=== PATIENT | male | born 1955 | race American Indian/Alaskan Native ===

== ENCOUNTER 2018-05-15 23:19 | Inpatient (IN) | payer SELFPAY ==
[2018-05-15] MEDS ORDERED: NACL 0.9% 1000 ML 1,000 ML IV ONE (23:39)
[2018-05-16 00:14] LABS: Mean Corpuscular HGB Conc 29 % (32-34); Mean Corpuscular Volume 108 fl (84-94); Platelet Count 277 K/mm3 (140-440); Red Blood Count 3.75 M/mm3 (3.65-5.03); Red Cell Distribution Width 18.5 % (13.2-15.2)
[2018-05-16 00:15] LABS: Hematocrit 40.4 % (35.5-45.6); Hemoglobin 11.8 gm/dl (11.8-15.2)
--- NOTE | 2018-05-16 00:20 | Emergency Department Report ---
ED General Adult HPI - General Stated complaint: WEAKNESS/YAO Time Seen by Provider: 05/15/18 23:36 - History of Present Illness Initial comments: Patient is a 63-year-old past medical history of diabetes who presents with weakness and high blood sugar. History is limited due to patient's condition EMS rate that his blood sugar was just read as high. Patient just asked to small breathing and only grunting. Patient is satting well. With no suppleme ntal oxygen. - Related Data Home Medications Medication Instructions Recorded Confirmed Last Taken Humalog 6 units SQ AC 03/26/18 03/26/18 Unknown Previous Rx's Medication Instructions Recorded Last Taken Type Detemir (Nf) [Levemir (Nf)] 18 units SUB-Q QHS #1 vial 03/27/18 Unknown Rx Levothyroxine [Synthroid] 75 mcg PO DAILY@0600 #30 tablet 03/27/18 Unknown Rx Allergies Allergy/AdvReac Type Severity Reaction Status Date / Time No Known Allergies Allergy Verified 03/25/18 07:26 ED Review of Systems ROS: Stated complaint: WEAKNESS/YAO Other details as noted in HPI Comment: Unobtainable due to pts medical conditions ED Past Medical Hx - Past Medical History Hx Hypertension: Yes Hx Congestive Heart Failure: No Hx Diabetes: Yes Hx Asthma: No Hx COPD: No - Social History Smoking Status: Current Some Day Smoker - Medications Home Medications: Home Medications Medication Instructions Recorded Confirmed Last Taken Type Humalog 6 units SQ AC 03/26/18 03/26/18 Unknown History Detemir (Nf) [Levemir (Nf)] 18 units SUB-Q QHS #1 vial 03/27/18 Unknown Rx Levothyroxine [Synthroid] 75 mcg PO DAILY@0600 #30 tablet 03/27/18 Unknown Rx ED Physical Exam - General General appearance: alert, in no apparent distress - Head Head exam: Present: atraumatic, normocephalic - Eye Eye exam: Present: normal appearance - ENT ENT exam: Present: mucous membranes moist - Neck Neck exam: Present: normal inspection - Respiratory Respiratory exam: Present: other (Kussmal breathing ). Absent: respiratory distress - Cardiovascular Cardiovascular Exam: Present: regular rate, normal rhythm. Absent: systolic murmur, diastolic murmur, rubs, gallop - GI/Abdominal GI/Abdominal exam: Present: soft, normal bowel sounds - Rectal Rectal exam: Present: deferred - Extremities Exam Extremities exam: Present: normal inspection - Back Exam Back exam: Present: normal inspection - Neurological Exam Neurological exam: Present: alert - Psychiatric Psychiatric exam: Present: other (somnolent ) - Skin Skin exam: Present: dry, intact, normal color, other (cold ). Absent: warm, rash ED Course Vital Signs 05/16/18 05/16/18 05/16/18 00:08 00:47 01:47 Temperature 91.5 F L Pulse Rate 106 H 86 104 H Respiratory 20 20 20 Rate Blood Pressure 110/57 Blood Pressure 104/68 [Left] O2 Sat by Pulse 98 100 100 Oximetry 05/16/18 05/16/18 05/16/18 02:19 02:30 02:45 Temperature Pulse Rate 93 H 104 H 94 H Respiratory 17 17 17 Rate Blood Pressure 120/64 120/64 127/77 Blood Pressure [Left] O2 Sat by Pulse 100 100 100 Oximetry 05/16/18 05/16/18 05/16/18 02:47 03:00 03:16 Temperature 90.1 F L Pulse Rate 95 H 94 H Respiratory 20 14 Rate Blood Pressure 127/77 127/77 Blood Pressure [Left] O2 Sat by Pulse 100 100 Oximetry 05/16/18 05/16/18 05/16/18 03:30 03:45 04:00 Temperature Pulse Rate 105 H 98 H 127 H Respiratory 14 16 13 Rate Blood Pressure 127/77 127/76 127/76 Blood Pressure [Left] O2 Sat by Pulse 100 100 100 Oximetry ED Medical Decision Making - Lab Data Result diagrams: 05/16/18 00:05 05/16/18 01:48 Lab Results 05/15/18 05/16/18 05/16/18 Range/Units Unknown 00:03 00:05 WBC 16.0 H (4.5-11.0) K/mm3 RBC 3.75 (3.65-5.03) M/mm3 Hgb 11.8 (11.8-15.2) gm/dl Hct 40.4 (35.5-45.6) % MCV 108 H (84-94) fl MCH 32 (28-32) pg MCHC 29 L (32-34) % RDW 18.5 H (13.2-15.2) % Plt Count 277 (140-440) K/mm3 Add Manual Diff Complete Total Counted 100 Seg Neutrophils % [employer] Seg Neuts % (Manual) 90.0 H (40.0-70.0) % Band Neutrophils % 4.0 % Lymphocytes % (Manual) 1.0 L (13.4-35.0) % Reactive Lymphs % (Man) 0 % Monocytes % (Manual) 3.0 (0.0-7.3) % Eosinophils % (Manual) 0 (0.0-4.3) % Basophils % (Manual) 0 (0.0-1.8) % Metamyelocytes % 2.0 % Myelocytes % 0 % Promyelocytes % 0 % Blast Cells % 0 % Nucleated RBC % Not Reportable Seg Neutrophils # Man 14.4 H (1.8-7.7) K/mm3 Band Neutrophils # 0.6 K/mm3 Lymphocytes # (Manual) 0.2 L (1.2-5.4) K/mm3 Abs React Lymphs (Man) 0.0 K/mm3 Monocytes # (Manual) 0.5 (0.0-0.8) K/mm3 Eosinophils # (Manual) 0.0 (0.0-0.4) K/mm3 Basophils # (Manual) 0.0 (0.0-0.1) K/mm3 Metamyelocytes # 0.3 K/mm3 Myelocytes # 0.0 K/mm3 Promyelocytes # 0.0 K/mm3 Blast Cells # 0.0 K/mm3 WBC Morphology Not Reportable Hypersegmented Neuts Not Reportable Hyposegmented Neuts Not Reportable Hypogranular Neuts Not Reportable Smudge Cells Not Reportable Toxic Granulation Not Reportable Toxic Vacuolation Not Reportable Dohle Bodies Not Reportable Pelger-Huet Anomaly Not Reportable Karel Rods Not Reportable Platelet Estimate Appears normal Clumped Platelets Not Reportable Plt Clumps, EDTA Not Reportable Large Platelets Not Reportable Giant Platelets Not Reportable Platelet Satelliting Not Reportable Plt Morphology Comment Not Reportable RBC Morphology Not Reportable Dimorphic RBCs Not Reportable Polychromasia Not Reportable Hypochromasia Not Reportable Poikilocytosis 2+ Anisocytosis 2+ Microcytosis Not Reportable Macrocytosis 1+ Spherocytes Not Reportable Pappenheimer Bodies Not Reportable Sickle Cells Not Reportable Target Cells Not Reportable Tear Drop Cells Not Reportable Ovalocytes 1+ Helmet Cells Not Reportable [place] Bodies Not Reportable [place] Rings Not Reportable [place] Cells Not Reportable Bite Cells Not Reportable Crenated Cell Not Reportable Elliptocytes Few Acanthocytes (Spur) 2+ Rouleaux Not Reportable Hemoglobin C Crystals Not Reportable Schistocytes Not Reportable Malaria parasites Not Reportable Gibran Bodies Not Reportable Hem Pathologist Commnt No Sodium (137-145) mmol/L Potassium (3.6-5.0) mmol/L Chloride (98-107) mmol/L Carbon Dioxide (22-30) mmol/L Anion Gap mmol/L BUN (9-20) mg/dL Creatinine (0.8-1.5) mg/dL Estimated GFR ml/min BUN/Creatinine Ratio % Glucose (75-100) mg/dL POC Glucose 409 H (70-105) Lactic Acid (0.7-2.0) mmol/L Calcium (8.4-10.2) mg/dL Phosphorus (2.5-4.5) mg/dL Magnesium (1.7-2.3) mg/dL Total Bilirubin (0.1-1.2) mg/dL AST (5-40) units/L ALT (7-56) units/L Alkaline Phosphatase (35-129) units/L Troponin T (0.00-0.029) ng/mL Total Protein (6.3-8.2) g/dL Albumin (3.9-5) g/dL Albumin/Globulin Ratio % Urine Color Straw (Yellow) Urine Turbidity Clear (Clear) Urine pH 5.0 (5.0-7.0) Ur Specific [place] 1.012 (1.003-1.030) Urine Protein <15 mg/dl (Negative) mg/dL Urine Glucose (UA) >=500 (Negative) mg/dL Urine Ketones 80 (Negative) mg/dL Urine Blood Mod (Negative) Urine Nitrite Neg (Negative) Urine Bilirubin Neg (Negative) Urine Urobilinogen < 2.0 (<2.0) mg/dL Ur Leukocyte Esterase Neg (Negative) Urine WBC (Auto) < 1.0 (0.0-6.0) /HPF Urine RBC (Auto) < 1.0 (0.0-6.0) /HPF U Epithel Cells (Auto) 1.0 (0-13.0) /HPF 05/16/18 05/16/18 05/16/18 Range/Units 00:37 01:48 01:48 WBC (4.5-11.0) K/mm3 RBC (3.65-5.03) M/mm3 Hgb (11.8-15.2) gm/dl Hct (35.5-45.6) % MCV (84-94) fl MCH (28-32) pg MCHC (32-34) % RDW (13.2-15.2) % Plt Count (140-440) K/mm3 Add Manual Diff Total Counted Seg Neutrophils % Seg Neuts % (Manual) (40.0-70.0) % Band Neutrophils % % Lymphocytes % (Manual) (13.4-35.0) % Reactive Lymphs % (Man) % Monocytes % (Manual) (0.0-7.3) % Eosinophils % (Manual) (0.0-4.3) % Basophils % (Manual) (0.0-1.8) % Metamyelocytes % % Myelocytes % % Promyelocytes % % Blast Cells % % Nucleated RBC % Seg Neutrophils # Man (1.8-7.7) K/mm3 Band Neutrophils # K/mm3 Lymphocytes # (Manual) (1.2-5.4) K/mm3 Abs React Lymphs (Man) K/mm3 Monocytes # (Manual) (0.0-0.8) K/mm3 Eosinophils # (Manual) (0.0-0.4) K/mm3 Basophils # (Manual) (0.0-0.1) K/mm3 Metamyelocytes # K/mm3 Myelocytes # K/mm3 Promyelocytes # K/mm3 Blast Cells # K/mm3 WBC Morphology Hypersegmented Neuts Hyposegmented Neuts Hypogranular Neuts Smudge Cells Toxic Granulation Toxic Vacuolation Dohle Bodies Pelger-Huet Anomaly Karel Rods Platelet Estimate Clumped Platelets Plt Clumps, EDTA Large Platelets Giant Platelets Platelet Satelliting Plt Morphology Comment RBC Morphology Dimorphic RBCs Polychromasia Hypochromasia Poikilocytosis Anisocytosis Microcytosis Macrocytosis Spherocytes Pappenheimer Bodies Sickle Cells Target Cells Tear Drop Cells Ovalocytes Helmet Cells Mathew[place] Bodies [place] Rings Rick Cells Bite Cells Crenated Cell Elliptocytes Acanthocytes (Spur) Rouleaux Hemoglobin C Crystals Schistocytes Malaria parasites Gibran Bodies Hem Pathologist Commnt Sodium 134 L (137-145) mmol/L Potassium 5.0 (3.6-5.0) mmol/L Chloride 87.2 L (98-107) mmol/L Carbon Dioxide 3 L* (22-30) mmol/L Anion Gap 49 mmol/L BUN 18 (9-20) mg/dL Creatinine 1.1 (0.8-1.5) mg/dL Estimated GFR > 60 ml/min BUN/Creatinine Ratio 16 % Glucose 678 H* (75-100) mg/dL POC Glucose (70-105) Lactic Acid 6.60 H* (0.7-2.0) mmol/L Calcium 9.1 (8.4-10.2) mg/dL Phosphorus 5.80 H (2.5-4.5) mg/dL Magnesium 2.00 (1.7-2.3) mg/dL Total Bilirubin 0.50 (0.1-1.2) mg/dL AST 169 H (5-40) units/L ALT 46 (7-56) units/L Alkaline Phosphatase 145 H (35-129) units/L Troponin T 0.022 (0.00-0.029) ng/mL Total Protein 6.9 (6.3-8.2) g/dL Albumin 4.6 (3.9-5) g/dL Albumin/Globulin Ratio 2.0 % Urine Color (Yellow) Urine Turbidity (Clear) Urine pH (5.0-7.0) Ur Specific [place] (1.003-1.030) Urine Protein (Negative) mg/dL Urine Glucose (UA) (Negative) mg/dL Urine Ketones (Negative) mg/dL Urine Blood (Negative) Urine Nitrite (Negative) Urine Bilirubin (Negative) Urine Urobilinogen (<2.0) mg/dL Ur Leukocyte Esterase (Negative) Urine WBC (Auto) (0.0-6.0) /HPF Urine RBC (Auto) (0.0-6.0) /HPF U Epithel Cells (Auto) (0-13.0) /HPF 05/16/18 Range/Units 01:48 WBC (4.5-11.0) K/mm3 RBC (3.65-5.03) M/mm3 Hgb (11.8-15.2) gm/dl Hct (35.5-45.6) % MCV (84-94) fl MCH (28-32) pg MCHC (32-34) % RDW (13.2-15.2) % Plt Count (140-440) K/mm3 Add Manual Diff Total Counted Seg Neutrophils % Seg Neuts % (Manual) (40.0-70.0) % Band Neutrophils % % Lymphocytes % (Manual) (13.4-35.0) % Reactive Lymphs % (Man) % Monocytes % (Manual) (0.0-7.3) % Eosinophils % (Manual) (0.0-4.3) % Basophils % (Manual) (0.0-1.8) % Metamyelocytes % % Myelocytes % % Promyelocytes % % Blast Cells % % Nucleated RBC % Seg Neutrophils # Man (1.8-7.7) K/mm3 Band Neutrophils # K/mm3 Lymphocytes # (Manual) (1.2-5.4) K/mm3 Abs React Lymphs (Man) K/mm3 Monocytes # (Manual) (0.0-0.8) K/mm3 Eosinophils # (Manual) (0.0-0.4) K/mm3 Basophils # (Manual) (0.0-0.1) K/mm3 Metamyelocytes # K/mm3 Myelocytes # K/mm3 Promyelocytes # K/mm3 Blast Cells # K/mm3 WBC Morphology Hypersegmented Neuts Hyposegmented Neuts Hypogranular Neuts Smudge Cells Toxic Granulation Toxic Vacuolation Dohle Bodies Pelger-Huet Anomaly Karel Rods Platelet Estimate Clumped Platelets Plt Clumps, EDTA Large Platelets Giant Platelets Platelet Satelliting Plt Morphology Comment RBC Morphology Dimorphic RBCs Polychromasia Hypochromasia Poikilocytosis Anisocytosis Microcytosis Macrocytosis Spherocytes Pappenheimer Bodies Sickle Cells Target Cells Tear Drop Cells Ovalocytes Helmet Cells Mathe[place] Bodies [place] Rings Rick Cells Bite Cells Crenated Cell Elliptocytes Acanthocytes (Spur) Rouleaux Hemoglobin C Crystals Schistocytes Malaria parasites Gibran Bodies Hem Pathologist Commnt Sodium 134 L (137-145) mmol/L Potassium 4.9 (3.6-5.0) mmol/L Chloride 88.8 L (98-107) mmol/L Carbon Dioxide 4 L* (22-30) mmol/L Anion Gap 46 mmol/L BUN 18 (9-20) mg/dL Creatinine 1.1 (0.8-1.5) mg/dL Estimated GFR > 60 ml/min BUN/Creatinine Ratio 16 % Glucose 666 H* (75-100) mg/dL POC Glucose (70-105) Lactic Acid (0.7-2.0) mmol/L Calcium 9.0 (8.4-10.2) mg/dL Phosphorus (2.5-4.5) mg/dL Magnesium (1.7-2.3) mg/dL Total Bilirubin (0.1-1.2) mg/dL AST (5-40) units/L ALT (7-56) units/L Alkaline Phosphatase (35-129) units/L Troponin T (0.00-0.029) ng/mL Total Protein (6.3-8.2) g/dL Albumin (3.9-5) g/dL Albumin/Globulin Ratio % Urine Color (Yellow) Urine Turbidity (Clear) Urine pH (5.0-7.0) Ur Specific [place] (1.003-1.030) Urine Protein (Negative) mg/dL Urine Glucose (UA) (Negative) mg/dL Urine Ketones (Negative) mg/dL Urine Blood (Negative) Urine Nitrite (Negative) Urine Bilirubin (Negative) Urine Urobilinogen (<2.0) mg/dL Ur Leukocyte Esterase (Negative) Urine WBC (Auto) (0.0-6.0) /HPF Urine RBC (Auto) (0.0-6.0) /HPF U Epithel Cells (Auto) (0-13.0) /HPF - EKG Data -: EKG Interpreted by Ca - EKG Data 05/16/18 04:03 EKG shows normal sinus rhythm left anterior fascicular block and low voltage in the precordial leads no axis deviation no ST segment elevation - Radiology Data Radiology results: report reviewed, image reviewed Chest x-ray: Shows no acute cardiopulmonary disease - Medical Decision Making Chief medical diagnosis: Diabetic ketoacidosis Differential medical diagnosis: Hyperosmolar nonketotic state, sepsis, pneumonia, urinary tract infection I will place patient on EFREM hugger, PATIENT 30 mL per kilo bolus, IV antibiotics, insulin drip CBC BMP troponin Helm catheter and I will admit madina ent to the ICU. Discussed with Dr. Ortiz and discussed the patient's daughter and they both agree with plan Critical Care Time: Yes Critical care time in (mins) excluding proc time.: 60 Critical care attestation.: If time is entered above; I have spent that time in minutes in the direct care of this critically ill patient, excluding procedure time. Critical care time spent at the patient's bedside 30 minutes Critical care time spent talking to patient's family 10 minutes Critical care time spent reviewing laboratory tests 20 minutes ED Disposition Clinical Impression: DKA (diabetic ketoacidosis) Qualifiers: Diabetes mellitus type: type 2 Diabetes mellitus complication detail: without coma Qualified Code(s): E11.10 - Type 2 diabetes mellitus with ketoacidosis without coma Hypothermia Qualifiers: Encounter type: initial encounter Qualified Code(s): T68.XXXA - Hypothermia, initial encounter Sepsis Qualifiers: Sepsis type: sepsis due to unspecified organism Qualified Code(s): A41.9 - Sepsis, unspecified organism Disposition: OP ADMIT IP TO THIS HOSP Is pt being admited?: Yes Does the pt Need Aspirin: No Condition: Stable
[2018-05-16] MEDS ORDERED: NACL 0.9% 1000 ML IV ONE (00:23)
[2018-05-16] MEDS ORDERED: ZOSYN/NS 3.375GM/50ML 3.375 GM/50 ML BAG IV ONE (00:25)
[2018-05-16 00:52] LABS: Anisocytosis 2+; Band Neutrophils # (Manual) 0.6 K/mm3; Basophils % (Manual) 0 % (0.0-1.8); Eosinophils % (Manual) 0 % (0.0-4.3); Macrocytosis 1+; Poikilocytosis 2+; Total Cells Counted 100
[2018-05-16 00:53] LABS: Ovalocytes 1+
[2018-05-16 01:08] LABS: Alanine Aminotransferase 46 units/L (7-56); Albumin 4.6 g/dL (3.9-5); BUN/Creatinine Ratio 16; Blood Urea Nitrogen 18 mg/dL (9-20); Calcium 9.1 mg/dL (8.4-10.2); Hemolysis Index 32
[2018-05-16] MEDS ORDERED: D50W (25GM) Syringe IV PRN (01:33)
[2018-05-16 02:11] LABS: Bilirubin,Urine NEG (Negative); Blood,Urine MOD (Negative); Color,Urine Straw (Yellow); Protein,Urine <15 mg/dL mg/dL (Negative); RBC,Urine < 1.0 /HPF (0.0-6.0); Urobilinogen,Urine < 2.0 mg/dL (<2.0)
[2018-05-16 02:13] LABS: WBC,Urine < 1.0 /HPF (0.0-6.0)
--- NOTE | 2018-05-16 02:24 | XRay Report ---
FINAL REPORT PROCEDURE: XR CHEST 1V AP TECHNIQUE: Chest radiograph anteroposterior view. CPT 01263 HISTORY: cough COMPARISON: No prior studies are available for comparison. FINDINGS: Heart: Normal. Mediastinum/Vessels: Normal. Lungs/Pleural space: Normal. Bony thorax: No acute osseous abnormality. Life support devices: None. IMPRESSION: No acute cardiopulmonary abnormality.
[2018-05-16 02:33] LABS: BUN/Creatinine Ratio 16; Blood Urea Nitrogen 18 mg/dL (9-20); Hemolysis Index 16
[2018-05-16] MEDS ORDERED: SODIUM BICARBONATE IV ONE (02:57)
[2018-05-16] MEDS ORDERED: NACL 0.9% 1000 ML 1,000 ML IV SCH (03:00)
--- NOTE | 2018-05-16 03:00 | History and Physical Report ---
History of Present Illness Date of examination: 05/16/18 History of present illness: 63-year-old man with a history of diabetes, hypothyroidism was brought to the emergency room today because he seemed confused. History per daughter at bedside. Review of systems is unobtainable PAST MEDICAL HISTORY: diabetes, hypothyroidism PAST SURGICAL HISTORY: None SOCIAL HISTORY: Denies alcohol, drugs, tobacco FAMILY HISTORY: Hypertension Medications and Allergies Allergies Allergy/AdvReac Type Severity Reaction Status Date / Time No Known Allergies Allergy Verified 03/25/18 07:26 Home Medications Medication Instructions Recorded Confirmed Last Taken Type RX: Levothyroxine [Synthroid] 75 mcg PO DAILY@0600 #30 tablet 03/27/18 05/17/18 Unknown Rx Humalog 6 units SQ AC #1 vial 05/18/18 Unknown Rx RX: Detemir (Nf) [Levemir (Nf)] 18 units SUB-Q QHS #1 vial 05/18/18 Unknown Rx Active Meds: Active Medications Dextrose (D50w (25gm) Syringe) 0 ml IV PRN PRN PRN Reason: Hypoglycemia Enoxaparin Sodium (Lovenox) 30 mg SUB-Q QDAY ISAIAS Insulin Human Regular 100 (units/ Sodium Chloride) 100 mls @ 1 mls/hr IV TITR ISAIAS; Protocol Sodium Chloride (Nacl 0.9% 1000 Ml) 1,000 mls @ 150 mls/hr IV DIRECT ISAIAS Sodium Bicarbonate (Sodium Bicarbonate) 50 meq IV ONCE ONE Stop: 05/16/18 02:58 Exam - Physical Exam Narrative exam: General Apperance: The patient lying in bed, breathing comfortable HEENT: Normocephalic, atraumatic. Pupils equally round and reactive to light, EOMI, no sclericterus or JVD or thyromegaly or nodule. , no carotid bruit, mucous membranes moist, no exudate or erythema Heart: S1-S2, regular is rhythm Lungs: Clear to auscultation bilaterally, breathing comfortable Abdomen: Positive bowel sounds, soft, nontender, nondistended, no organomegaly Extremities: No edema cyanosis clubbing Skin: no rash, nodule, warm and dry Neuro: cranial nerves 2-12 intact, speech is fluent, motor/sensory intact - Constitutional Vitals: Temp Pulse Resp BP Pulse Ox 91.5 F L 106 H 20 110/57 98 05/16/18 00:08 05/16/18 00:08 05/16/18 00:08 05/16/18 00:08 05/16/18 00:08 Results - Labs CBC & Chem 7: 05/18/18 08:04 05/18/18 13:16 Labs: Abnormal lab results 05/16/18 05/16/18 05/16/18 Range/Units 00:03 00:05 00:37 WBC 16.0 H (4.5-11.0) K/mm3 MCV 108 H (84-94) fl MCHC 29 L (32-34) % RDW 18.5 H (13.2-15.2) % Seg Neuts % (Manual) 90.0 H (40.0-70.0) % Lymphocytes % (Manual) 1.0 L (13.4-35.0) % Seg Neutrophils # Man 14.4 H (1.8-7.7) K/mm3 Lymphocytes # (Manual) 0.2 L (1.2-5.4) K/mm3 Sodium 134 L (137-145) mmol/L Chloride 87.2 L (98-107) mmol/L Carbon Dioxide 3 L* (22-30) mmol/L Glucose 678 H* (75-100) mg/dL POC Glucose 409 H (70-105) Lactic Acid (0.7-2.0) mmol/L Phosphorus (2.5-4.5) mg/dL AST 169 H (5-40) units/L Alkaline Phosphatase 145 H (35-129) units/L 05/16/18 05/16/18 05/16/18 Range/Units 01:48 01:48 01:48 WBC (4.5-11.0) K/mm3 MCV (84-94) fl MCHC (32-34) % RDW (13.2-15.2) % Seg Neuts % (Manual) (40.0-70.0) % Lymphocytes % (Manual) (13.4-35.0) % Seg Neutrophils # Man (1.8-7.7) K/mm3 Lymphocytes # (Manual) (1.2-5.4) K/mm3 Sodium 134 L (137-145) mmol/L Chloride 88.8 L (98-107) mmol/L Carbon Dioxide 4 L* (22-30) mmol/L Glucose 666 H* (75-100) mg/dL POC Glucose (70-105) Lactic Acid 6.60 H* (0.7-2.0) mmol/L Phosphorus 5.80 H (2.5-4.5) mg/dL AST (5-40) units/L Alkaline Phosphatase (35-129) units/L - Imaging and Cardiology EKG: image reviewed Chest x-ray: report reviewed Assessment and Plan Assessment DKA SIRS Metabolic acidosis Hypothyroidism Plan Admit to medicine Stat DKA protocol with IV fluids, insulin drip Check serial chemistry, hemoglobin A1c, consult critical care Give 1 amp of bicarbonate, start IV Zosyn, follow cultures DVT prophylaxis
[2018-05-16] MEDS ORDERED: SODIUM BICARBONATE PEDIATRIC ONE (03:02)
[2018-05-16] MEDS: HumuLIN R 100 UNITS in NACL 0.9% 99 ML IV SCH ×2 (03:35→13:05)
[2018-05-16] MEDS ORDERED: SODIUM CHLORIDE FLUSH SYRINGE 10 ML IV PRN (03:59)
[2018-05-16] MEDS ORDERED: ZOFRAN IV PRN (03:59)
[2018-05-16] MEDS ORDERED: TYLENOL PO PRN (03:59)
[2018-05-16] MEDS ORDERED: D5/0.45NS 1,000 ML IV SCH (04:00)
[2018-05-16 05:04] LABS: BUN/Creatinine Ratio 16; Blood Urea Nitrogen 18 mg/dL (9-20); Calcium 8.5 mg/dL (8.4-10.2); Hemolysis Index 20
--- NOTE | 2018-05-16 08:31 | Event Note ---
Date: 05/16/18 Patient with diabetes, presents with DKA. I have seen and examined him. Continue Insulin drip. Add Bicarb drip for CO2 of 4.
[2018-05-16] MEDS: SODIUM BICARBONATE 100 MEQ in STERILE WATER 1,000 ML IV SCH ×2 (09:05→22:26)
[2018-05-16] MEDS: ZOSYN/NS 3.375GM/50ML 3.375 GM/50 ML BAG IV SCH ×2 (09:06→16:05)
[2018-05-16] MEDS: LOVENOX SUB-Q SCH (09:06)
[2018-05-16] MEDS: SODIUM CHLORIDE FLUSH SYRINGE 10 ML IV SCH ×2 (09:07→22:33)
[2018-05-16] MEDS ORDERED: LOVENOX SUB-Q SCH (10:00)
[2018-05-16] MEDS ORDERED: D5W/0.45% NACL/KCL 20 MEQ 20 MEQ/1,000 ML BAG IV SCH (12:00)
--- NOTE | 2018-05-16 12:28 | Consultation ---
History of Present Illness - Reason for Consult Consult date: 05/16/18 DKA Requesting physician: KRISTI GIBBS - History of Present Illness 63 y/o male with known diabetes admitted with DKA secondary to dietary indiscretion. Past History Past Medical History: diabetes, hypothyroidism Past Surgical History: No surgical history Social history: no significant social history Family history: no significant family history Medications and Allergies Allergies Allergy/AdvReac Type Severity Reaction Status Date / Time No Known Allergies Allergy Verified 03/25/18 07:26 Home Medications Medication Instructions Recorded Confirmed Last Taken Type Humalog 6 units SQ AC 03/26/18 03/26/18 Unknown History Detemir (Nf) [Levemir (Nf)] 18 units SUB-Q QHS #1 vial 03/27/18 Unknown Rx Levothyroxine [Synthroid] 75 mcg PO DAILY@0600 #30 tablet 03/27/18 Unknown Rx Active Meds: Active Medications Acetaminophen (Tylenol) 650 mg PO Q4H PRN PRN Reason: Pain MILD(1-3)/Fever >100.5/GARCIA Dextrose (D50w (25gm) Syringe) 0 ml IV PRN PRN PRN Reason: Hypoglycemia Enoxaparin Sodium (Lovenox) 40 mg SUB-Q QDAY@1000 ISAIAS Last Admin: 05/16/18 09:06 Dose: 40 mg Documented by: Insulin Human Regular 100 (units/ Sodium Chloride) 100 mls @ 1 mls/hr IV TITR [facility]; Protocol Last Titration: 05/16/18 12:07 Dose: Infused Documented by: Sodium Chloride (Nacl 0.9% 1000 Ml) 1,000 mls @ 150 mls/hr IV DIRECT ISAIAS Dextrose/Sodium Chloride (D5/0.45ns) 1,000 mls @ 150 mls/hr IV DIRECT ISAIAS Piperacillin Sod/Tazobactam Sod (Zosyn/Ns 3.375gm/50ml) 3.375 gm in 50 mls @ 100 mls/hr IV Q8H ISAIAS; Protocol Last Admin: 05/16/18 09:06 Dose: 100 mls/hr Documented by: Sodium Bicarbonate 100 meq/ (Sterile Water) 1,100 mls @ 100 mls/hr IV DIRECT ISAIAS Last Admin: 05/16/18 09:05 Dose: 100 mls/hr Documented by: Potassium Chloride/Dextrose/Sod Cl (D5w/0.45% Nacl/Kcl 20 Meq) 20 meq in 1,000 mls @ 125 mls/hr IV DIRECT ISAIAS Ondansetron HCl (Zofran) 4 mg IV Q8H PRN PRN Reason: Nausea And Vomiting Sodium Chloride (Sodium Chloride Flush Syringe 10 Ml) 10 ml IV BID [facility] Last Admin: 05/16/18 09:07 Dose: 10 ml Documented by: Sodium Chloride (Sodium Chloride Flush Syringe 10 Ml) 10 ml IV PRN PRN PRN Reason: LINE FLUSH Review of Systems All systems: negative Exam - Constitutional Vitals: Temp Pulse Resp BP Pulse Ox 98.2 F 92 H 20 105/63 98 05/16/18 12:00 05/16/18 12:00 05/16/18 12:00 05/16/18 12:00 05/16/18 12:00 General appearance: Present: no acute distress, well-nourished - EENT Eyes: Present: PERRL, EOM intact ENT: hearing intact, clear oral mucosa - Neck Neck: Present: supple, normal ROM - Respiratory Respiratory effort: normal Respiratory: bilateral: CTA - Cardiovascular Rhythm: regular - Extremities Extremities: no ischemia Results - Labs CBC & Chem 7: 05/16/18 00:05 05/16/18 04:27 Labs: Abnormal lab results 05/16/18 05/16/18 05/16/18 Range/Units 00:03 00:05 00:37 WBC 16.0 H (4.5-11.0) K/mm3 MCV 108 H (84-94) fl MCHC 29 L (32-34) % RDW 18.5 H (13.2-15.2) % Seg Neuts % (Manual) 90.0 H (40.0-70.0) % Lymphocytes % (Manual) 1.0 L (13.4-35.0) % Seg Neutrophils # Man 14.4 H (1.8-7.7) K/mm3 Lymphocytes # (Manual) 0.2 L (1.2-5.4) K/mm3 Sodium 134 L (137-145) mmol/L Chloride 87.2 L (98-107) mmol/L Carbon Dioxide 3 L* (22-30) mmol/L Glucose 678 H* (75-100) mg/dL POC Glucose 409 H (70-105) Hemoglobin A1c (4-6) % Lactic Acid (0.7-2.0) mmol/L Phosphorus (2.5-4.5) mg/dL AST 169 H (5-40) units/L Alkaline Phosphatase 145 H (35-129) units/L 05/16/18 05/16/18 05/16/18 Range/Units 01:48 01:48 01:48 WBC (4.5-11.0) K/mm3 MCV (84-94) fl MCHC (32-34) % RDW (13.2-15.2) % Seg Neuts % (Manual) (40.0-70.0) % Lymphocytes % (Manual) (13.4-35.0) % Seg Neutrophils # Man (1.8-7.7) K/mm3 Lymphocytes # (Manual) (1.2-5.4) K/mm3 Sodium 134 L (137-145) mmol/L Chloride 88.8 L (98-107) mmol/L Carbon Dioxide 4 L* (22-30) mmol/L Glucose 666 H* (75-100) mg/dL POC Glucose (70-105) Hemoglobin A1c (4-6) % Lactic Acid 6.60 H* (0.7-2.0) mmol/L Phosphorus 5.80 H (2.5-4.5) mg/dL AST (5-40) units/L Alkaline Phosphatase (35-129) units/L 05/16/18 05/16/18 05/16/18 Range/Units 03:22 04:27 04:27 WBC (4.5-11.0) K/mm3 MCV (84-94) fl MCHC (32-34) % RDW (13.2-15.2) % Seg Neuts % (Manual) (40.0-70.0) % Lymphocytes % (Manual) (13.4-35.0) % Seg Neutrophils # Man (1.8-7.7) K/mm3 Lymphocytes # (Manual) (1.2-5.4) K/mm3 Sodium 136 L (137-145) mmol/L Chloride 91.7 L (98-107) mmol/L Carbon Dioxide 4 L* (22-30) mmol/L Glucose 636 H* (75-100) mg/dL POC Glucose > 500 H (70-105) Hemoglobin A1c (4-6) % Lactic Acid 5.80 H* (0.7-2.0) mmol/L Phosphorus (2.5-4.5) mg/dL AST (5-40) units/L Alkaline Phosphatase (35-129) units/L 05/16/18 05/16/18 05/16/18 Range/Units 04:27 05:04 06:12 WBC (4.5-11.0) K/mm3 MCV (84-94) fl MCHC (32-34) % RDW (13.2-15.2) % Seg Neuts % (Manual) (40.0-70.0) % Lymphocytes % (Manual) (13.4-35.0) % Seg Neutrophils # Man (1.8-7.7) K/mm3 Lymphocytes # (Manual) (1.2-5.4) K/mm3 Sodium (137-145) mmol/L Chloride (98-107) mmol/L Carbon Dioxide (22-30) mmol/L Glucose (75-100) mg/dL POC Glucose > 500 H 428 H (70-105) Hemoglobin A1c 10.8 H (4-6) % Lactic Acid (0.7-2.0) mmol/L Phosphorus (2.5-4.5) mg/dL AST (5-40) units/L Alkaline Phosphatase (35-129) units/L 05/16/18 05/16/18 05/16/18 Range/Units 07:36 08:42 10:10 WBC (4.5-11.0) K/mm3 MCV (84-94) fl MCHC (32-34) % RDW (13.2-15.2) % Seg Neuts % (Manual) (40.0-70.0) % Lymphocytes % (Manual) (13.4-35.0) % Seg Neutrophils # Man (1.8-7.7) K/mm3 Lymphocytes # (Manual) (1.2-5.4) K/mm3 Sodium (137-145) mmol/L Chloride (98-107) mmol/L Carbon Dioxide (22-30) mmol/L Glucose (75-100) mg/dL POC Glucose 414 H 389 H 312 H (70-105) Hemoglobin A1c (4-6) % Lactic Acid (0.7-2.0) mmol/L Phosphorus (2.5-4.5) mg/dL AST (5-40) units/L Alkaline Phosphatase (35-129) units/L 05/16/18 05/16/18 Range/Units 11:03 12:08 WBC (4.5-11.0) K/mm3 MCV (84-94) fl MCHC (32-34) % RDW (13.2-15.2) % Seg Neuts % (Manual) (40.0-70.0) % Lymphocytes % (Manual) (13.4-35.0) % Seg Neutrophils # Man (1.8-7.7) K/mm3 Lymphocytes # (Manual) (1.2-5.4) K/mm3 Sodium (137-145) mmol/L Chloride (98-107) mmol/L Carbon Dioxide (22-30) mmol/L Glucose (75-100) mg/dL POC Glucose 276 H 208 H (70-105) Hemoglobin A1c (4-6) % Lactic Acid (0.7-2.0) mmol/L Phosphorus (2.5-4.5) mg/dL AST (5-40) units/L Alkaline Phosphatase (35-129) units/L - Imaging and Cardiology Chest x-ray: image reviewed (clear) Assessment and Plan 63 y/o male with diabetic ketoacidosis secondary to dietary noncompliance 1. Continue Insulin drip 2. Chemistries every 6 hours until Anion Gap is less than 15 3. NPO 4. Continue ICU monitoring CCT 31 minutes.
[2018-05-16 18:26] LABS: BUN/Creatinine Ratio 13; Blood Urea Nitrogen 13 mg/dL (9-20); Calcium 8.2 mg/dL (8.4-10.2); Hemolysis Index 12
[2018-05-17 00:36] LABS: BUN/Creatinine Ratio 13; Blood Urea Nitrogen 12 mg/dL (9-20); Calcium 8.2 mg/dL (8.4-10.2); Hemolysis Index 12
[2018-05-17] MEDS: ZOSYN/NS 3.375GM/50ML 3.375 GM/50 ML BAG IV SCH ×4 (01:00→23:51)
[2018-05-17 02:17] LABS: BUN/Creatinine Ratio 15; Blood Urea Nitrogen 12 mg/dL (9-20); Calcium 8.2 mg/dL (8.4-10.2); Hemolysis Index 17
[2018-05-17 03:32] LABS: BUN/Creatinine Ratio 13; Blood Urea Nitrogen 12 mg/dL (9-20); Calcium 8.4 mg/dL (8.4-10.2); Hemolysis Index 27
[2018-05-17 08:24] LABS: Hematocrit 28.7 % (35.5-45.6); Hemoglobin 9.8 gm/dl (11.8-15.2); Mean Corpuscular HGB Conc 34 % (32-34); Mean Corpuscular Volume 93 fl (84-94); Platelet Count 186 K/mm3 (140-440); Red Cell Distribution Width 15.6 % (13.2-15.2)
--- NOTE | 2018-05-17 08:43 | Progress Note ---
Assessment and Plan Assessment and plan: Diabetic keto acidosis Anion gap closed Glucose level controlled Discontinue Insulin drip Start Lantus Qhs and Humalog Qac subcut Hypothyroidism Full code status. History Interval history: Feels better No nausea No vomiting Blood glucose controlled Hospitalist Physical - Constitutional Vitals: Temp Pulse Resp BP Pulse Ox 99.7 F H 78 15 109/64 97 05/17/18 03:26 05/17/18 08:00 05/17/18 08:00 05/17/18 08:00 05/17/18 08:23 General appearance: Present: no acute distress, well-nourished - EENT Eyes: Present: PERRL - Neck Neck: Present: supple - Respiratory Respiratory effort: normal Respiratory: bilateral: CTA - Cardiovascular Rhythm: regular Heart Sounds: Present: S1 & S2 - Extremities Extremities: no ischemia - Abdominal General gastrointestinal: soft, non-tender, non-distended, normal bowel sounds - Integumentary Integumentary: Present: clear - Neurologic Neurologic: moves all extremities Results - Labs CBC & Chem 7: 05/18/18 08:04 05/18/18 13:16 Labs: Laboratory Last Values WBC 13.1 K/mm3 (4.5-11.0) H 05/17/18 08:10 RBC 3.10 M/mm3 (3.65-5.03) L 05/17/18 08:10 Hgb 9.8 gm/dl (11.8-15.2) L 05/17/18 08:10 Hct 28.7 % (35.5-45.6) L D 05/17/18 08:10 MCV 93 fl (84-94) 05/17/18 08:10 MCH 32 pg (28-32) 05/17/18 08:10 MCHC 34 % (32-34) 05/17/18 08:10 RDW 15.6 % (13.2-15.2) H 05/17/18 08:10 Plt Count 186 K/mm3 (140-440) 05/17/18 08:10 Add Manual Diff Complete 05/16/18 00:05 Total Counted 100 05/16/18 00:05 Seg Neutrophils % Contracts Paralegal 05/16/18 00:05 Seg Neuts % (Manual) 90.0 % (40.0-70.0) H 05/16/18 00:05 Band Neutrophils % 4.0 % 05/16/18 00:05 Lymphocytes % (Manual) 1.0 % (13.4-35.0) L 05/16/18 00:05 Reactive Lymphs % (Man) 0 % 05/16/18 00:05 Monocytes % (Manual) 3.0 % (0.0-7.3) 05/16/18 00:05 Eosinophils % (Manual) 0 % (0.0-4.3) 05/16/18 00:05 Basophils % (Manual) 0 % (0.0-1.8) 05/16/18 00:05 Metamyelocytes % 2.0 % 05/16/18 00:05 Myelocytes % 0 % 05/16/18 00:05 Promyelocytes % 0 % 05/16/18 00:05 Blast Cells % 0 % 05/16/18 00:05 Nucleated RBC % Not Reportable 05/16/18 00:05 Seg Neutrophils # Man 14.4 K/mm3 (1.8-7.7) H 05/16/18 00:05 Band Neutrophils # 0.6 K/mm3 05/16/18 00:05 Lymphocytes # (Manual) 0.2 K/mm3 (1.2-5.4) L 05/16/18 00:05 Abs React Lymphs (Man) 0.0 K/mm3 05/16/18 00:05 Monocytes # (Manual) 0.5 K/mm3 (0.0-0.8) 05/16/18 00:05 Eosinophils # (Manual) 0.0 K/mm3 (0.0-0.4) 05/16/18 00:05 Basophils # (Manual) 0.0 K/mm3 (0.0-0.1) 05/16/18 00:05 Metamyelocytes # 0.3 K/mm3 05/16/18 00:05 Myelocytes # 0.0 K/mm3 05/16/18 00:05 Promyelocytes # 0.0 K/mm3 05/16/18 00:05 Blast Cells # 0.0 K/mm3 05/16/18 00:05 WBC Morphology Not Reportable 05/16/18 00:05 Hypersegmented Neuts Not Reportable 05/16/18 00:05 Hyposegmented Neuts Not Reportable 05/16/18 00:05 Hypogranular Neuts Not Reportable 05/16/18 00:05 Smudge Cells Not Reportable 05/16/18 00:05 Toxic Granulation Not Reportable 05/16/18 00:05 Toxic Vacuolation Not Reportable 05/16/18 00:05 Dohle Bodies Not Reportable 05/16/18 00:05 Pelger-Huet Anomaly Not Reportable 05/16/18 00:05 Karel Rods Not Reportable 05/16/18 00:05 Platelet Estimate Appears normal 05/16/18 00:05 Clumped Platelets Not Reportable 05/16/18 00:05 Plt Clumps, EDTA Not Reportable 05/16/18 00:05 Large Platelets Not Reportable 05/16/18 00:05 Giant Platelets Not Reportable 05/16/18 00:05 Platelet Satelliting Not Reportable 05/16/18 00:05 Plt Morphology Comment Not Reportable 05/16/18 00:05 RBC Morphology Not Reportable 05/16/18 00:05 Dimorphic RBCs Not Reportable 05/16/18 00:05 Polychromasia Not Reportable 05/16/18 00:05 Hypochromasia Not Reportable 05/16/18 00:05 Poikilocytosis 2+ 05/16/18 00:05 Anisocytosis 2+ 05/16/18 00:05 Microcytosis Not Reportable 05/16/18 00:05 Macrocytosis 1+ 05/16/18 00:05 Spherocytes Not Reportable 05/16/18 00:05 Pappenheimer Bodies Not Reportable 05/16/18 00:05 Sickle Cells Not Reportable 05/16/18 00:05 Target Cells Not Reportable 05/16/18 00:05 Tear Drop Cells Not Reportable 05/16/18 00:05 Ovalocytes 1+ 05/16/18 00:05 Helmet Cells Not Reportable 05/16/18 00:05 Mathew-[place] Bodies Not Reportable 05/16/18 00:05 [place] Rings Not Reportable 05/16/18 00:05 Rick Cells Not Reportable 05/16/18 00:05 Bite Cells Not Reportable 05/16/18 00:05 Crenated Cell Not Reportable 05/16/18 00:05 Elliptocytes Few 05/16/18 00:05 Acanthocytes (Spur) 2+ 05/16/18 00:05 Rouleaux Not Reportable 05/16/18 00:05 Hemoglobin C Crystals Not Reportable 05/16/18 00:05 Schistocytes Not Reportable 05/16/18 00:05 Malaria parasites Not Reportable 05/16/18 00:05 Gibran Bodies Not Reportable 05/16/18 00:05 Hem Pathologist Commnt No 05/16/18 00:05 Sodium 140 mmol/L (137-145) 05/17/18 Unknown Potassium 3.3 mmol/L (3.6-5.0) L 05/17/18 Unknown Chloride 104.0 mmol/L (98-107) 05/17/18 Unknown Carbon Dioxide 20 mmol/L (22-30) L 05/17/18 Unknown Anion Gap 19 mmol/L 05/17/18 Unknown BUN 12 mg/dL (9-20) 05/17/18 Unknown Creatinine 0.8 mg/dL (0.8-1.5) 05/17/18 Unknown Estimated GFR > 60 ml/min 05/17/18 Unknown BUN/Creatinine Ratio 15 % 05/17/18 Unknown Glucose 73 mg/dL (75-100) L 05/17/18 Unknown POC Glucose 93 (70-105) 05/17/18 06:56 Hemoglobin A1c 10.8 % (4-6) H 05/16/18 04:27 Lactic Acid 5.80 mmol/L (0.7-2.0) H* 05/16/18 04:27 Calcium 8.2 mg/dL (8.4-10.2) L 05/17/18 Unknown Phosphorus 5.80 mg/dL (2.5-4.5) H 05/16/18 01:48 Magnesium 2.00 mg/dL (1.7-2.3) 05/16/18 01:48 Total Bilirubin 0.50 mg/dL (0.1-1.2) 05/16/18 00:37 AST 169 units/L (5-40) H 05/16/18 00:37 ALT 46 units/L (7-56) 05/16/18 00:37 Alkaline Phosphatase 145 units/L (35-129) H 05/16/18 00:37 Troponin T 0.022 ng/mL (0.00-0.029) 05/16/18 00:37 Total Protein 6.9 g/dL (6.3-8.2) 05/16/18 00:37 Albumin 4.6 g/dL (3.9-5) 05/16/18 00:37 Albumin/Globulin Ratio 2.0 % 05/16/18 00:37 Urine Color Straw (Yellow) 05/15/18 Unknown Urine Turbidity Clear (Clear) 05/15/18 Unknown Urine pH 5.0 (5.0-7.0) 05/15/18 Unknown Ur Specific [place] 1.012 (1.003-1.030) 05/15/18 Unknown Urine Protein <15 mg/dl mg/dL (Negative) 05/15/18 Unknown Urine Glucose (UA) >=500 mg/dL (Negative) 05/15/18 Unknown Urine Ketones 80 mg/dL (Negative) 05/15/18 Unknown Urine Blood Mod (Negative) 05/15/18 Unknown Urine Nitrite Neg (Negative) 05/15/18 Unknown Urine Bilirubin Neg (Negative) 05/15/18 Unknown Urine Urobilinogen < 2.0 mg/dL (<2.0) 05/15/18 Unknown Ur Leukocyte Esterase Neg (Negative) 05/15/18 Unknown Urine WBC (Auto) < 1.0 /HPF (0.0-6.0) 05/15/18 Unknown Urine RBC (Auto) < 1.0 /HPF (0.0-6.0) 05/15/18 Unknown U Epithel Cells (Auto) 1.0 /HPF (0-13.0) 05/15/18 Unknown Nutrition/Malnutrition Assess - Dietary Evaluation Nutrition/Malnutrition Findings: Nutrition Notes Start: 05/16/18 15:57 Freq: Status: Active Protocol: Document 05/16/18 15:57 [facility] (Rec: 05/16/18 16:07 [facility] [email or web address]) Nutrition Notes Need for Assessment generated from: MD Order Education Initial or Follow up Assessment Current Diagnosis Diabetes Other Pertinent Diagnosis DKA, (R) foot wound Current Diet NPO Labs/Tests A1c 10.8 Pertinent Medications Insulin gtt Height 6 ft 3 in Weight 77.17 kg [place] Body Weight (lbs) 196.0 BMI 21.2 Weight Status Appropriate Subjective/Other Information RD consulted for diet education and ntr recommendations. Pt diagnosed with DM 10 yrs ago. Says he checks his BS daily and takes insulin as prescribed. He is familiar with food sources of CHO, but admits to excessive CHO intake at times. He is amenable to receiving DM diet materials for review. Burn Absent Trauma Absent #1 Nutrition Diagnosis Altered nutrition-related laboratory values Etiology uncontrolled BS As Evidenced by Signs and Symptoms pt admitted with DKA; A1c 10.8 ; foot wound Is patient on ventilator? No Is Patient Ambulatory and/or Out of Bed No REE-([facility]-confined to bed) 1981.004 Calculation Used for Recommendations [facility] Additional Notes Pro needs 1.2-2g/k-162g/ day Fluid needs 1ml/kcal Nutrition Intervention Change Diet Order: Advance diet to Consistent CHO when medically feasible Goal #1 Improved BS control Goal #2 Adherence to CHO-controlled diet Goal #3 Wound healing Anticipated Discharge Needs: CHO-controlled diet Follow-Up By: 05/17/18 Additional Comments F/U: Diet advancement, diet education materials (Food sources of CHO, Foot care, A1c )
[2018-05-17 08:45] LABS: BUN/Creatinine Ratio 16; Blood Urea Nitrogen 13 mg/dL (9-20); Calcium 8.5 mg/dL (8.4-10.2); Hemolysis Index 74
[2018-05-17] MEDS ORDERED: NS/KCL 20MEQ 20 MEQ/1,000 ML BAG IV SCH (09:00)
--- NOTE | 2018-05-17 10:01 | Progress Note ---
Assessment and Plan 63 y/o male with diabetic ketoacidosis secondary to dietary noncompliance 1. Agree with starting long acting insulin and feeding patient 2. Agree with transfer out of ICU 3. Will sign off once out of unit. Subjective Date of service: 05/17/18 Interval history: No acute events. Anion Gap is closing, down to 16. Objective - Constitutional Vitals: Vital Signs - 12hr 05/16/18 05/16/18 05/16/18 22:00 22:10 22:20 Temperature Pulse Rate 76 80 74 Pulse Rate [ From Monitor] Respiratory 19 Rate Blood Pressure 98/61 98/61 98/61 O2 Sat by Pulse 95 95 95 Oximetry 05/16/18 05/16/18 05/16/18 22:30 22:40 22:50 Temperature Pulse Rate 77 75 81 Pulse Rate [ From Monitor] Respiratory 18 16 18 Rate Blood Pressure 98/61 98/61 98/61 O2 Sat by Pulse 96 95 96 Oximetry 05/16/18 05/16/18 05/16/18 23:00 23:10 23:15 Temperature Pulse Rate 76 79 103 H Pulse Rate [ 78 From Monitor] Respiratory 16 16 18 Rate Blood Pressure 100/59 100/59 O2 Sat by Pulse 97 96 98 Oximetry 05/16/18 05/16/18 05/16/18 23:20 23:28 23:30 Temperature 100.2 F H Pulse Rate 81 78 Pulse Rate [ From Monitor] Respiratory 18 17 Rate Blood Pressure 100/59 100/59 O2 Sat by Pulse 98 97 Oximetry 05/16/18 05/16/18 05/16/18 23:34 23:40 23:50 Temperature Pulse Rate 81 79 82 Pulse Rate [ From Monitor] Respiratory 19 17 18 Rate Blood Pressure 100/59 100/59 100/59 O2 Sat by Pulse 96 96 98 Oximetry 05/17/18 05/17/18 05/17/18 00:00 00:10 00:20 Temperature Pulse Rate 75 76 103 H Pulse Rate [ From Monitor] Respiratory 17 17 16 Rate Blood Pressure 98/59 98/59 98/59 O2 Sat by Pulse 97 97 96 Oximetry 05/17/18 05/17/18 05/17/18 00:30 00:40 00:50 Temperature Pulse Rate 76 77 72 Pulse Rate [ From Monitor] Respiratory 17 18 17 Rate Blood Pressure 98/59 98/59 98/59 O2 Sat by Pulse 96 95 96 Oximetry 05/17/18 05/17/18 05/17/18 01:00 01:10 01:20 Temperature Pulse Rate 77 72 79 Pulse Rate [ From Monitor] Respiratory 18 18 17 Rate Blood Pressure 92/49 92/49 92/49 O2 Sat by Pulse 96 95 97 Oximetry 05/17/18 05/17/18 05/17/18 01:30 01:40 01:50 Temperature Pulse Rate 73 82 70 Pulse Rate [ From Monitor] Respiratory 14 18 15 Rate Blood Pressure 92/49 92/49 92/49 O2 Sat by Pulse 96 98 97 Oximetry 05/17/18 05/17/18 05/17/18 02:00 02:10 02:20 Temperature Pulse Rate 71 72 73 Pulse Rate [ 74 From Monitor] Respiratory 17 17 17 Rate Blood Pressure 92/49 103/60 103/60 O2 Sat by Pulse 97 97 98 Oximetry 05/17/18 05/17/18 05/17/18 02:30 02:40 02:50 Temperature Pulse Rate 71 74 73 Pulse Rate [ From Monitor] Respiratory 14 17 17 Rate Blood Pressure 103/60 103/60 103/60 O2 Sat by Pulse 98 97 96 Oximetry 05/17/18 05/17/18 05/17/18 03:00 03:10 03:20 Temperature Pulse Rate 72 72 73 Pulse Rate [ From Monitor] Respiratory 15 16 13 Rate Blood Pressure 105/63 105/63 105/63 O2 Sat by Pulse 97 97 98 Oximetry 05/17/18 05/17/18 05/17/18 03:26 03:30 03:40 Temperature 99.7 F H Pulse Rate 72 73 Pulse Rate [ From Monitor] Respiratory 14 14 Rate Blood Pressure 105/63 105/63 O2 Sat by Pulse 98 98 Oximetry 05/17/18 05/17/18 05/17/18 03:50 04:00 04:10 Temperature Pulse Rate 74 75 76 Pulse Rate [ From Monitor] Respiratory 15 14 14 Rate Blood Pressure 105/63 80/47 80/47 O2 Sat by Pulse 98 98 99 Oximetry 05/17/18 05/17/18 05/17/18 04:20 04:30 04:40 Temperature Pulse Rate 76 75 74 Pulse Rate [ From Monitor] Respiratory 15 14 11 L Rate Blood Pressure 89/57 89/57 89/57 O2 Sat by Pulse 98 99 98 Oximetry 05/17/18 05/17/18 05/17/18 04:50 05:00 05:10 Temperature Pulse Rate 99 H 80 80 Pulse Rate [ From Monitor] Respiratory 14 19 11 L Rate Blood Pressure 89/57 89/57 130/67 O2 Sat by Pulse 87 98 97 Oximetry 05/17/18 05/17/18 05/17/18 05:20 05:30 05:40 Temperature Pulse Rate 76 73 74 Pulse Rate [ From Monitor] Respiratory 16 17 15 Rate Blood Pressure 130/67 130/67 130/67 O2 Sat by Pulse 97 96 96 Oximetry 05/17/18 05/17/18 05/17/18 05:50 06:00 06:10 Temperature Pulse Rate 74 70 72 Pulse Rate [ From Monitor] Respiratory 14 12 15 Rate Blood Pressure 130/67 98/62 98/62 O2 Sat by Pulse 97 97 96 Oximetry 05/17/18 05/17/18 05/17/18 06:17 06:20 06:30 Temperature Pulse Rate 72 69 Pulse Rate [ 74 From Monitor] Respiratory 18 12 13 Rate Blood Pressure 98/62 98/62 O2 Sat by Pulse 98 96 97 Oximetry 05/17/18 05/17/18 05/17/18 06:40 06:50 07:00 Temperature Pulse Rate 70 71 71 Pulse Rate [ From Monitor] Respiratory 13 13 16 Rate Blood Pressure 98/62 98/62 98/62 O2 Sat by Pulse 97 97 97 Oximetry 05/17/18 05/17/18 05/17/18 07:10 07:20 07:30 Temperature Pulse Rate 77 75 73 Pulse Rate [ From Monitor] Respiratory 18 18 15 Rate Blood Pressure 98/62 98/62 98/62 O2 Sat by Pulse 97 97 97 Oximetry 05/17/18 05/17/18 05/17/18 07:40 07:50 08:00 Temperature 96.7 F L Pulse Rate 75 75 78 Pulse Rate [ 78 From Monitor] Respiratory 14 11 L 18 Rate Blood Pressure 106/64 106/64 109/64 O2 Sat by Pulse 96 97 97 Oximetry 05/17/18 05/17/18 05/17/18 08:10 08:20 08:23 Temperature Pulse Rate 80 79 Pulse Rate [ From Monitor] Respiratory 17 16 Rate Blood Pressure 109/64 109/64 O2 Sat by Pulse 97 97 97 Oximetry 05/17/18 05/17/18 05/17/18 08:30 08:40 08:50 Temperature Pulse Rate 78 77 77 Pulse Rate [ From Monitor] Respiratory 16 15 15 Rate Blood Pressure 109/64 109/64 109/64 O2 Sat by Pulse 98 97 97 Oximetry 05/17/18 05/17/18 05/17/18 09:00 09:10 09:20 Temperature Pulse Rate 93 H 89 86 Pulse Rate [ From Monitor] Respiratory 16 14 19 Rate Blood Pressure 109/64 131/79 131/79 O2 Sat by Pulse 97 99 98 Oximetry - Labs CBC & Chem 7: 05/17/18 08:10 05/17/18 Unknown Labs: Abnormal lab results 05/16/18 05/16/18 05/16/18 Range/Units 00:00 00:37 07:36 WBC (4.5-11.0) K/mm3 RBC (3.65-5.03) M/mm3 Hgb (11.8-15.2) gm/dl Hct (35.5-45.6) % RDW (13.2-15.2) % Sodium 134 L (137-145) mmol/L Potassium 3.3 L (3.6-5.0) mmol/L Chloride 87.2 L (98-107) mmol/L Carbon Dioxide 20 L 3 L* D (22-30) mmol/L Glucose 678 H* (75-100) mg/dL POC Glucose 414 H (70-105) Calcium 8.2 L (8.4-10.2) mg/dL AST 169 H (5-40) units/L Alkaline Phosphatase 145 H (35-129) units/L 05/16/18 05/16/18 05/16/18 Range/Units 08:42 10:10 11:03 WBC (4.5-11.0) K/mm3 RBC (3.65-5.03) M/mm3 Hgb (11.8-15.2) gm/dl Hct (35.5-45.6) % RDW (13.2-15.2) % Sodium (137-145) mmol/L Potassium (3.6-5.0) mmol/L Chloride (98-107) mmol/L Carbon Dioxide (22-30) mmol/L Glucose (75-100) mg/dL POC Glucose 389 H 312 H 276 H (70-105) Calcium (8.4-10.2) mg/dL AST (5-40) units/L Alkaline Phosphatase (35-129) units/L 05/16/18 05/16/18 05/16/18 Range/Units 12:08 13:19 14:08 WBC (4.5-11.0) K/mm3 RBC (3.65-5.03) M/mm3 Hgb (11.8-15.2) gm/dl Hct (35.5-45.6) % RDW (13.2-15.2) % Sodium (137-145) mmol/L Potassium (3.6-5.0) mmol/L Chloride (98-107) mmol/L Carbon Dioxide (22-30) mmol/L Glucose (75-100) mg/dL POC Glucose 208 H 186 H 154 H (70-105) Calcium (8.4-10.2) mg/dL AST (5-40) units/L Alkaline Phosphatase (35-129) units/L 05/16/18 05/16/18 05/16/18 Range/Units 15:37 16:08 17:13 WBC (4.5-11.0) K/mm3 RBC (3.65-5.03) M/mm3 Hgb (11.8-15.2) gm/dl Hct (35.5-45.6) % RDW (13.2-15.2) % Sodium (137-145) mmol/L Potassium (3.6-5.0) mmol/L Chloride (98-107) mmol/L Carbon Dioxide (22-30) mmol/L Glucose (75-100) mg/dL POC Glucose 125 H 130 H 113 H (70-105) Calcium (8.4-10.2) mg/dL AST (5-40) units/L Alkaline Phosphatase (35-129) units/L 05/16/18 05/16/18 05/16/18 Range/Units 17:55 18:15 19:00 WBC (4.5-11.0) K/mm3 RBC (3.65-5.03) M/mm3 Hgb (11.8-15.2) gm/dl Hct (35.5-45.6) % RDW (13.2-15.2) % Sodium (137-145) mmol/L Potassium (3.6-5.0) mmol/L Chloride (98-107) mmol/L Carbon Dioxide 18 L D (22-30) mmol/L Glucose 118 H (75-100) mg/dL POC Glucose 119 H 122 H (70-105) Calcium 8.2 L (8.4-10.2) mg/dL AST (5-40) units/L Alkaline Phosphatase (35-129) units/L 05/16/18 05/16/18 05/17/18 Range/Units 19:57 22:12 01:45 WBC (4.5-11.0) K/mm3 RBC (3.65-5.03) M/mm3 Hgb (11.8-15.2) gm/dl Hct (35.5-45.6) % RDW (13.2-15.2) % Sodium (137-145) mmol/L Potassium 3.4 L (3.6-5.0) mmol/L Chloride (98-107) mmol/L Carbon Dioxide 17 L (22-30) mmol/L Glucose 146 H (75-100) mg/dL POC Glucose 110 H 115 H (70-105) Calcium (8.4-10.2) mg/dL AST (5-40) units/L Alkaline Phosphatase (35-129) units/L 05/17/18 05/17/18 05/17/18 Range/Units 02:01 03:09 04:13 WBC (4.5-11.0) K/mm3 RBC (3.65-5.03) M/mm3 Hgb (11.8-15.2) gm/dl Hct (35.5-45.6) % RDW (13.2-15.2) % Sodium (137-145) mmol/L Potassium (3.6-5.0) mmol/L Chloride (98-107) mmol/L Carbon Dioxide (22-30) mmol/L Glucose (75-100) mg/dL POC Glucose 150 H 172 H 121 H (70-105) Calcium (8.4-10.2) mg/dL AST (5-40) units/L Alkaline Phosphatase (35-129) units/L 05/17/18 05/17/18 05/17/18 Range/Units 05:07 08:10 08:10 WBC 13.1 H (4.5-11.0) K/mm3 RBC 3.10 L (3.65-5.03) M/mm3 Hgb 9.8 L (11.8-15.2) gm/dl Hct 28.7 L D (35.5-45.6) % RDW 15.6 H (13.2-15.2) % Sodium (137-145) mmol/L Potassium (3.6-5.0) mmol/L Chloride (98-107) mmol/L Carbon Dioxide 17 L (22-30) mmol/L Glucose 110 H (75-100) mg/dL POC Glucose 107 H (70-105) Calcium (8.4-10.2) mg/dL AST (5-40) units/L Alkaline Phosphatase (35-129) units/L 05/17/18 Range/Units Unknown WBC (4.5-11.0) K/mm3 RBC (3.65-5.03) M/mm3 Hgb (11.8-15.2) gm/dl Hct (35.5-45.6) % RDW (13.2-15.2) % Sodium (137-145) mmol/L Potassium 3.3 L (3.6-5.0) mmol/L Chloride (98-107) mmol/L Carbon Dioxide 20 L (22-30) mmol/L Glucose 73 L (75-100) mg/dL POC Glucose (70-105) Calcium 8.2 L (8.4-10.2) mg/dL AST (5-40) units/L Alkaline Phosphatase (35-129) units/L Medications & Allergies - Medications Allergies/Adverse Reactions: Allergies No Known Allergies Allergy (Verified 03/25/18 07:26) Home Medications: Home Medications Medication Instructions Recorded Confirmed Last Taken Type Humalog 6 units SQ AC 03/26/18 03/26/18 Unknown History Detemir (Nf) [Levemir (Nf)] 18 units SUB-Q QHS #1 vial 03/27/18 Unknown Rx Levothyroxine [Synthroid] 75 mcg PO DAILY@0600 #30 tablet 03/27/18 Unknown Rx Active Medications: Generic Name Dose Route Start Last Admin Trade Name Freq PRN Reason Stop Dose Admin Acetaminophen 650 mg 05/16/18 03:59 Tylenol PO Q4H PRN Pain MILD(1-3)/Fever >100.5/GARCIA Dextrose 0 ml 05/16/18 01:33 D50w (25gm) Syringe IV PRN PRN Hypoglycemia Enoxaparin Sodium 40 mg 05/16/18 10:00 05/16/18 09:06 Lovenox SUB-Q 40 mg QDAY@1000 [facility] Administration Piperacillin Sod/Tazobactam Sod 3.375 gm in 50 mls @ 100 mls/hr 05/16/18 08:00 05/17/18 08:04 Zosyn/Ns 3.375gm/50ml IV Infused Q8H [facility] Infusion Protocol Potassium Chloride/Sodium Chloride 20 meq in 1,000 mls @ 100 mls/hr 05/17/18 09:00 Ns/Kcl 20meq IV DIRECT [facility] Insulin Glargine 18 units 05/17/18 22:00 Lantus SUB-Q QHS [facility] Insulin Human Lispro 6 unit 05/17/18 11:30 Humalog SUB-Q AC [facility] Levothyroxine Sodium 75 mcg 05/17/18 10:00 Synthroid PO DAILY@0600 [facility] Ondansetron HCl 4 mg 05/16/18 03:59 Zofran IV Q8H PRN Nausea And Vomiting Sodium Chloride 10 ml 05/16/18 10:00 05/16/18 22:33 Sodium Chloride Flush Syringe 10 Ml IV 10 ml BID ISAIAS Administration Sodium Chloride 10 ml 05/16/18 03:59 Sodium Chloride Flush Syringe 10 Ml IV PRN PRN LINE FLUSH
[2018-05-17] MEDS: LOVENOX SUB-Q SCH (10:30)
[2018-05-17] MEDS: SYNTHROID PO SCH (10:30)
[2018-05-17] MEDS: SODIUM CHLORIDE FLUSH SYRINGE 10 ML IV SCH ×2 (10:31→23:51)
[2018-05-17] MEDS: HumaLOG SUB-Q SCH ×2 (13:32→17:23)
[2018-05-17 14:46] LABS: BUN/Creatinine Ratio 14; Blood Urea Nitrogen 13 mg/dL (9-20)
[2018-05-17 15:14] LABS: Calcium 8.7 mg/dL (8.4-10.2); Hemolysis Index 26
[2018-05-17 19:44] LABS: BUN/Creatinine Ratio 13; Blood Urea Nitrogen 12 mg/dL (9-20); Calcium 8.6 mg/dL (8.4-10.2); Hemolysis Index 130
[2018-05-17] MEDS ORDERED: LANTUS SUB-Q SCH (22:00)
[2018-05-18] MEDS: SYNTHROID PO SCH (05:38)
[2018-05-18 06:41] VITALS: BP 109/66
[2018-05-18 07:55] LABS: BUN/Creatinine Ratio 11; Blood Urea Nitrogen 10 mg/dL (9-20); Calcium 8.7 mg/dL (8.4-10.2); Hemolysis Index 2
[2018-05-18] MEDS: HumaLOG SUB-Q SCH ×2 (08:26→14:33)
[2018-05-18 08:46] LABS: Hematocrit 30.3 % (35.5-45.6); Hemoglobin 10.6 gm/dl (11.8-15.2); Mean Corpuscular HGB Conc 35 % (32-34); Mean Corpuscular Volume 92 fl (84-94); Platelet Count 164 K/mm3 (140-440); Red Blood Count 3.28 M/mm3 (3.65-5.03); Red Cell Distribution Width 15.5 % (13.2-15.2)
[2018-05-18] MEDS ORDERED: NACL 0.9% 1000 ML 1,000 ML IV SCH (09:00)
[2018-05-18] MEDS: KCL 10MEQ/100ML 10 MEQ/100 ML BAG IV SCH ×3 (09:41→12:36)
[2018-05-18] MEDS: K-DUR PO SCH ×3 (09:41→16:48)
[2018-05-18] MEDS: LOVENOX SUB-Q SCH (09:42)
[2018-05-18] MEDS: SODIUM CHLORIDE FLUSH SYRINGE 10 ML IV SCH (09:42)
[2018-05-18] MEDS: ZOSYN/NS 3.375GM/50ML 3.375 GM/50 ML BAG IV SCH (10:07)
--- NOTE | 2018-05-18 14:06 | Discharge Summary ---
Providers - Providers Date of Admission: 05/16/18 03:46 Date of discharge: 05/18/18 Attending physician: KRISTI GIBBS 05/16/18 01:34 Consult to Dietitian/Nutrition [CONS] Routine Physician Instructions: Reason For Exam: DKA Reason for Consult: Nutrition Recommendations Reason for Consult: Diet education 05/16/18 19:15 Consult to Wound/ET Nurse [CONS] Stat Reason For Exam: wound eval-POA ball right foot 05/17/18 16:21 Consult to Wound/ET Nurse [CONS] Routine Reason For Exam: wound eval Primary care physician: MONTSERRAT WISE Hospitalization Condition: Fair Hospital course: Patient is 63 yo presented with altered mental status. He was evaluated in ED found to have diabetic ketoacidosis with CO2 of 3, glucose of 678. He was started on Insulin drip, iv fluids. His blood glucose normalized so Insulin drip was discontinued and he was put on subcut Insulin. With normalised blood glucose, mental status went back to baseline and he was subsequently discharged home. Total time spent on discharge, 32 mins Disposition: [id number] TO HOME OR SELFCARE - Discharge Diagnoses (1) Acute metabolic encephalopathy Status: Acute (2) DKA (diabetic ketoacidosis) Status: Acute (3) Hyperkalemia Status: Acute (4) Hyponatremia Status: Acute (5) Hypothyroidism Status: Acute (6) SIRS (systemic inflammatory response syndrome) Status: Acute Core Measure Documentation - Palliative Care Palliative Care/ Comfort Measures: Not Applicable - Core Measures Any of the following diagnoses?: none Exam - Constitutional Vitals: Temp Pulse Resp BP Pulse Ox 98.9 F 69 18 109/66 99 05/18/18 06:05 05/18/18 06:05 05/18/18 06:05 05/18/18 06:05 05/18/18 06:05 Plan Activity: no restrictions Diet: low fat, low cholesterol, low salt, diabetic Additional Instructions: 1.Follow up with PCP in 1 week. Follow up with: MONTSERRAT WISE MD [Primary Care Provider] - 3-5 Days Forms: Accompanied Note Prescriptions: Detemir (Nf) [Levemir (Nf)] 18 units SUB-Q QHS #1 vial Humalog 6 units SQ AC #1 vial
== END 2018-05-18 17:10 | disposition home or self-care (01) | DRG 871 ==
LOC: ED 23:19 → CC1 05-16 03:46 → 3A 05-17 14:32
PROVIDERS: ADMIT Internal Medicine; ATTEND Internal Medicine
DX: A41.9 Sepsis, unspecified organism (principal); E11.10 Type 2 diabetes mellitus with ketoacidosis without coma; E03.9 Hypothyroidism, unspecified; I10 Essential (primary) hypertension; F17.210 Nicotine dependence, cigarettes, uncomplicated; T68.XXXA Hypothermia, initial encounter; Z82.49 Family history of ischemic heart disease and other diseases of the circulatory system
CPT/HCPCS: 36415; 71045; 80048; 80053; 81001; 82140; 82962; 83036; 83735; 84100; 84132; 84484; 85007; 85025; 85027; 87040; 93005; 93010; 96365; 96375; 99406; G0378; J1650; J1815; J2543; J3480; J7030

== ENCOUNTER 2018-07-12 08:38 | Inpatient (IN) | payer SELFPAY ==
[~2018-07-12 08:38] MED LIST: AMIDATE IV ONE; XYLOCAINE CARDIAC IV ONE; ZEMURON IV ONE
[2018-07-12] MEDS ORDERED: NACL 0.9% 1000 ML 1,000 ML ONE ×3 (08:55→09:37)
[2018-07-12] MEDS ORDERED: [UNRECOGNIZED DRUG - OTHER] IV ONE (09:04)
[2018-07-12] MEDS ORDERED: LEVOPHED DRIP IV ONE (09:04)
[2018-07-12 09:14] LABS: Mean Corpuscular HGB Conc 29 % (32-34); Platelet Count 285 K/mm3 (140-440); Red Blood Count 3.07 M/mm3 (3.65-5.03); Red Cell Distribution Width 19.3 % (13.2-15.2)
[2018-07-12 09:22] LABS: Hematocrit 33.9 % (35.5-45.6); Hemoglobin 9.8 gm/dl (11.8-15.2); Mean Corpuscular Volume 111 fl (84-94)
[2018-07-12 09:34] LABS: Alanine Aminotransferase 38 units/L (7-56); Albumin 3.7 g/dL (3.9-5); BUN/Creatinine Ratio 19; Blood Urea Nitrogen 19 mg/dL (9-20); Calcium 8.3 mg/dL (8.4-10.2); Hemolysis Index 63
[2018-07-12 10:23] LABS: INR 1.67 (0.87-1.13); Partial Thromboplastin Time 28.3 Sec. (24.2-36.6)
--- NOTE | 2018-07-12 10:23 | XRay Report ---
PROCEDURE: XR CHEST 1V AP TECHNIQUE: Single view chest HISTORY: s/p intubation COMPARISONS: Chest x-ray May 15, 2018 FINDINGS: Endotracheal tube tip 5.7 cm above the chelo. Heart size normal. No pneumothorax. No sizable effusio n. Patchy right base airspace disease. No acute bony abnormality IMPRESSION: Endotracheal tube placed as above Patchy right basilar airspace disease. This document is electronically signed by Reece Knapp MD., July 12 2018 10:20:48 AM ET
[2018-07-12] MEDS ORDERED: D50W (25GM) Syringe IV PRN (10:57)
[2018-07-12 11:00] LABS: Band Neutrophils # (Manual) 0.1 K/mm3; Basophils % (Manual) 0 % (0.0-1.8); Total Cells Counted 100
[2018-07-12] MEDS ORDERED: NACL 0.9% 1000 ML 3,000 ML IV ONE (11:00)
[2018-07-12] MEDS ORDERED: CALCIUM GLUCONATE 1,000 MG in NACL 0.9% 100 ML IV ONE (11:00)
[2018-07-12 11:01] LABS: Platelet Estimate Consistent w Auto; Schistocytes Rare
[2018-07-12] MEDS: LEVOPHED DRIP 4 MG/NS 250 ML 4 MG/250 ML BAG IV SCH ×4 (11:11→20:30)
[2018-07-12] MEDS ORDERED: HumuLIN R 100 UNITS in NACL 0.9% 99 ML IV SCH (12:00)
[2018-07-12] MEDS ORDERED: NACL 0.9% 1000 ML IV ONE (12:17)
[2018-07-12] MEDS ORDERED: DIPRIVAN 10 MG/ML IV ONE (12:26)
[2018-07-12] MEDS ORDERED: DIPRIVAN 10 MG/ML 1,000 MG/100 ML BOTTLE IV ONE (12:27)
--- NOTE | 2018-07-12 12:29 | Cat Scan Report ---
PROCEDURE: CT HEAD/BRAIN WO CON TECHNIQUE: A noncontrast CT of the head was performed. HISTORY: ams COMPARISON: None FINDINGS: There is moderate cerebral atrophy. There is no acute intracranial hemorrhage. There is no brain edema, mass effect or midline shift. Ventricular size is appropriate for brain volume. There is no abnormal extra-axial fluid collections. There is no skull fracture seen. There is a right maxillary sinus air-fluid level and and partial ethmoid sinus opacification. Patient is intubated. IMPRESSION: There is no acute intracranial abnormality seen. This document is electronically signed by Charmaine Crouch MD., July 12 2018 12:27:30 PM ET
[2018-07-12] MEDS: DIPRIVAN 10 MG/ML 1,000 MG/100 ML BOTTLE IV SCH ×2 (12:49→21:35)
[2018-07-12] MEDS ORDERED: ZITHROMAX 500 MG in NACL 0.9% 250ML 250 ML IV SCH (13:00)
[2018-07-12] MEDS ORDERED: ROCEPHIN/NS 2 GM/100 ML 2 GM/100 ML BAG IV SCH (13:00)
[2018-07-12 13:02] LABS: BUN/Creatinine Ratio 19; Blood Urea Nitrogen 19 mg/dL (9-20); Hemolysis Index 17
--- NOTE | 2018-07-12 13:34 | Emergency Department Report ---
ED General Adult HPI - General Chief complaint: Neuro Symptoms/Deficit Stated complaint: NEURO ISSUES Time Seen by Provider: 07/12/18 08:48 Source: EMS Mode of arrival: Stretcher Limitations: Altered Mental Status - History of Present Illness Initial comments: Patient presents to the ED by EMS for altered mental status. The patient was last seen normal at midnight by a home Health care nurse. Upon arrival by EMS the patient moves both of his legs sporadically but upper extremities are decorticate. -: Sudden Improves with: none Worsens with: none Associated Symptoms: denies other symptoms Treatments Prior to Arrival: none - Related Data Previous Rx's Medication Instructions Recorded Last Taken Type Levothyroxine [Synthroid] 75 mcg PO DAILY@0600 #30 tablet 03/27/18 Unknown Rx Detemir (Nf) [Levemir (Nf)] 18 units SUB-Q QHS #1 vial 05/18/18 Unknown Rx Humalog 6 units SQ AC #1 vial 05/18/18 Unknown Rx Allergies Allergy/AdvReac Type Severity Reaction Status Date / Time No Known Allergies Allergy Verified 03/25/18 07:26 ED Review of Systems ROS: Stated complaint: NEURO ISSUES Other details as noted in HPI Comment: Unobtainable due to pts medical conditions ED Past Medical Hx - Past Medical History Hx Hypertension: Yes Hx Congestive Heart Failure: No Hx Diabetes: Yes Hx Asthma: No Hx COPD: No Additional medical history: hyperthyroidisn - Social History Smoking Status: Never Smoker Substance Use Type: Alcohol, Marijuana - Medications Home Medications: Home Medications Medication Instructions Recorded Confirmed Last Taken Type Levothyroxine [Synthroid] 75 mcg PO DAILY@0600 #30 tablet 03/27/18 05/17/18 Unknown Rx Detemir (Nf) [Levemir (Nf)] 18 units SUB-Q QHS #1 vial 05/18/18 Unknown Rx Humalog 6 units SQ AC #1 vial 05/18/18 Unknown Rx ED Physical Exam - General Limitations: Altered Mental Status General appearance: obtunded, in distress - Head Head exam: Present: atraumatic, normocephalic - Eye Eye exam: Present: other (left gaze) - ENT ENT exam: Present: mucous membranes dry - Respiratory Respiratory exam: Present: normal lung sounds bilaterally, respiratory distress. Absent: wheezes, rales - Cardiovascular Cardiovascular Exam: Present: regular rate, normal rhythm - GI/Abdominal GI/Abdominal exam: Present: soft, normal bowel sounds. Absent: distended, tenderness - Rectal Rectal exam: Present: deferred - exam: Present: normal inspection External exam: Present: normal external exam - Neurological Exam Neurological exam: Present: other (GCS; Eyes: 4 Motor: 3 Verbal: 2 No monserrat reflex) - Psychiatric Psychiatric exam: Present: other (not able to assess due to the patient's condition) - Skin Skin exam: Present: warm, dry, intact, normal color. Absent: rash ED Course Vital Signs 07/12/18 07/12/18 07/12/18 09:23 10:51 11:00 Temperature 99.3 F Pulse Rate 73 72 Respiratory 19 18 Rate Blood Pressure 101/64 91/47 Blood Pressure 90/57 [Left] O2 Sat by Pulse 100 100 Oximetry 07/12/18 07/12/18 07/12/18 11:15 11:30 11:52 Temperature Pulse Rate 82 83 79 Respiratory 19 18 15 Rate Blood Pressure 84/48 84/48 98/62 Blood Pressure [Left] O2 Sat by Pulse 100 100 100 Oximetry 07/12/18 07/12/18 07/12/18 12:00 12:15 12:45 Temperature Pulse Rate 84 80 76 Respiratory 18 18 Rate Blood Pressure 106/59 107/61 115/55 Blood Pressure [Left] O2 Sat by Pulse 100 100 100 Oximetry 07/12/18 07/12/18 07/12/18 13:08 13:10 13:12 Temperature Pulse Rate 86 75 86 Respiratory 16 18 19 Rate Blood Pressure 105/51 105/51 105/51 Blood Pressure [Left] O2 Sat by Pulse 100 100 100 Oximetry 07/12/18 07/12/18 07/12/18 13:14 13:15 13:16 Temperature Pulse Rate 77 87 73 Respiratory 12 12 11 L Rate Blood Pressure 105/51 97/67 97/67 Blood Pressure [Left] O2 Sat by Pulse 98 100 100 Oximetry 07/12/18 07/12/18 07/12/18 13:18 13:20 13:22 Temperature Pulse Rate 82 82 77 Respiratory 16 12 9 L Rate Blood Pressure 97/67 97/67 97/67 Blood Pressure [Left] O2 Sat by Pulse 100 100 100 Oximetry 07/12/18 07/12/18 07/12/18 13:24 13:26 13:28 Temperature Pulse Rate 82 84 92 H Respiratory 14 13 15 Rate Blood Pressure 97/67 97/67 97/67 Blood Pressure [Left] O2 Sat by Pulse 100 100 100 Oximetry 07/12/18 07/12/18 07/12/18 13:30 13:32 13:34 Temperature Pulse Rate 81 81 87 Respiratory 10 L 10 L 11 L Rate Blood Pressure 91/70 91/70 91/70 Blood Pressure [Left] O2 Sat by Pulse 100 100 100 Oximetry 07/12/18 07/12/18 07/12/18 13:36 13:38 13:40 Temperature Pulse Rate 81 94 H 88 Respiratory 12 9 L 10 L Rate Blood Pressure 91/70 91/70 91/70 Blood Pressure [Left] O2 Sat by Pulse 100 100 100 Oximetry 07/12/18 07/12/18 07/12/18 13:42 13:44 13:46 Temperature Pulse Rate 95 H 93 H 83 Respiratory 13 13 14 Rate Blood Pressure 91/70 105/51 101/66 Blood Pressure [Left] O2 Sat by Pulse 100 100 100 Oximetry 07/12/18 07/12/18 07/12/18 13:48 13:50 13:52 Temperature Pulse Rate 86 97 H 88 Respiratory 12 13 16 Rate Blood Pressure 101/66 101/66 101/66 Blood Pressure [Left] O2 Sat by Pulse 100 100 100 Oximetry 07/12/18 07/12/18 07/12/18 13:54 13:56 13:58 Temperature Pulse Rate 83 93 H 90 Respiratory 17 12 18 Rate Blood Pressure 101/66 101/66 101/66 Blood Pressure [Left] O2 Sat by Pulse 100 100 100 Oximetry 07/12/18 07/12/18 07/12/18 14:00 14:01 14:02 Temperature Pulse Rate 81 88 85 Respiratory 17 12 13 Rate Blood Pressure 101/66 88/48 88/48 Blood Pressure [Left] O2 Sat by Pulse 100 100 100 Oximetry 07/12/18 07/12/18 07/12/18 14:04 14:06 14:08 Temperature Pulse Rate 88 89 87 Respiratory 14 10 L 12 Rate Blood Pressure 88/48 88/48 88/48 Blood Pressure [Left] O2 Sat by Pulse 100 100 100 Oximetry 07/12/18 07/12/18 07/12/18 14:10 14:12 14:14 Temperature Pulse Rate 86 92 H 100 H Respiratory 10 L 10 L 10 L Rate Blood Pressure 88/48 88/48 88/48 Blood Pressure [Left] O2 Sat by Pulse 100 100 100 Oximetry 07/12/18 07/12/18 07/12/18 14:15 14:16 14:18 Temperature Pulse Rate 99 H 103 H 116 H Respiratory 10 L 12 11 L Rate Blood Pressure 88/52 88/52 88/52 Blood Pressure [Left] O2 Sat by Pulse 100 100 100 Oximetry 07/12/18 07/12/18 07/12/18 14:20 14:22 14:24 Temperature Pulse Rate 104 H 112 H 100 H Respiratory 11 L 11 L 12 Rate Blood Pressure 88/52 88/52 88/52 Blood Pressure [Left] O2 Sat by Pulse 100 100 100 Oximetry 07/12/18 07/12/18 07/12/18 14:26 14:28 14:30 Temperature Pulse Rate 100 H 116 H 104 H Respiratory 12 11 L 12 Rate Blood Pressure 88/52 88/52 81/53 Blood Pressure [Left] O2 Sat by Pulse 100 100 100 Oximetry 07/12/18 07/12/18 07/12/18 14:32 14:34 14:36 Temperature Pulse Rate 99 H 90 87 Respiratory 9 L 12 12 Rate Blood Pressure 81/53 81/53 81/53 Blood Pressure [Left] O2 Sat by Pulse 100 100 100 Oximetry 07/12/18 07/12/18 07/12/18 14:38 14:40 14:42 Temperature Pulse Rate 116 H 102 H 110 H Respiratory 11 L 11 L 14 Rate Blood Pressure 81/53 81/53 81/53 Blood Pressure [Left] O2 Sat by Pulse 100 100 100 Oximetry 07/12/18 07/12/18 07/12/18 14:44 14:46 14:48 Temperature Pulse Rate 99 H 112 H 109 H Respiratory 10 L 10 L 11 L Rate Blood Pressure 81/53 73/49 73/49 Blood Pressure [Left] O2 Sat by Pulse 100 100 100 Oximetry - Procedure Description Procedures done: Procedure note: Diagnosis preprocedure: B/L Epistaxis. Bilateral Rhino Rocket placement. 1 Rhino Rocket was placed to the right nasal nare. A second Rhino Rocket was placed into the left nasal near. Both inflated to recommend amount. Patient tolerated procedure well and no complications - Central Line Placement Right Femoral Consent Obtained: verbal consent Time Out Performed: Yes Patient Placed on Monitor/Pulse Ox: Yes MD Prep: mask, gown, gloves Central Line Prep: sterile drapes applied Ultrasound Used for Placement: Yes Central Line Lumen Inserted: triple Bloods Obtained for Lab: Yes Central Line Position: good blood return, all ports aspirated, flus, sutured in place with 2-0 Dressing Applied: Tegaderm, sterile gauze/tape Patient Tolerated Procedure: well, no complications Complications: none Additional Comments: Initially a right subclavian central line was attempted to no avail - Intubation Time Out Performed: Yes Sedative: Etomidate Mg Given: 20 Paralytic: Rocuronium Mg Given: 50 Laryngoscope: Kaela Size: 3 ET Tube Size: 7.5 Tube Secured Depth (cm): 24 Tube Secured Location: lips Tube Placement Confirmation: visualized tube passing t, equal breath sounds bilat, no breath sounds over epi, confirmation by capnometr Patient Tolerated Procedure: well Intubation Complications: none ED Medical Decision Making - Lab Data Result diagrams: 07/12/18 09:00 07/12/18 15:02 Lab Results 07/12/18 07/12/18 07/12/18 Range/Units 08:46 09:00 09:00 WBC 4.6 (4.5-11.0) K/mm3 RBC 3.07 L (3.65-5.03) M/mm3 Hgb 9.8 L (11.8-15.2) gm/dl Hct 33.9 L (35.5-45.6) % MCV 111 H (84-94) fl MCH 32 (28-32) pg MCHC 29 L (32-34) % RDW 19.3 H (13.2-15.2) % Plt Count 285 (140-440) K/mm3 Add Manual Diff Complete Total Counted 100 Seg Neuts % (Manual) 87.0 H (40.0-70.0) % Band Neutrophils % 2.0 % Lymphocytes % (Manual) 5.0 L (13.4-35.0) % Reactive Lymphs % (Man) 0 % Monocytes % (Manual) 3.0 (0.0-7.3) % Eosinophils % (Manual) 1.0 (0.0-4.3) % Basophils % (Manual) 0 (0.0-1.8) % Metamyelocytes % 2.0 % Myelocytes % 0 % Promyelocytes % 0 % Blast Cells % 0 % Nucleated RBC % Not Reportable Seg Neutrophils # Man 4.0 (1.8-7.7) K/mm3 Band Neutrophils # 0.1 K/mm3 Lymphocytes # (Manual) 0.2 L (1.2-5.4) K/mm3 Abs React Lymphs (Man) 0.0 K/mm3 Monocytes # (Manual) 0.1 (0.0-0.8) K/mm3 Eosinophils # (Manual) 0.0 (0.0-0.4) K/mm3 Basophils # (Manual) 0.0 (0.0-0.1) K/mm3 Metamyelocytes # 0.1 K/mm3 Myelocytes # 0.0 K/mm3 Promyelocytes # 0.0 K/mm3 Blast Cells # 0.0 K/mm3 WBC Morphology Not Reportable Hypersegmented Neuts Not Reportable Hyposegmented Neuts Not Reportable Hypogranular Neuts Not Reportable Smudge Cells Not Reportable Toxic Granulation Not Reportable Toxic Vacuolation Not Reportable Dohle Bodies Not Reportable Pelger-Huet Anomaly Not Reportable Karel Rods Not Reportable Platelet Estimate Consistent w auto Clumped Platelets Not Reportable Plt Clumps, EDTA Not Reportable Large Platelets Not Reportable Giant Platelets Not Reportable Platelet Satelliting Not Reportable Plt Morphology Comment Not Reportable RBC Morphology Not Reportable Dimorphic RBCs Not Reportable Polychromasia Not Reportable Hypochromasia Not Reportable Poikilocytosis Not Reportable Anisocytosis Not Reportable Microcytosis Not Reportable Macrocytosis Not Reportable Spherocytes Not Reportable Pappenheimer Bodies Not Reportable Sickle Cells Not Reportable Target Cells Not Reportable Tear Drop Cells Not Reportable Ovalocytes Not Reportable Helmet Cells Not Reportable Mathew-Leach Bodies Not Reportable Arthur Rings Not Reportable [place] Cells Not Reportable Bite Cells Not Reportable Crenated Cell Not Reportable Elliptocytes Not Reportable Acanthocytes (Spur) 2+ Rouleaux Not Reportable Hemoglobin C Crystals Not Reportable Schistocytes Rare Malaria parasites Not Reportable Gibran Bodies Not Reportable Hem Pathologist Commnt No PT (12.2-14.9) Sec. INR (0.87-1.13) APTT (24.2-36.6) Sec. POC ABG pH (7.35-7.45) POC ABG pO2 (80-105) POC ABG HCO3 (22-26 mml/L) POC ABG Total CO2 (23-27mmol/L) POC ABG O2 Sat POC ABG Base Excess ((-2) - (+3)mmol/L) FiO2 % Sodium 128 L (137-145) mmol/L Potassium 6.2 H* (3.6-5.0) mmol/L Chloride 94.4 L (98-107) mmol/L Carbon Dioxide 2 L* (22-30) mmol/L Anion Gap 38 mmol/L BUN 19 (9-20) mg/dL Creatinine 1.0 (0.8-1.5) mg/dL Estimated GFR > 60 ml/min BUN/Creatinine Ratio 19 % Glucose 662 H* (75-100) mg/dL POC Glucose > 500 H (70-105) Calcium 8.3 L (8.4-10.2) mg/dL Phosphorus 5.50 H (2.5-4.5) mg/dL Magnesium 2.40 H (1.7-2.3) mg/dL Total Bilirubin 0.30 (0.1-1.2) mg/dL AST 78 H (5-40) units/L ALT 38 (7-56) units/L Alkaline Phosphatase 142 H (35-129) units/L NT-Pro-B Natriuret Pep 269.5 (0-900) pg/mL Total Protein 6.3 (6.3-8.2) g/dL Albumin 3.7 L (3.9-5) g/dL Albumin/Globulin Ratio 1.4 % 07/12/18 07/12/18 07/12/18 Range/Units 09:51 11:06 11:22 WBC (4.5-11.0) K/mm3 RBC (3.65-5.03) M/mm3 Hgb (11.8-15.2) gm/dl Hct (35.5-45.6) % MCV (84-94) fl MCH (28-32) pg MCHC (32-34) % RDW (13.2-15.2) % Plt Count (140-440) K/mm3 Add Manual Diff Total Counted Seg Neuts % (Manual) (40.0-70.0) % Band Neutrophils % % Lymphocytes % (Manual) (13.4-35.0) % Reactive Lymphs % (Man) % Monocytes % (Manual) (0.0-7.3) % Eosinophils % (Manual) (0.0-4.3) % Basophils % (Manual) (0.0-1.8) % Metamyelocytes % % Myelocytes % % Promyelocytes % % Blast Cells % % Nucleated RBC % Seg Neutrophils # Man (1.8-7.7) K/mm3 Band Neutrophils # K/mm3 Lymphocytes # (Manual) (1.2-5.4) K/mm3 Abs React Lymphs (Man) K/mm3 Monocytes # (Manual) (0.0-0.8) K/mm3 Eosinophils # (Manual) (0.0-0.4) K/mm3 Basophils # (Manual) (0.0-0.1) K/mm3 Metamyelocytes # K/mm3 Myelocytes # K/mm3 Promyelocytes # K/mm3 Blast Cells # K/mm3 WBC Morphology Hypersegmented Neuts Hyposegmented Neuts Hypogranular Neuts Smudge Cells Toxic Granulation Toxic Vacuolation Dohle Bodies Pelger-Huet Anomaly Karel Rods Platelet Estimate Clumped Platelets Plt Clumps, EDTA Large Platelets Giant Platelets Platelet Satelliting Plt Morphology Comment RBC Morphology Dimorphic RBCs Polychromasia Hypochromasia Poikilocytosis Anisocytosis Microcytosis Macrocytosis Spherocytes Pappenheimer Bodies Sickle Cells Target Cells Tear Drop Cells Ovalocytes Helmet Cells Mathew-Leach Bodies [place] Rings [place] Cells Bite Cells Crenated Cell Elliptocytes Acanthocytes (Spur) Rouleaux Hemoglobin C Crystals Schistocytes Malaria parasites Gibran Bodies Hem Pathologist Commnt PT 20.8 H (12.2-14.9) Sec. INR 1.67 H (0.87-1.13) APTT 28.3 (24.2-36.6) Sec. POC ABG pH 6.780 L (7.35-7.45) POC ABG pO2 389 H (80-105) POC ABG HCO3 3.4 (22-26 mml/L) POC ABG Total CO2 < 5 (23-27mmol/L) POC ABG O2 Sat 100 POC ABG Base Excess < -30 ((-2) - (+3)mmol/L) FiO2 70 % Sodium (137-145) mmol/L Potassium (3.6-5.0) mmol/L Chloride (98-107) mmol/L Carbon Dioxide (22-30) mmol/L Anion Gap mmol/L BUN (9-20) mg/dL Creatinine (0.8-1.5) mg/dL Estimated GFR ml/min BUN/Creatinine Ratio % Glucose (75-100) mg/dL POC Glucose (70-105) Calcium (8.4-10.2) mg/dL Phosphorus 5.50 H (2.5-4.5) mg/dL Magnesium 2.40 H (1.7-2.3) mg/dL Total Bilirubin (0.1-1.2) mg/dL AST (5-40) units/L ALT (7-56) units/L Alkaline Phosphatase (35-129) units/L NT-Pro-B Natriuret Pep (0-900) pg/mL Total Protein (6.3-8.2) g/dL Albumin (3.9-5) g/dL Albumin/Globulin Ratio % 07/12/18 07/12/18 07/12/18 Range/Units 12:09 12:19 13:18 WBC (4.5-11.0) K/mm3 RBC (3.65-5.03) M/mm3 Hgb (11.8-15.2) gm/dl Hct (35.5-45.6) % MCV (84-94) fl MCH (28-32) pg MCHC (32-34) % RDW (13.2-15.2) % Plt Count (140-440) K/mm3 Add Manual Diff Total Counted Seg Neuts % (Manual) (40.0-70.0) % Band Neutrophils % % Lymphocytes % (Manual) (13.4-35.0) % Reactive Lymphs % (Man) % Monocytes % (Manual) (0.0-7.3) % Eosinophils % (Manual) (0.0-4.3) % Basophils % (Manual) (0.0-1.8) % Metamyelocytes % % Myelocytes % % Promyelocytes % % Blast Cells % % Nucleated RBC % Seg Neutrophils # Man (1.8-7.7) K/mm3 Band Neutrophils # K/mm3 Lymphocytes # (Manual) (1.2-5.4) K/mm3 Abs React Lymphs (Man) K/mm3 Monocytes # (Manual) (0.0-0.8) K/mm3 Eosinophils # (Manual) (0.0-0.4) K/mm3 Basophils # (Manual) (0.0-0.1) K/mm3 Metamyelocytes # K/mm3 Myelocytes # K/mm3 Promyelocytes # K/mm3 Blast Cells # K/mm3 WBC Morphology Hypersegmented Neuts Hyposegmented Neuts Hypogranular Neuts Smudge Cells Toxic Granulation Toxic Vacuolation Dohle Bodies Pelger-Huet Anomaly Karel Rods Platelet Estimate Clumped Platelets Plt Clumps, EDTA Large Platelets Giant Platelets Platelet Satelliting Plt Morphology Comment RBC Morphology Dimorphic RBCs Polychromasia Hypochromasia Poikilocytosis Anisocytosis Microcytosis Macrocytosis Spherocytes Pappenheimer Bodies Sickle Cells Target Cells Tear Drop Cells Ovalocytes Helmet Cells Mathew-Leach Bodies Arthur Rings Rick Cells Bite Cells Crenated Cell Elliptocytes Acanthocytes (Spur) Rouleaux Hemoglobin C Crystals Schistocytes Malaria parasites Gibran Bodies Hem Pathologist Commnt PT (12.2-14.9) Sec. INR (0.87-1.13) APTT (24.2-36.6) Sec. POC ABG pH (7.35-7.45) POC ABG pO2 (80-105) POC ABG HCO3 (22-26 mml/L) POC ABG Total CO2 (23-27mmol/L) POC ABG O2 Sat POC ABG Base Excess ((-2) - (+3)mmol/L) FiO2 % Sodium 136 L D (137-145) mmol/L Potassium 4.3 D (3.6-5.0) mmol/L Chloride 98.8 (98-107) mmol/L Carbon Dioxide 3 L* (22-30) mmol/L Anion Gap 39 mmol/L BUN 19 (9-20) mg/dL Creatinine 1.0 (0.8-1.5) mg/dL Estimated GFR > 60 ml/min BUN/Creatinine Ratio 19 % Glucose 599 H* (75-100) mg/dL POC Glucose > 500 H 440 H (70-105) Calcium 8.0 L (8.4-10.2) mg/dL Phosphorus (2.5-4.5) mg/dL Magnesium (1.7-2.3) mg/dL Total Bilirubin (0.1-1.2) mg/dL AST (5-40) units/L ALT (7-56) units/L Alkaline Phosphatase (35-129) units/L NT-Pro-B Natriuret Pep (0-900) pg/mL Total Protein (6.3-8.2) g/dL Albumin (3.9-5) g/dL Albumin/Globulin Ratio % - EKG Data -: EKG Interpreted by Me Rate: bradycardia - Radiology Data Radiology results: report reviewed - Medical Decision Making The patient was intubated immediately upon arrival After Intubation there was a brief moment of pulselessness ACLS protocol was started Chest compressions and IV epinephrine were given Two rounds of chest compressions were done with return of pulses Cardiac arrest/pulselessness was likely secondary to tachycardia and irritability from the hyperkalemia and acidosis from the DKA Discussed results and plan of care with the family IV insulin drip and IV fluids initiated Abdomen reviewed a chest x-ray was discovered the patient had pneumonia Sepsis protocol was initiated IV antibiotic is given Critical Care Time: Yes Critical care time in (mins) excluding proc time.: 45 Critical care attestation.: If time is entered above; I have spent that time in minutes in the direct care of this critically ill patient, excluding procedure time. ED Disposition Clinical Impression: DKA (diabetic ketoacidoses), Respiratory failure, Hypoxia, Pneumonia, Cardiac arrest Disposition: OP ADMIT IP TO THIS HOSP Is pt being admited?: Yes Does the pt Need Aspirin: No Condition: Stable - Assessment Assessment Interval: Baseline - Level of Consciousness 1a. Level of Consciousness: resp stimuli/obtunded - LOC Questions 1b. LOC Questions: aphasic - LOC Command 1c. LOC Commands: performs no tasks correctly - Best Gaze 2. Best Gaze: partial gaze palsy - Visual 3. Visual: no visual loss - Facial Palsy 4. Facial Palsy: normal symmetrical movement - Motor Arm 5a. Motor Arm Left: drift 5b. Motor Arm Right: drift - Motor Leg 6a. Motor Leg Left: no drift 6b. Motor Leg Right: no drift - Limb Ataxia 7. Limb Ataxia: absent - Sensory 8. Sensory: mild/moderate sensory loss - Best Language 9. Best Language: coma/unresponsive - Dysarthria 10. Dysarthria: normal - Extinction and Inattention 11. Extinction/Inattention: no abnormality - Scoring Total Score: 13 Stroke Severity: Moderate Stroke
[2018-07-12 15:29] LABS: Bacteria,Urine 1+ /HPF (Negative); Bilirubin,Urine NEG (Negative); Blood,Urine MOD (Negative); Color,Urine Yellow (Yellow); Mucus,Urine FEW /HPF; Urobilinogen,Urine < 2.0 mg/dL (<2.0)
[2018-07-12 15:36] LABS: BUN/Creatinine Ratio 21; Blood Urea Nitrogen 17 mg/dL (9-20); Calcium 7.1 mg/dL (8.4-10.2); Hemolysis Index 18
[2018-07-12] MEDS ORDERED: SODIUM CHLORIDE FLUSH SYRINGE 10 ML IV PRN (15:42)
[2018-07-12] MEDS ORDERED: TYLENOL PO PRN (15:42)
[2018-07-12] MEDS ORDERED: ZOFRAN IV PRN (15:42)
[2018-07-12] MEDS ORDERED: KCL 10MEQ/100ML 10 MEQ/100 ML BAG IV PRN ×2 (16:00→18:00)
--- NOTE | 2018-07-12 16:11 | History and Physical Report ---
History of Present Illness Date of examination: 07/12/18 Date of admission: 07/12/18 14:47 Chief complaint: Altered mental status since morning Respiratory distress since morning History of present illness: 63-year-old -[place] male with history of insulin-dependent diabetes and hypothyroidism--- noncompliant presents to the emergency room via EMS for alter ed sensorium. Last well-known time was at 24 hours-midnight last night. Patient went into V. fib at 858 hours and one round of epinephrine was administered. Patient was hypotensive and Levophed drip was initiated. As per daughter patient was found on the floor between the bed and dresser from an apparent fall, scratches noted on the patient's right leg and arm. Also as per daughter patient is noncompliant with medication regimen. No fever or chills. Patient's blood glucose was high in the mid 600s and bicarbonate was about 1. Patient was in severe diabetic ketoacidosis. Similar to last admission 2 months ago. Patient was treated for these in April 2018 and was discharged after DKA was corrected 5 Acute metabolic encephalopathy DKA (diabetic ketoacidosis) Hyperkalemia Hyponatremia Hypothyroidism SIRS (systemic inflammatory response syndrome) Past Medical History Hypertension Diabetes Hypothyroidism Surgical history unavailable Family history unavailable Social History Smoking Status: Never Smoker Substance Use Type: Alcohol, Marijuana Medications Home Medications: Home Medications Medication Instructions Recorded Confirmed Last Taken Type Levothyroxine [Synthroid] 75 mcg PO DAILY@0600 #30 tablet 03/27/18 05/17/18 Unknown Rx Detemir (Nf) [Levemir (Nf)] 18 units SUB-Q QHS #1 vial 05/18/18 Unknown Rx Humalog 6 units SQ AC #1 vial 05/18/18 Unknown Rx Review of Systems ROS: Stated complaint: NEURO ISSUES Other details as noted in HPI Comment: Unobtainable due to pts medical conditions Medications and Allergies Allergies Allergy/AdvReac Type Severity Reaction Status Date / Time No Known Allergies Allergy Verified 03/25/18 07:26 Home Medications Medication Instructions Recorded Confirmed Last Taken Type Levothyroxine [Synthroid] 75 mcg PO DAILY@0600 #30 tablet 03/27/18 05/17/18 Unknown Rx Detemir (Nf) [Levemir (Nf)] 18 units SUB-Q QHS #1 vial 05/18/18 Unknown Rx Humalog 6 units SQ AC #1 vial 05/18/18 Unknown Rx Active Meds: Active Medications Acetaminophen (Tylenol) 650 mg PO Q4H PRN PRN Reason: Pain MILD(1-3)/Fever >100.5/GARCIA Dextrose (D50w (25gm) Syringe) 0 ml IV PRN PRN PRN Reason: Hypoglycemia Dextrose (D50w (25gm) Syringe) 0 ml IV PRN PRN PRN Reason: Hypoglycemia Famotidine (Pepcid) 20 mg IV BID ISAIAS Hydromorphone HCl (Dilaudid) 0.25 mg IV Q3H PRN PRN Reason: Pain, Moderate (4-6) Insulin Human Regular 100 (units/ Sodium Chloride) 100 mls @ 1 mls/hr IV TITR ISAIAS; Protocol Last Titration: 07/12/18 14:16 Dose: 11 units/hr, 11 mls/hr Documented by: Norepinephrine (Levophed Drip 4 Mg/Ns 250 Ml) 4 mg in 250 mls @ 7.5 mls/hr IV TITR ISAIAS; Protocol Last Titration: 07/12/18 14:50 Dose: 30 mcg/min, 112.5 mls/hr Documented by: Azithromycin 500 mg/ Sodium (Chloride) 250 mls @ 250 mls/hr IV Q24HR ISAIAS; Protocol Last Admin: 07/12/18 13:57 Dose: 250 mls/hr Documented by: Ceftriaxone Sodium (Rocephin/Ns 2 Gm/100 Ml) 2 gm in 100 mls @ 200 mls/hr IV Q24HR ISAIAS; Protocol Last Admin: 07/12/18 13:35 Dose: 200 mls/hr Documented by: Propofol (Diprivan 10 Mg/Ml) 1,000 mg in 100 mls @ 2.585 mls/hr IV TITR ISAIAS; Protocol Last Titration: 07/12/18 14:51 Dose: 15 mcg/kg/min, 7.756 mls/hr Documented by: Potassium Chloride (Kcl 10meq/100ml) 10 meq in 100 mls @ 100 mls/hr IV Q1H ISAIAS Stop: 07/12/18 19:59 Potassium Chloride (Kcl 10meq/100ml) 10 meq in 100 mls @ 100 mls/hr IV Q1H ISAIAS Stop: 07/12/18 21:59 Insulin Human Regular 100 (units/ Sodium Chloride) 100 mls @ 1 mls/hr IV TITR ISAIAS; Protocol Vasopressin 20 unit/ Sodium (Chloride) 101 mls @ 9.09 mls/hr IV TITR ISAIAS; Protocol Cefepime HCl (Maxipime/Ns 2 Gm/100 Ml) 2 gm in 100 mls @ 200 mls/hr IV Q8HR ISAIAS; Protocol Ondansetron HCl (Zofran) 4 mg IV Q8H PRN PRN Reason: Nausea And Vomiting Sodium Chloride (Sodium Chloride Flush Syringe 10 Ml) 10 ml IV BID ISAIAS Sodium Chloride (Sodium Chloride Flush Syringe 10 Ml) 10 ml IV PRN PRN PRN Reason: LINE FLUSH Exam - Physical Exam Narrative exam: Patient intubated, NG tube in place with coffee-ground material - Constitutional Vitals: Temp Pulse Resp BP Pulse Ox 99.3 F 103 H 11 L 73/49 100 07/12/18 10:51 07/12/18 15:40 07/12/18 14:48 07/12/18 14:48 07/12/18 15:40 General appearance: Present: severe distress, well-nourished - EENT Eyes: Present: PERRL ENT: hearing intact, clear oral mucosa - Neck Neck: Present: supple, normal ROM - Respiratory Respiratory effort: normal Respiratory: bilateral: CTA, rhonchi - Cardiovascular Heart rate: 110 Rhythm: regular Heart Sounds: Present: S1 & S2. Absent: rub, click - Extremities Extremities: no ischemia, pulses intact, pulses symmetrical, No edema Peripheral Pulses: within normal limits - Abdominal General gastrointestinal: Present: soft, non-tender, non-distended, normal bowel sounds Male genitourinary: Present: normal - Integumentary Integumentary: Present: clear, warm, dry - Musculoskeletal Musculoskeletal: generalized weakness, other (patient intubated) - Psychiatric Psychiatric: other (patient intubated) - Neurologic Neurologic: CNII-XII intact, moves all extremities - Allied Health Allied health notes reviewed: nursing, case management Results - Labs CBC & Chem 7: 07/12/18 09:00 07/12/18 15:02 Labs: Laboratory Last Values WBC 4.6 K/mm3 (4.5-11.0) 07/12/18 09:00 RBC 3.07 M/mm3 (3.65-5.03) L 07/12/18 09:00 Hgb 9.8 gm/dl (11.8-15.2) L 07/12/18 09:00 Hct 33.9 % (35.5-45.6) L 07/12/18 09:00 MCV 111 fl (84-94) H 07/12/18 09:00 MCH 32 pg (28-32) 07/12/18 09:00 MCHC 29 % (32-34) L 07/12/18 09:00 RDW 19.3 % (13.2-15.2) H 07/12/18 09:00 Plt Count 285 K/mm3 (140-440) 07/12/18 09:00 Add Manual Diff Complete 07/12/18 09:00 Total Counted 100 07/12/18 09:00 Seg Neuts % (Manual) 87.0 % (40.0-70.0) H 07/12/18 09:00 Band Neutrophils % 2.0 % 07/12/18 09:00 Lymphocytes % (Manual) 5.0 % (13.4-35.0) L 07/12/18 09:00 Reactive Lymphs % (Man) 0 % 07/12/18 09:00 Monocytes % (Manual) 3.0 % (0.0-7.3) 07/12/18 09:00 Eosinophils % (Manual) 1.0 % (0.0-4.3) 07/12/18 09:00 Basophils % (Manual) 0 % (0.0-1.8) 07/12/18 09:00 Metamyelocytes % 2.0 % 07/12/18 09:00 Myelocytes % 0 % 07/12/18 09:00 Promyelocytes % 0 % 07/12/18 09:00 Blast Cells % 0 % 07/12/18 09:00 Nucleated RBC % Not Reportable 07/12/18 09:00 Seg Neutrophils # Man 4.0 K/mm3 (1.8-7.7) 07/12/18 09:00 Band Neutrophils # 0.1 K/mm3 07/12/18 09:00 Lymphocytes # (Manual) 0.2 K/mm3 (1.2-5.4) L 07/12/18 09:00 Abs React Lymphs (Man) 0.0 K/mm3 07/12/18 09:00 Monocytes # (Manual) 0.1 K/mm3 (0.0-0.8) 07/12/18 09:00 Eosinophils # (Manual) 0.0 K/mm3 (0.0-0.4) 07/12/18 09:00 Basophils # (Manual) 0.0 K/mm3 (0.0-0.1) 07/12/18 09:00 Metamyelocytes # 0.1 K/mm3 07/12/18 09:00 Myelocytes # 0.0 K/mm3 07/12/18 09:00 Promyelocytes # 0.0 K/mm3 07/12/18 09:00 Blast Cells # 0.0 K/mm3 07/12/18 09:00 WBC Morphology Not Reportable 07/12/18 09:00 Hypersegmented Neuts Not Reportable 07/12/18 09:00 Hyposegmented Neuts Not Reportable 07/12/18 09:00 Hypogranular Neuts Not Reportable 07/12/18 09:00 Smudge Cells Not Reportable 07/12/18 09:00 Toxic Granulation Not Reportable 07/12/18 09:00 Toxic Vacuolation Not Reportable 07/12/18 09:00 Dohle Bodies Not Reportable 07/12/18 09:00 Pelger-Huet Anomaly Not Reportable 07/12/18 09:00 Karel Rods Not Reportable 07/12/18 09:00 Platelet Estimate Consistent w auto 07/12/18 09:00 Clumped Platelets Not Reportable 07/12/18 09:00 Plt Clumps, EDTA Not Reportable 07/12/18 09:00 Large Platelets Not Reportable 07/12/18 09:00 Giant Platelets Not Reportable 07/12/18 09:00 Platelet Satelliting Not Reportable 07/12/18 09:00 Plt Morphology Comment Not Reportable 07/12/18 09:00 RBC Morphology Not Reportable 07/12/18 09:00 Dimorphic RBCs Not Reportable 07/12/18 09:00 Polychromasia Not Reportable 07/12/18 09:00 Hypochromasia Not Reportable 07/12/18 09:00 Poikilocytosis Not Reportable 07/12/18 09:00 Anisocytosis Not Reportable 07/12/18 09:00 Microcytosis Not Reportable 07/12/18 09:00 Macrocytosis Not Reportable 07/12/18 09:00 Spherocytes Not Reportable 07/12/18 09:00 Pappenheimer Bodies Not Reportable 07/12/18 09:00 Sickle Cells Not Reportable 07/12/18 09:00 Target Cells Not Reportable 07/12/18 09:00 Tear Drop Cells Not Reportable 07/12/18 09:00 Ovalocytes Not Reportable 07/12/18 09:00 Helmet Cells Not Reportable 07/12/18 09:00 [place] Bodies Not Reportable 07/12/18 09:00 [place] Rings Not Reportable 07/12/18 09:00 Rick Cells Not Reportable 07/12/18 09:00 Bite Cells Not Reportable 07/12/18 09:00 Crenated Cell Not Reportable 07/12/18 09:00 Elliptocytes Not Reportable 07/12/18 09:00 Acanthocytes (Spur) 2+ 07/12/18 09:00 Rouleaux Not Reportable 07/12/18 09:00 Hemoglobin C Crystals Not Reportable 07/12/18 09:00 Schistocytes Rare 07/12/18 09:00 Malaria parasites Not Reportable 07/12/18 09:00 Gibran Bodies Not Reportable 07/12/18 09:00 Hem Pathologist Commnt No 07/12/18 09:00 PT 20.8 Sec. (12.2-14.9) H 07/12/18 09:51 INR 1.67 (0.87-1.13) H 07/12/18 09:51 APTT 32.0 Sec. (24.2-36.6) 07/12/18 12:22 POC ABG pH 6.780 (7.35-7.45) L 07/12/18 11:06 POC ABG pO2 389 (80-105) H 07/12/18 11:06 POC ABG HCO3 3.4 (22-26 mml/L) 07/12/18 11:06 POC ABG Total CO2 < 5 (23-27mmol/L) 07/12/18 11:06 POC ABG O2 Sat 100 07/12/18 11:06 POC ABG Base Excess < -30 ((-2) - (+3)mmol/L) 07/12/18 11:06 FiO2 70 % 07/12/18 11:06 Sodium 138 mmol/L (137-145) 07/12/18 15:02 Potassium 3.9 mmol/L (3.6-5.0) 07/12/18 15:02 Chloride 102.8 mmol/L (98-107) 07/12/18 15:02 Carbon Dioxide 5 mmol/L (22-30) L* 07/12/18 15:02 Anion Gap 34 mmol/L 07/12/18 15:02 BUN 17 mg/dL (9-20) 07/12/18 15:02 Creatinine 0.8 mg/dL (0.8-1.5) 07/12/18 15:02 Estimated GFR > 60 ml/min 07/12/18 15:02 BUN/Creatinine Ratio 21 % 07/12/18 15:02 Glucose 489 mg/dL (75-100) H 07/12/18 15:02 POC Glucose 440 (70-105) H 07/12/18 14:20 Lactic Acid 2.50 mmol/L (0.7-2.0) H* 07/12/18 Unknown Calcium 7.1 mg/dL (8.4-10.2) L 07/12/18 15:02 Phosphorus 5.50 mg/dL (2.5-4.5) H 07/12/18 11:22 Magnesium 2.40 mg/dL (1.7-2.3) H 07/12/18 11:22 Total Bilirubin 0.30 mg/dL (0.1-1.2) 07/12/18 09:00 AST 78 units/L (5-40) H 07/12/18 09:00 ALT 38 units/L (7-56) 07/12/18 09:00 Alkaline Phosphatase 142 units/L (35-129) H 07/12/18 09:00 NT-Pro-B Natriuret Pep 269.5 pg/mL (0-900) 07/12/18 09:00 Total Protein 6.3 g/dL (6.3-8.2) 07/12/18 09:00 Albumin 3.7 g/dL (3.9-5) L 07/12/18 09:00 Albumin/Globulin Ratio 1.4 % 07/12/18 09:00 Urine Color Yellow (Yellow) 07/12/18 13:42 Urine Turbidity Clear (Clear) 07/12/18 13:42 Urine pH 5.0 (5.0-7.0) 07/12/18 13:42 Ur Specific Wilson 1.020 (1.003-1.030) 07/12/18 13:42 Urine Protein 100 mg/dl mg/dL (Negative) 07/12/18 13:42 Urine Glucose (UA) >=500 mg/dL (Negative) 07/12/18 13:42 Urine Ketones 80 mg/dL (Negative) 07/12/18 13:42 Urine Blood Mod (Negative) 07/12/18 13:42 Urine Nitrite Neg (Negative) 07/12/18 13:42 Urine Bilirubin Neg (Negative) 07/12/18 13:42 Urine Urobilinogen < 2.0 mg/dL (<2.0) 07/12/18 13:42 Ur Leukocyte Esterase Neg (Negative) 07/12/18 13:42 Urine WBC (Auto) 1.0 /HPF (0.0-6.0) 07/12/18 13:42 Urine RBC (Auto) 1.0 /HPF (0.0-6.0) 07/12/18 13:42 U Epithel Cells (Auto) 1.0 /HPF (0-13.0) 07/12/18 13:42 Urine Bacteria (Auto) 1+ /HPF (Negative) 07/12/18 13:42 Urine Mucus Few /HPF 07/12/18 13:42 Short CBC 07/12/18 Range/Units 09:00 WBC 4.6 (4.5-11.0) K/mm3 Hgb 9.8 L (11.8-15.2) gm/dl Hct 33.9 L (35.5-45.6) % Plt Count 285 (140-440) K/mm3 BMP 07/12/18 07/12/18 07/12/18 09:00 12:19 15:02 Sodium 128 L 136 L D 138 Potassium 6.2 H* 4.3 D 3.9 Chloride 94.4 L 98.8 102.8 Carbon Dioxide 2 L* 3 L* 5 L* BUN 17 Creatinine 1.0 1.0 0.8 Glucose 662 H* 599 H* 489 H Calcium 8.3 L 8.0 L 7.1 L Liver Function 07/12/18 Range/Units 09:00 Total Bilirubin 0.30 (0.1-1.2) mg/dL AST 78 H (5-40) units/L ALT 38 (7-56) units/L Alkaline Phosphatase 142 H (35-129) units/L Albumin 3.7 L (3.9-5) g/dL Urine 07/12/18 Range/Units 13:42 Urine Color Yellow (Yellow) Urine pH 5.0 (5.0-7.0) Ur Specific Wilson 1.020 (1.003-1.030) Urine Protein 100 mg/dl (Negative) mg/dL Urine Glucose (UA) >=500 (Negative) mg/dL - Imaging and Cardiology EKG: report reviewed (pending) Imaging and Cardiology: Head CT IMPRESSION: There is no acute intracranial abnormality seen. Chest x-ray IMPRESSION: Endotracheal tube placed as above Patchy right basilar airspace disease. Assessment and Plan Assessment and plan: Critical care statement The high probability of a clinically significant sudden or life-threatening deterioration of the pulmonary cardiac and renal systems required my full and direct attention, intervention and personal management. The appropriate critical care time was 40 minutes. This time is in addition to time spent performing reported procedures but includes the following: #1.Data review and interpretation #2 patient assessment and monitoring of vital signs #3 documentation #4 medication orders and management Advance Directives: Yes (full code) VTE prophylaxis?: Chemical Plan of care discussed with patient/family: Yes - Patient Problems (1) DKA (diabetic ketoacidosis) Current Visit: Yes Status: Acute Qualifiers: Diabetes mellitus type: type 2 Plan to address problem: DKA protocol initiated (2) Acute respiratory failure with hypoxia Current Visit: Yes Status: Acute Plan to address problem: Patient intubated Vent management Contract Recruiter consulted--Dr. Murcia (3) Hypotension Current Visit: Yes Status: Acute Qualifiers: Hypotension type: other hypotension type Qualified Code(s): I95.89 - Other hypotension Plan to address problem: Patient initiated on IV Levophed (4) Acute metabolic encephalopathy Current Visit: No Status: Acute Plan to address problem: Secondary to DKA Treat the DKA Patient has to be more compliant (5) Cardiac arrest Current Visit: Yes Status: Acute Plan to address problem: Patient revived within 2 minutes after 1 round of epinephrine. There was return of spontaneous circulation (6) Pneumonia Current Visit: Yes Status: Acute Qualifiers: Pneumonia type: aspiration pneumonia Laterality: right Lung location: lower lobe of lung Plan to address problem: Possible aspiration given the location of the infiltrate IV cefepime and IV vancomycin started IDconsult if necessary We will defer to the primary team Contract Recruiter consult requested (7) Hypoxia Current Visit: Yes Status: Acute Plan to address problem: Intubated Vent management Contract Recruiter consulted (8) Hypothyroidism Current Visit: Yes Status: Chronic Qualifiers: Hypothyroidism type: acquired Qualified Code(s): E03.9 - Hypothyroidism, unspecified Plan to address problem: Continue Synthroid Check TSH (9) Hyperkalemia Current Visit: Yes Status: Acute Plan to address problem: Should correct with IV insulin We will recheck the potassium level in 2-3 hours and subsequently (10) Upper GI bleed Current Visit: Yes Status: Acute Plan to address problem: Patient on IV Protonix drip (11) DVT prophylaxis Current Visit: Yes Status: Acute Plan to address problem: No Lovenox because of GI bleed and patient on IV Protonix-- hence no GI prophylaxis
[2018-07-12] MEDS ORDERED: VANCOMYCIN PHARMACY TO DOSE IV SCH ×2 (17:00)
[2018-07-12] MEDS ORDERED: VANCOMYCIN 1,500 MG in NACL 0.9% 500 ML 500 ML IV ONE (17:30)
[2018-07-12 17:34] LABS: BUN/Creatinine Ratio 18; Blood Urea Nitrogen 16 mg/dL (9-20); Calcium 7.5 mg/dL (8.4-10.2); Hemolysis Index 10
[2018-07-12] MEDS: MAXIPIME/NS 2 GM/100 ML 2 GM/100 ML BAG IV SCH (17:59)
[2018-07-12] MEDS ORDERED: Vasostrict 20 UNIT in NACL 0.9% 100 ML IV SCH (18:00)
[2018-07-12 18:45] LABS: BUN/Creatinine Ratio 18; Blood Urea Nitrogen 16 mg/dL (9-20); Calcium 7.4 mg/dL (8.4-10.2); Hemolysis Index 11
[2018-07-12] MEDS: HumuLIN R 100 UNITS in NACL 0.9% 99 ML IV SCH (19:30)
[2018-07-12 19:56] LABS: BUN/Creatinine Ratio 18; Blood Urea Nitrogen 16 mg/dL (9-20); Calcium 7.3 mg/dL (8.4-10.2); Hemolysis Index 19
[2018-07-12] MEDS ORDERED: PEPCID IV SCH (20:00)
[2018-07-12] MEDS ORDERED: D5W/0.45% NACL/KCL 20 MEQ 20 MEQ/1,000 ML BAG IV SCH (20:00)
[2018-07-12 20:18] LABS: Hematocrit 24.2 % (35.5-45.6); Hemoglobin 7.9 gm/dl (11.8-15.2)
[2018-07-12] MEDS: PROTONIX 80 MG in NACL 0.9% 100 ML IV SCH (20:23)
[2018-07-12] MEDS ORDERED: NACL 0.9% IV SCH (21:00)
[2018-07-12] MEDS ORDERED: SODIUM BICARBONATE IV SCH (21:00)
[2018-07-12 21:55] LABS: BUN/Creatinine Ratio 16; Blood Urea Nitrogen 16 mg/dL (9-20); Calcium 7.3 mg/dL (8.4-10.2); Hemolysis Index 6
[2018-07-12] MEDS ORDERED: LANTUS SUB-Q SCH (22:00)
[2018-07-12] MEDS: SODIUM CHLORIDE FLUSH SYRINGE 10 ML IV SCH (22:46)
[2018-07-12] MEDS: D5 IV SCH (22:54)
[2018-07-12] MEDS: KCL IV SCH (22:54)
[2018-07-12] MEDS: [UNRECOGNIZED DRUG - OTHER] IV SCH (22:54)
[2018-07-12] MEDS: SODIUM BICARBONATE IV SCH (22:54)
[2018-07-12 23:54] LABS: BUN/Creatinine Ratio 15; Blood Urea Nitrogen 16 mg/dL (9-20); Calcium 7.4 mg/dL (8.4-10.2); Hemolysis Index 6
[2018-07-13] MEDS: LEVOPHED DRIP 4 MG/NS 250 ML 4 MG/250 ML BAG IV SCH ×4 (00:12→19:37)
[2018-07-13 01:34] LABS: Hematocrit 21.3 % (35.5-45.6); Hemoglobin 7.1 gm/dl (11.8-15.2)
[2018-07-13 01:40] LABS: BUN/Creatinine Ratio 15; Blood Urea Nitrogen 16 mg/dL (9-20); Calcium 7.4 mg/dL (8.4-10.2); Hemolysis Index 9
[2018-07-13] MEDS: MAXIPIME/NS 2 GM/100 ML 2 GM/100 ML BAG IV SCH ×3 (02:02→18:20)
[2018-07-13 04:24] LABS: BUN/Creatinine Ratio 15; Blood Urea Nitrogen 16 mg/dL (9-20); Calcium 7.8 mg/dL (8.4-10.2); Hemolysis Index 17
[2018-07-13] MEDS: VANCOMYCIN/NS 1 GM/250 ML 1 GM/250 ML BAG IV SCH ×2 (05:57→19:18)
[2018-07-13] MEDS: KCL IV SCH ×2 (06:23→14:33)
[2018-07-13] MEDS: [UNRECOGNIZED DRUG - OTHER] IV SCH ×2 (06:23→14:33)
[2018-07-13] MEDS: SODIUM BICARBONATE IV SCH ×2 (06:23→14:33)
[2018-07-13] MEDS: D5 IV SCH ×2 (06:23→14:33)
[2018-07-13] MEDS: DIPRIVAN 10 MG/ML 1,000 MG/100 ML BOTTLE IV SCH ×2 (06:25→15:49)
[2018-07-13] MEDS: PROTONIX 80 MG in NACL 0.9% 100 ML IV SCH (06:47)
[2018-07-13] MEDS ORDERED: NACL 0.9% 500 ML 500 ML IV ONE (09:11)
[2018-07-13 09:58] LABS: BUN/Creatinine Ratio 13; Blood Urea Nitrogen 15 mg/dL (9-20); Calcium 7.8 mg/dL (8.4-10.2); Hemolysis Index 49
[2018-07-13] MEDS: HumuLIN R 100 UNITS in NACL 0.9% 99 ML IV SCH (10:39)
[2018-07-13] MEDS: SODIUM CHLORIDE FLUSH SYRINGE 10 ML IV SCH ×2 (10:50→21:29)
[2018-07-13] MEDS ORDERED: SYNTHROID PO SCH (11:00)
--- NOTE | 2018-07-13 11:25 | Gastroenterology Consultation ---
<HIPOLITO GUEVARA - Last Filed: 07/13/18 11:52> History of Present Illness - Reason for Consult Consult date: 07/13/18 GI bleed Requesting physician: CIPRIANO ROBLES - History of Present Illness Patient is a 63 y/o male with PMH of insulin-dependent diabetes, thyroid disease, and medical non-compliance who was brought to ED via EMS yesterday for AMS. Upon admission, he was found to be in severe diabetic ketoacidosis and went into cardiac arrest. He is currently in ICU on vent and levophed drip. GI has been consulted for a possible GI bleed. According to chart review, patient had epistaxis yesterday requiring placement of Rhino Rocket in bilateral nares. No active signs of bleeding overnight or this am per nursing. Upon exam, old dried blood was noted around nose and in OG tube. Rectal revealed brown stool with no melena or hematochezia. Prior GI history unknown. Past History Past Medical History: diabetes, other (thyroid disease) Past Surgical History: No surgical history Social history: other (unknown) Family history: hypertension Medications and Allergies Allergies Allergy/AdvReac Type Severity Reaction Status Date / Time No Known Allergies Allergy Verified 03/25/18 07:26 Home Medications Medication Instructions Recorded Confirmed Last Taken Type Detemir (Nf) [Levemir (Nf)] 18 units SUB-Q QHS #1 vial 05/18/18 07/12/18 Unknown Rx Humalog 10 units SQ AC 07/12/18 07/12/18 Unknown History Levothyroxine [Synthroid] 150 mcg PO DAILY@0600 07/12/18 07/12/18 Unknown History Active Meds: Active Medications Acetaminophen (Tylenol) 650 mg PO Q4H PRN PRN Reason: Pain MILD(1-3)/Fever >100.5/GARCIA Dextrose (D50w (25gm) Syringe) 0 ml IV PRN PRN PRN Reason: Hypoglycemia Hydromorphone HCl (Dilaudid) 0.25 mg IV Q3H PRN PRN Reason: Pain, Moderate (4-6) Norepinephrine (Levophed Drip 4 Mg/Ns 250 Ml) 4 mg in 250 mls @ 7.5 mls/hr IV TITR ISAIAS; Protocol Last Admin: 07/13/18 09:58 Dose: 8 mcg/min, 30 mls/hr Documented by: Propofol (Diprivan 10 Mg/Ml) 1,000 mg in 100 mls @ 2.585 mls/hr IV TITR ISAIAS; Protocol Last Admin: 07/13/18 06:25 Dose: 20 mcg/kg/min, 10.342 mls/hr Documented by: Insulin Human Regular 100 (units/ Sodium Chloride) 100 mls @ 1 mls/hr IV TITR ISAIAS; Protocol Last Titration: 07/13/18 09:39 Dose: 0 units/hr, 0 mls/hr Documented by: Vasopressin 20 unit/ Sodium (Chloride) 101 mls @ 9.09 mls/hr IV TITR ISAIAS; Protocol Cefepime HCl (Maxipime/Ns 2 Gm/100 Ml) 2 gm in 100 mls @ 200 mls/hr IV Q8H ISAIAS; Protocol Last Admin: 07/13/18 10:50 Dose: 200 mls/hr Documented by: Pantoprazole Sodium 80 mg/ (Sodium Chloride) 100 mls @ 10 mls/hr IV DIRECT ISAIAS Last Admin: 07/13/18 06:47 Dose: 8 mg/hr, 10 mls/hr Documented by: Vancomycin HCl (Vancomycin/Ns 1 Gm/250 Ml) 1 gm in 250 mls @ 166.667 mls/hr IV Q12H ISAIAS Last Admin: 07/13/18 05:57 Dose: 166.667 mls/hr Documented by: Sodium Bicarbonate 150 meq/ (Sodium Chloride) 1,150 mls @ 150 mls/hr IV DIRECT ISAIAS Last Infusion: 07/12/18 22:54 Dose: 0 mls/hr Documented by: Potassium Chloride 20 meq/Sodium Bicarbonate 150 meq/Dextrose/Sodium Chloride 1,160 mls @ 150 mls/hr IV DIRECT ISAIAS Last Admin: 07/13/18 06:23 Dose: 150 mls/hr Documented by: Levothyroxine Sodium (Synthroid) 150 mcg PO DAILY@0600 ISAIAS Ondansetron HCl (Zofran) 4 mg IV Q8H PRN PRN Reason: Nausea And Vomiting Sodium Chloride (Sodium Chloride Flush Syringe 10 Ml) 10 ml IV BID ISAIAS Last Admin: 07/13/18 10:50 Dose: 10 ml Documented by: Sodium Chloride (Sodium Chloride Flush Syringe 10 Ml) 10 ml IV PRN PRN PRN Reason: LINE FLUSH Last Admin: 07/12/18 19:32 Dose: 10 ml Documented by: medications reviewed/updated as required Review of Systems - Review of Systems ROS unobtainable: due to endotracheal tube, due to mental status Exam - Constitutional Vital Signs: Temp Pulse Resp BP Pulse Ox 99.8 F H 80 18 105/65 100 07/13/18 08:00 07/13/18 11:00 07/13/18 11:00 07/13/18 11:00 07/13/18 11:00 General appearance: other (in ICU on vent and pressor support) - EENT ENT: other (old dried blood around nose +Rhino rocket in bilateral nares) - Respiratory Respiratory: bilateral: diminished - Cardiovascular Rhythm: regular - Gastrointestinal General gastrointestinal: Present: soft, non-distended, normal bowel sounds Rectal Exam: stool brown (testing lead present during exam (rut RN)) - Labs CBC & Chem 7: 07/13/18 11:14 07/13/18 09:28 Lab Results: Laboratory Results - last 24 hr 07/12/18 07/12/18 07/12/18 11:22 12:09 12:19 Hgb Hct APTT POC ABG pH POC ABG pO2 POC ABG HCO3 POC ABG Total CO2 POC ABG O2 Sat POC ABG Base Excess FiO2 Sodium 136 L D Potassium 4.3 D Chloride 98.8 Carbon Dioxide 3 L* Anion Gap 39 BUN 19 Creatinine 1.0 Estimated GFR > 60 BUN/Creatinine Ratio 19 Glucose 599 H* POC Glucose > 500 H Hemoglobin A1c Lactic Acid Calcium 8.0 L Phosphorus 5.50 H Magnesium 2.40 H TSH Free T4 Urine Color Urine Turbidity Urine pH Ur Specific [employer] Urine Protein Urine Glucose (UA) Urine Ketones Urine Blood Urine Nitrite Urine Bilirubin Urine Urobilinogen Ur Leukocyte Esterase Urine WBC (Auto) Urine RBC (Auto) U Epithel Cells (Auto) Urine Bacteria (Auto) Urine Mucus 07/12/18 07/12/18 07/12/18 12:22 13:18 13:42 Hgb Hct APTT 32.0 POC ABG pH POC ABG pO2 POC ABG HCO3 POC ABG Total CO2 POC ABG O2 Sat POC ABG Base Excess FiO2 Sodium Potassium Chloride Carbon Dioxide Anion Gap BUN Creatinine Estimated GFR BUN/Creatinine Ratio Glucose POC Glucose 440 H Hemoglobin A1c Lactic Acid Calcium Phosphorus Magnesium TSH Free T4 Urine Color Yellow Urine Turbidity Clear Urine pH 5.0 Ur Specific [employer] 1.020 Urine Protein 100 mg/dl Urine Glucose (UA) >=500 Urine Ketones 80 Urine Blood Mod Urine Nitrite Neg Urine Bilirubin Neg Urine Urobilinogen < 2.0 Ur Leukocyte Esterase Neg Urine WBC (Auto) 1.0 Urine RBC (Auto) 1.0 U Epithel Cells (Auto) 1.0 Urine Bacteria (Auto) 1+ Urine Mucus Few 07/12/18 07/12/18 07/12/18 13:55 14:20 15:02 Hgb Hct APTT POC ABG pH POC ABG pO2 POC ABG HCO3 POC ABG Total CO2 POC ABG O2 Sat POC ABG Base Excess FiO2 Sodium 138 Potassium 3.9 Chloride 102.8 Carbon Dioxide 5 L* Anion Gap 34 BUN 17 Creatinine 0.8 Estimated GFR > 60 BUN/Creatinine Ratio 21 Glucose 489 H POC Glucose 440 H Hemoglobin A1c Lactic Acid 2.20 H* Calcium 7.1 L Phosphorus Magnesium TSH Free T4 Urine Color Urine Turbidity Urine pH Ur Specific [employer] Urine Protein Urine Glucose (UA) Urine Ketones Urine Blood Urine Nitrite Urine Bilirubin Urine Urobilinogen Ur Leukocyte Esterase Urine WBC (Auto) Urine RBC (Auto) U Epithel Cells (Auto) Urine Bacteria (Auto) Urine Mucus 07/12/18 07/12/18 07/12/18 15:54 16:57 17:05 Hgb Hct APTT POC ABG pH POC ABG pO2 POC ABG HCO3 POC ABG Total CO2 POC ABG O2 Sat POC ABG Base Excess FiO2 Sodium 139 Potassium 3.9 Chloride 104.1 Carbon Dioxide 6 L* Anion Gap 33 BUN 16 Creatinine 0.9 Estimated GFR > 60 BUN/Creatinine Ratio 18 Glucose 387 H POC Glucose 469 H 466 H Hemoglobin A1c Lactic Acid Calcium 7.4 L Phosphorus Magnesium TSH Free T4 Urine Color Urine Turbidity Urine pH Ur Specific [employer] Urine Protein Urine Glucose (UA) Urine Ketones Urine Blood Urine Nitrite Urine Bilirubin Urine Urobilinogen Ur Leukocyte Esterase Urine WBC (Auto) Urine RBC (Auto) U Epithel Cells (Auto) Urine Bacteria (Auto) Urine Mucus 07/12/18 07/12/18 07/12/18 17:05 17:05 17:05 Hgb Hct APTT POC ABG pH POC ABG pO2 POC ABG HCO3 POC ABG Total CO2 POC ABG O2 Sat POC ABG Base Excess FiO2 Sodium Potassium Chloride Carbon Dioxide Anion Gap BUN Creatinine Estimated GFR BUN/Creatinine Ratio Glucose POC Glucose Hemoglobin A1c 9.9 H Lactic Acid 2.50 H* Calcium Phosphorus 3.10 D Magnesium 1.80 TSH Free T4 Urine Color Urine Turbidity Urine pH Ur Specific [employer] Urine Protein Urine Glucose (UA) Urine Ketones Urine Blood Urine Nitrite Urine Bilirubin Urine Urobilinogen Ur Leukocyte Esterase Urine WBC (Auto) Urine RBC (Auto) U Epithel Cells (Auto) Urine Bacteria (Auto) Urine Mucus 07/12/18 07/12/18 07/12/18 17:05 18:13 19:24 Hgb Hct APTT POC ABG pH POC ABG pO2 POC ABG HCO3 POC ABG Total CO2 POC ABG O2 Sat POC ABG Base Excess FiO2 Sodium 135 L 136 L Potassium 3.8 3.6 Chloride 102.8 104.5 Carbon Dioxide 6 L* 6 L* Anion Gap 30 29 BUN 16 16 Creatinine 0.9 0.9 Estimated GFR > 60 > 60 BUN/Creatinine Ratio 18 18 Glucose 429 H 336 H POC Glucose 433 H Hemoglobin A1c Lactic Acid Calcium 7.5 L 7.3 L Phosphorus Magnesium TSH Free T4 Urine Color Urine Turbidity Urine pH Ur Specific [employer] Urine Protein Urine Glucose (UA) Urine Ketones Urine Blood Urine Nitrite Urine Bilirubin Urine Urobilinogen Ur Leukocyte Esterase Urine WBC (Auto) Urine RBC (Auto) U Epithel Cells (Auto) Urine Bacteria (Auto) Urine Mucus 07/12/18 07/12/18 07/12/18 19:24 19:24 19:24 Hgb 7.9 L Hct 24.2 L D APTT POC ABG pH POC ABG pO2 POC ABG HCO3 POC ABG Total CO2 POC ABG O2 Sat POC ABG Base Excess FiO2 Sodium Potassium Chloride Carbon Dioxide Anion Gap BUN Creatinine Estimated GFR BUN/Creatinine Ratio Glucose POC Glucose Hemoglobin A1c Lactic Acid 3.30 H* Calcium Phosphorus Magnesium TSH 19.440 H Free T4 Urine Color Urine Turbidity Urine pH Ur Specific [employer] Urine Protein Urine Glucose (UA) Urine Ketones Urine Blood Urine Nitrite Urine Bilirubin Urine Urobilinogen Ur Leukocyte Esterase Urine WBC (Auto) Urine RBC (Auto) U Epithel Cells (Auto) Urine Bacteria (Auto) Urine Mucus 07/12/18 07/12/18 07/12/18 19:31 19:31 20:03 Hgb Hct APTT POC ABG pH 7.024 L POC ABG pO2 195 H POC ABG HCO3 4.5 POC ABG Total CO2 < 5 POC ABG O2 Sat 99 POC ABG Base Excess -26 FiO2 40 Sodium Potassium Chloride Carbon Dioxide Anion Gap BUN Creatinine Estimated GFR BUN/Creatinine Ratio Glucose POC Glucose 225 H 366 H Hemoglobin A1c Lactic Acid Calcium Phosphorus Magnesium TSH Free T4 Urine Color Urine Turbidity Urine pH Ur Specific [employer] Urine Protein Urine Glucose (UA) Urine Ketones Urine Blood Urine Nitrite Urine Bilirubin Urine Urobilinogen Ur Leukocyte Esterase Urine WBC (Auto) Urine RBC (Auto) U Epithel Cells (Auto) Urine Bacteria (Auto) Urine Mucus 07/12/18 07/12/18 07/12/18 21:08 21:30 21:30 Hgb Hct APTT POC ABG pH POC ABG pO2 POC ABG HCO3 POC ABG Total CO2 POC ABG O2 Sat POC ABG Base Excess FiO2 Sodium 137 Potassium 3.3 L Chloride 106.8 Carbon Dioxide 6 L* Anion Gap 28 BUN 16 Creatinine 1.0 Estimated GFR > 60 BUN/Creatinine Ratio 16 Glucose 232 H POC Glucose 286 H Hemoglobin A1c Lactic Acid 4.90 H* Calcium 7.3 L Phosphorus Magnesium TSH Free T4 Urine Color Urine Turbidity Urine pH Ur Specific [employer] Urine Protein Urine Glucose (UA) Urine Ketones Urine Blood Urine Nitrite Urine Bilirubin Urine Urobilinogen Ur Leukocyte Esterase Urine WBC (Auto) Urine RBC (Auto) U Epithel Cells (Auto) Urine Bacteria (Auto) Urine Mucus 07/12/18 07/12/18 07/12/18 21:57 22:56 23:14 Hgb Hct APTT POC ABG pH POC ABG pO2 POC ABG HCO3 POC ABG Total CO2 POC ABG O2 Sat POC ABG Base Excess FiO2 Sodium 143 Potassium 3.5 L Chloride 109.1 H Carbon Dioxide 7 L* Anion Gap 30 BUN 16 Creatinine 1.1 Estimated GFR > 60 BUN/Creatinine Ratio 15 Glucose 173 H POC Glucose 262 H 248 H Hemoglobin A1c Lactic Acid Calcium 7.4 L Phosphorus Magnesium TSH Free T4 Urine Color Urine Turbidity Urine pH Ur Specific [employer] Urine Protein Urine Glucose (UA) Urine Ketones Urine Blood Urine Nitrite Urine Bilirubin Urine Urobilinogen Ur Leukocyte Esterase Urine WBC (Auto) Urine RBC (Auto) U Epithel Cells (Auto) Urine Bacteria (Auto) Urine Mucus 07/12/18 07/12/18 07/12/18 23:14 Unknown 23:59 Hgb Hct APTT POC ABG pH POC ABG pO2 POC ABG HCO3 POC ABG Total CO2 POC ABG O2 Sat POC ABG Base Excess FiO2 Sodium Potassium Chloride Carbon Dioxide Anion Gap BUN Creatinine Estimated GFR BUN/Creatinine Ratio Glucose POC Glucose 215 H Hemoglobin A1c Lactic Acid 5.40 H* 2.50 H* Calcium Phosphorus Magnesium TSH Free T4 Urine Color Urine Turbidity Urine pH Ur Specific [employer] Urine Protein Urine Glucose (UA) Urine Ketones Urine Blood Urine Nitrite Urine Bilirubin Urine Urobilinogen Ur Leukocyte Esterase Urine WBC (Auto) Urine RBC (Auto) U Epithel Cells (Auto) Urine Bacteria (Auto) Urine Mucus 07/13/18 07/13/18 07/13/18 00:44 00:44 00:44 Hgb 7.1 L Hct 21.3 L APTT POC ABG pH POC ABG pO2 POC ABG HCO3 POC ABG Total CO2 POC ABG O2 Sat POC ABG Base Excess FiO2 Sodium 143 Potassium 3.3 L Chloride 109.6 H Carbon Dioxide 10 L Anion Gap 27 BUN 16 Creatinine 1.1 Estimated GFR > 60 BUN/Creatinine Ratio 15 Glucose 147 H POC Glucose Hemoglobin A1c Lactic Acid 5.40 H* Calcium 7.4 L Phosphorus Magnesium TSH Free T4 Urine Color Urine Turbidity Urine pH Ur Specific [employer] Urine Protein Urine Glucose (UA) Urine Ketones Urine Blood Urine Nitrite Urine Bilirubin Urine Urobilinogen Ur Leukocyte Esterase Urine WBC (Auto) Urine RBC (Auto) U Epithel Cells (Auto) Urine Bacteria (Auto) Urine Mucus 07/13/18 07/13/18 07/13/18 00:58 01:59 02:57 Hgb Hct APTT POC ABG pH POC ABG pO2 POC ABG HCO3 POC ABG Total CO2 POC ABG O2 Sat POC ABG Base Excess FiO2 Sodium Potassium Chloride Carbon Dioxide Anion Gap BUN Creatinine Estimated GFR BUN/Creatinine Ratio Glucose POC Glucose 175 H 144 H 178 H Hemoglobin A1c Lactic Acid Calcium Phosphorus Magnesium TSH Free T4 Urine Color Urine Turbidity Urine pH Ur Specific [employer] Urine Protein Urine Glucose (UA) Urine Ketones Urine Blood Urine Nitrite Urine Bilirubin Urine Urobilinogen Ur Leukocyte Esterase Urine WBC (Auto) Urine RBC (Auto) U Epithel Cells (Auto) Urine Bacteria (Auto) Urine Mucus 07/13/18 07/13/18 07/13/18 03:54 04:00 04:00 Hgb Hct APTT POC ABG pH POC ABG pO2 POC ABG HCO3 POC ABG Total CO2 POC ABG O2 Sat POC ABG Base Excess FiO2 Sodium 144 Potassium 3.4 L Chloride 110.7 H Carbon Dioxide 15 L Anion Gap 22 BUN 16 Creatinine 1.1 Estimated GFR > 60 BUN/Creatinine Ratio 15 Glucose 122 H POC Glucose 128 H Hemoglobin A1c Lactic Acid 4.10 H* Calcium 7.8 L Phosphorus Magnesium TSH Free T4 Urine Color Urine Turbidity Urine pH Ur Specific [employer] Urine Protein Urine Glucose (UA) Urine Ketones Urine Blood Urine Nitrite Urine Bilirubin Urine Urobilinogen Ur Leukocyte Esterase Urine WBC (Auto) Urine RBC (Auto) U Epithel Cells (Auto) Urine Bacteria (Auto) Urine Mucus 07/13/18 07/13/18 07/13/18 04:04 05:03 06:00 Hgb Hct APTT POC ABG pH 7.308 L POC ABG pO2 194 H POC ABG HCO3 13.5 POC ABG Total CO2 14 POC ABG O2 Sat 100 POC ABG Base Excess -13 FiO2 40 Sodium Potassium Chloride Carbon Dioxide Anion Gap BUN Creatinine Estimated GFR BUN/Creatinine Ratio Glucose POC Glucose 127 H 123 H Hemoglobin A1c Lactic Acid Calcium Phosphorus Magnesium TSH Free T4 Urine Color Urine Turbidity Urine pH Ur Specific [employer] Urine Protein Urine Glucose (UA) Urine Ketones Urine Blood Urine Nitrite Urine Bilirubin Urine Urobilinogen Ur Leukocyte Esterase Urine WBC (Auto) Urine RBC (Auto) U Epithel Cells (Auto) Urine Bacteria (Auto) Urine Mucus 07/13/18 07/13/18 07/13/18 06:58 08:40 09:25 Hgb Hct APTT POC ABG pH POC ABG pO2 POC ABG HCO3 POC ABG Total CO2 POC ABG O2 Sat POC ABG Base Excess FiO2 Sodium Potassium Chloride Carbon Dioxide Anion Gap BUN Creatinine Estimated GFR BUN/Creatinine Ratio Glucose POC Glucose 110 H 102 82 Hemoglobin A1c Lactic Acid Calcium Phosphorus Magnesium TSH Free T4 Urine Color Urine Turbidity Urine pH Ur Specific [employer] Urine Protein Urine Glucose (UA) Urine Ketones Urine Blood Urine Nitrite Urine Bilirubin Urine Urobilinogen Ur Leukocyte Esterase Urine WBC (Auto) Urine RBC (Auto) U Epithel Cells (Auto) Urine Bacteria (Auto) Urine Mucus 07/13/18 07/13/18 07/13/18 09:28 09:28 10:33 Hgb Hct APTT POC ABG pH POC ABG pO2 POC ABG HCO3 POC ABG Total CO2 POC ABG O2 Sat POC ABG Base Excess FiO2 Sodium 144 Potassium 3.9 Chloride 112.8 H Carbon Dioxide 15 L Anion Gap 20 BUN 15 Creatinine 1.2 Estimated GFR > 60 BUN/Creatinine Ratio 13 Glucose 92 POC Glucose 116 H Hemoglobin A1c Lactic Acid Calcium 7.8 L Phosphorus Magnesium TSH Free T4 0.53 L Urine Color Urine Turbidity Urine pH Ur Specific [employer] Urine Protein Urine Glucose (UA) Urine Ketones Urine Blood Urine Nitrite Urine Bilirubin Urine Urobilinogen Ur Leukocyte Esterase Urine WBC (Auto) Urine RBC (Auto) U Epithel Cells (Auto) Urine Bacteria (Auto) Urine Mucus Assessment and Plan 1.acute blood loss anemia/GI bleed? -H/H 7.1/21.3 -continue to monitor H/H and transfuse as needed -hold blood thinning medications -patient with epistaxis yesterday requiring Rhino Rocket placement in bilateral nares. Upon exam, old dried blood noted around nose and in OG tube. Rectal exam reviewed brown stool with no evidence of melena or hematochezia. -etiology- likely 2/2 epistaxis vs other -no plan for scope at this time unless overt GI bleeding develops -continue PPI and supportive care -will follow 2.DKA 3.acute respiratory failure 4.hypotension 5.acute metabolic encephalopathy 6.s/p cardiac arrest 7.pneumonia 8.hypothyroidism <MARGIE VITAL R - Last Filed: 07/13/18 14:43> Medications and Allergies Active Meds: Active Medications Acetaminophen (Tylenol) 650 mg PO Q4H PRN PRN Reason: Pain MILD(1-3)/Fever >100.5/GARCIA Lipase/Protease/Amylase (Pancreaze Dr 10,500 Unit) 1 each FEEDTUBE PRN PRN PRN Reason: For Clogged Feeding Tube Dextrose (D50w (25gm) Syringe) 0 ml IV PRN PRN PRN Reason: Hypoglycemia Hydromorphone HCl (Dilaudid) 0.25 mg IV Q3H PRN PRN Reason: Pain, Moderate (4-6) Norepinephrine (Levophed Drip 4 Mg/Ns 250 Ml) 4 mg in 250 mls @ 7.5 mls/hr IV TITR ISAIAS; Protocol Last Admin: 07/13/18 09:58 Dose: 8 mcg/min, 30 mls/hr Documented by: Propofol (Diprivan 10 Mg/Ml) 1,000 mg in 100 mls @ 2.585 mls/hr IV TITR ISAIAS; Protocol Last Admin: 07/13/18 06:25 Dose: 20 mcg/kg/min, 10.342 mls/hr Documented by: Insulin Human Regular 100 (units/ Sodium Chloride) 100 mls @ 1 mls/hr IV TITR ISAIAS; Protocol Last Titration: 07/13/18 14:29 Dose: 2 units/hr, 2 mls/hr Documented by: Vasopressin 20 unit/ Sodium (Chloride) 101 mls @ 9.09 mls/hr IV TITR ISAIAS; Protocol Cefepime HCl (Maxipime/Ns 2 Gm/100 Ml) 2 gm in 100 mls @ 200 mls/hr IV Q8H ISAIAS; Protocol Last Admin: 07/13/18 10:50 Dose: 200 mls/hr Documented by: Vancomycin HCl (Vancomycin/Ns 1 Gm/250 Ml) 1 gm in 250 mls @ 166.667 mls/hr IV Q12H ISAIAS Last Admin: 07/13/18 05:57 Dose: 166.667 mls/hr Documented by: Sodium Bicarbonate 150 meq/ (Sodium Chloride) 1,150 mls @ 150 mls/hr IV DIRECT ISAIAS Last Infusion: 07/12/18 22:54 Dose: 0 mls/hr Documented by: Potassium Chloride 20 meq/Sodium Bicarbonate 150 meq/Dextrose/Sodium Chloride 1,160 mls @ 150 mls/hr IV DIRECT ISAIAS Last Admin: 07/13/18 14:33 Dose: 150 mls/hr Documented by: Levothyroxine Sodium (Synthroid) 150 mcg PO DAILY@0600 ISAIAS Last Admin: 07/13/18 12:48 Dose: 150 mcg Documented by: Ondansetron HCl (Zofran) 4 mg IV Q8H PRN PRN Reason: Nausea And Vomiting Pantoprazole Sodium (Protonix) 40 mg IV BID ISAIAS Simple Syrup (Simple Syrup) 15 ml FEEDTUBE PRN PRN PRN Reason: Hypoglycemia Simple Syrup (Simple Syrup) 30 ml FEEDTUBE PRN PRN PRN Reason: Hypoglycemia Sodium Bicarbonate (Sodium Bicarbonate) 325 mg FEEDTUBE PRN PRN PRN Reason: For Clogged Feeding Tube Sodium Chloride (Sodium Chloride Flush Syringe 10 Ml) 10 ml IV BID ISAIAS Last Admin: 07/13/18 10:50 Dose: 10 ml Documented by: Sodium Chloride (Sodium Chloride Flush Syringe 10 Ml) 10 ml IV PRN PRN PRN Reason: LINE FLUSH Last Admin: 07/12/18 19:32 Dose: 10 ml Documented by: Exam - Constitutional Vital Signs: Temp Pulse Resp BP Pulse Ox 99.0 F 81 18 110/65 99 07/13/18 12:00 07/13/18 12:30 07/13/18 12:30 07/13/18 12:30 07/13/18 12:30 - Labs CBC & Chem 7: 07/13/18 11:14 07/13/18 11:14 Lab Results: Laboratory Results - last 24 hr 07/12/18 07/12/18 07/12/18 13:42 13:55 14:20 Hgb Hct PT INR POC ABG pH POC ABG pO2 POC ABG HCO3 POC ABG Total CO2 POC ABG O2 Sat POC ABG Base Excess FiO2 Sodium Potassium Chloride Carbon Dioxide Anion Gap BUN Creatinine Estimated GFR BUN/Creatinine Ratio Glucose POC Glucose 440 H Hemoglobin A1c Lactic Acid 2.20 H* Calcium Phosphorus Magnesium Total Creatine Kinase CK-MB (CK-2) CK-MB (CK-2) Rel Index Troponin T Triglycerides Cholesterol LDL Cholesterol Direct HDL Cholesterol Cholesterol/HDL Ratio TSH Free T4 Urine Color Yellow Urine Turbidity Clear Urine pH 5.0 Ur Specific [employer] 1.020 Urine Protein 100 mg/dl Urine Glucose (UA) >=500 Urine Ketones 80 Urine Blood Mod Urine Nitrite Neg Urine Bilirubin Neg Urine Urobilinogen < 2.0 Ur Leukocyte Esterase Neg Urine WBC (Auto) 1.0 Urine RBC (Auto) 1.0 U Epithel Cells (Auto) 1.0 Urine Bacteria (Auto) 1+ Urine Mucus Few Blood Type Antibody Screen Crossmatch 07/12/18 07/12/18 07/12/18 15:02 15:54 16:57 Hgb Hct PT INR POC ABG pH POC ABG pO2 POC ABG HCO3 POC ABG Total CO2 POC ABG O2 Sat POC ABG Base Excess FiO2 Sodium 138 Potassium 3.9 Chloride 102.8 Carbon Dioxide 5 L* Anion Gap 34 BUN 17 Creatinine 0.8 Estimated GFR > 60 BUN/Creatinine Ratio 21 Glucose 489 H POC Glucose 469 H 466 H Hemoglobin A1c Lactic Acid Calcium 7.1 L Phosphorus Magnesium Total Creatine Kinase CK-MB (CK-2) CK-MB (CK-2) Rel Index Troponin T Triglycerides Cholesterol LDL Cholesterol Direct HDL Cholesterol Cholesterol/HDL Ratio TSH Free T4 Urine Color Urine Turbidity Urine pH Ur Specific [employer] Urine Protein Urine Glucose (UA) Urine Ketones Urine Blood Urine Nitrite Urine Bilirubin Urine Urobilinogen Ur Leukocyte Esterase Urine WBC (Auto) Urine RBC (Auto) U Epithel Cells (Auto) Urine Bacteria (Auto) Urine Mucus Blood Type Antibody Screen Crossmatch 07/12/18 07/12/18 07/12/18 17:05 17:05 17:05 Hgb Hct PT INR POC ABG pH POC ABG pO2 POC ABG HCO3 POC ABG Total CO2 POC ABG O2 Sat POC ABG Base Excess FiO2 Sodium 139 Potassium 3.9 Chloride 104.1 Carbon Dioxide 6 L* Anion Gap 33 BUN 16 Creatinine 0.9 Estimated GFR > 60 BUN/Creatinine Ratio 18 Glucose 387 H POC Glucose Hemoglobin A1c 9.9 H Lactic Acid 2.50 H* Calcium 7.4 L Phosphorus Magnesium Total Creatine Kinase CK-MB (CK-2) CK-MB (CK-2) Rel Index Troponin T Triglycerides Cholesterol LDL Cholesterol Direct HDL Cholesterol Cholesterol/HDL Ratio TSH Free T4 Urine Color Urine Turbidity Urine pH Ur Specific [employer] Urine Protein Urine Glucose (UA) Urine Ketones Urine Blood Urine Nitrite Urine Bilirubin Urine Urobilinogen Ur Leukocyte Esterase Urine WBC (Auto) Urine RBC (Auto) U Epithel Cells (Auto) Urine Bacteria (Auto) Urine Mucus Blood Type Antibody Screen Crossmatch 07/12/18 07/12/18 07/12/18 17:05 17:05 18:13 Hgb Hct PT INR POC ABG pH POC ABG pO2 POC ABG HCO3 POC ABG Total CO2 POC ABG O2 Sat POC ABG Base Excess FiO2 Sodium 135 L Potassium 3.8 Chloride 102.8 Carbon Dioxide 6 L* Anion Gap 30 BUN 16 Creatinine 0.9 Estimated GFR > 60 BUN/Creatinine Ratio 18 Glucose 429 H POC Glucose 433 H Hemoglobin A1c Lactic Acid Calcium 7.5 L Phosphorus 3.10 D Magnesium 1.80 Total Creatine Kinase CK-MB (CK-2) CK-MB (CK-2) Rel Index Troponin T Triglycerides Cholesterol LDL Cholesterol Direct HDL Cholesterol Cholesterol/HDL Ratio TSH Free T4 Urine Color Urine Turbidity Urine pH Ur Specific [employer] Urine Protein Urine Glucose (UA) Urine Ketones Urine Blood Urine Nitrite Urine Bilirubin Urine Urobilinogen Ur Leukocyte Esterase Urine WBC (Auto) Urine RBC (Auto) U Epithel Cells (Auto) Urine Bacteria (Auto) Urine Mucus Blood Type Antibody Screen Crossmatch 07/12/18 07/12/18 07/12/18 19:24 19:24 19:24 Hgb 7.9 L Hct 24.2 L D PT INR POC ABG pH POC ABG pO2 POC ABG HCO3 POC ABG Total CO2 POC ABG O2 Sat POC ABG Base Excess FiO2 Sodium 136 L Potassium 3.6 Chloride 104.5 Carbon Dioxide 6 L* Anion Gap 29 BUN 16 Creatinine 0.9 Estimated GFR > 60 BUN/Creatinine Ratio 18 Glucose 336 H POC Glucose Hemoglobin A1c Lactic Acid Calcium 7.3 L Phosphorus Magnesium Total Creatine Kinase CK-MB (CK-2) CK-MB (CK-2) Rel Index Troponin T Triglycerides Cholesterol LDL Cholesterol Direct HDL Cholesterol Cholesterol/HDL Ratio TSH 19.440 H Free T4 Urine Color Urine Turbidity Urine pH Ur Specific [place] [employer] Urine Protein Urine Glucose (UA) Urine Ketones Urine Blood Urine Nitrite Urine Bilirubin Urine Urobilinogen Ur Leukocyte Esterase Urine WBC (Auto) Urine RBC (Auto) U Epithel Cells (Auto) Urine Bacteria (Auto) Urine Mucus Blood Type Antibody Screen Crossmatch 07/12/18 07/12/18 07/12/18 19:24 19:31 19:31 Hgb Hct PT INR POC ABG pH 7.024 L POC ABG pO2 195 H POC ABG HCO3 4.5 POC ABG Total CO2 < 5 POC ABG O2 Sat 99 POC ABG Base Excess -26 FiO2 40 Sodium Potassium Chloride Carbon Dioxide Anion Gap BUN Creatinine Estimated GFR BUN/Creatinine Ratio Glucose POC Glucose 225 H Hemoglobin A1c Lactic Acid 3.30 H* Calcium Phosphorus Magnesium Total Creatine Kinase CK-MB (CK-2) CK-MB (CK-2) Rel Index Troponin T Triglycerides Cholesterol LDL Cholesterol Direct HDL Cholesterol Cholesterol/HDL Ratio TSH Free T4 Urine Color Urine Turbidity Urine pH Ur Specific [place] [employer] Urine Protein Urine Glucose (UA) Urine Ketones Urine Blood Urine Nitrite Urine Bilirubin Urine Urobilinogen Ur Leukocyte Esterase Urine WBC (Auto) Urine RBC (Auto) U Epithel Cells (Auto) Urine Bacteria (Auto) Urine Mucus Blood Type Antibody Screen Crossmatch 07/12/18 07/12/18 07/12/18 20:03 21:08 21:30 Hgb Hct PT INR POC ABG pH POC ABG pO2 POC ABG HCO3 POC ABG Total CO2 POC ABG O2 Sat POC ABG Base Excess FiO2 Sodium 137 Potassium 3.3 L Chloride 106.8 Carbon Dioxide 6 L* Anion Gap 28 BUN 16 Creatinine 1.0 Estimated GFR > 60 BUN/Creatinine Ratio 16 Glucose 232 H POC Glucose 366 H 286 H Hemoglobin A1c Lactic Acid Calcium 7.3 L Phosphorus Magnesium Total Creatine Kinase CK-MB (CK-2) CK-MB (CK-2) Rel Index Troponin T Triglycerides Cholesterol LDL Cholesterol Direct HDL Cholesterol Cholesterol/HDL Ratio TSH Free T4 Urine Color Urine Turbidity Urine pH Ur Specific [place] [employer] Urine Protein Urine Glucose (UA) Urine Ketones Urine Blood Urine Nitrite Urine Bilirubin Urine Urobilinogen Ur Leukocyte Esterase Urine WBC (Auto) Urine RBC (Auto) U Epithel Cells (Auto) Urine Bacteria (Auto) Urine Mucus Blood Type Antibody Screen Crossmatch 07/12/18 07/12/18 07/12/18 21:30 21:57 22:56 Hgb Hct PT INR POC ABG pH POC ABG pO2 POC ABG HCO3 POC ABG Total CO2 POC ABG O2 Sat POC ABG Base Excess FiO2 Sodium Potassium Chloride Carbon Dioxide Anion Gap BUN Creatinine Estimated GFR BUN/Creatinine Ratio Glucose POC Glucose 262 H 248 H Hemoglobin A1c Lactic Acid 4.90 H* Calcium Phosphorus Magnesium Total Creatine Kinase CK-MB (CK-2) CK-MB (CK-2) Rel Index Troponin T Triglycerides Cholesterol LDL Cholesterol Direct HDL Cholesterol Cholesterol/HDL Ratio TSH Free T4 Urine Color Urine Turbidity Urine pH Ur Specific [place] [employer] Urine Protein Urine Glucose (UA) Urine Ketones Urine Blood Urine Nitrite Urine Bilirubin Urine Urobilinogen Ur Leukocyte Esterase Urine WBC (Auto) Urine RBC (Auto) U Epithel Cells (Auto) Urine Bacteria (Auto) Urine Mucus Blood Type Antibody Screen Crossmatch 07/12/18 07/12/18 07/12/18 23:14 23:14 23:59 Hgb Hct PT INR POC ABG pH POC ABG pO2 POC ABG HCO3 POC ABG Total CO2 POC ABG O2 Sat POC ABG Base Excess FiO2 Sodium 143 Potassium 3.5 L Chloride 109.1 H Carbon Dioxide 7 L* Anion Gap 30 BUN 16 Creatinine 1.1 Estimated GFR > 60 BUN/Creatinine Ratio 15 Glucose 173 H POC Glucose 215 H Hemoglobin A1c Lactic Acid 5.40 H* Calcium 7.4 L Phosphorus Magnesium Total Creatine Kinase CK-MB (CK-2) CK-MB (CK-2) Rel Index Troponin T Triglycerides Cholesterol LDL Cholesterol Direct HDL Cholesterol Cholesterol/HDL Ratio TSH Free T4 Urine Color Urine Turbidity Urine pH Ur Specific [place] [employer] Urine Protein Urine Glucose (UA) Urine Ketones Urine Blood Urine Nitrite Urine Bilirubin Urine Urobilinogen Ur Leukocyte Esterase Urine WBC (Auto) Urine RBC (Auto) U Epithel Cells (Auto) Urine Bacteria (Auto) Urine Mucus Blood Type Antibody Screen Crossmatch 07/13/18 07/13/18 07/13/18 00:44 00:44 00:44 Hgb 7.1 L Hct 21.3 L PT INR POC ABG pH POC ABG pO2 POC ABG HCO3 POC ABG Total CO2 POC ABG O2 Sat POC ABG Base Excess FiO2 Sodium 143 Potassium 3.3 L Chloride 109.6 H Carbon Dioxide 10 L Anion Gap 27 BUN 16 Creatinine 1.1 Estimated GFR > 60 BUN/Creatinine Ratio 15 Glucose 147 H POC Glucose Hemoglobin A1c Lactic Acid 5.40 H* Calcium 7.4 L Phosphorus Magnesium Total Creatine Kinase CK-MB (CK-2) CK-MB (CK-2) Rel Index Troponin T Triglycerides Cholesterol LDL Cholesterol Direct HDL Cholesterol Cholesterol/HDL Ratio TSH Free T4 Urine Color Urine Turbidity Urine pH Ur Specific [place] [employer] Urine Protein Urine Glucose (UA) Urine Ketones Urine Blood Urine Nitrite Urine Bilirubin Urine Urobilinogen Ur Leukocyte Esterase Urine WBC (Auto) Urine RBC (Auto) U Epithel Cells (Auto) Urine Bacteria (Auto) Urine Mucus Blood Type Antibody Screen Crossmatch 07/13/18 07/13/18 07/13/18 00:58 01:59 02:57 Hgb Hct PT INR POC ABG pH POC ABG pO2 POC ABG HCO3 POC ABG Total CO2 POC ABG O2 Sat POC ABG Base Excess FiO2 Sodium Potassium Chloride Carbon Dioxide Anion Gap BUN Creatinine Estimated GFR BUN/Creatinine Ratio Glucose POC Glucose 175 H 144 H 178 H Hemoglobin A1c Lactic Acid Calcium Phosphorus Magnesium Total Creatine Kinase CK-MB (CK-2) CK-MB (CK-2) Rel Index Troponin T Triglycerides Cholesterol LDL Cholesterol Direct HDL Cholesterol Cholesterol/HDL Ratio TSH Free T4 Urine Color Urine Turbidity Urine pH Ur Specific [place] [employer] Urine Protein Urine Glucose (UA) Urine Ketones Urine Blood Urine Nitrite Urine Bilirubin Urine Urobilinogen Ur Leukocyte Esterase Urine WBC (Auto) Urine RBC (Auto) U Epithel Cells (Auto) Urine Bacteria (Auto) Urine Mucus Blood Type Antibody Screen Crossmatch 07/13/18 07/13/18 07/13/18 03:54 04:00 04:00 Hgb Hct PT INR POC ABG pH POC ABG pO2 POC ABG HCO3 POC ABG Total CO2 POC ABG O2 Sat POC ABG Base Excess FiO2 Sodium 144 Potassium 3.4 L Chloride 110.7 H Carbon Dioxide 15 L Anion Gap 22 BUN 16 Creatinine 1.1 Estimated GFR > 60 BUN/Creatinine Ratio 15 Glucose 122 H POC Glucose 128 H Hemoglobin A1c Lactic Acid 4.10 H* Calcium 7.8 L Phosphorus Magnesium Total Creatine Kinase CK-MB (CK-2) CK-MB (CK-2) Rel Index Troponin T Triglycerides Cholesterol LDL Cholesterol Direct HDL Cholesterol Cholesterol/HDL Ratio TSH Free T4 Urine Color Urine Turbidity Urine pH Ur Specific [place] [employer] Urine Protein Urine Glucose (UA) Urine Ketones Urine Blood Urine Nitrite Urine Bilirubin Urine Urobilinogen Ur Leukocyte Esterase Urine WBC (Auto) Urine RBC (Auto) U Epithel Cells (Auto) Urine Bacteria (Auto) Urine Mucus Blood Type Antibody Screen Crossmatch 07/13/18 07/13/18 07/13/18 04:04 05:03 06:00 Hgb Hct PT INR POC ABG pH 7.308 L POC ABG pO2 194 H POC ABG HCO3 13.5 POC ABG Total CO2 14 POC ABG O2 Sat 100 POC ABG Base Excess -13 FiO2 40 Sodium Potassium Chloride Carbon Dioxide Anion Gap BUN Creatinine Estimated GFR BUN/Creatinine Ratio Glucose POC Glucose 127 H 123 H Hemoglobin A1c Lactic Acid Calcium Phosphorus Magnesium Total Creatine Kinase CK-MB (CK-2) CK-MB (CK-2) Rel Index Troponin T Triglycerides Cholesterol LDL Cholesterol Direct HDL Cholesterol Cholesterol/HDL Ratio TSH Free T4 Urine Color Urine Turbidity Urine pH Ur Specific [place] [employer] Urine Protein Urine Glucose (UA) Urine Ketones Urine Blood Urine Nitrite Urine Bilirubin Urine Urobilinogen Ur Leukocyte Esterase Urine WBC (Auto) Urine RBC (Auto) U Epithel Cells (Auto) Urine Bacteria (Auto) Urine Mucus Blood Type Antibody Screen Crossmatch 07/13/18 07/13/18 07/13/18 06:58 08:40 09:25 Hgb Hct PT INR POC ABG pH POC ABG pO2 POC ABG HCO3 POC ABG Total CO2 POC ABG O2 Sat POC ABG Base Excess FiO2 Sodium Potassium Chloride Carbon Dioxide Anion Gap BUN Creatinine Estimated GFR BUN/Creatinine Ratio Glucose POC Glucose 110 H 102 82 Hemoglobin A1c Lactic Acid Calcium Phosphorus Magnesium Total Creatine Kinase CK-MB (CK-2) CK-MB (CK-2) Rel Index Troponin T Triglycerides Cholesterol LDL Cholesterol Direct HDL Cholesterol Cholesterol/HDL Ratio TSH Free T4 Urine Color Urine Turbidity Urine pH Ur Specific [place] [employer] Urine Protein Urine Glucose (UA) Urine Ketones Urine Blood Urine Nitrite Urine Bilirubin Urine Urobilinogen Ur Leukocyte Esterase Urine WBC (Auto) Urine RBC (Auto) U Epithel Cells (Auto) Urine Bacteria (Auto) Urine Mucus Blood Type Antibody Screen Crossmatch 07/13/18 07/13/18 07/13/18 09:28 09:28 10:33 Hgb Hct PT INR POC ABG pH POC ABG pO2 POC ABG HCO3 POC ABG Total CO2 POC ABG O2 Sat POC ABG Base Excess FiO2 Sodium 144 Potassium 3.9 Chloride 112.8 H Carbon Dioxide 15 L Anion Gap 20 BUN 15 Creatinine 1.2 Estimated GFR > 60 BUN/Creatinine Ratio 13 Glucose 92 POC Glucose 116 H Hemoglobin A1c Lactic Acid Calcium 7.8 L Phosphorus Magnesium Total Creatine Kinase CK-MB (CK-2) CK-MB (CK-2) Rel Index Troponin T Triglycerides Cholesterol LDL Cholesterol Direct HDL Cholesterol Cholesterol/HDL Ratio TSH Free T4 0.53 L Urine Color Urine Turbidity Urine pH Ur Specific [place] [employer] Urine Protein Urine Glucose (UA) Urine Ketones Urine Blood Urine Nitrite Urine Bilirubin Urine Urobilinogen Ur Leukocyte Esterase Urine WBC (Auto) Urine RBC (Auto) U Epithel Cells (Auto) Urine Bacteria (Auto) Urine Mucus Blood Type Antibody Screen Crossmatch 07/13/18 07/13/18 07/13/18 10:56 11:14 11:14 Hgb 7.4 L Hct 21.3 L PT INR POC ABG pH POC ABG pO2 POC ABG HCO3 POC ABG Total CO2 POC ABG O2 Sat POC ABG Base Excess FiO2 Sodium 146 H Potassium 3.0 L D Chloride 111.6 H Carbon Dioxide 19 L Anion Gap 18 BUN 14 Creatinine 1.2 Estimated GFR > 60 BUN/Creatinine Ratio 12 Glucose 100 POC Glucose Hemoglobin A1c Lactic Acid Calcium 7.7 L Phosphorus Magnesium Total Creatine Kinase CK-MB (CK-2) CK-MB (CK-2) Rel Index Troponin T Triglycerides Cholesterol LDL Cholesterol Direct HDL Cholesterol Cholesterol/HDL Ratio TSH Free T4 Urine Color Urine Turbidity Urine pH Ur Specific [place] [employer] Urine Protein Urine Glucose (UA) Urine Ketones Urine Blood Urine Nitrite Urine Bilirubin Urine Urobilinogen Ur Leukocyte Esterase Urine WBC (Auto) Urine RBC (Auto) U Epithel Cells (Auto) Urine Bacteria (Auto) Urine Mucus Blood Type B POSITIVE Antibody Screen Negative Crossmatch See Detail 07/13/18 07/13/18 07/13/18 11:14 11:25 11:25 Hgb Hct PT 15.3 H INR 1.14 H POC ABG pH POC ABG pO2 POC ABG HCO3 POC ABG Total CO2 POC ABG O2 Sat POC ABG Base Excess FiO2 Sodium Potassium Chloride Carbon Dioxide Anion Gap BUN Creatinine Estimated GFR BUN/Creatinine Ratio Glucose POC Glucose Hemoglobin A1c Lactic Acid 3.00 H* Calcium Phosphorus Magnesium Total Creatine Kinase 2806 H CK-MB (CK-2) 16.0 H CK-MB (CK-2) Rel Index 0.5 Troponin T 0.073 H Triglycerides 133 Cholesterol 165 LDL Cholesterol Direct 73 HDL Cholesterol 90 H Cholesterol/HDL Ratio 1.83 TSH Free T4 Urine Color Urine Turbidity Urine pH Ur Specific [place] [employer] Urine Protein Urine Glucose (UA) Urine Ketones Urine Blood Urine Nitrite Urine Bilirubin Urine Urobilinogen Ur Leukocyte Esterase Urine WBC (Auto) Urine RBC (Auto) U Epithel Cells (Auto) Urine Bacteria (Auto) Urine Mucus Blood Type Antibody Screen Crossmatch 07/13/18 07/13/18 07/13/18 11:42 12:49 14:32 Hgb Hct PT INR POC ABG pH POC ABG pO2 POC ABG HCO3 POC ABG Total CO2 POC ABG O2 Sat POC ABG Base Excess FiO2 Sodium Potassium Chloride Carbon Dioxide Anion Gap BUN Creatinine Estimated GFR BUN/Creatinine Ratio Glucose POC Glucose 140 H 206 H 110 H Hemoglobin A1c Lactic Acid Calcium Phosphorus Magnesium Total Creatine Kinase CK-MB (CK-2) CK-MB (CK-2) Rel Index Troponin T Triglycerides Cholesterol LDL Cholesterol Direct HDL Cholesterol Cholesterol/HDL Ratio TSH Free T4 Urine Color Urine Turbidity Urine pH Ur Specific [place] [employer] Urine Protein Urine Glucose (UA) Urine Ketones Urine Blood Urine Nitrite Urine Bilirubin Urine Urobilinogen Ur Leukocyte Esterase Urine WBC (Auto) Urine RBC (Auto) U Epithel Cells (Auto) Urine Bacteria (Auto) Urine Mucus Blood Type Antibody Screen Crossmatch Assessment and Plan As noted. Likely nose bleed. Discussed with Dr. Mathew.
[2018-07-13 11:42] LABS: Hematocrit 21.3 % (35.5-45.6); Hemoglobin 7.4 gm/dl (11.8-15.2)
[2018-07-13 11:52] LABS: INR 1.14 (0.87-1.13)
[2018-07-13 12:01] LABS: BUN/Creatinine Ratio 12; Blood Urea Nitrogen 14 mg/dL (9-20); Calcium 7.7 mg/dL (8.4-10.2); Hemolysis Index 0
[2018-07-13 12:17] LABS: Chol/HDL Ratio 1.83 %
--- NOTE | 2018-07-13 12:47 | Progress Note ---
Assessment and Plan Assessment and plan: .s/p Cardiac arrest , vfib Patient resuscitated after 1 dose Epi in ED, intubated, admitted to ICU Consult cardiology Acute respiratory failure s/p Intubated Pulm consulted To r/o sepsis Blood cultures drawn cefepime, vanco Poss pneumonia right base cefepime, Vanco Sputum culture Diabetic ketoacidosis On Insulin drip Anion gap still elevated. Epistaxis. Details unclear Poss coffeground emesis GI following Monitor H/H Get stool occult blood Hypokalemia Replace iv Hypernatremia Hypothyroidism Will give 100mcg iv which is equivalent to 200mcg po, since TSH is high, FT4 low He was on 150 mcg at home DVT prophylaxis. SCds only because poss GI bleed Full code status History Interval history: Patient with acute resp failure, cardiac arrest, DKA Still intubated Hospitalist Physical - Physical exam Narrative exam: GEN: Not in acute distress, lying in bed, intubated HEENT: Jaundice, atraumatic, Neck: supple, No JVD Heart ;S1 and S2 reg, no murmurs Lungs: Clear to auscultation bilat, no crackles, no wheeze Abd:soft, non tender, non distended, normal bowel sounds Ext: No edema, no clubbing, no cyanosis Neuro: Intubated, sedated on Propofol - Constitutional Vitals: Temp Pulse Resp BP Pulse Ox 99.0 F 81 18 110/65 99 07/13/18 12:00 07/13/18 12:30 07/13/18 12:30 07/13/18 12:30 07/13/18 12:30 Results - Labs CBC & Chem 7: 07/13/18 11:14 07/13/18 20:50 Labs: Laboratory Last Values WBC 4.6 K/mm3 (4.5-11.0) 07/12/18 09:00 RBC 3.07 M/mm3 (3.65-5.03) L 07/12/18 09:00 Hgb 7.4 gm/dl (11.8-15.2) L 07/13/18 11:14 Hct 21.3 % (35.5-45.6) L 07/13/18 11:14 MCV 111 fl (84-94) H 07/12/18 09:00 MCH 32 pg (28-32) 07/12/18 09:00 MCHC 29 % (32-34) L 07/12/18 09:00 RDW 19.3 % (13.2-15.2) H 07/12/18 09:00 Plt Count 285 K/mm3 (140-440) 07/12/18 09:00 Add Manual Diff Complete 07/12/18 09:00 Total Counted 100 07/12/18 09:00 Seg Neuts % (Manual) 87.0 % (40.0-70.0) H 07/12/18 09:00 Band Neutrophils % 2.0 % 07/12/18 09:00 Lymphocytes % (Manual) 5.0 % (13.4-35.0) L 07/12/18 09:00 Reactive Lymphs % (Man) 0 % 07/12/18 09:00 Monocytes % (Manual) 3.0 % (0.0-7.3) 07/12/18 09:00 Eosinophils % (Manual) 1.0 % (0.0-4.3) 07/12/18 09:00 Basophils % (Manual) 0 % (0.0-1.8) 07/12/18 09:00 Metamyelocytes % 2.0 % 07/12/18 09:00 Myelocytes % 0 % 07/12/18 09:00 Promyelocytes % 0 % 07/12/18 09:00 Blast Cells % 0 % 07/12/18 09:00 Nucleated RBC % Not Reportable 07/12/18 09:00 Seg Neutrophils # Man 4.0 K/mm3 (1.8-7.7) 07/12/18 09:00 Band Neutrophils # 0.1 K/mm3 07/12/18 09:00 Lymphocytes # (Manual) 0.2 K/mm3 (1.2-5.4) L 07/12/18 09:00 Abs React Lymphs (Man) 0.0 K/mm3 07/12/18 09:00 Monocytes # (Manual) 0.1 K/mm3 (0.0-0.8) 07/12/18 09:00 Eosinophils # (Manual) 0.0 K/mm3 (0.0-0.4) 07/12/18 09:00 Basophils # (Manual) 0.0 K/mm3 (0.0-0.1) 07/12/18 09:00 Metamyelocytes # 0.1 K/mm3 07/12/18 09:00 Myelocytes # 0.0 K/mm3 07/12/18 09:00 Promyelocytes # 0.0 K/mm3 07/12/18 09:00 Blast Cells # 0.0 K/mm3 07/12/18 09:00 WBC Morphology Not Reportable 07/12/18 09:00 Hypersegmented Neuts Not Reportable 07/12/18 09:00 Hyposegmented Neuts Not Reportable 07/12/18 09:00 Hypogranular Neuts Not Reportable 07/12/18 09:00 Smudge Cells Not Reportable 07/12/18 09:00 Toxic Granulation Not Reportable 07/12/18 09:00 Toxic Vacuolation Not Reportable 07/12/18 09:00 Dohle Bodies Not Reportable 07/12/18 09:00 Pelger-Huet Anomaly Not Reportable 07/12/18 09:00 Karel Rods Not Reportable 07/12/18 09:00 Platelet Estimate Consistent w auto 07/12/18 09:00 Clumped Platelets Not Reportable 07/12/18 09:00 Plt Clumps, EDTA Not Reportable 07/12/18 09:00 Large Platelets Not Reportable 07/12/18 09:00 Giant Platelets Not Reportable 07/12/18 09:00 Platelet Satelliting Not Reportable 07/12/18 09:00 Plt Morphology Comment Not Reportable 07/12/18 09:00 RBC Morphology Not Reportable 07/12/18 09:00 Dimorphic RBCs Not Reportable 07/12/18 09:00 Polychromasia Not Reportable 07/12/18 09:00 Hypochromasia Not Reportable 07/12/18 09:00 Poikilocytosis Not Reportable 07/12/18 09:00 Anisocytosis Not Reportable 07/12/18 09:00 Microcytosis Not Reportable 07/12/18 09:00 Macrocytosis Not Reportable 07/12/18 09:00 Spherocytes Not Reportable 07/12/18 09:00 Pappenheimer Bodies Not Reportable 07/12/18 09:00 Sickle Cells Not Reportable 07/12/18 09:00 Target Cells Not Reportable 07/12/18 09:00 Tear Drop Cells Not Reportable 07/12/18 09:00 Ovalocytes Not Reportable 07/12/18 09:00 Helmet Cells Not Reportable 07/12/18 09:00 [place] Bodies Not Reportable 07/12/18 09:00 [place] Rings Not Reportable 07/12/18 09:00 Rick Cells Not Reportable 07/12/18 09:00 Bite Cells Not Reportable 07/12/18 09:00 Crenated Cell Not Reportable 07/12/18 09:00 Elliptocytes Not Reportable 07/12/18 09:00 Acanthocytes (Spur) 2+ 07/12/18 09:00 Rouleaux Not Reportable 07/12/18 09:00 Hemoglobin C Crystals Not Reportable 07/12/18 09:00 Schistocytes Rare 07/12/18 09:00 Malaria parasites Not Reportable 07/12/18 09:00 Gibran Bodies Not Reportable 07/12/18 09:00 Hem Pathologist Commnt No 07/12/18 09:00 PT 15.3 Sec. (12.2-14.9) H 07/13/18 11:25 INR 1.14 (0.87-1.13) H 07/13/18 11:25 APTT 32.0 Sec. (24.2-36.6) 07/12/18 12:22 POC ABG pH 7.308 (7.35-7.45) L 07/13/18 04:04 POC ABG pO2 194 (80-105) H 07/13/18 04:04 POC ABG HCO3 13.5 (22-26 mml/L) 07/13/18 04:04 POC ABG Total CO2 14 (23-27mmol/L) 07/13/18 04:04 POC ABG O2 Sat 100 07/13/18 04:04 POC ABG Base Excess -13 ((-2) - (+3)mmol/L) 07/13/18 04:04 FiO2 40 % 07/13/18 04:04 Sodium 146 mmol/L (137-145) H 07/13/18 11:14 Potassium 3.0 mmol/L (3.6-5.0) L D 07/13/18 11:14 Chloride 111.6 mmol/L (98-107) H 07/13/18 11:14 Carbon Dioxide 19 mmol/L (22-30) L 07/13/18 11:14 Anion Gap 18 mmol/L 07/13/18 11:14 BUN 14 mg/dL (9-20) 07/13/18 11:14 Creatinine 1.2 mg/dL (0.8-1.5) 07/13/18 11:14 Estimated GFR > 60 ml/min 07/13/18 11:14 BUN/Creatinine Ratio 12 % 07/13/18 11:14 Glucose 100 mg/dL (75-100) 07/13/18 11:14 POC Glucose 140 (70-105) H 07/13/18 11:42 Hemoglobin A1c 9.9 % (4-6) H 07/12/18 17:05 Lactic Acid 3.00 mmol/L (0.7-2.0) H* 07/13/18 11:14 Calcium 7.7 mg/dL (8.4-10.2) L 07/13/18 11:14 Phosphorus 3.10 mg/dL (2.5-4.5) D 07/12/18 17:05 Magnesium 1.80 mg/dL (1.7-2.3) 07/12/18 17:05 Total Bilirubin 0.30 mg/dL (0.1-1.2) 07/12/18 09:00 AST 78 units/L (5-40) H 07/12/18 09:00 ALT 38 units/L (7-56) 07/12/18 09:00 Alkaline Phosphatase 142 units/L (35-129) H 07/12/18 09:00 Total Creatine Kinase 2806 units/L (55-170) H 07/13/18 11:25 CK-MB (CK-2) 16.0 ng/mL (0.0-4.0) H 07/13/18 11:25 CK-MB (CK-2) Rel Index 0.5 (0-4) 07/13/18 11:25 Troponin T 0.073 ng/mL (0.00-0.029) H 07/13/18 11:25 NT-Pro-B Natriuret Pep 269.5 pg/mL (0-900) 07/12/18 09:00 Total Protein 6.3 g/dL (6.3-8.2) 07/12/18 09:00 Albumin 3.7 g/dL (3.9-5) L 07/12/18 09:00 Albumin/Globulin Ratio 1.4 % 07/12/18 09:00 Triglycerides 133 mg/dL (2-149) 07/13/18 11:25 Cholesterol 165 mg/dL (50-199) 07/13/18 11:25 LDL Cholesterol Direct 73 mg/dL (50-130) 07/13/18 11:25 HDL Cholesterol 90 mg/dL (40-59) H 07/13/18 11:25 Cholesterol/HDL Ratio 1.83 % 07/13/18 11:25 TSH 19.440 mlU/mL (0.270-4.200) H 07/12/18 19:24 Free T4 0.53 ng/dL (0.76-1.46) L 07/13/18 09:28 Urine Color Yellow (Yellow) 07/12/18 13:42 Urine Turbidity Clear (Clear) 07/12/18 13:42 Urine pH 5.0 (5.0-7.0) 07/12/18 13:42 Ur Specific [place] 1.020 (1.003-1.030) 07/12/18 13:42 Urine Protein 100 mg/dl mg/dL (Negative) 07/12/18 13:42 Urine Glucose (UA) >=500 mg/dL (Negative) 07/12/18 13:42 Urine Ketones 80 mg/dL (Negative) 07/12/18 13:42 Urine Blood Mod (Negative) 07/12/18 13:42 Urine Nitrite Neg (Negative) 07/12/18 13:42 Urine Bilirubin Neg (Negative) 07/12/18 13:42 Urine Urobilinogen < 2.0 mg/dL (<2.0) 07/12/18 13:42 Ur Leukocyte Esterase Neg (Negative) 07/12/18 13:42 Urine WBC (Auto) 1.0 /HPF (0.0-6.0) 07/12/18 13:42 Urine RBC (Auto) 1.0 /HPF (0.0-6.0) 07/12/18 13:42 U Epithel Cells (Auto) 1.0 /HPF (0-13.0) 07/12/18 13:42 Urine Bacteria (Auto) 1+ /HPF (Negative) 07/12/18 13:42 Urine Mucus Few /HPF 07/12/18 13:42 Blood Type B POSITIVE 07/13/18 10:56 Crossmatch See Detail 07/13/18 10:56 Active Medications - Current Medications Current Medications: Generic Name Dose Route Start Last Admin Trade Name Freq PRN Reason Stop Dose Admin Acetaminophen 650 mg 07/12/18 15:42 Tylenol PO Q4H PRN Pain MILD(1-3)/Fever >100.5/GARCIA Dextrose 0 ml 07/12/18 15:56 D50w (25gm) Syringe IV PRN PRN Hypoglycemia Hydromorphone HCl 0.25 mg 07/12/18 15:42 Dilaudid IV Q3H PRN Pain, Moderate (4-6) Norepinephrine 4 mg in 250 mls @ 7.5 mls/hr 07/12/18 12:00 07/13/18 09:58 Levophed Drip 4 Mg/Ns 250 Ml IV 8 mcg/min TITR ISAIAS 30 mls/hr Administration Protocol 2 MCG/MIN Propofol 1,000 mg in 100 mls @ 2.585 mls/hr 07/12/18 13:00 07/13/18 06:25 Diprivan 10 Mg/Ml IV 20 mcg/kg/min TITR ISAIAS 10.342 mls/hr Administration Protocol 5 MCG/KG/MIN Insulin Human Regular 100 100 mls @ 1 mls/hr 07/12/18 18:00 07/13/18 09:39 units/ Sodium Chloride IV 0 units/hr TITR ISAIAS 0 mls/hr Titration Protocol 1 UNITS/HR Vasopressin 20 unit/ Sodium 101 mls @ 9.09 mls/hr 07/12/18 18:00 Chloride IV TITR ISAIAS Protocol 0.03 UNITS/MIN Cefepime HCl 2 gm in 100 mls @ 200 mls/hr 07/12/18 18:00 07/13/18 10:50 Maxipime/Ns 2 Gm/100 Ml IV 200 mls/hr Q8H ISAIAS Administration Protocol Vancomycin HCl 1 gm in 250 mls @ 166.667 mls/hr 07/13/18 06:45 07/13/18 05:57 Vancomycin/Ns 1 Gm/250 Ml IV 166.667 mls/hr Q12H ISAIAS Administration Sodium Bicarbonate 150 meq/ 1,150 mls @ 150 mls/hr 07/12/18 21:00 07/12/18 22:54 Sodium Chloride IV 0 mls/hr DIRECT ISAIAS Infusion Potassium Chloride 20 meq/ 1,160 mls @ 150 mls/hr 07/12/18 20:45 07/13/18 06:23 Sodium Bicarbonate 150 meq/ IV 150 mls/hr Dextrose/Sodium Chloride DIRECT ISAIAS Administration Levothyroxine Sodium 150 mcg 07/13/18 11:00 Synthroid PO DAILY@0600 ISAIAS Ondansetron HCl 4 mg 07/12/18 15:42 Zofran IV Q8H PRN Nausea And Vomiting Pantoprazole Sodium 40 mg 07/13/18 22:00 Protonix IV BID ISAIAS Sodium Chloride 10 ml 07/12/18 22:00 07/13/18 10:50 Sodium Chloride Flush Syringe 10 Ml IV 10 ml BID ISAIAS Administration Sodium Chloride 10 ml 07/12/18 15:42 07/12/18 19:32 Sodium Chloride Flush Syringe 10 Ml IV 10 ml PRN PRN Administration LINE FLUSH
--- NOTE | 2018-07-13 13:14 | Consultation ---
History of Present Illness Consult date: 07/13/18 Consult reason: other (respiratory failure) History of present illness: The patient's this 63-year-old man with diabetes and hypothyroidism. He was brought to the hospital, after found on the floor unresponsive by his when she got back from work. He is admitted to the CCU, unresponsive on the vent. He has been in a stable sinus rhythm and his hemodynamics have been stable with systolic blood pressures of 115. The family reports that he has no prior cardiac history, and no available prior cardiac workup. Cardiology consultation was requested for assessment of "cardiac arrest". On presentation, he was found with uncontrolled diabetes, blood sugar 600, associated with severe acidosis, carbon dioxide of 6 and elevated lactate. The TSH was elevated at 19, consistent with his history of hypothyroidism. The CPK was elevated at 2800, consistent with acute rhabdomyolysis. Chest x-ray shows a streaky appearing infiltrate localized to the right lower lobe. As noted, he has remained in a stable sinus rhythm, stable blood pressure, EKG shows no acute ST or T-wave abnormalities. There is no evidence of a cardiac tachycardia or bradycardia arrhythmia associated with his period of unresponsiveness. Past History Past Medical History: diabetes, other (thyroid disease) Past Surgical History: No surgical history Social history: other (unknown) Family history: hypertension Medications and Allergies Allergies Allergy/AdvReac Type Severity Reaction Status Date / Time No Known Allergies Allergy Verified 03/25/18 07:26 Home Medications Medication Instructions Recorded Confirmed Last Taken Type Detemir (Nf) [Levemir (Nf)] 18 units SUB-Q QHS #1 vial 05/18/18 07/12/18 Unknown Rx Humalog 10 units SQ AC 07/12/18 07/12/18 Unknown History Levothyroxine [Synthroid] 150 mcg PO DAILY@0600 07/12/18 07/12/18 Unknown History Active Meds: Active Medications Acetaminophen (Tylenol) 650 mg PO Q4H PRN PRN Reason: Pain MILD(1-3)/Fever >100.5/GARCIA Dextrose (D50w (25gm) Syringe) 0 ml IV PRN PRN PRN Reason: Hypoglycemia Hydromorphone HCl (Dilaudid) 0.25 mg IV Q3H PRN PRN Reason: Pain, Moderate (4-6) Norepinephrine (Levophed Drip 4 Mg/Ns 250 Ml) 4 mg in 250 mls @ 7.5 mls/hr IV TITR ISAIAS; Protocol Last Admin: 07/13/18 09:58 Dose: 8 mcg/min, 30 mls/hr Documented by: Propofol (Diprivan 10 Mg/Ml) 1,000 mg in 100 mls @ 2.585 mls/hr IV TITR ISAIAS; Protocol Last Admin: 07/13/18 06:25 Dose: 20 mcg/kg/min, 10.342 mls/hr Documented by: Insulin Human Regular 100 (units/ Sodium Chloride) 100 mls @ 1 mls/hr IV TITR ISAIAS; Protocol Last Titration: 07/13/18 12:46 Dose: 6 units/hr, 6 mls/hr Documented by: Vasopressin 20 unit/ Sodium (Chloride) 101 mls @ 9.09 mls/hr IV TITR ISAIAS; Protocol Cefepime HCl (Maxipime/Ns 2 Gm/100 Ml) 2 gm in 100 mls @ 200 mls/hr IV Q8H ISAIAS; Protocol Last Admin: 07/13/18 10:50 Dose: 200 mls/hr Documented by: Vancomycin HCl (Vancomycin/Ns 1 Gm/250 Ml) 1 gm in 250 mls @ 166.667 mls/hr IV Q12H ISAIAS Last Admin: 07/13/18 05:57 Dose: 166.667 mls/hr Documented by: Sodium Bicarbonate 150 meq/ (Sodium Chloride) 1,150 mls @ 150 mls/hr IV DIRECT ISAIAS Last Infusion: 07/12/18 22:54 Dose: 0 mls/hr Documented by: Potassium Chloride 20 meq/Sodium Bicarbonate 150 meq/Dextrose/Sodium Chloride 1,160 mls @ 150 mls/hr IV DIRECT ISAIAS Last Admin: 07/13/18 06:23 Dose: 150 mls/hr Documented by: Levothyroxine Sodium (Synthroid) 150 mcg PO DAILY@0600 ISAIAS Last Admin: 07/13/18 12:48 Dose: 150 mcg Documented by: Ondansetron HCl (Zofran) 4 mg IV Q8H PRN PRN Reason: Nausea And Vomiting Pantoprazole Sodium (Protonix) 40 mg IV BID ISAIAS Sodium Chloride (Sodium Chloride Flush Syringe 10 Ml) 10 ml IV BID ISAIAS Last Admin: 07/13/18 10:50 Dose: 10 ml Documented by: Sodium Chloride (Sodium Chloride Flush Syringe 10 Ml) 10 ml IV PRN PRN PRN Reason: LINE FLUSH Last Admin: 07/12/18 19:32 Dose: 10 ml Documented by: Review of Systems ROS unobtainable: due to endotracheal tube, due to mental status Physical Examination Vital Signs Pulse BP Pulse Ox 73 101/64 100 07/12/18 09:23 07/12/18 09:23 07/12/18 09:23 General appearance: other (unresponsive, on the vent) HEENT: Positive: Other (pupils fixed) Neck: Positive: neck supple Cardiac: Positive: Reg Rate and Rhythm Lungs: Positive: Decreased Breath Sounds Neuro: Positive: Other (unresponsive, on the vent) Abdomen: Positive: Soft Male genitourinary: Positive: deferred Skin: Positive: Clear Extremities: Absent: edema Results 07/13/18 11:14 07/13/18 11:14 Cardiac Enzymes 07/13/18 Range/Units 11:25 CK-MB (CK-2) 16.0 H (0.0-4.0) ng/mL Coagulation 07/12/18 07/13/18 Range/Units 12:22 11:25 PT 15.3 H (12.2-14.9) Sec. INR 1.14 H (0.87-1.13) APTT 32.0 (24.2-36.6) Sec. Lipids 07/13/18 Range/Units 11:25 Triglycerides 133 (2-149) mg/dL Cholesterol 165 (50-199) mg/dL HDL Cholesterol 90 H (40-59) mg/dL Cholesterol/HDL Ratio 1.83 % CBC 07/12/18 07/13/18 07/13/18 Range/Units 19:24 00:44 11:14 Hgb 7.9 L 7.1 L 7.4 L (11.8-15.2) gm/dl Hct 24.2 L D 21.3 L 21.3 L (35.5-45.6) % Comprehensive Metabolic Panel 07/12/18 07/12/18 07/12/18 Range/Units 12:19 15:02 17:05 Sodium 136 L D 138 139 (137-145) mmol/L Potassium 4.3 D 3.9 3.9 (3.6-5.0) mmol/L Chloride 102.8 104.1 (98-107) mmol/L Carbon Dioxide 3 L* 5 L* 6 L* (22-30) mmol/L BUN 17 16 (9-20) mg/dL Creatinine 0.8 0.9 (0.8-1.5) mg/dL Glucose 599 H* 489 H 387 H (75-100) mg/dL Calcium 7.1 L 7.4 L (8.4-10.2) mg/dL 07/12/18 07/12/18 07/12/18 Range/Units 17:05 19:24 21:30 Sodium 135 L 136 L 137 (137-145) mmol/L Potassium 3.8 3.6 3.3 L (3.6-5.0) mmol/L Chloride 102.8 104.5 106.8 (98-107) mmol/L Carbon Dioxide 6 L* 6 L* 6 L* (22-30) mmol/L BUN 16 16 16 (9-20) mg/dL Creatinine 0.9 0.9 1.0 (0.8-1.5) mg/dL Glucose 429 H 336 H 232 H (75-100) mg/dL Calcium 7.5 L 7.3 L 7.3 L (8.4-10.2) mg/dL 07/12/18 07/13/18 07/13/18 Range/Units 23:14 00:44 04:00 Sodium 143 143 144 (137-145) mmol/L Potassium 3.5 L 3.3 L 3.4 L (3.6-5.0) mmol/L Chloride 109.1 H 109.6 H 110.7 H (98-107) mmol/L Carbon Dioxide 7 L* 10 L 15 L (22-30) mmol/L BUN 16 16 16 (9-20) mg/dL Creatinine 1.1 1.1 1.1 (0.8-1.5) mg/dL Glucose 173 H 147 H 122 H (75-100) mg/dL Calcium 7.4 L 7.4 L 7.8 L (8.4-10.2) mg/dL 07/13/18 07/13/18 Range/Units 09:28 11:14 Sodium 144 146 H (137-145) mmol/L Potassium 3.9 3.0 L D (3.6-5.0) mmol/L Chloride 112.8 H 111.6 H (98-107) mmol/L Carbon Dioxide 15 L 19 L (22-30) mmol/L BUN 15 14 (9-20) mg/dL Creatinine 1.2 1.2 (0.8-1.5) mg/dL Glucose 92 100 (75-100) mg/dL Calcium 7.8 L 7.7 L (8.4-10.2) mg/dL EKG interpretations - Telemetry EKG Rhythm: Sinus Rhythm Assessment and Plan - Patient Problems (1) Respiratory failure Current Visit: Yes Status: Acute Plan to address problem: Patient presented unresponsive with respiratory failure, likely due to uncontrolled diabetes and diabetic ketoacidosis. There has been a stable sinus rhythm unstable hemodynamics, no evidence of a cardiac arrest as primary etiology of his presentation. Additional findings include a likely right lower lobe pneumonia. In addition to the management of the primary pathologies of diabetic ketoacidosis sudden pneumonia, we will obtain an echocardiogram for left ventricular function assessment, otherwise continue supportive care and conservative cardiac approach to management.
[2018-07-13] MEDS ORDERED: NACL 0.9% 500 ML 500 ML ONE (14:14)
[2018-07-13] MEDS ORDERED: SIMPLE SYRUP FEEDTUBE PRN ×2 (14:34)
[2018-07-13] MEDS ORDERED: PANCREAZE DR 10,500 UNIT FEEDTUBE PRN (14:34)
[2018-07-13] MEDS ORDERED: SODIUM BICARBONATE FEEDTUBE PRN (14:34)
[2018-07-13 15:33] LABS: BUN/Creatinine Ratio 12; Blood Urea Nitrogen 14 mg/dL (9-20); Calcium 7.9 mg/dL (8.4-10.2); Hemolysis Index 12
--- NOTE | 2018-07-13 16:54 | Consultation ---
History of Present Illness Consult date: 07/13/18 Requesting physician: KRISTI GIBBS Reason for consult: other (Acute respiratory failure) History of present illness: 63 yo found unresponsive at home. He was brought to ED. He was intubated. He suffered a brief episode of what sounds to be PEA. ROSC was achieved. He is on Levophed. He is arousable and follows commands but cannot provide history. No family present. Active Medications Acetaminophen (Tylenol) 650 mg PO Q4H PRN PRN Reason: Pain MILD(1-3)/Fever >100.5/GARCIA Lipase/Protease/Amylase (Pancreaze Dr 10,500 Unit) 1 each FEEDTUBE PRN PRN PRN Reason: For Clogged Feeding Tube Dextrose (D50w (25gm) Syringe) 0 ml IV PRN PRN PRN Reason: Hypoglycemia Hydromorphone HCl (Dilaudid) 0.25 mg IV Q3H PRN PRN Reason: Pain, Moderate (4-6) Norepinephrine (Levophed Drip 4 Mg/Ns 250 Ml) 4 mg in 250 mls @ 7.5 mls/hr IV TITR ISAIAS; Protocol Last Admin: 07/13/18 09:58 Dose: 8 mcg/min, 30 mls/hr Documented by: Propofol (Diprivan 10 Mg/Ml) 1,000 mg in 100 mls @ 2.585 mls/hr IV TITR ISAIAS; Protocol Last Admin: 07/13/18 15:49 Dose: 20 mcg/kg/min, 10.342 mls/hr Documented by: Insulin Human Regular 100 (units/ Sodium Chloride) 100 mls @ 1 mls/hr IV TITR ISAIAS; Protocol Last Titration: 07/13/18 14:29 Dose: 2 units/hr, 2 mls/hr Documented by: Vasopressin 20 unit/ Sodium (Chloride) 101 mls @ 9.09 mls/hr IV TITR ISAIAS; Protocol Cefepime HCl (Maxipime/Ns 2 Gm/100 Ml) 2 gm in 100 mls @ 200 mls/hr IV Q8H ISAIAS; Protocol Last Admin: 07/13/18 10:50 Dose: 200 mls/hr Documented by: Vancomycin HCl (Vancomycin/Ns 1 Gm/250 Ml) 1 gm in 250 mls @ 166.667 mls/hr IV Q12H ISAIAS Last Admin: 07/13/18 05:57 Dose: 166.667 mls/hr Documented by: Sodium Bicarbonate 150 meq/ (Sodium Chloride) 1,150 mls @ 150 mls/hr IV DIRECT ISAIAS Last Infusion: 07/12/18 22:54 Dose: 0 mls/hr Documented by: Potassium Chloride 20 meq/Sodium Bicarbonate 150 meq/Dextrose/Sodium Chloride 1,160 mls @ 150 mls/hr IV DIRECT ISAIAS Last Admin: 07/13/18 14:33 Dose: 150 mls/hr Documented by: Potassium Chloride (Kcl 10meq/100ml) 10 meq in 100 mls @ 100 mls/hr IV Q1H ISAIAS Stop: 07/13/18 20:59 Levothyroxine Sodium (Synthroid) 150 mcg PO DAILY@0600 [facility] Last Admin: 07/13/18 12:48 Dose: 150 mcg Documented by: Ondansetron HCl (Zofran) 4 mg IV Q8H PRN PRN Reason: Nausea And Vomiting Pantoprazole Sodium (Protonix) 40 mg IV BID ISAIAS Simple Syrup (Simple Syrup) 15 ml FEEDTUBE PRN PRN PRN Reason: Hypoglycemia Simple Syrup (Simple Syrup) 30 ml FEEDTUBE PRN PRN PRN Reason: Hypoglycemia Sodium Bicarbonate (Sodium Bicarbonate) 325 mg FEEDTUBE PRN PRN PRN Reason: For Clogged Feeding Tube Sodium Chloride (Sodium Chloride Flush Syringe 10 Ml) 10 ml IV BID ISAIAS Last Admin: 07/13/18 10:50 Dose: 10 ml Documented by: Sodium Chloride (Sodium Chloride Flush Syringe 10 Ml) 10 ml IV PRN PRN PRN Reason: LINE FLUSH Last Admin: 07/12/18 19:32 Dose: 10 ml Documented by: Past History Past Medical History: diabetes, other (Hypothyroidism) Past Surgical History: No surgical history Social history: other (unobtainable) Family history: hypertension Medications and Allergies Allergies Allergy/AdvReac Type Severity Reaction Status Date / Time No Known Allergies Allergy Verified 03/25/18 07:26 Home Medications Medication Instructions Recorded Confirmed Last Taken Type Detemir (Nf) [Levemir (Nf)] 18 units SUB-Q QHS #1 vial 05/18/18 07/12/18 Unknown Rx Humalog 10 units SQ AC 07/12/18 07/12/18 Unknown History Levothyroxine [Synthroid] 150 mcg PO DAILY@0600 07/12/18 07/12/18 Unknown History Active Meds: Active Medications Acetaminophen (Tylenol) 650 mg PO Q4H PRN PRN Reason: Pain MILD(1-3)/Fever >100.5/GARCIA Lipase/Protease/Amylase (Pancreaze Dr 10,500 Unit) 1 each FEEDTUBE PRN PRN PRN Reason: For Clogged Feeding Tube Dextrose (D50w (25gm) Syringe) 0 ml IV PRN PRN PRN Reason: Hypoglycemia Hydromorphone HCl (Dilaudid) 0.25 mg IV Q3H PRN PRN Reason: Pain, Moderate (4-6) Norepinephrine (Levophed Drip 4 Mg/Ns 250 Ml) 4 mg in 250 mls @ 7.5 mls/hr IV TITR ISAIAS; Protocol Last Admin: 07/13/18 09:58 Dose: 8 mcg/min, 30 mls/hr Documented by: Propofol (Diprivan 10 Mg/Ml) 1,000 mg in 100 mls @ 2.585 mls/hr IV TITR ISAIAS; Protocol Last Admin: 07/13/18 15:49 Dose: 20 mcg/kg/min, 10.342 mls/hr Documented by: Insulin Human Regular 100 (units/ Sodium Chloride) 100 mls @ 1 mls/hr IV TITR ISAIAS; Protocol Last Titration: 07/13/18 14:29 Dose: 2 units/hr, 2 mls/hr Documented by: Vasopressin 20 unit/ Sodium (Chloride) 101 mls @ 9.09 mls/hr IV TITR ISAIAS; Protocol Cefepime HCl (Maxipime/Ns 2 Gm/100 Ml) 2 gm in 100 mls @ 200 mls/hr IV Q8H ISAIAS; Protocol Last Admin: 07/13/18 10:50 Dose: 200 mls/hr Documented by: Vancomycin HCl (Vancomycin/Ns 1 Gm/250 Ml) 1 gm in 250 mls @ 166.667 mls/hr IV Q12H ISAIAS Last Admin: 07/13/18 05:57 Dose: 166.667 mls/hr Documented by: Sodium Bicarbonate 150 meq/ (Sodium Chloride) 1,150 mls @ 150 mls/hr IV DIRECT ISAIAS Last Infusion: 07/12/18 22:54 Dose: 0 mls/hr Documented by: Potassium Chloride 20 meq/Sodium Bicarbonate 150 meq/Dextrose/Sodium Chloride 1,160 mls @ 150 mls/hr IV DIRECT [facility] Last Admin: 07/13/18 14:33 Dose: 150 mls/hr Documented by: Potassium Chloride (Kcl 10meq/100ml) 10 meq in 100 mls @ 100 mls/hr IV Q1H [facility] Stop: 07/13/18 20:59 Levothyroxine Sodium (Synthroid) 150 mcg PO DAILY@0600 [facility] Last Admin: 07/13/18 12:48 Dose: 150 mcg Documented by: Ondansetron HCl (Zofran) 4 mg IV Q8H PRN PRN Reason: Nausea And Vomiting Pantoprazole Sodium (Protonix) 40 mg IV BID [facility] Simple Syrup (Simple Syrup) 15 ml FEEDTUBE PRN PRN PRN Reason: Hypoglycemia Simple Syrup (Simple Syrup) 30 ml FEEDTUBE PRN PRN PRN Reason: Hypoglycemia Sodium Bicarbonate (Sodium Bicarbonate) 325 mg FEEDTUBE PRN PRN PRN Reason: For Clogged Feeding Tube Sodium Chloride (Sodium Chloride Flush Syringe 10 Ml) 10 ml IV BID [facility] Last Admin: 07/13/18 10:50 Dose: 10 ml Documented by: Sodium Chloride (Sodium Chloride Flush Syringe 10 Ml) 10 ml IV PRN PRN PRN Reason: LINE FLUSH Last Admin: 07/12/18 19:32 Dose: 10 ml Documented by: Review of Systems ROS unobtainable: due to endotracheal tube, due to mental status Physical Examination Vital signs: Vital Signs Pulse BP Pulse Ox 73 101/64 100 07/12/18 09:23 07/12/18 09:23 07/12/18 09:23 Vital Signs - 24 hr 07/12/18 07/12/18 07/12/18 17:00 17:10 17:20 Temperature Pulse Rate 134 H 84 85 Pulse Rate [ From Monitor] Respiratory 11 L 12 19 Rate Blood Pressure 92/73 92/73 112/72 O2 Sat by Pulse 100 100 100 Oximetry 07/12/18 07/12/18 07/12/18 17:30 17:40 17:50 Temperature Pulse Rate 87 91 H 88 Pulse Rate [ From Monitor] Respiratory 10 L 13 11 L Rate Blood Pressure 112/72 108/71 101/76 O2 Sat by Pulse 100 97 100 Oximetry 07/12/18 07/12/18 07/12/18 18:00 18:10 18:20 Temperature Pulse Rate 90 89 93 H Pulse Rate [ 90 From Monitor] Respiratory 9 L 11 L 15 Rate Blood Pressure 101/76 105/64 98/63 O2 Sat by Pulse 100 100 100 Oximetry 07/12/18 07/12/18 07/12/18 18:30 18:40 18:50 Temperature Pulse Rate 92 H 115 H 90 Pulse Rate [ From Monitor] Respiratory 9 L 13 12 Rate Blood Pressure 98/63 96/75 86/53 O2 Sat by Pulse 100 100 100 Oximetry 07/12/18 07/12/18 07/12/18 19:00 19:10 19:20 Temperature Pulse Rate 89 91 H 90 Pulse Rate [ From Monitor] Respiratory 14 12 11 L Rate Blood Pressure 86/53 91/60 91/60 O2 Sat by Pulse 100 100 100 Oximetry 07/12/18 07/12/18 07/12/18 19:30 19:40 19:50 Temperature Pulse Rate 92 H 102 H 92 H Pulse Rate [ From Monitor] Respiratory 14 13 10 L Rate Blood Pressure 89/61 96/75 80/47 O2 Sat by Pulse 100 100 100 Oximetry 07/12/18 07/12/18 07/12/18 19:51 20:00 20:10 Temperature 93.4 F L Pulse Rate 102 H 89 Pulse Rate [ 87 From Monitor] Respiratory 12 12 Rate Blood Pressure 80/47 82/52 O2 Sat by Pulse 100 100 Oximetry 07/12/18 07/12/18 07/12/18 20:20 20:30 20:40 Temperature Pulse Rate 92 H 94 H 99 H Pulse Rate [ From Monitor] Respiratory 13 12 12 Rate Blood Pressure 88/56 93/51 93/51 O2 Sat by Pulse 100 100 100 Oximetry 07/12/18 07/12/18 07/12/18 20:50 21:00 21:10 Temperature Pulse Rate 104 H 98 H 98 H Pulse Rate [ From Monitor] Respiratory 27 H 12 12 Rate Blood Pressure 91/63 95/62 95/62 O2 Sat by Pulse 100 100 100 Oximetry 07/12/18 07/12/18 07/12/18 21:15 21:30 21:45 Temperature Pulse Rate 96 H 98 H 105 H Pulse Rate [ From Monitor] Respiratory 11 L 11 L 12 Rate Blood Pressure 95/56 91/62 85/50 O2 Sat by Pulse 100 100 100 Oximetry 07/12/18 07/12/18 07/12/18 22:00 22:15 22:30 Temperature Pulse Rate 77 95 H 93 H Pulse Rate [ From Monitor] Respiratory 12 12 11 L Rate Blood Pressure 90/53 98/61 97/62 O2 Sat by Pulse 100 100 100 Oximetry 07/12/18 07/12/18 07/12/18 22:45 23:00 23:15 Temperature Pulse Rate 92 H 89 86 Pulse Rate [ From Monitor] Respiratory 11 L 12 12 Rate Blood Pressure 99/59 99/60 93/59 O2 Sat by Pulse 100 100 100 Oximetry 07/12/18 07/12/18 07/12/18 23:30 23:45 23:49 Temperature Pulse Rate 87 80 79 Pulse Rate [ From Monitor] Respiratory 13 13 13 Rate Blood Pressure 93/59 96/58 96/58 O2 Sat by Pulse 100 100 100 Oximetry 07/13/18 07/13/18 07/13/18 00:00 00:09 00:15 Temperature Pulse Rate 79 79 79 Pulse Rate [ 80 From Monitor] Respiratory 13 13 13 Rate Blood Pressure 94/59 94/59 92/55 O2 Sat by Pulse 100 100 100 Oximetry 07/13/18 07/13/18 07/13/18 00:18 00:30 00:45 Temperature 99 F Pulse Rate 78 77 82 Pulse Rate [ From Monitor] Respiratory 13 14 16 Rate Blood Pressure 92/55 93/55 77/46 O2 Sat by Pulse 100 100 100 Oximetry 07/13/18 07/13/18 07/13/18 01:00 01:15 01:30 Temperature Pulse Rate 81 81 79 Pulse Rate [ From Monitor] Respiratory 16 17 16 Rate Blood Pressure 101/58 107/60 106/60 O2 Sat by Pulse 100 100 100 Oximetry 07/13/18 07/13/18 07/13/18 01:45 02:00 02:15 Temperature Pulse Rate 78 84 88 Pulse Rate [ From Monitor] Respiratory 17 16 18 Rate Blood Pressure 116/65 116/65 126/73 O2 Sat by Pulse 100 100 100 Oximetry 07/13/18 07/13/18 07/13/18 02:30 02:46 03:00 Temperature Pulse Rate 93 H 94 H 89 Pulse Rate [ From Monitor] Respiratory 17 16 18 Rate Blood Pressure 135/72 135/72 137/73 O2 Sat by Pulse 100 100 100 Oximetry 03/18/19 03/18/19 03/18/19 03:15 03:30 03:46 Temperature Pulse Rate 89 97 H 97 H Pulse Rate [ From Monitor] Respiratory 13 18 19 Rate Blood Pressure 130/77 130/77 111/65 O2 Sat by Pulse 100 100 100 Oximetry /18/19 03/18/19 03/18/19 03:50 04:00 04:15 Temperature 98.5 F Pulse Rate 92 H 89 90 Pulse Rate [ 90 From Monitor] Respiratory 11 L 17 Rate Blood Pressure 111/65 124/65 121/66 O2 Sat by Pulse 100 100 98 Oximetry /18/19 03/18/19 03/18/19 04:30 04:45 05:00 Temperature Pulse Rate 89 85 85 Pulse Rate [ From Monitor] Respiratory 17 15 18 Rate Blood Pressure 116/65 120/66 105/62 O2 Sat by Pulse 97 96 96 Oximetry 18/19 03/18/19 03/18/19 05:16 05:31 05:45 Temperature Pulse Rate 82 82 81 Pulse Rate [ From Monitor] Respiratory 18 18 19 Rate Blood Pressure 110/65 106/63 O2 Sat by Pulse 97 99 100 Oximetry 18/19 03/18/19 03/18/19 06:00 06:15 06:30 Temperature Pulse Rate 82 80 82 Pulse Rate [ From Monitor] Respiratory 19 16 17 Rate Blood Pressure 116/65 106/60 107/65 O2 Sat by Pulse 100 100 100 Oximetry 18/19 03/18/19 03/18/19 06:45 07:00 07:15 Temperature Pulse Rate 80 80 80 Pulse Rate [ From Monitor] Respiratory 16 18 19 Rate Blood Pressure 109/64 109/64 113/64 O2 Sat by Pulse 100 100 100 Oximetry 18/19 03/18/19 03/18/19 07:30 07:45 08:00 Temperature 99.8 F H Pulse Rate 79 80 77 Pulse Rate [ From Monitor] Respiratory 18 19 18 Rate Blood Pressure 106/63 103/65 100/60 O2 Sat by Pulse 100 100 100 Oximetry /18/19 03/18/19 03/18/19 08:15 08:30 08:45 Temperature Pulse Rate 76 74 90 Pulse Rate [ From Monitor] Respiratory 18 18 18 Rate Blood Pressure 99/57 94/56 102/73 O2 Sat by Pulse 100 100 100 Oximetry 07/13/1818/07/13/18 08:47 09:00 09:15 Temperature Pulse Rate 81 75 79 Pulse Rate [ From Monitor] Respiratory 18 18 Rate Blood Pressure 102/73 105/60 101/62 O2 Sat by Pulse 100 100 100 Oximetry 07/13/1807/13/07/13/18 09:30 09:45 10:00 Temperature Pulse Rate 73 73 73 Pulse Rate [ From Monitor] Respiratory 18 18 18 Rate Blood Pressure 96/57 97/56 95/57 O2 Sat by Pulse 100 100 100 Oximetry 07/13/1807/13/07/13/18 10:15 10:30 10:45 Temperature Pulse Rate 77 77 78 Pulse Rate [ From Monitor] Respiratory 17 18 18 Rate Blood Pressure 101/61 106/61 114/61 O2 Sat by Pulse 100 100 100 Oximetry 07/13/1807/13/07/13/18 11:00 11:15 11:30 Temperature Pulse Rate 80 85 84 Pulse Rate [ From Monitor] Respiratory 18 17 19 Rate Blood Pressure 105/65 115/55 111/64 O2 Sat by Pulse 100 100 100 Oximetry 07/13/1807/13/07/13/18 11:45 11:49 12:00 Temperature 99.0 F Pulse Rate 84 83 87 Pulse Rate [ From Monitor] Respiratory 18 15 Rate Blood Pressure 112/63 112/63 113/69 O2 Sat by Pulse 100 100 99 Oximetry 07/13/1807/13/07/13/18 12:15 12:30 12:45 Temperature Pulse Rate 84 81 79 Pulse Rate [ From Monitor] Respiratory 18 18 18 Rate Blood Pressure 108/64 110/65 113/67 O2 Sat by Pulse 99 99 100 Oximetry 07/13/1818/19 07/13/18 13:00 13:15 13:30 Temperature Pulse Rate 79 81 80 Pulse Rate [ From Monitor] Respiratory 18 18 18 Rate Blood Pressure 111/69 101/59 93/54 O2 Sat by Pulse 100 100 100 Oximetry 07/13/18/19 07/13/ 13:45 14:00 14:15 Temperature Pulse Rate 77 77 83 Pulse Rate [ From Monitor] Respiratory 19 15 18 Rate Blood Pressure 84/53 85/52 92/57 O2 Sat by Pulse 100 100 100 Oximetry 07/13/18 07/13/18 07/13/18 14:31 14:45 15:58 Temperature Pulse Rate 84 87 72 Pulse Rate [ From Monitor] Respiratory 18 18 Rate Blood Pressure 103/61 106/63 114/69 O2 Sat by Pulse 100 100 100 Oximetry 07/13/18 16:00 Temperature 99.4 F Pulse Rate Pulse Rate [ From Monitor] Respiratory Rate Blood Pressure O2 Sat by Pulse Oximetry General appearance: alert, other (critically ill on ventilator) Eyes: non-icteric ENT: oropharynx moist Neck: supple Effort: normal Ascultation: Bilateral: other (coarse BS bilaterally) Cardiovascular: regular rate and rhythm (no mrg) Gastrointestinal: normoactive bowel sounds, soft, non-tender, non-distended Integumentary: other (dry skin, no obvious cellulitis) Extremities: no cyanosis, pink and warm, edema (trace bilateral LE edema) unable to assess other (unable to assess) Results - Laboratory Findings CBC and BMP: 07/13/18 11:14 07/13/18 14:59 ABG POC ABG pH 7.308 (7.35-7.45) L 07/13/18 04:04 POC ABG pO2 194 (80-105) H 07/13/18 04:04 POC ABG HCO3 13.5 (22-26 mml/L) 07/13/18 04:04 POC ABG Total CO2 14 (23-27mmol/L) 07/13/18 04:04 POC ABG O2 Sat 100 07/13/18 04:04 PT/INR, D-dimer PT 15.3 Sec. (12.2-14.9) H 07/13/18 11:25 INR 1.14 (0.87-1.13) H 07/13/18 11:25 Abnormal lab findings: Abnormal Labs 07/12/18 07/12/18 07/12/18 08:46 09:00 09:00 RBC 3.07 L Hgb 9.8 L Hct 33.9 L MCV 111 H MCHC 29 L RDW 19.3 H Seg Neuts % (Manual) 87.0 H Lymphocytes % (Manual) 5.0 L Lymphocytes # (Manual) 0.2 L PT INR POC ABG pH POC ABG pO2 Sodium 128 L Potassium 6.2 H* Chloride 94.4 L Carbon Dioxide 2 L* Glucose 662 H* POC Glucose > 500 H Hemoglobin A1c Lactic Acid Calcium 8.3 L Phosphorus 5.50 H Magnesium 2.40 H AST 78 H Alkaline Phosphatase 142 H Total Creatine Kinase CK-MB (CK-2) Troponin T Albumin 3.7 L HDL Cholesterol TSH Free T4 Crossmatch 07/12/18 07/12/18 07/12/18 09:51 11:06 11:22 RBC Hgb Hct MCV MCHC RDW Seg Neuts % (Manual) Lymphocytes % (Manual) Lymphocytes # (Manual) PT 20.8 H INR 1.67 H POC ABG pH 6.780 L POC ABG pO2 389 H Sodium Potassium Chloride Carbon Dioxide Glucose POC Glucose Hemoglobin A1c Lactic Acid Calcium Phosphorus 5.50 H Magnesium 2.40 H AST Alkaline Phosphatase Total Creatine Kinase CK-MB (CK-2) Troponin T Albumin HDL Cholesterol TSH Free T4 Crossmatch 07/12/18 07/12/18 07/12/18 12:09 12:19 13:18 RBC Hgb Hct MCV MCHC RDW Seg Neuts % (Manual) Lymphocytes % (Manual) Lymphocytes # (Manual) PT INR POC ABG pH POC ABG pO2 Sodium 136 L D Potassium Chloride Carbon Dioxide 3 L* Glucose 599 H* POC Glucose > 500 H 440 H Hemoglobin A1c Lactic Acid Calcium 8.0 L Phosphorus Magnesium AST Alkaline Phosphatase Total Creatine Kinase CK-MB (CK-2) Troponin T Albumin HDL Cholesterol TSH Free T4 Crossmatch 07/12/18 07/12/18 07/12/18 13:55 14:20 15:02 RBC Hgb Hct MCV MCHC RDW Seg Neuts % (Manual) Lymphocytes % (Manual) Lymphocytes # (Manual) PT INR POC ABG pH POC ABG pO2 Sodium Potassium Chloride Carbon Dioxide 5 L* Glucose 489 H POC Glucose 440 H Hemoglobin A1c Lactic Acid 2.20 H* Calcium 7.1 L Phosphorus Magnesium AST Alkaline Phosphatase Total Creatine Kinase CK-MB (CK-2) Troponin T Albumin HDL Cholesterol TSH Free T4 Crossmatch 07/12/18 07/12/18 07/12/18 15:54 16:57 17:05 RBC Hgb Hct MCV MCHC RDW Seg Neuts % (Manual) Lymphocytes % (Manual) Lymphocytes # (Manual) PT INR POC ABG pH POC ABG pO2 Sodium Potassium Chloride Carbon Dioxide 6 L* Glucose 387 H POC Glucose 469 H 466 H Hemoglobin A1c Lactic Acid Calcium 7.4 L Phosphorus Magnesium AST Alkaline Phosphatase Total Creatine Kinase CK-MB (CK-2) Troponin T Albumin HDL Cholesterol TSH Free T4 Crossmatch 07/12/18 07/12/18 07/12/18 17:05 17:05 17:05 RBC Hgb Hct MCV MCHC RDW Seg Neuts % (Manual) Lymphocytes % (Manual) Lymphocytes # (Manual) PT INR POC ABG pH POC ABG pO2 Sodium 135 L Potassium Chloride Carbon Dioxide 6 L* Glucose 429 H POC Glucose Hemoglobin A1c 9.9 H Lactic Acid 2.50 H* Calcium 7.5 L Phosphorus Magnesium AST Alkaline Phosphatase Total Creatine Kinase CK-MB (CK-2) Troponin T Albumin HDL Cholesterol TSH Free T4 Crossmatch 07/12/18 07/12/18 07/12/18 18:13 19:24 19:24 RBC Hgb 7.9 L Hct 24.2 L D MCV MCHC RDW Seg Neuts % (Manual) Lymphocytes % (Manual) Lymphocytes # (Manual) PT INR POC ABG pH POC ABG pO2 Sodium 136 L Potassium Chloride Carbon Dioxide 6 L* Glucose 336 H POC Glucose 433 H Hemoglobin A1c Lactic Acid Calcium 7.3 L Phosphorus Magnesium AST Alkaline Phosphatase Total Creatine Kinase CK-MB (CK-2) Troponin T Albumin HDL Cholesterol TSH Free T4 Crossmatch 07/12/18 07/12/18 07/12/18 19:24 19:24 19:31 RBC Hgb Hct MCV MCHC RDW Seg Neuts % (Manual) Lymphocytes % (Manual) Lymphocytes # (Manual) PT INR POC ABG pH 7.024 L POC ABG pO2 195 H Sodium Potassium Chloride Carbon Dioxide Glucose POC Glucose Hemoglobin A1c Lactic Acid 3.30 H* Calcium Phosphorus Magnesium AST Alkaline Phosphatase Total Creatine Kinase CK-MB (CK-2) Troponin T Albumin HDL Cholesterol TSH 19.440 H Free T4 Crossmatch 07/12/18 07/12/18 07/12/18 19:31 20:03 21:08 RBC Hgb Hct MCV MCHC RDW Seg Neuts % (Manual) Lymphocytes % (Manual) Lymphocytes # (Manual) PT INR POC ABG pH POC ABG pO2 Sodium Potassium Chloride Carbon Dioxide Glucose POC Glucose 225 H 366 H 286 H Hemoglobin A1c Lactic Acid Calcium Phosphorus Magnesium AST Alkaline Phosphatase Total Creatine Kinase CK-MB (CK-2) Troponin T Albumin HDL Cholesterol TSH Free T4 Crossmatch 07/12/18 07/12/18 07/12/18 21:30 21:30 21:57 RBC Hgb Hct MCV MCHC RDW Seg Neuts % (Manual) Lymphocytes % (Manual) Lymphocytes # (Manual) PT INR POC ABG pH POC ABG pO2 Sodium Potassium 3.3 L Chloride Carbon Dioxide 6 L* Glucose 232 H POC Glucose 262 H Hemoglobin A1c Lactic Acid 4.90 H* Calcium 7.3 L Phosphorus Magnesium AST Alkaline Phosphatase Total Creatine Kinase CK-MB (CK-2) Troponin T Albumin HDL Cholesterol TSH Free T4 Crossmatch 07/12/18 07/12/18 07/12/18 22:56 23:14 23:14 RBC Hgb Hct MCV MCHC RDW Seg Neuts % (Manual) Lymphocytes % (Manual) Lymphocytes # (Manual) PT INR POC ABG pH POC ABG pO2 Sodium Potassium 3.5 L Chloride 109.1 H Carbon Dioxide 7 L* Glucose 173 H POC Glucose 248 H Hemoglobin A1c Lactic Acid 5.40 H* Calcium 7.4 L Phosphorus Magnesium AST Alkaline Phosphatase Total Creatine Kinase CK-MB (CK-2) Troponin T Albumin HDL Cholesterol TSH Free T4 Crossmatch 07/12/18 07/12/18 07/13/18 Unknown 23:59 00:44 RBC Hgb Hct MCV MCHC RDW Seg Neuts % (Manual) Lymphocytes % (Manual) Lymphocytes # (Manual) PT INR POC ABG pH POC ABG pO2 Sodium Potassium 3.3 L Chloride 109.6 H Carbon Dioxide 10 L Glucose 147 H POC Glucose 215 H Hemoglobin A1c Lactic Acid 2.50 H* Calcium 7.4 L Phosphorus Magnesium AST Alkaline Phosphatase Total Creatine Kinase CK-MB (CK-2) Troponin T Albumin HDL Cholesterol TSH Free T4 Crossmatch 07/13/18 07/13/18 07/13/18 00:44 00:44 00:58 RBC Hgb 7.1 L Hct 21.3 L MCV MCHC RDW Seg Neuts % (Manual) Lymphocytes % (Manual) Lymphocytes # (Manual) PT INR POC ABG pH POC ABG pO2 Sodium Potassium Chloride Carbon Dioxide Glucose POC Glucose 175 H Hemoglobin A1c Lactic Acid 5.40 H* Calcium Phosphorus Magnesium AST Alkaline Phosphatase Total Creatine Kinase CK-MB (CK-2) Troponin T Albumin HDL Cholesterol TSH Free T4 Crossmatch 07/13/18 07/13/18 07/13/18 01:59 02:57 03:54 RBC Hgb Hct MCV MCHC RDW Seg Neuts % (Manual) Lymphocytes % (Manual) Lymphocytes # (Manual) PT INR POC ABG pH POC ABG pO2 Sodium Potassium Chloride Carbon Dioxide Glucose POC Glucose 144 H 178 H 128 H Hemoglobin A1c Lactic Acid Calcium Phosphorus Magnesium AST Alkaline Phosphatase Total Creatine Kinase CK-MB (CK-2) Troponin T Albumin HDL Cholesterol TSH Free T4 Crossmatch 07/13/18 07/13/18 07/13/18 04:00 04:00 04:04 RBC Hgb Hct MCV MCHC RDW Seg Neuts % (Manual) Lymphocytes % (Manual) Lymphocytes # (Manual) PT INR POC ABG pH 7.308 L POC ABG pO2 194 H Sodium Potassium 3.4 L Chloride 110.7 H Carbon Dioxide 15 L Glucose 122 H POC Glucose Hemoglobin A1c Lactic Acid 4.10 H* Calcium 7.8 L Phosphorus Magnesium AST Alkaline Phosphatase Total Creatine Kinase CK-MB (CK-2) Troponin T Albumin HDL Cholesterol TSH Free T4 Crossmatch 07/13/18 07/13/18 07/13/18 05:03 06:00 06:58 RBC Hgb Hct MCV MCHC RDW Seg Neuts % (Manual) Lymphocytes % (Manual) Lymphocytes # (Manual) PT INR POC ABG pH POC ABG pO2 Sodium Potassium Chloride Carbon Dioxide Glucose POC Glucose 127 H 123 H 110 H Hemoglobin A1c Lactic Acid Calcium Phosphorus Magnesium AST Alkaline Phosphatase Total Creatine Kinase CK-MB (CK-2) Troponin T Albumin HDL Cholesterol TSH Free T4 Crossmatch 07/13/18 07/13/18 07/13/18 09:28 09:28 10:33 RBC Hgb Hct MCV MCHC RDW Seg Neuts % (Manual) Lymphocytes % (Manual) Lymphocytes # (Manual) PT INR POC ABG pH POC ABG pO2 Sodium Potassium Chloride 112.8 H Carbon Dioxide 15 L Glucose POC Glucose 116 H Hemoglobin A1c Lactic Acid Calcium 7.8 L Phosphorus Magnesium AST Alkaline Phosphatase Total Creatine Kinase CK-MB (CK-2) Troponin T Albumin HDL Cholesterol TSH Free T4 0.53 L Crossmatch 07/13/18 07/13/18 07/13/18 10:56 11:14 11:14 RBC Hgb 7.4 L Hct 21.3 L MCV MCHC RDW Seg Neuts % (Manual) Lymphocytes % (Manual) Lymphocytes # (Manual) PT INR POC ABG pH POC ABG pO2 Sodium 146 H Potassium 3.0 L D Chloride 111.6 H Carbon Dioxide 19 L Glucose POC Glucose Hemoglobin A1c Lactic Acid Calcium 7.7 L Phosphorus Magnesium AST Alkaline Phosphatase Total Creatine Kinase CK-MB (CK-2) Troponin T Albumin HDL Cholesterol TSH Free T4 Crossmatch See Detail 07/13/18 07/13/18 07/13/18 11:14 11:25 11:25 RBC Hgb Hct MCV MCHC RDW Seg Neuts % (Manual) Lymphocytes % (Manual) Lymphocytes # (Manual) PT 15.3 H INR 1.14 H POC ABG pH POC ABG pO2 Sodium Potassium Chloride Carbon Dioxide Glucose POC Glucose Hemoglobin A1c Lactic Acid 3.00 H* Calcium Phosphorus Magnesium AST Alkaline Phosphatase Total Creatine Kinase 2806 H CK-MB (CK-2) 16.0 H Troponin T 0.073 H Albumin HDL Cholesterol 90 H TSH Free T4 Crossmatch 07/13/18 07/13/18 07/13/18 11:42 12:49 14:32 RBC Hgb Hct MCV MCHC RDW Seg Neuts % (Manual) Lymphocytes % (Manual) Lymphocytes # (Manual) PT INR POC ABG pH POC ABG pO2 Sodium Potassium Chloride Carbon Dioxide Glucose POC Glucose 140 H 206 H 110 H Hemoglobin A1c Lactic Acid Calcium Phosphorus Magnesium AST Alkaline Phosphatase Total Creatine Kinase CK-MB (CK-2) Troponin T Albumin HDL Cholesterol TSH Free T4 Crossmatch 07/13/18 07/13/18 07/13/18 14:59 14:59 15:46 RBC Hgb Hct MCV MCHC RDW Seg Neuts % (Manual) Lymphocytes % (Manual) Lymphocytes # (Manual) PT INR POC ABG pH POC ABG pO2 Sodium 146 H Potassium 2.8 L* Chloride 112.2 H Carbon Dioxide 19 L Glucose 111 H POC Glucose 119 H Hemoglobin A1c Lactic Acid 3.60 H* Calcium 7.9 L Phosphorus Magnesium AST Alkaline Phosphatase Total Creatine Kinase CK-MB (CK-2) Troponin T Albumin HDL Cholesterol TSH Free T4 Crossmatch - Diagnostic Findings Chest x-ray: report reviewed, image reviewed (patchy densities RLL) Assessment and Plan Imp: 1. Pneumonia, ? aspiration 2. Severe sepsis 3. Acute respiratory failure, hypoxia 4. Bacteremia 5. Epistaxis with acute blood loss anemia 6. DKA 7. Lactic acidosis 8. S/p CP arrest Rec: 1. Cont. current ABX; f/u Blood culture ID/sens; will need surveillance cultures 2. Cont. Bicarb drip today; f/u lactic acid 3. Wean Levophed to keep MAP > 65 4. For 1 unit of PRBCs; nares are packed with no further bleeding; SCDs in place 5. F/u GI recs 6. Leave on ventilator today; ABGs improving; wean FiO2; repeat CXR in AM Plan of care reviewed w/ daughters, they understand/agree CCt 31 minutes
[2018-07-13] MEDS: KCL 10MEQ/100ML 10 MEQ/100 ML BAG IV SCH ×4 (18:15→21:28)
[2018-07-13] MEDS: SYNTHROID IV SCH (20:53)
[2018-07-13 21:24] LABS: BUN/Creatinine Ratio 11; Blood Urea Nitrogen 13 mg/dL (9-20); Calcium 7.9 mg/dL (8.4-10.2); Hemolysis Index 4
[2018-07-13 21:25] LABS: Creatine Kinase MB 8.6 ng/mL (0.0-4.0)
[2018-07-13] MEDS ORDERED: PROTONIX IV SCH (22:00)
[2018-07-14] MEDS: SODIUM BICARBONATE IV SCH ×2 (00:32→07:38)
[2018-07-14] MEDS: KCL IV SCH ×2 (00:32→07:38)
[2018-07-14] MEDS: D5 IV SCH ×2 (00:32→07:38)
[2018-07-14] MEDS: [UNRECOGNIZED DRUG - OTHER] IV SCH ×2 (00:32→07:38)
[2018-07-14] MEDS: HumuLIN R SUB-Q SCH ×5 (00:44→23:22)
[2018-07-14] MEDS: MAXIPIME/NS 2 GM/100 ML 2 GM/100 ML BAG IV SCH ×2 (01:49→09:45)
[2018-07-14] MEDS: SYNTHROID IV SCH (05:53)
[2018-07-14 06:27] LABS: Hematocrit 24.7 % (35.5-45.6); Hemoglobin 8.8 gm/dl (11.8-15.2); Mean Corpuscular HGB Conc 36 % (32-34); Mean Corpuscular Volume 89 fl (84-94); Platelet Count 180 K/mm3 (140-440); Red Blood Count 2.76 M/mm3 (3.65-5.03); Red Cell Distribution Width 16.4 % (13.2-15.2)
[2018-07-14 06:49] LABS: BUN/Creatinine Ratio 11; Blood Urea Nitrogen 13 mg/dL (9-20); Calcium 7.7 mg/dL (8.4-10.2); Hemolysis Index 15
[2018-07-14] MEDS: DILAUDID IV PRN ×2 (06:59→18:21)
[2018-07-14] MEDS: VANCOMYCIN/NS 1 GM/250 ML 1 GM/250 ML BAG IV SCH ×2 (07:00→19:00)
[2018-07-14] MEDS: DIPRIVAN 10 MG/ML 1,000 MG/100 ML BOTTLE IV SCH (07:40)
--- NOTE | 2018-07-14 08:29 | XRay Report ---
AP CHEST: HISTORY: Pneumonia, sepsis The endotracheal tube and nasogastric tube appear in adequate position. The are clear. Subtle infiltration in the right lung has resolved since the exam 2 days ago. Normal heart and mediastinal structures. IMPRESSION: Unremarkable AP chest.
[2018-07-14] MEDS: PREVACID SOLUTAB FEEDTUBE SCH ×2 (09:46→22:28)
[2018-07-14] MEDS: SODIUM CHLORIDE FLUSH SYRINGE 10 ML IV SCH ×2 (09:47→22:28)
[2018-07-14] MEDS ORDERED: MAGNESIUM SULFATE 4GM/100ML 4 GM/100 ML BAG IV ONE (10:00)
--- NOTE | 2018-07-14 10:12 | Gastroenterology Progress Note ---
Assessment and Plan 1.acute blood loss anemia/GI bleed? -H/H 8.8-s/p transfusion PRBCs -continue to monitor H/H and transfuse as needed -no active signs of bleeding overnight or this am per nursing -etiology- likely 2/2 epistaxis -no plan for scope at this time unless overt GI bleeding develops -continue PPI and supportive care -no further GI recommendations at this time -will sign off, please call if needed 2.DKA 3.acute respiratory failure 4.hypotension 5.acute metabolic encephalopathy 6.s/p cardiac arrest 7.pneumonia 8.hypothyroidism Subjective Date of service: 07/14/18 Principal diagnosis: GI bleed Interval history: Patient remains in ICU on vent and pressor support. No active signs of bleeding overnight or this am per nursing. Tolerating TFs. Objective - Constitutional Vitals: Temp Pulse Resp BP Pulse Ox 98.2 F 61 19 94/66 100 07/14/18 08:00 07/14/18 09:30 07/14/18 09:30 07/14/18 09:30 07/14/18 09:30 General appearance: other (on vent) - Respiratory Respiratory: bilateral: diminished - Cardiovascular Rhythm: regular - Gastrointestinal General gastrointestinal: Present: soft, non-distended, normal bowel sounds - Labs CBC & Chem 7: 07/14/18 06:15 07/14/18 06:15 Labs: Laboratory Results - last 24 hr 07/13/18 07/13/18 07/13/18 10:33 10:56 11:14 WBC RBC Hgb Hct MCV MCH MCHC RDW Plt Count PT INR POC ABG pH POC ABG pO2 POC ABG HCO3 POC ABG Total CO2 POC ABG O2 Sat POC ABG Base Excess FiO2 Sodium 146 H Potassium 3.0 L D Chloride 111.6 H Carbon Dioxide 19 L Anion Gap 18 BUN 14 Creatinine 1.2 Estimated GFR > 60 BUN/Creatinine Ratio 12 Glucose 100 POC Glucose 116 H Lactic Acid Calcium 7.7 L Phosphorus Magnesium Total Creatine Kinase CK-MB (CK-2) CK-MB (CK-2) Rel Index Troponin T Triglycerides Cholesterol LDL Cholesterol Direct HDL Cholesterol Cholesterol/HDL Ratio Free T4 Blood Type B POSITIVE Antibody Screen Negative Crossmatch See Detail 07/13/18 07/13/18 07/13/18 11:14 11:14 11:25 WBC RBC Hgb 7.4 L Hct 21.3 L MCV MCH MCHC RDW Plt Count PT 15.3 H INR 1.14 H POC ABG pH POC ABG pO2 POC ABG HCO3 POC ABG Total CO2 POC ABG O2 Sat POC ABG Base Excess FiO2 Sodium Potassium Chloride Carbon Dioxide Anion Gap BUN Creatinine Estimated GFR BUN/Creatinine Ratio Glucose POC Glucose Lactic Acid 3.00 H* Calcium Phosphorus Magnesium Total Creatine Kinase CK-MB (CK-2) CK-MB (CK-2) Rel Index Troponin T Triglycerides Cholesterol LDL Cholesterol Direct HDL Cholesterol Cholesterol/HDL Ratio Free T4 Blood Type Antibody Screen Crossmatch 07/13/18 07/13/18 07/13/18 11:25 11:42 12:49 WBC RBC Hgb Hct MCV MCH MCHC RDW Plt Count PT INR POC ABG pH POC ABG pO2 POC ABG HCO3 POC ABG Total CO2 POC ABG O2 Sat POC ABG Base Excess FiO2 Sodium Potassium Chloride Carbon Dioxide Anion Gap BUN Creatinine Estimated GFR BUN/Creatinine Ratio Glucose POC Glucose 140 H 206 H Lactic Acid Calcium Phosphorus Magnesium Total Creatine Kinase 2806 H CK-MB (CK-2) 16.0 H CK-MB (CK-2) Rel Index 0.5 Troponin T 0.073 H Triglycerides 133 Cholesterol 165 LDL Cholesterol Direct 73 HDL Cholesterol 90 H Cholesterol/HDL Ratio 1.83 Free T4 Blood Type Antibody Screen Crossmatch 07/13/18 07/13/18 07/13/18 14:32 14:59 14:59 WBC RBC Hgb Hct MCV MCH MCHC RDW Plt Count PT INR POC ABG pH POC ABG pO2 POC ABG HCO3 POC ABG Total CO2 POC ABG O2 Sat POC ABG Base Excess FiO2 Sodium 146 H Potassium 2.8 L* Chloride 112.2 H Carbon Dioxide 19 L Anion Gap 18 BUN 14 Creatinine 1.2 Estimated GFR > 60 BUN/Creatinine Ratio 12 Glucose 111 H POC Glucose 110 H Lactic Acid 3.60 H* Calcium 7.9 L Phosphorus Magnesium Total Creatine Kinase CK-MB (CK-2) CK-MB (CK-2) Rel Index Troponin T Triglycerides Cholesterol LDL Cholesterol Direct HDL Cholesterol Cholesterol/HDL Ratio Free T4 Blood Type Antibody Screen Crossmatch 07/13/18 07/13/18 07/13/18 15:46 18:01 20:50 WBC RBC Hgb Hct MCV MCH MCHC RDW Plt Count PT INR POC ABG pH POC ABG pO2 POC ABG HCO3 POC ABG Total CO2 POC ABG O2 Sat POC ABG Base Excess FiO2 Sodium Potassium Chloride Carbon Dioxide Anion Gap BUN Creatinine Estimated GFR BUN/Creatinine Ratio Glucose POC Glucose 119 H 88 Lactic Acid Calcium Phosphorus Magnesium Total Creatine Kinase 2398 H CK-MB (CK-2) 8.6 H CK-MB (CK-2) Rel Index 0.3 Troponin T 0.052 H D Triglycerides Cholesterol LDL Cholesterol Direct HDL Cholesterol Cholesterol/HDL Ratio Free T4 Blood Type Antibody Screen Crossmatch 07/13/18 07/13/18 07/13/18 20:50 20:50 20:50 WBC RBC Hgb Hct MCV MCH MCHC RDW Plt Count PT INR POC ABG pH POC ABG pO2 POC ABG HCO3 POC ABG Total CO2 POC ABG O2 Sat POC ABG Base Excess FiO2 Sodium 146 H Potassium 3.2 L Chloride 110.8 H Carbon Dioxide 20 L Anion Gap 18 BUN 13 Creatinine 1.2 Estimated GFR > 60 BUN/Creatinine Ratio 11 Glucose 107 H POC Glucose Lactic Acid 1.60 Calcium 7.9 L Phosphorus Magnesium Total Creatine Kinase CK-MB (CK-2) CK-MB (CK-2) Rel Index Troponin T Triglycerides Cholesterol LDL Cholesterol Direct HDL Cholesterol Cholesterol/HDL Ratio Free T4 0.54 L Blood Type Antibody Screen Crossmatch 07/14/18 07/14/18 07/14/18 00:10 00:35 04:56 WBC RBC Hgb Hct MCV MCH MCHC RDW Plt Count PT INR POC ABG pH 7.475 H POC ABG pO2 67 L POC ABG HCO3 19.0 POC ABG Total CO2 20 POC ABG O2 Sat 95 POC ABG Base Excess -5 FiO2 28 Sodium Potassium Chloride Carbon Dioxide Anion Gap BUN Creatinine Estimated GFR BUN/Creatinine Ratio Glucose POC Glucose 235 H Lactic Acid Calcium Phosphorus Magnesium Total Creatine Kinase 1995 H CK-MB (CK-2) 7.0 H CK-MB (CK-2) Rel Index 0.3 Troponin T 0.049 H Triglycerides Cholesterol LDL Cholesterol Direct HDL Cholesterol Cholesterol/HDL Ratio Free T4 Blood Type Antibody Screen Crossmatch 07/14/18 07/14/18 07/14/18 05:09 06:15 06:15 WBC 9.5 RBC 2.76 L Hgb 8.8 L Hct 24.7 L MCV 89 MCH 32 MCHC 36 H RDW 16.4 H Plt Count 180 PT INR POC ABG pH POC ABG pO2 POC ABG HCO3 POC ABG Total CO2 POC ABG O2 Sat POC ABG Base Excess FiO2 Sodium 143 Potassium 3.2 L Chloride 107.0 Carbon Dioxide 21 L Anion Gap 18 BUN 13 Creatinine 1.2 Estimated GFR > 60 BUN/Creatinine Ratio 11 Glucose 212 H POC Glucose 227 H Lactic Acid Calcium 7.7 L Phosphorus 0.90 L* D Magnesium 1.50 L Total Creatine Kinase CK-MB (CK-2) CK-MB (CK-2) Rel Index Troponin T Triglycerides Cholesterol LDL Cholesterol Direct HDL Cholesterol Cholesterol/HDL Ratio Free T4 Blood Type Antibody Screen Crossmatch
[2018-07-14] MEDS: KPHOS 30 MMOL in NACL 0.9% 500 ML 500 ML IV SCH ×2 (10:51→15:23)
--- NOTE | 2018-07-14 13:53 | Progress Note ---
Assessment and Plan - Patient Problems (1) Respiratory failure Current Visit: Yes Status: Acute Plan to address problem: Patient presented unresponsive with respiratory failure, likely due to uncontrolled diabetes and diabetic ketoacidosis. There has been a stable sinus rhythm, stable hemodynamics, no evidence of a cardiac arrest as primary etiology of his presentation. Additional findings include a likely right lower lobe pneumonia. In addition to the management of the primary pathologies of diabetic ketoacidosis and pneumonia, we will obtain an echocardiogram for left ventricular function assessment, otherwise continue supportive care and conservative cardiac approach to management. Subjective Date of service: 07/14/18 Principal diagnosis: GI bleed Interval history: The patient is unresponsive, on the vent. On telemetry, he is in a stable sinus rhythm, heart rate 62. Blood pressure is 93/65. Objective Vital Signs Temp Pulse Pulse Resp BP Pulse Ox 07/14/18 12:45 69 8 L 105/69 100 07/14/18 12:38 69 100/64 100 07/14/18 12:30 84 11 L 100/64 100 07/14/18 12:15 73 17 100/66 100 07/14/18 12:00 73 14 98/65 100 07/14/18 11:45 73 12 108/66 100 07/14/18 11:30 72 10 L 96/61 100 07/14/18 11:15 74 12 94/60 100 07/14/18 11:00 70 13 98/62 100 07/14/18 10:45 75 11 L 99/73 100 07/14/18 10:30 82 9 L 95/70 100 07/14/18 10:15 63 11 L 99/65 100 07/14/18 10:00 68 17 103/68 100 07/14/18 09:45 62 19 93/66 100 07/14/18 09:30 61 19 94/66 100 07/14/18 09:15 62 17 91/62 100 07/14/18 09:00 63 15 93/65 100 07/14/18 08:45 65 18 92/62 100 07/14/18 08:30 63 18 89/60 100 07/14/18 08:23 63 90/61 100 07/14/18 08:15 64 18 85/53 100 07/14/18 08:00 98.2 F 73 19 86/55 100 07/14/18 07:45 68 18 83/57 100 07/14/18 07:31 71 18 86/56 100 07/14/18 07:15 74 18 93/60 100 07/14/18 07:00 85 18 111/76 100 07/14/18 06:45 89 13 118/76 100 07/14/18 06:30 87 10 L 106/69 96 07/14/18 06:15 91 H 16 107/71 100 07/14/18 06:00 84 18 99/70 100 07/14/18 05:45 71 16 98/66 100 07/14/18 05:30 72 13 107/68 100 07/14/18 05:15 71 18 104/69 100 07/14/18 05:00 72 19 98/68 100 07/14/18 04:55 73 98/70 100 07/14/18 04:45 75 17 98/70 100 07/14/18 04:30 82 18 98/71 100 07/14/18 04:15 90 16 118/80 100 07/14/18 04:00 91 H 72 11 L 118/84 100 07/14/18 03:49 98.7 F 07/14/18 03:45 80 11 L 110/77 100 07/14/18 03:30 87 12 107/75 99 07/14/18 03:15 85 14 107/63 100 07/14/18 03:00 82 12 94/70 100 07/14/18 02:45 92 H 11 L 94/66 100 07/14/18 02:30 81 18 94/66 07/14/18 02:15 93 H 13 112/73 100 07/14/18 02:00 75 18 112/73 100 07/14/18 01:45 79 18 111/80 100 07/14/18 01:30 74 16 100/68 100 07/14/18 01:15 73 19 104/69 100 07/14/18 01:00 76 13 112/72 100 07/14/18 00:45 80 14 114/72 100 07/14/18 00:30 80 17 110/77 100 07/14/18 00:15 85 18 112/73 100 07/14/18 00:00 75 81 15 110/72 100 07/13/18 23:45 77 16 121/72 100 07/13/18 23:30 80 8 L 117/72 100 03/18/19 23:15 82 18 113/79 100 03/18/19 23:11 81 106/76 100 03/18/19 23:04 98.3 F 18/19 23:01 78 18 106/76 100 03/18/19 22:45 81 16 118/72 100 /18/19 22:30 74 11 L 119/76 100 /18/19 22:15 76 17 118/74 100 03/18/19 22:00 75 14 109/72 100 18/19 21:45 74 11 L 114/74 100 /18/19 21:30 74 12 117/77 99 03/18/19 21:15 78 13 126/78 99 /18/19 21:00 75 17 126/71 99 /18/19 20:45 76 18 120/79 99 /18/19 20:30 79 16 132/72 100 /18/19 20:15 76 19 128/76 100 18/19 20:00 79 73 16 130/83 100 /18/19 19:52 99 F 18/19 19:45 76 18 121/77 100 03/18/19 19:30 73 18 114/69 100 03/18/19 19:15 76 12 106/67 100 03/18/19 19:01 80 18 104/65 100 03/18/19 18:45 74 17 112/66 100 03/18/19 18:30 73 18 112/66 100 03/18/19 18:15 73 13 102/62 100 03/18/19 18:00 72 18 104/71 100 03/18/19 17:45 72 18 104/71 100 03/18/19 17:30 71 18 112/70 100 03/18/19 17:15 71 18 114/72 100 03/18/19 17:00 70 18 114/70 100 03/18/19 16:45 73 18 108/75 100 03/18/19 16:30 75 19 104/71 100 03/18/19 16:15 73 18 114/76 100 03/18/19 16:00 99.4 F 71 18 113/68 100 03/18/19 15:58 72 114/69 100 03/18/19 15:45 73 18 114/69 100 03/18/19 15:30 75 17 98/68 100 03/18/19 15:15 80 18 111/71 100 07/13/18 15:00 83 18 110/67 100 07/13/18 14:45 87 18 106/63 100 07/13/18 14:31 84 18 103/61 100 07/13/18 14:15 83 18 92/57 100 07/13/18 14:00 77 15 85/52 100 - Physical Examination General: Other (all responsive, underwent) HEENT: Positive: Other (pupils fixed) Neck: Positive: neck supple Cardiac: Positive: Reg Rate and Rhythm Lungs: Positive: Decreased Breath Sounds Neuro: Positive: Other (unresponsive, on the vent) Abdomen: Positive: Soft Skin: Positive: Clear Extremities: Absent: edema - Labs and Meds Cardiac Enzymes 07/13/18 07/14/18 Range/Units 20:50 00:35 CK-MB (CK-2) 8.6 H 7.0 H (0.0-4.0) ng/mL CBC 07/14/18 Range/Units 06:15 WBC 9.5 (4.5-11.0) K/mm3 RBC 2.76 L (3.65-5.03) M/mm3 Hgb 8.8 L (11.8-15.2) gm/dl Hct 24.7 L (35.5-45.6) % Plt Count 180 (140-440) K/mm3 Comprehensive Metabolic Panel 07/13/18 07/13/18 07/14/18 Range/Units 14:59 20:50 06:15 Sodium 146 H 146 H 143 (137-145) mmol/L Potassium 2.8 L* 3.2 L 3.2 L (3.6-5.0) mmol/L Chloride 112.2 H 110.8 H 107.0 (98-107) mmol/L Carbon Dioxide 19 L 20 L 21 L (22-30) mmol/L BUN 14 13 13 (9-20) mg/dL Creatinine 1.2 1.2 1.2 (0.8-1.5) mg/dL Glucose 111 H 107 H 212 H (75-100) mg/dL Calcium 7.9 L 7.9 L 7.7 L (8.4-10.2) mg/dL - Imaging and Cardiology EKG: report reviewed (pending)
--- NOTE | 2018-07-14 15:04 | Progress Note ---
Assessment and Plan Critical care statement The high probability of a clinically significant sudden or life-threatening deterioration of the pulmonary cardiac and renal systems required my full and direct attention, intervention and personal management. The appropriate critical care time was 40 minutes. This time is in addition to time spent performing reported procedures but includes the following: #1.Data review and interpretation #2 patient assessment and monitoring of vital signs #3 documentation #4 medication orders and management - Patient Problems (1) DKA (diabetic ketoacidosis) Current Visit: Yes Status: Acute Qualifiers: Diabetes mellitus type: type 2 Plan to address problem: DKA resolved (2) Acute respiratory failure with hypoxia Current Visit: Yes Status: Acute Plan to address problem: Patient intubated Vent management Patient Scheduling Coordinator consulted--Dr. Murcia (3) Hypotension Current Visit: Yes Status: Acute Qualifiers: Hypotension type: other hypotension type Qualified Code(s): I95.89 - Other hypotension Plan to address problem: Off Levophed (4) Acute metabolic encephalopathy Current Visit: No Status: Acute Plan to address problem: Intubated and sedated (5) Cardiac arrest Current Visit: Yes Status: Acute Plan to address problem: Patient revived within 2 minutes after 1 round of epinephrine. There was return of spontaneous circulation (6) Pneumonia Current Visit: Yes Status: Acute Qualifiers: Pneumonia type: aspiration pneumonia Laterality: right Lung location: lower lobe of lung Plan to address problem: Possible aspiration given the location of the infiltrate IV cefepime and IV vancomycin (7) Hypoxia Current Visit: Yes Status: Acute Plan to address problem: Intubated Vent management Patient Scheduling Coordinator consulted (8) Hypothyroidism Current Visit: Yes Status: Chronic Qualifiers: Hypothyroidism type: acquired Qualified Code(s): E03.9 - Hypothyroidism, unspecified Plan to address problem: Continue Synthroid (9) Hyperkalemia Current Visit: Yes Status: Acute Plan to address problem: Corrected (10) Upper GI bleed Current Visit: Yes Status: Acute Plan to address problem: Resolved (11) DVT prophylaxis Current Visit: Yes Status: Acute Plan to address problem: No Lovenox because of GI bleed and patient on IV Protonix-- hence no GI prophylaxis Subjective Date of service: 07/14/18 Principal diagnosis: GI bleed Interval history: Same condition Objective - Exam Narrative Exam: Patient intubated, - Constitutional Vitals: Vital Signs - 12hr 0307/14/18 07/14/18 03:15 03:30 03:45 Temperature Pulse Rate 85 87 80 Pulse Rate [ From Monitor] Respiratory 14 12 11 L Rate Blood Pressure 107/63 107/75 110/77 O2 Sat by Pulse 100 99 100 Oximetry 07/14/18 07/14/18 07/14/18 03:49 04:00 04:15 Temperature 98.7 F Pulse Rate 91 H 90 Pulse Rate [ 72 From Monitor] Respiratory 11 L 16 Rate Blood Pressure 118/84 118/80 O2 Sat by Pulse 100 100 Oximetry 07/14/18 07/14/18 07/14/18 04:30 04:45 04:55 Temperature Pulse Rate 82 75 73 Pulse Rate [ From Monitor] Respiratory 18 17 Rate Blood Pressure 98/71 98/70 98/70 O2 Sat by Pulse 100 100 100 Oximetry 07/14/18 07/14/18 07/14/18 05:00 05:15 05:30 Temperature Pulse Rate 72 71 72 Pulse Rate [ From Monitor] Respiratory 19 18 13 Rate Blood Pressure 98/68 104/69 107/68 O2 Sat by Pulse 100 100 100 Oximetry 07/14/18 07/14/18 07/14/18 05:45 06:00 06:15 Temperature Pulse Rate 71 84 91 H Pulse Rate [ From Monitor] Respiratory 16 18 16 Rate Blood Pressure 98/66 99/70 107/71 O2 Sat by Pulse 100 100 100 Oximetry 07/14/18 07/14/18 07/14/18 06:30 06:45 07:00 Temperature Pulse Rate 87 89 85 Pulse Rate [ From Monitor] Respiratory 10 L 13 18 Rate Blood Pressure 106/69 118/76 111/76 O2 Sat by Pulse 96 100 100 Oximetry 07/14/18 07/14/18 07/14/18 07:15 07:31 07:45 Temperature Pulse Rate 74 71 68 Pulse Rate [ From Monitor] Respiratory 18 18 18 Rate Blood Pressure 93/60 86/56 83/57 O2 Sat by Pulse 100 100 100 Oximetry 07/14/18 07/14/18 07/14/18 08:00 08:15 08:23 Temperature 98.2 F Pulse Rate 73 64 63 Pulse Rate [ From Monitor] Respiratory 19 18 Rate Blood Pressure 86/55 85/53 90/61 O2 Sat by Pulse 100 100 100 Oximetry 07/14/18 07/14/18 07/14/18 08:30 08:45 09:00 Temperature Pulse Rate 63 65 63 Pulse Rate [ From Monitor] Respiratory 18 18 15 Rate Blood Pressure 89/60 92/62 93/65 O2 Sat by Pulse 100 100 100 Oximetry 07/14/18 07/14/18 07/14/18 09:15 09:30 09:45 Temperature Pulse Rate 62 61 62 Pulse Rate [ From Monitor] Respiratory 17 19 19 Rate Blood Pressure 91/62 94/66 93/66 O2 Sat by Pulse 100 100 100 Oximetry 07/14/18 07/14/18 07/14/18 10:00 10:15 10:30 Temperature Pulse Rate 68 63 82 Pulse Rate [ From Monitor] Respiratory 17 11 L 9 L Rate Blood Pressure 103/68 99/65 95/70 O2 Sat by Pulse 100 100 100 Oximetry 07/14/18 07/14/18 07/14/18 10:45 11:00 11:15 Temperature Pulse Rate 75 70 74 Pulse Rate [ From Monitor] Respiratory 11 L 13 12 Rate Blood Pressure 99/73 98/62 94/60 O2 Sat by Pulse 100 100 100 Oximetry 07/14/18 07/14/18 07/14/18 11:30 11:45 12:00 Temperature Pulse Rate 72 73 73 Pulse Rate [ From Monitor] Respiratory 10 L 12 14 Rate Blood Pressure 96/61 108/66 98/65 O2 Sat by Pulse 100 100 100 Oximetry 07/14/18 07/14/18 07/14/18 12:15 12:30 12:38 Temperature Pulse Rate 73 84 69 Pulse Rate [ From Monitor] Respiratory 17 11 L Rate Blood Pressure 100/66 100/64 100/64 O2 Sat by Pulse 100 100 100 Oximetry 07/14/18 12:45 Temperature Pulse Rate 69 Pulse Rate [ From Monitor] Respiratory 8 L Rate Blood Pressure 105/69 O2 Sat by Pulse 100 Oximetry General appearance: Present: mild distress, well-nourished - EENT Eyes: PERRL, EOM intact ENT: hearing intact, clear oral mucosa Ears: bilateral: normal - Neck Neck: supple, normal ROM - Respiratory Respiratory effort: normal Respiratory: bilateral: CTA - Breasts Breasts: normal - Cardiovascular Heart rate: 78 Rhythm: regular Heart Sounds: Present: S1 & S2. Absent: gallop, rub Extremities: no ischemia, pulses intact, No edema, normal color, Full ROM - Gastrointestinal General gastrointestinal: Present: soft, non-tender, non-distended, normal bowel sounds - Genitourinary Male genitourinary: normal - Integumentary Integumentary: warm, dry - Neurologic Neurologic: moves all extremities - Psychiatric Psychiatric: other - Labs CBC & Chem 7: 07/15/18 05:00 07/15/18 05:00 Labs: Abnormal lab results 07/13/18 07/13/18 07/13/18 Range/Units 14:59 14:59 15:46 RBC (3.65-5.03) M/mm3 Hgb (11.8-15.2) gm/dl Hct (35.5-45.6) % MCHC (32-34) % RDW (13.2-15.2) % POC ABG pH (7.35-7.45) POC ABG pO2 (80-105) Sodium 146 H (137-145) mmol/L Potassium 2.8 L* (3.6-5.0) mmol/L Chloride 112.2 H (98-107) mmol/L Carbon Dioxide 19 L (22-30) mmol/L Glucose 111 H (75-100) mg/dL POC Glucose 119 H (70-105) Lactic Acid 3.60 H* (0.7-2.0) mmol/L Calcium 7.9 L (8.4-10.2) mg/dL Phosphorus (2.5-4.5) mg/dL Magnesium (1.7-2.3) mg/dL Total Creatine Kinase (55-170) units/L CK-MB (CK-2) (0.0-4.0) ng/mL Troponin T (0.00-0.029) ng/mL Free T4 (0.76-1.46) ng/dL 07/13/18 07/13/18 07/13/18 Range/Units 20:50 20:50 20:50 RBC (3.65-5.03) M/mm3 Hgb (11.8-15.2) gm/dl Hct (35.5-45.6) % MCHC (32-34) % RDW (13.2-15.2) % POC ABG pH (7.35-7.45) POC ABG pO2 (80-105) Sodium 146 H (137-145) mmol/L Potassium 3.2 L (3.6-5.0) mmol/L Chloride 110.8 H (98-107) mmol/L Carbon Dioxide 20 L (22-30) mmol/L Glucose 107 H (75-100) mg/dL POC Glucose (70-105) Lactic Acid (0.7-2.0) mmol/L Calcium 7.9 L (8.4-10.2) mg/dL Phosphorus (2.5-4.5) mg/dL Magnesium (1.7-2.3) mg/dL Total Creatine Kinase 2398 H (55-170) units/L CK-MB (CK-2) 8.6 H (0.0-4.0) ng/mL Troponin T 0.052 H D (0.00-0.029) ng/mL Free T4 0.54 L (0.76-1.46) ng/dL 07/14/18 07/14/18 07/14/18 Range/Units 00:10 00:35 04:56 RBC (3.65-5.03) M/mm3 Hgb (11.8-15.2) gm/dl Hct (35.5-45.6) % MCHC (32-34) % RDW (13.2-15.2) % POC ABG pH 7.475 H (7.35-7.45) POC ABG pO2 67 L (80-105) Sodium (137-145) mmol/L Potassium (3.6-5.0) mmol/L Chloride (98-107) mmol/L Carbon Dioxide (22-30) mmol/L Glucose (75-100) mg/dL POC Glucose 235 H (70-105) Lactic Acid (0.7-2.0) mmol/L Calcium (8.4-10.2) mg/dL Phosphorus (2.5-4.5) mg/dL Magnesium (1.7-2.3) mg/dL Total Creatine Kinase 1995 H (55-170) units/L CK-MB (CK-2) 7.0 H (0.0-4.0) ng/mL Troponin T 0.049 H (0.00-0.029) ng/mL Free T4 (0.76-1.46) ng/dL 07/14/18 07/14/18 07/14/18 Range/Units 05:09 06:15 06:15 RBC 2.76 L (3.65-5.03) M/mm3 Hgb 8.8 L (11.8-15.2) gm/dl Hct 24.7 L (35.5-45.6) % MCHC 36 H (32-34) % RDW 16.4 H (13.2-15.2) % POC ABG pH (7.35-7.45) POC ABG pO2 (80-105) Sodium (137-145) mmol/L Potassium 3.2 L (3.6-5.0) mmol/L Chloride (98-107) mmol/L Carbon Dioxide 21 L (22-30) mmol/L Glucose 212 H (75-100) mg/dL POC Glucose 227 H (70-105) Lactic Acid (0.7-2.0) mmol/L Calcium 7.7 L (8.4-10.2) mg/dL Phosphorus 0.90 L* D (2.5-4.5) mg/dL Magnesium 1.50 L (1.7-2.3) mg/dL Total Creatine Kinase (55-170) units/L CK-MB (CK-2) (0.0-4.0) ng/mL Troponin T (0.00-0.029) ng/mL Free T4 (0.76-1.46) ng/dL 07/14/18 07/14/18 Range/Units 10:42 12:35 RBC (3.65-5.03) M/mm3 Hgb (11.8-15.2) gm/dl Hct (35.5-45.6) % MCHC (32-34) % RDW (13.2-15.2) % POC ABG pH (7.35-7.45) POC ABG pO2 (80-105) Sodium (137-145) mmol/L Potassium (3.6-5.0) mmol/L Chloride (98-107) mmol/L Carbon Dioxide (22-30) mmol/L Glucose (75-100) mg/dL POC Glucose 272 H (70-105) Lactic Acid 4.30 H* (0.7-2.0) mmol/L Calcium (8.4-10.2) mg/dL Phosphorus (2.5-4.5) mg/dL Magnesium (1.7-2.3) mg/dL Total Creatine Kinase (55-170) units/L CK-MB (CK-2) (0.0-4.0) ng/mL Troponin T (0.00-0.029) ng/mL Free T4 (0.76-1.46) ng/dL
--- NOTE | 2018-07-14 15:51 | Consultation ---
History of Present Illness - Reason for Consult Consult date: 07/14/18 Sepsis, ?pneumonia Requesting physician: KRISTI GIBBS - History of Present Illness The patient is a 63-year-old male with diabetes mellitus, hypothyroidism who was brought into the emergency room on 07/12/2018 for altered mental status. Apparently, the patient is noncompliant. He was found to be in severe diabetic ketoacidosis with an arterial pH of 6.7. He apparently also developed a cardiac arrest requiring resuscitation followed by pressors. Infectious diseases was consulted due to concerns for sepsis. Patient has remained afebrile throughout hospitalization. He was initially unresponsive but now beginning to open eyes. Remains intubated on mechanical ventilation, history limited and mainly obtained through chart review. Review of Systems: Not be obtained due to mental status and intubation. Past History Past Medical History: diabetes, other (Hypothyroidism) Past Surgical History: No surgical history Social history: other (unobtainable) Family history: hypertension Medications and Allergies Allergies Allergy/AdvReac Type Severity Reaction Status Date / Time No Known Allergies Allergy Verified 03/25/18 07:26 Home Medications Medication Instructions Recorded Confirmed Last Taken Type Detemir (Nf) [Levemir (Nf)] 18 units SUB-Q QHS #1 vial 05/18/18 07/12/18 Unknown Rx Humalog 10 units SQ AC 07/12/18 07/12/18 Unknown History Levothyroxine [Synthroid] 150 mcg PO DAILY@0600 07/12/18 07/12/18 Unknown History Active Meds: Active Medications Acetaminophen (Tylenol) 650 mg PO Q4H PRN PRN Reason: Pain MILD(1-3)/Fever >100.5/GARCIA Lipase/Protease/Amylase (Pancreaze Dr 10,500 Unit) 1 each FEEDTUBE PRN PRN PRN Reason: For Clogged Feeding Tube Dextrose (D50w (25gm) Syringe) 0 ml IV PRN PRN PRN Reason: Hypoglycemia Hydromorphone HCl (Dilaudid) 0.25 mg IV Q3H PRN PRN Reason: Pain, Moderate (4-6) Last Admin: 07/14/18 06:59 Dose: 0.25 mg Documented by: Norepinephrine (Levophed Drip 4 Mg/Ns 250 Ml) 4 mg in 250 mls @ 7.5 mls/hr IV TITR [facility]; Protocol Last Titration: 07/14/18 03:05 Dose: 0 mcg/min, 0 mls/hr Documented by: Propofol (Diprivan 10 Mg/Ml) 1,000 mg in 100 mls @ 2.585 mls/hr IV TITR [facility]; Protocol Last Titration: 07/14/18 10:58 Dose: 8 mcg/kg/min, 4.137 mls/hr Documented by: Vasopressin 20 unit/ Sodium (Chloride) 101 mls @ 9.09 mls/hr IV TITR [facility]; Protocol Vancomycin HCl (Vancomycin/Ns 1 Gm/250 Ml) 1 gm in 250 mls @ 166.667 mls/hr IV Q12H [facility] Last Admin: 07/14/18 07:00 Dose: 166.667 mls/hr Documented by: Potassium Phosphate 30 mmol/ (Sodium Chloride) 510 mls @ 83 mls/hr IV Q6H [facility] Stop: 07/14/18 21:59 Last Admin: 07/14/18 15:23 Dose: 83 mls/hr Documented by: Insulin Glargine (Lantus) 15 units SUB-Q QHS [facility] Insulin Human Regular (Humulin R) 0 units SUB-Q Q6HR [facility]; Protocol Last Admin: 07/14/18 12:52 Dose: 4 units Documented by: Lansoprazole (Prevacid Solutab) 30 mg FEEDTUBE BID [facility] Last Admin: 07/14/18 09:46 Dose: 30 mg Documented by: Levothyroxine Sodium (Synthroid) 100 mcg IV DAILY@0600 [facility] Last Admin: 07/14/18 05:53 Dose: 100 mcg Documented by: Ondansetron HCl (Zofran) 4 mg IV Q8H PRN PRN Reason: Nausea And Vomiting Simple Syrup (Simple Syrup) 15 ml FEEDTUBE PRN PRN PRN Reason: Hypoglycemia Simple Syrup (Simple Syrup) 30 ml FEEDTUBE PRN PRN PRN Reason: Hypoglycemia Sodium Bicarbonate (Sodium Bicarbonate) 325 mg FEEDTUBE PRN PRN PRN Reason: For Clogged Feeding Tube Sodium Chloride (Sodium Chloride Flush Syringe 10 Ml) 10 ml IV BID [facility] Last Admin: 07/14/18 09:47 Dose: 10 ml Documented by: Sodium Chloride (Sodium Chloride Flush Syringe 10 Ml) 10 ml IV PRN PRN PRN Reason: LINE FLUSH Last Admin: 07/12/18 19:32 Dose: 10 ml Documented by: Physical Examination - Physical Exam Narrative exam: Physical Exam: Constitutional: sedated, intubated Head, Ears, Nose: Normocephalic, atraumatic. External ears, nose normal Eyes: Conjunctivae/corneas clear. No icterus. No ptosis. Neck: Supple, no meningeal signs Oral: intubated Cardiovascular: S1, S2 normal. Respiratory: Good air entry, clear to auscultation bilaterally GI: Soft, non-tender; bowel sounds normal. No peritoneal signs Musculoskeletal: No pedal edema, no cyanosis. Skin: No rash or abscess Hem/Lymphatic: No palpable cervical or supraclavicular nodes. No lymphangitis Psych: no agitation Neurological: sedated, intubated, on vent - Constitutional Vitals: Vital Signs Temp Pulse Resp BP Pulse Ox 97.3 F L 69 8 L 105/69 100 07/14/18 12:00 07/14/18 12:45 07/14/18 12:45 07/14/18 12:45 07/14/18 12:45 Temperature -Last 24 Hours Temperature 97.3 F Temperature 98.2 F Temperature 98.7 F Temperature 98.3 F Temperature 99 F Temperature 99.4 F Results - Labs CBC & Chem 7: 07/14/18 06:15 07/14/18 06:15 Labs: Abnormal lab results 07/13/18 07/13/18 07/13/18 Range/Units 15:46 20:50 20:50 RBC (3.65-5.03) M/mm3 Hgb (11.8-15.2) gm/dl Hct (35.5-45.6) % MCHC (32-34) % RDW (13.2-15.2) % POC ABG pH (7.35-7.45) POC ABG pO2 (80-105) Sodium (137-145) mmol/L Potassium (3.6-5.0) mmol/L Chloride (98-107) mmol/L Carbon Dioxide (22-30) mmol/L Glucose (75-100) mg/dL POC Glucose 119 H (70-105) Lactic Acid (0.7-2.0) mmol/L Calcium (8.4-10.2) mg/dL Phosphorus (2.5-4.5) mg/dL Magnesium (1.7-2.3) mg/dL Total Creatine Kinase 2398 H (55-170) units/L CK-MB (CK-2) 8.6 H (0.0-4.0) ng/mL Troponin T 0.052 H D (0.00-0.029) ng/mL Free T4 0.54 L (0.76-1.46) ng/dL 07/13/18 07/14/18 07/14/18 Range/Units 20:50 00:10 00:35 RBC (3.65-5.03) M/mm3 Hgb (11.8-15.2) gm/dl Hct (35.5-45.6) % MCHC (32-34) % RDW (13.2-15.2) % POC ABG pH (7.35-7.45) POC ABG pO2 (80-105) Sodium 146 H (137-145) mmol/L Potassium 3.2 L (3.6-5.0) mmol/L Chloride 110.8 H (98-107) mmol/L Carbon Dioxide 20 L (22-30) mmol/L Glucose 107 H (75-100) mg/dL POC Glucose 235 H (70-105) Lactic Acid (0.7-2.0) mmol/L Calcium 7.9 L (8.4-10.2) mg/dL Phosphorus (2.5-4.5) mg/dL Magnesium (1.7-2.3) mg/dL Total Creatine Kinase 1995 H (55-170) units/L CK-MB (CK-2) 7.0 H (0.0-4.0) ng/mL Troponin T 0.049 H (0.00-0.029) ng/mL Free T4 (0.76-1.46) ng/dL 07/14/18 07/14/18 07/14/18 Range/Units 04:56 05:09 06:15 RBC 2.76 L (3.65-5.03) M/mm3 Hgb 8.8 L (11.8-15.2) gm/dl Hct 24.7 L (35.5-45.6) % MCHC 36 H (32-34) % RDW 16.4 H (13.2-15.2) % POC ABG pH 7.475 H (7.35-7.45) POC ABG pO2 67 L (80-105) Sodium (137-145) mmol/L Potassium (3.6-5.0) mmol/L Chloride (98-107) mmol/L Carbon Dioxide (22-30) mmol/L Glucose (75-100) mg/dL POC Glucose 227 H (70-105) Lactic Acid (0.7-2.0) mmol/L Calcium (8.4-10.2) mg/dL Phosphorus (2.5-4.5) mg/dL Magnesium (1.7-2.3) mg/dL Total Creatine Kinase (55-170) units/L CK-MB (CK-2) (0.0-4.0) ng/mL Troponin T (0.00-0.029) ng/mL Free T4 (0.76-1.46) ng/dL 07/14/18 07/14/18 07/14/18 Range/Units 06:15 10:42 12:35 RBC (3.65-5.03) M/mm3 Hgb (11.8-15.2) gm/dl Hct (35.5-45.6) % MCHC (32-34) % RDW (13.2-15.2) % POC ABG pH (7.35-7.45) POC ABG pO2 (80-105) Sodium (137-145) mmol/L Potassium 3.2 L (3.6-5.0) mmol/L Chloride (98-107) mmol/L Carbon Dioxide 21 L (22-30) mmol/L Glucose 212 H (75-100) mg/dL POC Glucose 272 H (70-105) Lactic Acid 4.30 H* (0.7-2.0) mmol/L Calcium 7.7 L (8.4-10.2) mg/dL Phosphorus 0.90 L* D (2.5-4.5) mg/dL Magnesium 1.50 L (1.7-2.3) mg/dL Total Creatine Kinase (55-170) units/L CK-MB (CK-2) (0.0-4.0) ng/mL Troponin T (0.00-0.029) ng/mL Free T4 (0.76-1.46) ng/dL - Imaging and Cardiology Chest x-ray: report reviewed, image reviewed (no pneumonia seen) Assessment and Plan Cultures: 07/12/2018 tracheal aspirate: Salivary contamination 07/12/2018 blood culture: 2 out of 2 bottles positive for enterococcus on set 1, set 2 is negative. 07/12/2018 urine culture: No growth A/P: 63-year-old male with diabetes mellitus, hypothyroidism who was brought into the emergency room on 07/12/2018 for altered mental status. Apparently, the patient is noncompliant. He was found to be in severe diabetic ketoacidosis with an arterial pH of 6.7, also with: 1) Enterococcus bacteremia: Etiology is unclear, 1 set is positive. TTE without any significant valvular abnormalities or vegetations. Patient presented with severe DKA. Will evaluate for any intra-abdominal source of infection, with RUQ US and CT abdomen pelvis with IV contrast. 2) Question of pneumonia: No evidence of pneumonia on follow-up chest x-ray. Minimal vent requirements. Pneumonia unlikely. 3) Diabetic ketoacidosis: Patient presented with uncontrolled hyperglycemia and severe acidosis. 4) Acute encephalopathy: metabolic. Recs: Repeat blood cultures ordered Continue IV vancomycin for now pending ID and susceptibility Discontinued cefepime CT abdomen pelvis with IV contrast ordered RUQ US ordered d/w MD M[facility] Hern[facility] C: [phone] O: [phone] F: [phone]
--- NOTE | 2018-07-14 16:35 | Progress Note ---
Assessment and Plan Imp: 1. ? Aspiration pneumonitis 2. Severe sepsis 3. Acute respiratory failure, hypoxia 4. Enterococcal bacteremia 5. Epistaxis with acute blood loss anemia 6. DKA 7. Lactic acidosis 8. S/p CP arrest Rec: 1. ID consulted; on Vanco; further work-up as per ID; consider surveillance cultures 2. D/c Bicarb drip; change to NS 3. Off pressors 4. Monitor H/H; nares are packed with no further bleeding; SCDs in place 5. Leave on ventilator today; daily PSV trials 6. Try to wean off sedation completely 7. Prognosis guarded Plan of care reviewed w/ daughters, they understand/agree CCt 31 minutes Subjective Date of service: 07/14/18 Principal diagnosis: GI bleed Interval history: No events. Awake, alert. On Propofol. Had RR of 6 on PSV this AM so changed back to PRVC. Off Levophed now. No obvious complaints. Active Medications Acetaminophen (Tylenol) 650 mg PO Q4H PRN PRN Reason: Pain MILD(1-3)/Fever >100.5/GARCIA Lipase/Protease/Amylase (Pancreaze Dr 10,500 Unit) 1 each FEEDTUBE PRN PRN PRN Reason: For Clogged Feeding Tube Dextrose (D50w (25gm) Syringe) 0 ml IV PRN PRN PRN Reason: Hypoglycemia Hydromorphone HCl (Dilaudid) 0.25 mg IV Q3H PRN PRN Reason: Pain, Moderate (4-6) Last Admin: 07/14/18 06:59 Dose: 0.25 mg Documented by: Norepinephrine (Levophed Drip 4 Mg/Ns 250 Ml) 4 mg in 250 mls @ 7.5 mls/hr IV TITR ISAIAS; Protocol Last Titration: 07/14/18 03:05 Dose: 0 mcg/min, 0 mls/hr Documented by: Propofol (Diprivan 10 Mg/Ml) 1,000 mg in 100 mls @ 2.585 mls/hr IV TITR ISAIAS; Protocol Last Titration: 07/14/18 10:58 Dose: 8 mcg/kg/min, 4.137 mls/hr Documented by: Vasopressin 20 unit/ Sodium (Chloride) 101 mls @ 9.09 mls/hr IV TITR ISAIAS; Protocol Vancomycin HCl (Vancomycin/Ns 1 Gm/250 Ml) 1 gm in 250 mls @ 166.667 mls/hr IV Q12H [facility] Last Admin: 07/14/18 07:00 Dose: 166.667 mls/hr Documented by: Potassium Phosphate 30 mmol/ (Sodium Chloride) 510 mls @ 83 mls/hr IV Q6H [facility] Stop: 07/14/18 21:59 Last Admin: 07/14/18 15:23 Dose: 83 mls/hr Documented by: Insulin Glargine (Lantus) 15 units SUB-Q QHS [facility] Insulin Human Regular (Humulin R) 0 units SUB-Q Q6HR [facility]; Protocol Last Admin: 07/14/18 12:52 Dose: 4 units Documented by: Lansoprazole (Prevacid Solutab) 30 mg FEEDTUBE BID [facility] Last Admin: 07/14/18 09:46 Dose: 30 mg Documented by: Levothyroxine Sodium (Synthroid) 100 mcg IV DAILY@0600 [facility] Last Admin: 07/14/18 05:53 Dose: 100 mcg Documented by: Ondansetron HCl (Zofran) 4 mg IV Q8H PRN PRN Reason: Nausea And Vomiting Simple Syrup (Simple Syrup) 15 ml FEEDTUBE PRN PRN PRN Reason: Hypoglycemia Simple Syrup (Simple Syrup) 30 ml FEEDTUBE PRN PRN PRN Reason: Hypoglycemia Sodium Bicarbonate (Sodium Bicarbonate) 325 mg FEEDTUBE PRN PRN PRN Reason: For Clogged Feeding Tube Sodium Chloride (Sodium Chloride Flush Syringe 10 Ml) 10 ml IV BID [facility] Last Admin: 07/14/18 09:47 Dose: 10 ml Documented by: Sodium Chloride (Sodium Chloride Flush Syringe 10 Ml) 10 ml IV PRN PRN PRN Reason: LINE FLUSH Last Admin: 07/12/18 19:32 Dose: 10 ml Documented by: Objective Vital Signs - 12hr 07/14/18 07/14/18 07/14/18 04:45 04:55 05:00 Temperature Pulse Rate 75 73 72 Respiratory 17 19 Rate Blood Pressure 98/70 98/70 98/68 O2 Sat by Pulse 100 100 100 Oximetry 07/14/18 07/14/18 07/14/18 05:15 05:30 05:45 Temperature Pulse Rate 71 72 71 Respiratory 18 13 16 Rate Blood Pressure 104/69 107/68 98/66 O2 Sat by Pulse 100 100 100 Oximetry 07/14/18 07/14/18 07/14/18 06:00 06:15 06:30 Temperature Pulse Rate 84 91 H 87 Respiratory 18 16 10 L Rate Blood Pressure 99/70 107/71 106/69 O2 Sat by Pulse 100 100 96 Oximetry 07/14/18 07/14/18 07/14/18 06:45 07:00 07:15 Temperature Pulse Rate 89 85 74 Respiratory 13 18 18 Rate Blood Pressure 118/76 111/76 93/60 O2 Sat by Pulse 100 100 100 Oximetry 07/14/18 07/14/18 07/14/18 07:31 07:45 08:00 Temperature 98.2 F Pulse Rate 71 68 73 Respiratory 18 18 19 Rate Blood Pressure 86/56 83/57 86/55 O2 Sat by Pulse 100 100 100 Oximetry 07/14/18 07/14/18 07/14/18 08:15 08:23 08:30 Temperature Pulse Rate 64 63 63 Respiratory 18 18 Rate Blood Pressure 85/53 90/61 89/60 O2 Sat by Pulse 100 100 100 Oximetry 07/14/18 07/14/18 07/14/18 08:45 09:00 09:15 Temperature Pulse Rate 65 63 62 Respiratory 18 15 17 Rate Blood Pressure 92/62 93/65 91/62 O2 Sat by Pulse 100 100 100 Oximetry 07/14/18 07/14/18 07/14/18 09:30 09:45 10:00 Temperature Pulse Rate 61 62 68 Respiratory 19 19 17 Rate Blood Pressure 94/66 93/66 103/68 O2 Sat by Pulse 100 100 100 Oximetry 07/14/18 07/14/18 07/14/18 10:15 10:30 10:45 Temperature Pulse Rate 63 82 75 Respiratory 11 L 9 L 11 L Rate Blood Pressure 99/65 95/70 99/73 O2 Sat by Pulse 100 100 100 Oximetry 07/14/18 07/14/18 07/14/18 11:00 11:15 11:30 Temperature Pulse Rate 70 74 72 Respiratory 13 12 10 L Rate Blood Pressure 98/62 94/60 96/61 O2 Sat by Pulse 100 100 100 Oximetry 07/14/18 07/14/18 07/14/18 11:45 12:00 12:15 Temperature 97.3 F L Pulse Rate 73 73 73 Respiratory 12 14 17 Rate Blood Pressure 108/66 98/65 100/66 O2 Sat by Pulse 100 100 100 Oximetry 07/14/18 07/14/18 07/14/18 12:30 12:38 12:45 Temperature Pulse Rate 84 69 69 Respiratory 11 L 8 L Rate Blood Pressure 100/64 100/64 105/69 O2 Sat by Pulse 100 100 100 Oximetry Constitutional: alert, other (critically ill on ventilator) Eyes: non-icteric ENT: oropharynx moist Neck: supple Effort: normal Ascultation: Bilateral: other (coarse BS bilaterally) Cardiovascular: regular rate and rhythm (no mrg) Gastrointestinal: normoactive bowel sounds, soft, non-tender, non-distended Integumentary: other (dry skin, no obvious cellulitis) Extremities: no cyanosis, pink and warm, edema (trace bilateral LE edema) Neurologic: unable to assess Psychiatric: other (unable to assess) CBC and BMP: 07/14/18 06:15 07/14/18 06:15 ABG, PT/INR, D-dimer: ABG POC ABG pH 7.475 (7.35-7.45) H 07/14/18 04:56 POC ABG pO2 67 (80-105) L 07/14/18 04:56 POC ABG HCO3 19.0 (22-26 mml/L) 07/14/18 04:56 POC ABG Total CO2 20 (23-27mmol/L) 07/14/18 04:56 POC ABG O2 Sat 95 07/14/18 04:56 PT/INR, D-dimer PT 15.3 Sec. (12.2-14.9) H 07/13/18 11:25 INR 1.14 (0.87-1.13) H 07/13/18 11:25 Abnormal lab findings: Abnormal Labs 07/12/18 07/12/18 07/12/18 08:46 09:00 09:00 RBC 3.07 L Hgb 9.8 L Hct 33.9 L MCV 111 H MCHC 29 L RDW 19.3 H Seg Neuts % (Manual) 87.0 H Lymphocytes % (Manual) 5.0 L Lymphocytes # (Manual) 0.2 L PT INR POC ABG pH POC ABG pO2 Sodium 128 L Potassium 6.2 H* Chloride 94.4 L Carbon Dioxide 2 L* Glucose 662 H* POC Glucose > 500 H Hemoglobin A1c Lactic Acid Calcium 8.3 L Phosphorus 5.50 H Magnesium 2.40 H AST 78 H Alkaline Phosphatase 142 H Total Creatine Kinase CK-MB (CK-2) Troponin T Albumin 3.7 L HDL Cholesterol TSH Free T4 Crossmatch 07/12/18 07/12/18 07/12/18 09:51 11:06 11:22 RBC Hgb Hct MCV MCHC RDW Seg Neuts % (Manual) Lymphocytes % (Manual) Lymphocytes # (Manual) PT 20.8 H INR 1.67 H POC ABG pH 6.780 L POC ABG pO2 389 H Sodium Potassium Chloride Carbon Dioxide Glucose POC Glucose Hemoglobin A1c Lactic Acid Calcium Phosphorus 5.50 H Magnesium 2.40 H AST Alkaline Phosphatase Total Creatine Kinase CK-MB (CK-2) Troponin T Albumin HDL Cholesterol TSH Free T4 Crossmatch 07/12/18 07/12/18 07/12/18 12:09 12:19 13:18 RBC Hgb Hct MCV MCHC RDW Seg Neuts % (Manual) Lymphocytes % (Manual) Lymphocytes # (Manual) PT INR POC ABG pH POC ABG pO2 Sodium 136 L D Potassium Chloride Carbon Dioxide 3 L* Glucose 599 H* POC Glucose > 500 H 440 H Hemoglobin A1c Lactic Acid Calcium 8.0 L Phosphorus Magnesium AST Alkaline Phosphatase Total Creatine Kinase CK-MB (CK-2) Troponin T Albumin HDL Cholesterol TSH Free T4 Crossmatch 07/12/18 07/12/18 07/12/18 13:55 14:20 15:02 RBC Hgb Hct MCV MCHC RDW Seg Neuts % (Manual) Lymphocytes % (Manual) Lymphocytes # (Manual) PT INR POC ABG pH POC ABG pO2 Sodium Potassium Chloride Carbon Dioxide 5 L* Glucose 489 H POC Glucose 440 H Hemoglobin A1c Lactic Acid 2.20 H* Calcium 7.1 L Phosphorus Magnesium AST Alkaline Phosphatase Total Creatine Kinase CK-MB (CK-2) Troponin T Albumin HDL Cholesterol TSH Free T4 Crossmatch 07/12/18 07/12/18 07/12/18 15:54 16:57 17:05 RBC Hgb Hct MCV MCHC RDW Seg Neuts % (Manual) Lymphocytes % (Manual) Lymphocytes # (Manual) PT INR POC ABG pH POC ABG pO2 Sodium Potassium Chloride Carbon Dioxide 6 L* Glucose 387 H POC Glucose 469 H 466 H Hemoglobin A1c Lactic Acid Calcium 7.4 L Phosphorus Magnesium AST Alkaline Phosphatase Total Creatine Kinase CK-MB (CK-2) Troponin T Albumin HDL Cholesterol TSH Free T4 Crossmatch 07/12/18 07/12/18 07/12/18 17:05 17:05 17:05 RBC Hgb Hct MCV MCHC RDW Seg Neuts % (Manual) Lymphocytes % (Manual) Lymphocytes # (Manual) PT INR POC ABG pH POC ABG pO2 Sodium 135 L Potassium Chloride Carbon Dioxide 6 L* Glucose 429 H POC Glucose Hemoglobin A1c 9.9 H Lactic Acid 2.50 H* Calcium 7.5 L Phosphorus Magnesium AST Alkaline Phosphatase Total Creatine Kinase CK-MB (CK-2) Troponin T Albumin HDL Cholesterol TSH Free T4 Crossmatch 07/12/18 07/12/18 07/12/18 18:13 19:24 19:24 RBC Hgb 7.9 L Hct 24.2 L D MCV MCHC RDW Seg Neuts % (Manual) Lymphocytes % (Manual) Lymphocytes # (Manual) PT INR POC ABG pH POC ABG pO2 Sodium 136 L Potassium Chloride Carbon Dioxide 6 L* Glucose 336 H POC Glucose 433 H Hemoglobin A1c Lactic Acid Calcium 7.3 L Phosphorus Magnesium AST Alkaline Phosphatase Total Creatine Kinase CK-MB (CK-2) Troponin T Albumin HDL Cholesterol TSH Free T4 Crossmatch 07/12/18 07/12/18 07/12/18 19:24 19:24 19:31 RBC Hgb Hct MCV MCHC RDW Seg Neuts % (Manual) Lymphocytes % (Manual) Lymphocytes # (Manual) PT INR POC ABG pH 7.024 L POC ABG pO2 195 H Sodium Potassium Chloride Carbon Dioxide Glucose POC Glucose Hemoglobin A1c Lactic Acid 3.30 H* Calcium Phosphorus Magnesium AST Alkaline Phosphatase Total Creatine Kinase CK-MB (CK-2) Troponin T Albumin HDL Cholesterol TSH 19.440 H Free T4 Crossmatch 07/12/18 07/12/18 07/12/18 19:31 20:03 21:08 RBC Hgb Hct MCV MCHC RDW Seg Neuts % (Manual) Lymphocytes % (Manual) Lymphocytes # (Manual) PT INR POC ABG pH POC ABG pO2 Sodium Potassium Chloride Carbon Dioxide Glucose POC Glucose 225 H 366 H 286 H Hemoglobin A1c Lactic Acid Calcium Phosphorus Magnesium AST Alkaline Phosphatase Total Creatine Kinase CK-MB (CK-2) Troponin T Albumin HDL Cholesterol TSH Free T4 Crossmatch 0307/12/18 07/12/18 21:30 21:30 21:57 RBC Hgb Hct MCV MCHC RDW Seg Neuts % (Manual) Lymphocytes % (Manual) Lymphocytes # (Manual) PT INR POC ABG pH POC ABG pO2 Sodium Potassium 3.3 L Chloride Carbon Dioxide 6 L* Glucose 232 H POC Glucose 262 H Hemoglobin A1c Lactic Acid 4.90 H* Calcium 7.3 L Phosphorus Magnesium AST Alkaline Phosphatase Total Creatine Kinase CK-MB (CK-2) Troponin T Albumin HDL Cholesterol TSH Free T4 Crossmatch 07/12/18 07/12/18 07/12/18 22:56 23:14 23:14 RBC Hgb Hct MCV MCHC RDW Seg Neuts % (Manual) Lymphocytes % (Manual) Lymphocytes # (Manual) PT INR POC ABG pH POC ABG pO2 Sodium Potassium 3.5 L Chloride 109.1 H Carbon Dioxide 7 L* Glucose 173 H POC Glucose 248 H Hemoglobin A1c Lactic Acid 5.40 H* Calcium 7.4 L Phosphorus Magnesium AST Alkaline Phosphatase Total Creatine Kinase CK-MB (CK-2) Troponin T Albumin HDL Cholesterol TSH Free T4 Crossmatch 07/12/18 07/12/18 07/13/18 Unknown 23:59 00:44 RBC Hgb Hct MCV MCHC RDW Seg Neuts % (Manual) Lymphocytes % (Manual) Lymphocytes # (Manual) PT INR POC ABG pH POC ABG pO2 Sodium Potassium 3.3 L Chloride 109.6 H Carbon Dioxide 10 L Glucose 147 H POC Glucose 215 H Hemoglobin A1c Lactic Acid 2.50 H* Calcium 7.4 L Phosphorus Magnesium AST Alkaline Phosphatase Total Creatine Kinase CK-MB (CK-2) Troponin T Albumin HDL Cholesterol TSH Free T4 Crossmatch 07/13/18 07/13/18 07/13/18 00:44 00:44 00:58 RBC Hgb 7.1 L Hct 21.3 L MCV MCHC RDW Seg Neuts % (Manual) Lymphocytes % (Manual) Lymphocytes # (Manual) PT INR POC ABG pH POC ABG pO2 Sodium Potassium Chloride Carbon Dioxide Glucose POC Glucose 175 H Hemoglobin A1c Lactic Acid 5.40 H* Calcium Phosphorus Magnesium AST Alkaline Phosphatase Total Creatine Kinase CK-MB (CK-2) Troponin T Albumin HDL Cholesterol TSH Free T4 Crossmatch 07/13/18 07/13/18 07/13/18 01:59 02:57 03:54 RBC Hgb Hct MCV MCHC RDW Seg Neuts % (Manual) Lymphocytes % (Manual) Lymphocytes # (Manual) PT INR POC ABG pH POC ABG pO2 Sodium Potassium Chloride Carbon Dioxide Glucose POC Glucose 144 H 178 H 128 H Hemoglobin A1c Lactic Acid Calcium Phosphorus Magnesium AST Alkaline Phosphatase Total Creatine Kinase CK-MB (CK-2) Troponin T Albumin HDL Cholesterol TSH Free T4 Crossmatch 07/13/18 07/13/18 07/13/18 04:00 04:00 04:04 RBC Hgb Hct MCV MCHC RDW Seg Neuts % (Manual) Lymphocytes % (Manual) Lymphocytes # (Manual) PT INR POC ABG pH 7.308 L POC ABG pO2 194 H Sodium Potassium 3.4 L Chloride 110.7 H Carbon Dioxide 15 L Glucose 122 H POC Glucose Hemoglobin A1c Lactic Acid 4.10 H* Calcium 7.8 L Phosphorus Magnesium AST Alkaline Phosphatase Total Creatine Kinase CK-MB (CK-2) Troponin T Albumin HDL Cholesterol TSH Free T4 Crossmatch 07/13/18 07/13/18 07/13/18 05:03 06:00 06:58 RBC Hgb Hct MCV MCHC RDW Seg Neuts % (Manual) Lymphocytes % (Manual) Lymphocytes # (Manual) PT INR POC ABG pH POC ABG pO2 Sodium Potassium Chloride Carbon Dioxide Glucose POC Glucose 127 H 123 H 110 H Hemoglobin A1c Lactic Acid Calcium Phosphorus Magnesium AST Alkaline Phosphatase Total Creatine Kinase CK-MB (CK-2) Troponin T Albumin HDL Cholesterol TSH Free T4 Crossmatch 07/13/18 07/13/18 07/13/18 09:28 09:28 10:33 RBC Hgb Hct MCV MCHC RDW Seg Neuts % (Manual) Lymphocytes % (Manual) Lymphocytes # (Manual) PT INR POC ABG pH POC ABG pO2 Sodium Potassium Chloride 112.8 H Carbon Dioxide 15 L Glucose POC Glucose 116 H Hemoglobin A1c Lactic Acid Calcium 7.8 L Phosphorus Magnesium AST Alkaline Phosphatase Total Creatine Kinase CK-MB (CK-2) Troponin T Albumin HDL Cholesterol TSH Free T4 0.53 L Crossmatch 07/13/18 07/13/18 07/13/18 10:56 11:14 11:14 RBC Hgb 7.4 L Hct 21.3 L MCV MCHC RDW Seg Neuts % (Manual) Lymphocytes % (Manual) Lymphocytes # (Manual) PT INR POC ABG pH POC ABG pO2 Sodium 146 H Potassium 3.0 L D Chloride 111.6 H Carbon Dioxide 19 L Glucose POC Glucose Hemoglobin A1c Lactic Acid Calcium 7.7 L Phosphorus Magnesium AST Alkaline Phosphatase Total Creatine Kinase CK-MB (CK-2) Troponin T Albumin HDL Cholesterol TSH Free T4 Crossmatch See Detail 07/13/18 07/13/18 07/13/18 11:14 11:25 11:25 RBC Hgb Hct MCV MCHC RDW Seg Neuts % (Manual) Lymphocytes % (Manual) Lymphocytes # (Manual) PT 15.3 H INR 1.14 H POC ABG pH POC ABG pO2 Sodium Potassium Chloride Carbon Dioxide Glucose POC Glucose Hemoglobin A1c Lactic Acid 3.00 H* Calcium Phosphorus Magnesium AST Alkaline Phosphatase Total Creatine Kinase 2806 H CK-MB (CK-2) 16.0 H Troponin T 0.073 H Albumin HDL Cholesterol 90 H TSH Free T4 Crossmatch 07/13/18 07/13/18 07/13/18 11:42 12:49 14:32 RBC Hgb Hct MCV MCHC RDW Seg Neuts % (Manual) Lymphocytes % (Manual) Lymphocytes # (Manual) PT INR POC ABG pH POC ABG pO2 Sodium Potassium Chloride Carbon Dioxide Glucose POC Glucose 140 H 206 H 110 H Hemoglobin A1c Lactic Acid Calcium Phosphorus Magnesium AST Alkaline Phosphatase Total Creatine Kinase CK-MB (CK-2) Troponin T Albumin HDL Cholesterol TSH Free T4 Crossmatch 07/13/18 07/13/18 07/13/18 14:59 14:59 15:46 RBC Hgb Hct MCV MCHC RDW Seg Neuts % (Manual) Lymphocytes % (Manual) Lymphocytes # (Manual) PT INR POC ABG pH POC ABG pO2 Sodium 146 H Potassium 2.8 L* Chloride 112.2 H Carbon Dioxide 19 L Glucose 111 H POC Glucose 119 H Hemoglobin A1c Lactic Acid 3.60 H* Calcium 7.9 L Phosphorus Magnesium AST Alkaline Phosphatase Total Creatine Kinase CK-MB (CK-2) Troponin T Albumin HDL Cholesterol TSH Free T4 Crossmatch 07/13/18 07/13/18 07/13/18 20:50 20:50 20:50 RBC Hgb Hct MCV MCHC RDW Seg Neuts % (Manual) Lymphocytes % (Manual) Lymphocytes # (Manual) PT INR POC ABG pH POC ABG pO2 Sodium 146 H Potassium 3.2 L Chloride 110.8 H Carbon Dioxide 20 L Glucose 107 H POC Glucose Hemoglobin A1c Lactic Acid Calcium 7.9 L Phosphorus Magnesium AST Alkaline Phosphatase Total Creatine Kinase 2398 H CK-MB (CK-2) 8.6 H Troponin T 0.052 H D Albumin HDL Cholesterol TSH Free T4 0.54 L Crossmatch 07/14/18 07/14/18 07/14/18 00:10 00:35 04:56 RBC Hgb Hct MCV MCHC RDW Seg Neuts % (Manual) Lymphocytes % (Manual) Lymphocytes # (Manual) PT INR POC ABG pH 7.475 H POC ABG pO2 67 L Sodium Potassium Chloride Carbon Dioxide Glucose POC Glucose 235 H Hemoglobin A1c Lactic Acid Calcium Phosphorus Magnesium AST Alkaline Phosphatase Total Creatine Kinase 1995 H CK-MB (CK-2) 7.0 H Troponin T 0.049 H Albumin HDL Cholesterol TSH Free T4 Crossmatch 07/14/18 07/14/18 07/14/18 05:09 06:15 06:15 RBC 2.76 L Hgb 8.8 L Hct 24.7 L MCV MCHC 36 H RDW 16.4 H Seg Neuts % (Manual) Lymphocytes % (Manual) Lymphocytes # (Manual) PT INR POC ABG pH POC ABG pO2 Sodium Potassium 3.2 L Chloride Carbon Dioxide 21 L Glucose 212 H POC Glucose 227 H Hemoglobin A1c Lactic Acid Calcium 7.7 L Phosphorus 0.90 L* D Magnesium 1.50 L AST Alkaline Phosphatase Total Creatine Kinase CK-MB (CK-2) Troponin T Albumin HDL Cholesterol TSH Free T4 Crossmatch 07/14/18 07/14/18 10:42 12:35 RBC Hgb Hct MCV MCHC RDW Seg Neuts % (Manual) Lymphocytes % (Manual) Lymphocytes # (Manual) PT INR POC ABG pH POC ABG pO2 Sodium Potassium Chloride Carbon Dioxide Glucose POC Glucose 272 H Hemoglobin A1c Lactic Acid 4.30 H* Calcium Phosphorus Magnesium AST Alkaline Phosphatase Total Creatine Kinase CK-MB (CK-2) Troponin T Albumin HDL Cholesterol TSH Free T4 Crossmatch Chest x-ray: report reviewed, image reviewed (improved RLL densities)
[2018-07-14] MEDS: LANTUS SUB-Q SCH (22:28)
[2018-07-15] MEDS: DILAUDID IV PRN (02:27)
[2018-07-15 05:05] LABS: Basophils # (Auto) 0.1 K/mm3 (0.0-0.1); Basophils % (Auto) 1.3 % (0.0-1.8); Eosinophils % (Auto) 0.1 % (0.0-4.3); Hematocrit 23.8 % (35.5-45.6); Hemoglobin 8.5 gm/dl (11.8-15.2); Lymphocytes # (Auto) 0.9 K/mm3 (1.2-5.4); Lymphocytes % (Auto) 11.6 % (13.4-35.0); Mean Corpuscular HGB Conc 36 % (32-34); Mean Corpuscular Volume 88 fl (84-94); Monocytes # (Auto) 0.3 K/mm3 (0.0-0.8); Monocytes % (Auto) 3.3 % (0.0-7.3); Platelet Count 131 K/mm3 (140-440); Red Cell Distribution Width 16.7 % (13.2-15.2)
[2018-07-15 05:30] LABS: BUN/Creatinine Ratio 13; Blood Urea Nitrogen 13 mg/dL (9-20); Calcium 8.1 mg/dL (8.4-10.2); Hemolysis Index 7
[2018-07-15] MEDS: D50W (25GM) Syringe IV PRN ×3 (05:41→18:20)
[2018-07-15] MEDS: NACL 0.9% 1000 ML 1,000 ML IV SCH ×2 (06:12→18:14)
[2018-07-15] MEDS: VANCOMYCIN/NS 1 GM/250 ML 1 GM/250 ML BAG IV SCH ×2 (06:15→18:12)
[2018-07-15] MEDS: SYNTHROID IV SCH (06:15)
[2018-07-15] MEDS: HumuLIN R SUB-Q SCH ×3 (06:21→18:50)
[2018-07-15] MEDS: PREVACID SOLUTAB FEEDTUBE SCH ×2 (09:29→21:04)
[2018-07-15] MEDS: SODIUM CHLORIDE FLUSH SYRINGE 10 ML IV SCH (10:00)
--- NOTE | 2018-07-15 11:14 | Progress Note ---
Assessment and Plan Cultures: 07/12/2018 tracheal aspirate: Salivary contamination 07/12/2018 blood culture: 2 out of 2 bottles positive for enterococcus on set 1, set 2 is negative. 07/12/2018 urine culture: No growth 07/14/2018 blood culture: in progress A/P: 63-year-old male with diabetes mellitus, hypothyroidism who was brought into the emergency room on 07/12/2018 for altered mental status. Apparently, the patient is noncompliant. He was found to be in severe diabetic ketoacidosis with an arterial pH of 6.7, also with: 1) Enterococcus faecalis bacteremia: Etiology is unclear, 1 set is positive. TTE without any significant valvular abnormalities or vegetations. Patient presented with severe DKA. Will evaluate for any intra-abdominal source of infection, awaiting RUQ US and CT abdomen pelvis with IV contrast. 2) Question of pneumonia: No evidence of pneumonia on follow-up chest x-ray. Minimal vent requirements. Pneumonia unlikely. 3) Diabetic ketoacidosis: Patient presented with uncontrolled hyperglycemia and severe acidosis. Improving 4) Acute encephalopathy: metabolic. Improving. Recs: f/u repeat blood cultures for clearance added IV ampicillin since E.faecalis, continue vancomycin for now Awaiting CT abdomen pelvis with IV contrast Awaiting RUQ US d/w Dr. Priyanka Jackson MD [facility] C: [phone] O: [phone] F: [phone] Subjective Date of service: 07/15/18 Principal diagnosis: GI bleed Interval history: No fever. Remains on the vent. Objective - Exam Narrative Exam: Physical Exam: Constitutional: sedated, intubated Head, Ears, Nose: Normocephalic, atraumatic. External ears, nose normal Eyes: Conjunctivae/corneas clear. No icterus. No ptosis. Neck: Supple, no meningeal signs Oral: intubated Cardiovascular: S1, S2 normal. Respiratory: Good air entry, clear to auscultation bilaterally GI: Soft, non-tender; bowel sounds normal. No peritoneal signs Musculoskeletal: No pedal edema, no cyanosis. Skin: No rash or abscess Hem/Lymphatic: No palpable cervical or supraclavicular nodes. No lymphangitis Psych: no agitation Neurological: sedated, intubated, on vent - Constitutional Vitals: Vital Signs Temp Pulse Resp BP Pulse Ox 97.6 F 71 18 100/72 100 07/15/18 08:00 07/15/18 10:30 07/15/18 10:30 07/15/18 10:30 07/15/18 10:30 Temperature -Last 24 Hours Temperature 97.6 F Temperature 97.1 F Temperature 97.5 F Temperature 98 F Temperature 98.2 F Temperature 97.1 F Temperature 97.3 F - Labs CBC & Chem 7: 07/15/18 05:00 07/15/18 05:00 Labs: Abnormal lab results 07/14/18 07/14/18 07/14/18 Range/Units 10:42 12:35 18:41 RBC (3.65-5.03) M/mm3 Hgb (11.8-15.2) gm/dl Hct (35.5-45.6) % MCHC (32-34) % RDW (13.2-15.2) % Plt Count (140-440) K/mm3 Lymph % (Auto) (13.4-35.0) % Lymph # (1.2-5.4) K/mm3 Seg Neutrophils % (40.0-70.0) % POC ABG pH (7.35-7.45) POC ABG pO2 (80-105) Potassium (3.6-5.0) mmol/L Chloride (98-107) mmol/L Glucose (75-100) mg/dL POC Glucose 272 H 234 H (70-105) Lactic Acid 4.30 H* (0.7-2.0) mmol/L Calcium (8.4-10.2) mg/dL Phosphorus (2.5-4.5) mg/dL Vancomycin Trough (5.0-20.0) ug/mL 07/14/18 07/14/18 07/15/18 Range/Units 22:36 23:10 05:00 RBC 2.70 L (3.65-5.03) M/mm3 Hgb 8.5 L (11.8-15.2) gm/dl Hct 23.8 L (35.5-45.6) % MCHC 36 H (32-34) % RDW 16.7 H (13.2-15.2) % Plt Count 131 L (140-440) K/mm3 Lymph % (Auto) 11.6 L (13.4-35.0) % Lymph # 0.9 L (1.2-5.4) K/mm3 Seg Neutrophils % 83.7 H (40.0-70.0) % POC ABG pH (7.35-7.45) POC ABG pO2 (80-105) Potassium (3.6-5.0) mmol/L Chloride (98-107) mmol/L Glucose (75-100) mg/dL POC Glucose 191 H (70-105) Lactic Acid (0.7-2.0) mmol/L Calcium (8.4-10.2) mg/dL Phosphorus (2.5-4.5) mg/dL Vancomycin Trough 23.4 H (5.0-20.0) ug/mL 07/15/18 07/15/18 07/15/18 Range/Units 05:00 05:39 05:41 RBC (3.65-5.03) M/mm3 Hgb (11.8-15.2) gm/dl Hct (35.5-45.6) % MCHC (32-34) % RDW (13.2-15.2) % Plt Count (140-440) K/mm3 Lymph % (Auto) (13.4-35.0) % Lymph # (1.2-5.4) K/mm3 Seg Neutrophils % (40.0-70.0) % POC ABG pH (7.35-7.45) POC ABG pO2 (80-105) Potassium 3.3 L (3.6-5.0) mmol/L Chloride 109.6 H (98-107) mmol/L Glucose 72 L (75-100) mg/dL POC Glucose 46 L 46 L (70-105) Lactic Acid (0.7-2.0) mmol/L Calcium 8.1 L (8.4-10.2) mg/dL Phosphorus 2.30 L D (2.5-4.5) mg/dL Vancomycin Trough (5.0-20.0) ug/mL 07/15/18 Range/Units 06:06 RBC (3.65-5.03) M/mm3 Hgb (11.8-15.2) gm/dl Hct (35.5-45.6) % MCHC (32-34) % RDW (13.2-15.2) % Plt Count (140-440) K/mm3 Lymph % (Auto) (13.4-35.0) % Lymph # (1.2-5.4) K/mm3 Seg Neutrophils % (40.0-70.0) % POC ABG pH 7.584 H (7.35-7.45) POC ABG pO2 166 H (80-105) Potassium (3.6-5.0) mmol/L Chloride (98-107) mmol/L Glucose (75-100) mg/dL POC Glucose (70-105) Lactic Acid (0.7-2.0) mmol/L Calcium (8.4-10.2) mg/dL Phosphorus (2.5-4.5) mg/dL Vancomycin Trough (5.0-20.0) ug/mL
--- NOTE | 2018-07-15 12:04 | Progress Note ---
Assessment and Plan Respiratory failure remains intubated Diabetes Diabetic ketoacidosis Right lower lobe pneumonia Hypothyroidism Anemia Enterococcus faecalis bacteremia Normal LVEF 50-55% by echocardiogram. Continue supportive care and conservative cardiac approach to management. Subjective Date of service: 07/15/18 Principal diagnosis: GI bleed Interval history: Patient is alert but remains intubated. Sinus rhythm on telemetry. Objective Vital Signs Temp Pulse Pulse Resp BP Pulse Ox 07/15/18 11:39 75 18 117/78 100 07/15/18 10:30 71 18 100/72 100 07/15/18 10:00 73 19 120/80 100 07/15/18 09:30 75 16 116/82 100 07/15/18 09:00 74 12 108/72 100 07/15/18 08:30 76 14 108/72 100 07/15/18 08:00 97.6 F 71 71 18 100/69 100 07/15/18 07:40 65 18 113/73 100 07/15/18 07:30 66 14 113/73 100 07/15/18 07:00 64 10 L 107/71 100 07/15/18 06:30 64 18 99/67 100 07/15/18 06:00 64 14 103/70 100 07/15/18 05:30 66 12 89/64 100 07/15/18 05:00 69 16 103/72 100 07/15/18 04:30 68 11 L 95/66 100 07/15/18 04:00 97.1 F L 64 72 11 L 89/64 100 07/15/18 03:30 67 11 L 100/68 100 07/15/18 03:00 69 12 97/64 100 07/15/18 02:46 68 18 95/58 100 07/15/18 02:30 70 18 86/55 100 07/15/18 02:16 77 18 85/29 100 07/15/18 02:00 85 13 100/68 07/15/18 01:46 81 14 100/68 07/15/18 01:30 71 15 100/68 100 07/15/18 01:15 79 18 100/65 100 07/15/18 01:00 72 17 99/66 100 07/15/18 00:45 72 15 93/61 100 07/15/18 00:30 70 18 97/61 100 07/15/18 00:15 77 19 111/73 100 07/15/18 00:12 77 18 111/69 100 07/15/18 00:00 97.5 F L 81 71 12 120/78 100 07/14/18 23:45 75 10 L 109/74 100 07/14/18 23:30 82 8 L 107/68 100 07/14/18 23:15 79 12 109/71 100 07/14/18 23:00 79 11 L 109/74 100 07/14/18 22:45 78 9 L 102/66 100 07/14/18 22:30 75 9 L 92/66 100 07/14/18 22:15 73 14 100/67 100 07/14/18 22:00 77 7 L 103/68 100 07/14/18 21:45 76 13 100/65 100 07/14/18 21:30 73 17 107/79 100 07/14/18 21:15 91 H 12 122/83 100 07/14/18 21:00 74 8 L 114/71 100 07/14/18 20:45 69 14 111/77 100 07/14/18 20:30 76 14 112/69 100 07/14/18 20:16 68 14 102/70 100 07/14/18 20:00 98 F 68 93 H 14 102/72 100 07/14/18 19:45 70 14 110/76 100 07/14/18 19:30 65 13 101/66 100 07/14/18 19:15 69 14 108/73 100 07/14/18 19:00 65 11 L 102/69 100 07/14/18 18:45 64 11 L 100/68 100 07/14/18 18:30 67 13 101/67 100 07/14/18 18:16 73 17 99/68 100 07/14/18 18:00 76 15 122/66 100 07/14/18 17:45 74 13 119/78 100 07/14/18 17:30 76 13 121/78 100 07/14/18 17:16 76 15 117/78 100 07/14/18 17:00 74 13 115/76 100 07/14/18 16:54 74 109/75 100 07/14/18 16:45 68 11 L 109/75 100 07/14/18 16:30 70 11 L 121/75 100 07/14/18 16:15 72 13 118/77 100 07/14/18 16:00 98.2 F 80 19 109/77 07/14/18 15:45 79 14 102/72 100 07/14/18 15:30 76 15 119/66 07/14/18 15:16 90 21 122/83 100 07/14/18 15:00 70 10 L 108/71 07/14/18 14:45 76 10 L 113/76 07/14/18 14:30 80 14 107/74 07/14/18 14:15 76 8 L 98/65 07/14/18 14:00 97.1 F L 70 12 108/63 07/14/18 13:45 68 12 110/71 07/14/18 13:30 70 10 L 100/71 07/14/18 13:15 76 11 L 108/78 07/14/18 13:00 75 11 L 110/76 07/14/18 12:45 69 8 L 105/69 07/14/18 12:38 69 100/64 07/14/18 12:30 84 11 L 100/64 07/14/18 12:15 73 17 100/66 100 - Physical Examination General: Other (remains intubated) HEENT: Positive: PERRL Cardiac: Positive: Reg Rate and Rhythm Extremities: Absent: edema - Labs and Meds CBC 07/15/18 Range/Units 05:00 WBC 7.9 (4.5-11.0) K/mm3 RBC 2.70 L (3.65-5.03) M/mm3 Hgb 8.5 L (11.8-15.2) gm/dl Hct 23.8 L (35.5-45.6) % Plt Count 131 L (140-440) K/mm3 Lymph # 0.9 L (1.2-5.4) K/mm3 [place] # 0.3 (0.0-0.8) K/mm3 Eos # 0.0 (0.0-0.4) K/mm3 Baso # 0.1 (0.0-0.1) K/mm3 Comprehensive Metabolic Panel 07/15/18 Range/Units 05:00 Sodium 145 (137-145) mmol/L Potassium 3.3 L (3.6-5.0) mmol/L Chloride 109.6 H (98-107) mmol/L Carbon Dioxide 25 (22-30) mmol/L BUN 13 (9-20) mg/dL Creatinine 1.0 (0.8-1.5) mg/dL Glucose 72 L (75-100) mg/dL Calcium 8.1 L (8.4-10.2) mg/dL
[2018-07-15] MEDS: AMPICILLIN/NS 2 GM/100 ML 2 GM/100 ML BAG IV SCH ×2 (12:32→18:12)
--- NOTE | 2018-07-15 12:41 | Progress Note ---
Assessment and Plan Imp: 1. ? Aspiration pneumonitis 2. Severe sepsis 3. Acute respiratory failure, hypoxia 4. Enterococcal bacteremia 5. Epistaxis with acute blood loss anemia 6. DKA 7. Lactic acidosis 8. S/p CP arrest Rec: 1. ID consulted; on Vanco; further work-up as per ID; surveillance cultures 2. D/c Bicarb drip; changed to NS 3. Off pressors 4. Monitor H/H; nares are packed with no further bleeding; SCDs in place 5. Extubate; he meets all criteria 6. D/c Propofol 7. Replete K 8. Prognosis guarded Plan of care reviewed w/ daughters, they understand/agree CCt 31 minutes Subjective Date of service: 07/15/18 Principal diagnosis: GI bleed Interval history: No events. Awake, alert. On Propofol 5mcg and tolerating PSV with RSBI less than 105 and TV up to 2L. Off pressors. No SOB. Active Medications Acetaminophen (Tylenol) 650 mg PO Q4H PRN PRN Reason: Pain MILD(1-3)/Fever >100.5/GARCIA Lipase/Protease/Amylase (Pancreaze Dr 10,500 Unit) 1 each FEEDTUBE PRN PRN PRN Reason: For Clogged Feeding Tube Dextrose (D50w (25gm) Syringe) 0 ml IV PRN PRN PRN Reason: Hypoglycemia Last Admin: 07/15/18 18:20 Dose: 50 ml Documented by: Hydromorphone HCl (Dilaudid) 0.25 mg IV Q3H PRN PRN Reason: Pain, Moderate (4-6) Last Admin: 07/15/18 02:27 Dose: 0.25 mg Documented by: Norepinephrine (Levophed Drip 4 Mg/Ns 250 Ml) 4 mg in 250 mls @ 7.5 mls/hr IV TITR ISAIAS; Protocol Last Titration: 07/14/18 03:05 Dose: 0 mcg/min, 0 mls/hr Documented by: Propofol (Diprivan 10 Mg/Ml) 1,000 mg in 100 mls @ 2.585 mls/hr IV TITR ISAIAS; Protocol Last Titration: 07/15/18 07:00 Dose: Infused Documented by: Vasopressin 20 unit/ Sodium (Chloride) 101 mls @ 9.09 mls/hr IV TITR ISAIAS; Protocol Vancomycin HCl (Vancomycin/Ns 1 Gm/250 Ml) 1 gm in 250 mls @ 166.667 mls/hr IV Q12H [facility] Last Admin: 07/15/18 18:12 Dose: 166.667 mls/hr Documented by: Sodium Chloride (Nacl 0.9% 1000 Ml) 1,000 mls @ 75 mls/hr IV DIRECT [facility] Last Admin: 07/15/18 18:14 Dose: 75 mls/hr Documented by: Ampicillin Sodium (Polycillin/Ns 2 Gm/100 Ml) 2 gm in 100 mls @ 100 mls/hr IV Q6HR [facility] Last Admin: 07/15/18 18:12 Dose: 100 mls/hr Documented by: Insulin Glargine (Lantus) 15 units SUB-Q QHS [facility] Last Admin: 07/14/18 22:28 Dose: 15 units Documented by: Insulin Human Regular (Humulin R) 0 units SUB-Q Q6HR [facility]; Protocol Last Admin: 07/15/18 12:25 Dose: Not Given Documented by: Lansoprazole (Prevacid Solutab) 30 mg FEEDTUBE BID [facility] Last Admin: 07/15/18 09:29 Dose: 30 mg Documented by: Levothyroxine Sodium (Synthroid) 100 mcg IV DAILY@0600 [facility] Last Admin: 07/15/18 06:15 Dose: 100 mcg Documented by: Ondansetron HCl (Zofran) 4 mg IV Q8H PRN PRN Reason: Nausea And Vomiting Simple Syrup (Simple Syrup) 15 ml FEEDTUBE PRN PRN PRN Reason: Hypoglycemia Simple Syrup (Simple Syrup) 30 ml FEEDTUBE PRN PRN PRN Reason: Hypoglycemia Last Admin: 07/15/18 05:44 Dose: 30 ml Documented by: Sodium Bicarbonate (Sodium Bicarbonate) 325 mg FEEDTUBE PRN PRN PRN Reason: For Clogged Feeding Tube Sodium Chloride (Sodium Chloride Flush Syringe 10 Ml) 10 ml IV BID [facility] Last Admin: 07/15/18 10:00 Dose: 10 ml Documented by: Sodium Chloride (Sodium Chloride Flush Syringe 10 Ml) 10 ml IV PRN PRN PRN Reason: LINE FLUSH Last Admin: 07/12/18 19:32 Dose: 10 ml Documented by: Objective Vital Signs - 12hr 07/15/18 07/15/18 07/15/18 00:45 01:00 01:15 Temperature Pulse Rate 72 72 79 Pulse Rate [ From Monitor] Respiratory 15 17 18 Rate Blood Pressure 93/61 99/66 100/65 O2 Sat by Pulse 100 100 100 Oximetry 07/15/18 07/15/18 07/15/18 01:30 01:46 02:00 Temperature Pulse Rate 71 81 85 Pulse Rate [ From Monitor] Respiratory 15 14 13 Rate Blood Pressure 100/68 100/68 100/68 O2 Sat by Pulse 100 Oximetry 07/15/18 07/15/18 07/15/18 02:16 02:30 02:46 Temperature Pulse Rate 77 70 68 Pulse Rate [ From Monitor] Respiratory 18 18 18 Rate Blood Pressure 85/29 86/55 95/58 O2 Sat by Pulse 100 100 100 Oximetry 07/15/18 07/15/18 07/15/18 03:00 03:30 04:00 Temperature 97.1 F L Pulse Rate 69 67 64 Pulse Rate [ 72 From Monitor] Respiratory 12 11 L 11 L Rate Blood Pressure 97/64 100/68 89/64 O2 Sat by Pulse 100 100 100 Oximetry 07/15/18 07/15/18 07/15/18 04:30 05:00 05:30 Temperature Pulse Rate 68 69 66 Pulse Rate [ From Monitor] Respiratory 11 L 16 12 Rate Blood Pressure 95/66 103/72 89/64 O2 Sat by Pulse 100 100 100 Oximetry 07/15/18 07/15/18 07/15/18 06:00 06:30 07:00 Temperature Pulse Rate 64 64 64 Pulse Rate [ From Monitor] Respiratory 14 18 10 L Rate Blood Pressure 103/70 99/67 107/71 O2 Sat by Pulse 100 100 100 Oximetry 07/15/18 07/15/18 07/15/18 07:30 07:40 08:00 Temperature 97.6 F Pulse Rate 66 65 71 Pulse Rate [ 71 From Monitor] Respiratory 14 18 18 Rate Blood Pressure 113/73 113/73 100/69 O2 Sat by Pulse 100 100 100 Oximetry 07/15/18 07/15/18 07/15/18 08:30 09:00 09:30 Temperature Pulse Rate 76 74 75 Pulse Rate [ From Monitor] Respiratory 14 12 16 Rate Blood Pressure 108/72 108/72 116/82 O2 Sat by Pulse 100 100 100 Oximetry 07/15/18 07/15/18 07/15/18 10:00 10:30 11:00 Temperature Pulse Rate 73 71 70 Pulse Rate [ From Monitor] Respiratory 19 18 12 Rate Blood Pressure 120/80 100/72 110/75 O2 Sat by Pulse 100 100 100 Oximetry 07/15/18 07/15/18 07/15/18 11:30 11:39 12:00 Temperature 97.5 F L Pulse Rate 71 75 73 Pulse Rate [ From Monitor] Respiratory 13 18 13 Rate Blood Pressure 117/78 117/78 119/81 O2 Sat by Pulse 100 100 100 Oximetry Constitutional: alert, other (critically ill on ventilator) Eyes: non-icteric ENT: oropharynx moist Neck: supple Effort: normal Ascultation: Bilateral: clear Cardiovascular: regular rate and rhythm (no mrg) Gastrointestinal: normoactive bowel sounds, soft, non-tender, non-distended Integumentary: other (dry skin, no obvious cellulitis) Extremities: no cyanosis, pink and warm, edema (trace bilateral LE edema) Neurologic: normal mental status, non-focal exam, pupils equal and round, CN II- XII normal Psychiatric: mood appropriate, affect normal CBC and BMP: 07/15/18 05:00 07/15/18 05:00 ABG, PT/INR, D-dimer: ABG POC ABG pH 7.584 (7.35-7.45) H 07/15/18 06:06 POC ABG pO2 166 (80-105) H 07/15/18 06:06 POC ABG HCO3 24.6 (22-26 mml/L) 07/15/18 06:06 POC ABG Total CO2 25 (23-27mmol/L) 07/15/18 06:06 POC ABG O2 Sat 100 07/15/18 06:06 PT/INR, D-dimer PT 15.3 Sec. (12.2-14.9) H 07/13/18 11:25 INR 1.14 (0.87-1.13) H 07/13/18 11:25 Abnormal lab findings: Abnormal Labs 07/12/18 07/12/18 07/12/18 08:46 09:00 09:00 RBC 3.07 L Hgb 9.8 L Hct 33.9 L MCV 111 H MCHC 29 L RDW 19.3 H Plt Count Lymph % (Auto) Lymph # Seg Neutrophils % Seg Neuts % (Manual) 87.0 H Lymphocytes % (Manual) 5.0 L Lymphocytes # (Manual) 0.2 L PT INR POC ABG pH POC ABG pO2 Sodium 128 L Potassium 6.2 H* Chloride 94.4 L Carbon Dioxide 2 L* Glucose 662 H* POC Glucose > 500 H Hemoglobin A1c Lactic Acid Calcium 8.3 L Phosphorus 5.50 H Magnesium 2.40 H AST 78 H Alkaline Phosphatase 142 H Total Creatine Kinase CK-MB (CK-2) Troponin T Albumin 3.7 L HDL Cholesterol TSH Free T4 Vancomycin Trough Crossmatch 07/12/18 07/12/18 07/12/18 09:51 11:06 11:22 RBC Hgb Hct MCV MCHC RDW Plt Count Lymph % (Auto) Lymph # Seg Neutrophils % Seg Neuts % (Manual) Lymphocytes % (Manual) Lymphocytes # (Manual) PT 20.8 H INR 1.67 H POC ABG pH 6.780 L POC ABG pO2 389 H Sodium Potassium Chloride Carbon Dioxide Glucose POC Glucose Hemoglobin A1c Lactic Acid Calcium Phosphorus 5.50 H Magnesium 2.40 H AST Alkaline Phosphatase Total Creatine Kinase CK-MB (CK-2) Troponin T Albumin HDL Cholesterol TSH Free T4 Vancomycin Trough Crossmatch 07/12/18 07/12/18 07/12/18 12:09 12:19 13:18 RBC Hgb Hct MCV MCHC RDW Plt Count Lymph % (Auto) Lymph # Seg Neutrophils % Seg Neuts % (Manual) Lymphocytes % (Manual) Lymphocytes # (Manual) PT INR POC ABG pH POC ABG pO2 Sodium 136 L D Potassium Chloride Carbon Dioxide 3 L* Glucose 599 H* POC Glucose > 500 H 440 H Hemoglobin A1c Lactic Acid Calcium 8.0 L Phosphorus Magnesium AST Alkaline Phosphatase Total Creatine Kinase CK-MB (CK-2) Troponin T Albumin HDL Cholesterol TSH Free T4 Vancomycin Trough Crossmatch 07/12/18 07/12/18 07/12/18 13:55 14:20 15:02 RBC Hgb Hct MCV MCHC RDW Plt Count Lymph % (Auto) Lymph # Seg Neutrophils % Seg Neuts % (Manual) Lymphocytes % (Manual) Lymphocytes # (Manual) PT INR POC ABG pH POC ABG pO2 Sodium Potassium Chloride Carbon Dioxide 5 L* Glucose 489 H POC Glucose 440 H Hemoglobin A1c Lactic Acid 2.20 H* Calcium 7.1 L Phosphorus Magnesium AST Alkaline Phosphatase Total Creatine Kinase CK-MB (CK-2) Troponin T Albumin HDL Cholesterol TSH Free T4 Vancomycin Trough Crossmatch 07/12/18 07/12/18 07/12/18 15:54 16:57 17:05 RBC Hgb Hct MCV MCHC RDW Plt Count Lymph % (Auto) Lymph # Seg Neutrophils % Seg Neuts % (Manual) Lymphocytes % (Manual) Lymphocytes # (Manual) PT INR POC ABG pH POC ABG pO2 Sodium Potassium Chloride Carbon Dioxide 6 L* Glucose 387 H POC Glucose 469 H 466 H Hemoglobin A1c Lactic Acid Calcium 7.4 L Phosphorus Magnesium AST Alkaline Phosphatase Total Creatine Kinase CK-MB (CK-2) Troponin T Albumin HDL Cholesterol TSH Free T4 Vancomycin Trough Crossmatch 07/12/18 07/12/18 07/12/18 17:05 17:05 17:05 RBC Hgb Hct MCV MCHC RDW Plt Count Lymph % (Auto) Lymph # Seg Neutrophils % Seg Neuts % (Manual) Lymphocytes % (Manual) Lymphocytes # (Manual) PT INR POC ABG pH POC ABG pO2 Sodium 135 L Potassium Chloride Carbon Dioxide 6 L* Glucose 429 H POC Glucose Hemoglobin A1c 9.9 H Lactic Acid 2.50 H* Calcium 7.5 L Phosphorus Magnesium AST Alkaline Phosphatase Total Creatine Kinase CK-MB (CK-2) Troponin T Albumin HDL Cholesterol TSH Free T4 Vancomycin Trough Crossmatch 07/12/18 07/12/18 07/12/18 18:13 19:24 19:24 RBC Hgb 7.9 L Hct 24.2 L D MCV MCHC RDW Plt Count Lymph % (Auto) Lymph # Seg Neutrophils % Seg Neuts % (Manual) Lymphocytes % (Manual) Lymphocytes # (Manual) PT INR POC ABG pH POC ABG pO2 Sodium 136 L Potassium Chloride Carbon Dioxide 6 L* Glucose 336 H POC Glucose 433 H Hemoglobin A1c Lactic Acid Calcium 7.3 L Phosphorus Magnesium AST Alkaline Phosphatase Total Creatine Kinase CK-MB (CK-2) Troponin T Albumin HDL Cholesterol TSH Free T4 Vancomycin Trough Crossmatch 07/12/18 07/12/18 07/12/18 19:24 19:24 19:31 RBC Hgb Hct MCV MCHC RDW Plt Count Lymph % (Auto) Lymph # Seg Neutrophils % Seg Neuts % (Manual) Lymphocytes % (Manual) Lymphocytes # (Manual) PT INR POC ABG pH 7.024 L POC ABG pO2 195 H Sodium Potassium Chloride Carbon Dioxide Glucose POC Glucose Hemoglobin A1c Lactic Acid 3.30 H* Calcium Phosphorus Magnesium AST Alkaline Phosphatase Total Creatine Kinase CK-MB (CK-2) Troponin T Albumin HDL Cholesterol TSH 19.440 H Free T4 Vancomycin Trough Crossmatch 07/12/18 07/12/18 07/12/18 19:31 20:03 21:08 RBC Hgb Hct MCV MCHC RDW Plt Count Lymph % (Auto) Lymph # Seg Neutrophils % Seg Neuts % (Manual) Lymphocytes % (Manual) Lymphocytes # (Manual) PT INR POC ABG pH POC ABG pO2 Sodium Potassium Chloride Carbon Dioxide Glucose POC Glucose 225 H 366 H 286 H Hemoglobin A1c Lactic Acid Calcium Phosphorus Magnesium AST Alkaline Phosphatase Total Creatine Kinase CK-MB (CK-2) Troponin T Albumin HDL Cholesterol TSH Free T4 Vancomycin Trough Crossmatch 07/12/18 07/12/18 07/12/18 21:30 21:30 21:57 RBC Hgb Hct MCV MCHC RDW Plt Count Lymph % (Auto) Lymph # Seg Neutrophils % Seg Neuts % (Manual) Lymphocytes % (Manual) Lymphocytes # (Manual) PT INR POC ABG pH POC ABG pO2 Sodium Potassium 3.3 L Chloride Carbon Dioxide 6 L* Glucose 232 H POC Glucose 262 H Hemoglobin A1c Lactic Acid 4.90 H* Calcium 7.3 L Phosphorus Magnesium AST Alkaline Phosphatase Total Creatine Kinase CK-MB (CK-2) Troponin T Albumin HDL Cholesterol TSH Free T4 Vancomycin Trough Crossmatch 07/12/18 07/12/18 07/12/18 22:56 23:14 23:14 RBC Hgb Hct MCV MCHC RDW Plt Count Lymph % (Auto) Lymph # Seg Neutrophils % Seg Neuts % (Manual) Lymphocytes % (Manual) Lymphocytes # (Manual) PT INR POC ABG pH POC ABG pO2 Sodium Potassium 3.5 L Chloride 109.1 H Carbon Dioxide 7 L* Glucose 173 H POC Glucose 248 H Hemoglobin A1c Lactic Acid 5.40 H* Calcium 7.4 L Phosphorus Magnesium AST Alkaline Phosphatase Total Creatine Kinase CK-MB (CK-2) Troponin T Albumin HDL Cholesterol TSH Free T4 Vancomycin Trough Crossmatch 07/12/18 07/12/18 07/13/18 Unknown 23:59 00:44 RBC Hgb Hct MCV MCHC RDW Plt Count Lymph % (Auto) Lymph # Seg Neutrophils % Seg Neuts % (Manual) Lymphocytes % (Manual) Lymphocytes # (Manual) PT INR POC ABG pH POC ABG pO2 Sodium Potassium 3.3 L Chloride 109.6 H Carbon Dioxide 10 L Glucose 147 H POC Glucose 215 H Hemoglobin A1c Lactic Acid 2.50 H* Calcium 7.4 L Phosphorus Magnesium AST Alkaline Phosphatase Total Creatine Kinase CK-MB (CK-2) Troponin T Albumin HDL Cholesterol TSH Free T4 Vancomycin Trough Crossmatch 07/13/18 07/13/18 07/13/18 00:44 00:44 00:58 RBC Hgb 7.1 L Hct 21.3 L MCV MCHC RDW Plt Count Lymph % (Auto) Lymph # Seg Neutrophils % Seg Neuts % (Manual) Lymphocytes % (Manual) Lymphocytes # (Manual) PT INR POC ABG pH POC ABG pO2 Sodium Potassium Chloride Carbon Dioxide Glucose POC Glucose 175 H Hemoglobin A1c Lactic Acid 5.40 H* Calcium Phosphorus Magnesium AST Alkaline Phosphatase Total Creatine Kinase CK-MB (CK-2) Troponin T Albumin HDL Cholesterol TSH Free T4 Vancomycin Trough Crossmatch 07/13/18 07/13/18 07/13/18 01:59 02:57 03:54 RBC Hgb Hct MCV MCHC RDW Plt Count Lymph % (Auto) Lymph # Seg Neutrophils % Seg Neuts % (Manual) Lymphocytes % (Manual) Lymphocytes # (Manual) PT INR POC ABG pH POC ABG pO2 Sodium Potassium Chloride Carbon Dioxide Glucose POC Glucose 144 H 178 H 128 H Hemoglobin A1c Lactic Acid Calcium Phosphorus Magnesium AST Alkaline Phosphatase Total Creatine Kinase CK-MB (CK-2) Troponin T Albumin HDL Cholesterol TSH Free T4 Vancomycin Trough Crossmatch 07/13/18 07/13/18 07/13/18 04:00 04:00 04:04 RBC Hgb Hct MCV MCHC RDW Plt Count Lymph % (Auto) Lymph # Seg Neutrophils % Seg Neuts % (Manual) Lymphocytes % (Manual) Lymphocytes # (Manual) PT INR POC ABG pH 7.308 L POC ABG pO2 194 H Sodium Potassium 3.4 L Chloride 110.7 H Carbon Dioxide 15 L Glucose 122 H POC Glucose Hemoglobin A1c Lactic Acid 4.10 H* Calcium 7.8 L Phosphorus Magnesium AST Alkaline Phosphatase Total Creatine Kinase CK-MB (CK-2) Troponin T Albumin HDL Cholesterol TSH Free T4 Vancomycin Trough Crossmatch 07/13/18 07/13/18 07/13/18 05:03 06:00 06:58 RBC Hgb Hct MCV MCHC RDW Plt Count Lymph % (Auto) Lymph # Seg Neutrophils % Seg Neuts % (Manual) Lymphocytes % (Manual) Lymphocytes # (Manual) PT INR POC ABG pH POC ABG pO2 Sodium Potassium Chloride Carbon Dioxide Glucose POC Glucose 127 H 123 H 110 H Hemoglobin A1c Lactic Acid Calcium Phosphorus Magnesium AST Alkaline Phosphatase Total Creatine Kinase CK-MB (CK-2) Troponin T Albumin HDL Cholesterol TSH Free T4 Vancomycin Trough Crossmatch 07/13/18 07/13/18 07/13/18 09:28 09:28 10:33 RBC Hgb Hct MCV MCHC RDW Plt Count Lymph % (Auto) Lymph # Seg Neutrophils % Seg Neuts % (Manual) Lymphocytes % (Manual) Lymphocytes # (Manual) PT INR POC ABG pH POC ABG pO2 Sodium Potassium Chloride 112.8 H Carbon Dioxide 15 L Glucose POC Glucose 116 H Hemoglobin A1c Lactic Acid Calcium 7.8 L Phosphorus Magnesium AST Alkaline Phosphatase Total Creatine Kinase CK-MB (CK-2) Troponin T Albumin HDL Cholesterol TSH Free T4 0.53 L Vancomycin Trough Crossmatch 07/13/18 07/13/18 07/13/18 10:56 11:14 11:14 RBC Hgb 7.4 L Hct 21.3 L MCV MCHC RDW Plt Count Lymph % (Auto) Lymph # Seg Neutrophils % Seg Neuts % (Manual) Lymphocytes % (Manual) Lymphocytes # (Manual) PT INR POC ABG pH POC ABG pO2 Sodium 146 H Potassium 3.0 L D Chloride 111.6 H Carbon Dioxide 19 L Glucose POC Glucose Hemoglobin A1c Lactic Acid Calcium 7.7 L Phosphorus Magnesium AST Alkaline Phosphatase Total Creatine Kinase CK-MB (CK-2) Troponin T Albumin HDL Cholesterol TSH Free T4 Vancomycin Trough Crossmatch See Detail 07/13/18 07/13/18 07/13/18 11:14 11:25 11:25 RBC Hgb Hct MCV MCHC RDW Plt Count Lymph % (Auto) Lymph # Seg Neutrophils % Seg Neuts % (Manual) Lymphocytes % (Manual) Lymphocytes # (Manual) PT 15.3 H INR 1.14 H POC ABG pH POC ABG pO2 Sodium Potassium Chloride Carbon Dioxide Glucose POC Glucose Hemoglobin A1c Lactic Acid 3.00 H* Calcium Phosphorus Magnesium AST Alkaline Phosphatase Total Creatine Kinase 2806 H CK-MB (CK-2) 16.0 H Troponin T 0.073 H Albumin HDL Cholesterol 90 H TSH Free T4 Vancomycin Trough Crossmatch 07/13/18 07/13/18 07/13/18 11:42 12:49 14:32 RBC Hgb Hct MCV MCHC RDW Plt Count Lymph % (Auto) Lymph # Seg Neutrophils % Seg Neuts % (Manual) Lymphocytes % (Manual) Lymphocytes # (Manual) PT INR POC ABG pH POC ABG pO2 Sodium Potassium Chloride Carbon Dioxide Glucose POC Glucose 140 H 206 H 110 H Hemoglobin A1c Lactic Acid Calcium Phosphorus Magnesium AST Alkaline Phosphatase Total Creatine Kinase CK-MB (CK-2) Troponin T Albumin HDL Cholesterol TSH Free T4 Vancomycin Trough Crossmatch 07/13/18 07/13/18 07/13/18 14:59 14:59 15:46 RBC Hgb Hct MCV MCHC RDW Plt Count Lymph % (Auto) Lymph # Seg Neutrophils % Seg Neuts % (Manual) Lymphocytes % (Manual) Lymphocytes # (Manual) PT INR POC ABG pH POC ABG pO2 Sodium 146 H Potassium 2.8 L* Chloride 112.2 H Carbon Dioxide 19 L Glucose 111 H POC Glucose 119 H Hemoglobin A1c Lactic Acid 3.60 H* Calcium 7.9 L Phosphorus Magnesium AST Alkaline Phosphatase Total Creatine Kinase CK-MB (CK-2) Troponin T Albumin HDL Cholesterol TSH Free T4 Vancomycin Trough Crossmatch 07/13/18 07/13/18 07/13/18 20:50 20:50 20:50 RBC Hgb Hct MCV MCHC RDW Plt Count Lymph % (Auto) Lymph # Seg Neutrophils % Seg Neuts % (Manual) Lymphocytes % (Manual) Lymphocytes # (Manual) PT INR POC ABG pH POC ABG pO2 Sodium 146 H Potassium 3.2 L Chloride 110.8 H Carbon Dioxide 20 L Glucose 107 H POC Glucose Hemoglobin A1c Lactic Acid Calcium 7.9 L Phosphorus Magnesium AST Alkaline Phosphatase Total Creatine Kinase 2398 H CK-MB (CK-2) 8.6 H Troponin T 0.052 H D Albumin HDL Cholesterol TSH Free T4 0.54 L Vancomycin Trough Crossmatch 07/14/18 07/14/18 07/14/18 00:10 00:35 04:56 RBC Hgb Hct MCV MCHC RDW Plt Count Lymph % (Auto) Lymph # Seg Neutrophils % Seg Neuts % (Manual) Lymphocytes % (Manual) Lymphocytes # (Manual) PT INR POC ABG pH 7.475 H POC ABG pO2 67 L Sodium Potassium Chloride Carbon Dioxide Glucose POC Glucose 235 H Hemoglobin A1c Lactic Acid Calcium Phosphorus Magnesium AST Alkaline Phosphatase Total Creatine Kinase 1995 H CK-MB (CK-2) 7.0 H Troponin T 0.049 H Albumin HDL Cholesterol TSH Free T4 Vancomycin Trough Crossmatch 07/14/18 07/14/18 07/14/18 05:09 06:15 06:15 RBC 2.76 L Hgb 8.8 L Hct 24.7 L MCV MCHC 36 H RDW 16.4 H Plt Count Lymph % (Auto) Lymph # Seg Neutrophils % Seg Neuts % (Manual) Lymphocytes % (Manual) Lymphocytes # (Manual) PT INR POC ABG pH POC ABG pO2 Sodium Potassium 3.2 L Chloride Carbon Dioxide 21 L Glucose 212 H POC Glucose 227 H Hemoglobin A1c Lactic Acid Calcium 7.7 L Phosphorus 0.90 L* D Magnesium 1.50 L AST Alkaline Phosphatase Total Creatine Kinase CK-MB (CK-2) Troponin T Albumin HDL Cholesterol TSH Free T4 Vancomycin Trough Crossmatch 07/14/18 07/14/18 07/14/18 10:42 12:35 18:41 RBC Hgb Hct MCV MCHC RDW Plt Count Lymph % (Auto) Lymph # Seg Neutrophils % Seg Neuts % (Manual) Lymphocytes % (Manual) Lymphocytes # (Manual) PT INR POC ABG pH POC ABG pO2 Sodium Potassium Chloride Carbon Dioxide Glucose POC Glucose 272 H 234 H Hemoglobin A1c Lactic Acid 4.30 H* Calcium Phosphorus Magnesium AST Alkaline Phosphatase Total Creatine Kinase CK-MB (CK-2) Troponin T Albumin HDL Cholesterol TSH Free T4 Vancomycin Trough Crossmatch 07/14/18 07/14/18 07/15/18 22:36 23:10 05:00 RBC 2.70 L Hgb 8.5 L Hct 23.8 L MCV MCHC 36 H RDW 16.7 H Plt Count 131 L Lymph % (Auto) 11.6 L Lymph # 0.9 L Seg Neutrophils % 83.7 H Seg Neuts % (Manual) Lymphocytes % (Manual) Lymphocytes # (Manual) PT INR POC ABG pH POC ABG pO2 Sodium Potassium Chloride Carbon Dioxide Glucose POC Glucose 191 H Hemoglobin A1c Lactic Acid Calcium Phosphorus Magnesium AST Alkaline Phosphatase Total Creatine Kinase CK-MB (CK-2) Troponin T Albumin HDL Cholesterol TSH Free T4 Vancomycin Trough 23.4 H Crossmatch 07/15/18 07/15/18 07/15/18 05:00 05:39 05:41 RBC Hgb Hct MCV MCHC RDW Plt Count Lymph % (Auto) Lymph # Seg Neutrophils % Seg Neuts % (Manual) Lymphocytes % (Manual) Lymphocytes # (Manual) PT INR POC ABG pH POC ABG pO2 Sodium Potassium 3.3 L Chloride 109.6 H Carbon Dioxide Glucose 72 L POC Glucose 46 L 46 L Hemoglobin A1c Lactic Acid Calcium 8.1 L Phosphorus 2.30 L D Magnesium AST Alkaline Phosphatase Total Creatine Kinase CK-MB (CK-2) Troponin T Albumin HDL Cholesterol TSH Free T4 Vancomycin Trough Crossmatch 07/15/18 07/15/18 07/15/18 06:06 11:53 12:27 RBC Hgb Hct MCV MCHC RDW Plt Count Lymph % (Auto) Lymph # Seg Neutrophils % Seg Neuts % (Manual) Lymphocytes % (Manual) Lymphocytes # (Manual) PT INR POC ABG pH 7.584 H POC ABG pO2 166 H Sodium Potassium Chloride Carbon Dioxide Glucose POC Glucose 43 L 111 H Hemoglobin A1c Lactic Acid Calcium Phosphorus Magnesium AST Alkaline Phosphatase Total Creatine Kinase CK-MB (CK-2) Troponin T Albumin HDL Cholesterol TSH Free T4 Vancomycin Trough Crossmatch Chest x-ray: report reviewed, image reviewed
[2018-07-15] MEDS ORDERED: POTASSIUM CHLORIDE FEEDTUBE ONE (13:00)
--- NOTE | 2018-07-15 14:03 | Cat Scan Report ---
CT ABDOMEN AND PELVIS WITH CONTRAST INDICATION: Enterococcus bacteremia. Evaluate for source. COMPARISON: None similar. FINDINGS: Abdomen and pelvis CT performed following intravenous administration of 100 cc of Omnipaque 300. LUNG BASES: Small bibasilar effusions up to 1.8 cm in AP thickness with mild underlying atelectasis. An esophagogastric tube extends into the proximal stomach. ABDOMEN: Liver, adrenals, nonaneurysmal abdominal aorta, IVC and kidneys within normal limits. No radiopaque gallstones though gallbladder measures up to 10 cm length, axial image 56. Somewhat small, though homogenous spleen. Atrophic pancreas. No ascites or definite size significant adenopathy, though diffuse edema/haziness throughout the mesenteric fat noted. Diffuse subcutaneous edema as well. Nonopacified GI tract radiation limited, though grossly nonobstructive. Normal appendix. PELVIS: A right groin venous line incidentally noted. Rectal stool. Grossly unremarkable urinary bladder and imaged seminal vesicles and prostate. No free fluid or significant adenopathy. Small bilateral fat containing hernias measure up to 1.87 cm diameter. Irregular lucency with some sclerosis noted obliquely through L2 vertebral body, representing indeterminate age fracture with mild superior endplate depression also seen. Multilevel imaged lower thoracic and mid to lower lumbar spine degenerative spurring also seen. Approximately 1.3 cm presumed Schmorl's node anterosuperiorly in L4 vertebral body with adjacent sclerosis also identified. CONCLUSION: Various findings as small bibasilar effusions and atelectasis, somewhat small spleen, atrophic pancreas, diffuse subcutaneous and mesenteric edema, few bony degenerative changes and nonspecific L2 vertebral body appearance though not excluded for an indeterminate age fracture, amongst others, as detailed above. Please correlate. Thank you for the opportunity to participate in this patient's care.
--- NOTE | 2018-07-15 14:49 | Progress Note ---
Assessment and Plan Assessment and plan: Critical care statement The high probability of a clinically significant sudden or life-threatening deterioration of the pulmonary cardiac and renal systems required my full and direct attention, intervention and personal management. The appropriate critical care time was 40 minutes. This time is in addition to time spent performing reported procedures but includes the following: #1.Data review and interpretation #2 patient assessment and monitoring of vital signs #3 documentation #4 medication orders and management - Patient Problems (1) DKA (diabetic ketoacidosis) Current Visit: Yes Status: Acute Qualifiers: Diabetes mellitus type: type 2 Plan to address problem: DKA resolved (2) Acute respiratory failure with hypoxia Current Visit: Yes Status: Acute Plan to address problem: Patient intubated Vent management Assembler Corncob Pipes consulted--Dr. Murcia (3) Hypotension Current Visit: Yes Status: Acute Qualifiers: Hypotension type: other hypotension type Qualified Code(s): I95.89 - Other hypotension Plan to address problem: Off Levophed (4) Acute metabolic encephalopathy Current Visit: No Status: Acute Plan to address problem: Intubated and sedated (5) Cardiac arrest Current Visit: Yes Status: Acute Plan to address problem: Patient revived within 2 minutes after 1 round of epinephrine. There was return of spontaneous circulation (6) Pneumonia Current Visit: Yes Status: Acute Qualifiers: Pneumonia type: aspiration pneumonia Laterality: right Lung location: lower lobe of lung Plan to address problem: Possible aspiration given the location of the infiltrate IV cefepime and IV vancomycin (7) Hypoxia Current Visit: Yes Status: Acute Plan to address problem: Intubated Vent management Assembler Corncob Pipes consulted (8) Hypothyroidism Current Visit: Yes Status: Chronic Qualifiers: Hypothyroidism type: acquired Qualified Code(s): E03.9 - Hypothyroidism, unspecified Plan to address problem: Continue Synthroid (9) Hyperkalemia Current Visit: Yes Status: Acute Plan to address problem: Corrected (10) Upper GI bleed Current Visit: Yes Status: Acute Plan to address problem: Resolved (11) DVT prophylaxis Current Visit: Yes Status: Acute Plan to address problem: No Lovenox because of GI bleed and patient on IV Protonix-- hence no GI prophylaxis History Interval history: Same condition Hospitalist Physical - Physical exam Narrative exam: Patient intubated, - Constitutional Vitals: Temp Pulse Resp BP Pulse Ox 97.5 F L 73 13 119/81 100 07/15/18 12:00 07/15/18 12:00 07/15/18 12:00 07/15/18 12:00 07/15/18 12:00 General appearance: Present: mild distress, well-nourished - EENT ENT: other (intubated) - Respiratory Respiratory effort: normal Respiratory: bilateral: CTA, rhonchi - Cardiovascular Heart rate: 86 Rhythm: regular - Extremities Extremities: no ischemia - Abdominal General gastrointestinal: soft, non-tender, normal bowel sounds - Integumentary Integumentary: Present: clear, warm, dry - Psychiatric Psychiatric: other () - Neurologic Neurologic: other (sedated) - Allied Health Allied health notes reviewed: nursing, case management Results - Labs CBC & Chem 7: 07/15/18 05:00 07/15/18 05:00 Labs: Laboratory Last Values WBC 7.9 K/mm3 (4.5-11.0) 07/15/18 05:00 RBC 2.70 M/mm3 (3.65-5.03) L 07/15/18 05:00 Hgb 8.5 gm/dl (11.8-15.2) L 07/15/18 05:00 Hct 23.8 % (35.5-45.6) L 07/15/18 05:00 MCV 88 fl (84-94) 07/15/18 05:00 MCH 32 pg (28-32) 07/15/18 05:00 MCHC 36 % (32-34) H 07/15/18 05:00 RDW 16.7 % (13.2-15.2) H 07/15/18 05:00 Plt Count 131 K/mm3 (140-440) L 07/15/18 05:00 Lymph % (Auto) 11.6 % (13.4-35.0) L 07/15/18 05:00 [place] % (Auto) 3.3 % (0.0-7.3) 07/15/18 05:00 Eos % (Auto) 0.1 % (0.0-4.3) 07/15/18 05:00 Baso % (Auto) 1.3 % (0.0-1.8) 07/15/18 05:00 Lymph # 0.9 K/mm3 (1.2-5.4) L 07/15/18 05:00 [place] # 0.3 K/mm3 (0.0-0.8) 07/15/18 05:00 Eos # 0.0 K/mm3 (0.0-0.4) 07/15/18 05:00 Baso # 0.1 K/mm3 (0.0-0.1) 07/15/18 05:00 Add Manual Diff Complete 07/12/18 09:00 Total Counted 100 07/12/18 09:00 Seg Neutrophils % 83.7 % (40.0-70.0) H 07/15/18 05:00 Seg Neuts % (Manual) 87.0 % (40.0-70.0) H 07/12/18 09:00 Band Neutrophils % 2.0 % 07/12/18 09:00 Lymphocytes % (Manual) 5.0 % (13.4-35.0) L 07/12/18 09:00 Reactive Lymphs % (Man) 0 % 07/12/18 09:00 Monocytes % (Manual) 3.0 % (0.0-7.3) 07/12/18 09:00 Eosinophils % (Manual) 1.0 % (0.0-4.3) 07/12/18 09:00 Basophils % (Manual) 0 % (0.0-1.8) 07/12/18 09:00 Metamyelocytes % 2.0 % 07/12/18 09:00 Myelocytes % 0 % 07/12/18 09:00 Promyelocytes % 0 % 07/12/18 09:00 Blast Cells % 0 % 07/12/18 09:00 Nucleated RBC % Not Reportable 07/12/18 09:00 Seg Neutrophils # 6.7 K/mm3 (1.8-7.7) 07/15/18 05:00 Seg Neutrophils # Man 4.0 K/mm3 (1.8-7.7) 07/12/18 09:00 Band Neutrophils # 0.1 K/mm3 07/12/18 09:00 Lymphocytes # (Manual) 0.2 K/mm3 (1.2-5.4) L 07/12/18 09:00 Abs React Lymphs (Man) 0.0 K/mm3 07/12/18 09:00 Monocytes # (Manual) 0.1 K/mm3 (0.0-0.8) 07/12/18 09:00 Eosinophils # (Manual) 0.0 K/mm3 (0.0-0.4) 07/12/18 09:00 Basophils # (Manual) 0.0 K/mm3 (0.0-0.1) 07/12/18 09:00 Metamyelocytes # 0.1 K/mm3 07/12/18 09:00 Myelocytes # 0.0 K/mm3 07/12/18 09:00 Promyelocytes # 0.0 K/mm3 07/12/18 09:00 Blast Cells # 0.0 K/mm3 07/12/18 09:00 WBC Morphology Not Reportable 07/12/18 09:00 Hypersegmented Neuts Not Reportable 07/12/18 09:00 Hyposegmented Neuts Not Reportable 07/12/18 09:00 Hypogranular Neuts Not Reportable 07/12/18 09:00 Smudge Cells Not Reportable 07/12/18 09:00 Toxic Granulation Not Reportable 07/12/18 09:00 Toxic Vacuolation Not Reportable 07/12/18 09:00 Dohle Bodies Not Reportable 07/12/18 09:00 Pelger-Huet Anomaly Not Reportable 07/12/18 09:00 Karel Rods Not Reportable 07/12/18 09:00 Platelet Estimate Consistent w auto 07/12/18 09:00 Clumped Platelets Not Reportable 07/12/18 09:00 Plt Clumps, EDTA Not Reportable 07/12/18 09:00 Large Platelets Not Reportable 07/12/18 09:00 Giant Platelets Not Reportable 07/12/18 09:00 Platelet Satelliting Not Reportable 07/12/18 09:00 Plt Morphology Comment Not Reportable 07/12/18 09:00 RBC Morphology Not Reportable 07/12/18 09:00 Dimorphic RBCs Not Reportable 07/12/18 09:00 Polychromasia Not Reportable 07/12/18 09:00 Hypochromasia Not Reportable 07/12/18 09:00 Poikilocytosis Not Reportable 07/12/18 09:00 Anisocytosis Not Reportable 07/12/18 09:00 Microcytosis Not Reportable 07/12/18 09:00 Macrocytosis Not Reportable 07/12/18 09:00 Spherocytes Not Reportable 07/12/18 09:00 Pappenheimer Bodies Not Reportable 07/12/18 09:00 Sickle Cells Not Reportable 07/12/18 09:00 Target Cells Not Reportable 07/12/18 09:00 Tear Drop Cells Not Reportable 07/12/18 09:00 Ovalocytes Not Reportable 07/12/18 09:00 Helmet Cells Not Reportable 07/12/18 09:00 [place] Bodies Not Reportable 07/12/18 09:00 [place] Rings Not Reportable 07/12/18 09:00 Rick Cells Not Reportable 07/12/18 09:00 Bite Cells Not Reportable 07/12/18 09:00 Crenated Cell Not Reportable 07/12/18 09:00 Elliptocytes Not Reportable 07/12/18 09:00 Acanthocytes (Spur) 2+ 07/12/18 09:00 Rouleaux Not Reportable 07/12/18 09:00 Hemoglobin C Crystals Not Reportable 07/12/18 09:00 Schistocytes Rare 07/12/18 09:00 Malaria parasites Not Reportable 07/12/18 09:00 Gibran Bodies Not Reportable 07/12/18 09:00 Hem Pathologist Commnt No 07/12/18 09:00 PT 15.3 Sec. (12.2-14.9) H 07/13/18 11:25 INR 1.14 (0.87-1.13) H 07/13/18 11:25 APTT 32.0 Sec. (24.2-36.6) 07/12/18 12:22 POC ABG pH 7.584 (7.35-7.45) H 07/15/18 06:06 POC ABG pO2 166 (80-105) H 07/15/18 06:06 POC ABG HCO3 24.6 (22-26 mml/L) 07/15/18 06:06 POC ABG Total CO2 25 (23-27mmol/L) 07/15/18 06:06 POC ABG O2 Sat 100 07/15/18 06:06 POC ABG Base Excess 3 ((-2) - (+3)mmol/L) 07/15/18 06:06 FiO2 28 % 07/15/18 06:06 Sodium 145 mmol/L (137-145) 07/15/18 05:00 Potassium 3.3 mmol/L (3.6-5.0) L 07/15/18 05:00 Chloride 109.6 mmol/L (98-107) H 07/15/18 05:00 Carbon Dioxide 25 mmol/L (22-30) 07/15/18 05:00 Anion Gap 14 mmol/L 07/15/18 05:00 BUN 13 mg/dL (9-20) 07/15/18 05:00 Creatinine 1.0 mg/dL (0.8-1.5) 07/15/18 05:00 Estimated GFR > 60 ml/min 07/15/18 05:00 BUN/Creatinine Ratio 13 % 07/15/18 05:00 Glucose 72 mg/dL (75-100) L 07/15/18 05:00 POC Glucose 111 (70-105) H 07/15/18 12:27 Hemoglobin A1c 9.9 % (4-6) H 07/12/18 17:05 Lactic Acid 4.30 mmol/L (0.7-2.0) H* 07/14/18 10:42 Calcium 8.1 mg/dL (8.4-10.2) L 07/15/18 05:00 Phosphorus 2.30 mg/dL (2.5-4.5) L D 07/15/18 05:00 Magnesium 2.00 mg/dL (1.7-2.3) 07/15/18 05:00 Total Bilirubin 0.30 mg/dL (0.1-1.2) 07/12/18 09:00 AST 78 units/L (5-40) H 07/12/18 09:00 ALT 38 units/L (7-56) 07/12/18 09:00 Alkaline Phosphatase 142 units/L (35-129) H 07/12/18 09:00 Total Creatine Kinase 1995 units/L (55-170) H 07/14/18 00:35 CK-MB (CK-2) 7.0 ng/mL (0.0-4.0) H 07/14/18 00:35 CK-MB (CK-2) Rel Index 0.3 (0-4) 07/14/18 00:35 Troponin T 0.049 ng/mL (0.00-0.029) H 07/14/18 00:35 NT-Pro-B Natriuret Pep 269.5 pg/mL (0-900) 07/12/18 09:00 Total Protein 6.3 g/dL (6.3-8.2) 07/12/18 09:00 Albumin 3.7 g/dL (3.9-5) L 07/12/18 09:00 Albumin/Globulin Ratio 1.4 % 07/12/18 09:00 Triglycerides 133 mg/dL (2-149) 07/13/18 11:25 Cholesterol 165 mg/dL (50-199) 07/13/18 11:25 LDL Cholesterol Direct 73 mg/dL (50-130) 07/13/18 11:25 HDL Cholesterol 90 mg/dL (40-59) H 07/13/18 11:25 Cholesterol/HDL Ratio 1.83 % 07/13/18 11:25 TSH 19.440 mlU/mL (0.270-4.200) H 07/12/18 19:24 Free T4 0.54 ng/dL (0.76-1.46) L 07/13/18 20:50 Urine Color Yellow (Yellow) 07/12/18 13:42 Urine Turbidity Clear (Clear) 07/12/18 13:42 Urine pH 5.0 (5.0-7.0) 07/12/18 13:42 Ur Specific [place] 1.020 (1.003-1.030) 07/12/18 13:42 Urine Protein 100 mg/dl mg/dL (Negative) 07/12/18 13:42 Urine Glucose (UA) >=500 mg/dL (Negative) 07/12/18 13:42 Urine Ketones 80 mg/dL (Negative) 07/12/18 13:42 Urine Blood Mod (Negative) 07/12/18 13:42 Urine Nitrite Neg (Negative) 07/12/18 13:42 Urine Bilirubin Neg (Negative) 07/12/18 13:42 Urine Urobilinogen < 2.0 mg/dL (<2.0) 07/12/18 13:42 Ur Leukocyte Esterase Neg (Negative) 07/12/18 13:42 Urine WBC (Auto) 1.0 /HPF (0.0-6.0) 07/12/18 13:42 Urine RBC (Auto) 1.0 /HPF (0.0-6.0) 07/12/18 13:42 U Epithel Cells (Auto) 1.0 /HPF (0-13.0) 07/12/18 13:42 Urine Bacteria (Auto) 1+ /HPF (Negative) 07/12/18 13:42 Urine Mucus Few /HPF 07/12/18 13:42 Vancomycin Trough 23.4 ug/mL (5.0-20.0) H 07/14/18 22:36 Blood Type B POSITIVE 07/13/18 10:56 Antibody Screen Negative 07/13/18 10:56 Crossmatch See Detail 07/13/18 10:56 Active Medications - Current Medications Current Medications: Generic Name Dose Route Start Last Admin Trade Name Freq PRN Reason Stop Dose Admin Acetaminophen 650 mg 07/12/18 15:42 Tylenol PO Q4H PRN Pain MILD(1-3)/Fever >100.5/GARCIA Lipase/Protease/Amylase 1 each 07/13/18 14:[address] 10,500 Unit FEEDTUBE PRN PRN For Clogged Feeding Tube Dextrose 0 ml 07/12/18 15:56 07/15/18 11:51 D50w (25gm) Syringe IV 50 ml PRN PRN Administration Hypoglycemia Hydromorphone HCl 0.25 mg 07/12/18 15:42 07/15/18 02:27 Dilaudid IV 0.25 mg Q3H PRN Administration Pain, Moderate (4-6) Norepinephrine 4 mg in 250 mls @ 7.5 mls/hr 07/12/18 12:00 07/14/18 03:05 Levophed Drip 4 Mg/Ns 250 Ml IV 0 mcg/min TITR ISAIAS 0 mls/hr Titration Protocol 2 MCG/MIN Propofol 1,000 mg in 100 mls @ 2.585 mls/hr 07/12/18 13:00 07/15/18 07:00 Diprivan 10 Mg/Ml IV Infused TITR ISAIAS Titration Protocol 5 MCG/KG/MIN Vasopressin 20 unit/ Sodium 101 mls @ 9.09 mls/hr 07/12/18 18:00 Chloride IV TITR ISAIAS Protocol 0.03 UNITS/MIN Vancomycin HCl 1 gm in 250 mls @ 166.667 mls/hr 07/13/18 06:45 07/15/18 06:15 Vancomycin/Ns 1 Gm/250 Ml IV 166.667 mls/hr Q12H ISAIAS Administration Sodium Chloride 1,000 mls @ 75 mls/hr 07/14/18 17:00 07/15/18 06:12 Nacl 0.9% 1000 Ml IV 75 mls/hr DIRECT ISAIAS Administration Ampicillin Sodium 2 gm in 100 mls @ 100 mls/hr 07/15/18 12:00 07/15/18 12:32 Polycillin/Ns 2 Gm/100 Ml IV 100 mls/hr Q6HR ISAIAS Administration Potassium Chloride 10 meq in 100 mls @ 100 mls/hr 07/15/18 15:00 Kcl 10meq/100ml IV 07/15/18 16:59 Q1H ISAIAS Insulin Glargine 15 units 07/14/18 22:00 07/14/18 22:28 Lantus SUB-Q 15 units QHS ISAIAS Administration Insulin Human Regular 0 units 07/14/18 00:45 07/15/18 12:25 Humulin R SUB-Q Not Given Q6HR [facility] Protocol Lansoprazole 30 mg 07/14/18 10:00 07/15/18 09:29 Prevacid Solutab FEEDTUBE 30 mg BID ISAIAS Administration Levothyroxine Sodium 100 mcg 07/13/18 20:00 07/15/18 06:15 Synthroid IV 100 mcg DAILY@0600 ISAIAS Administration Ondansetron HCl 4 mg 07/12/18 15:42 Zofran IV Q8H PRN Nausea And Vomiting Simple Syrup 15 ml 07/13/18 14:34 Simple Syrup FEEDTUBE PRN PRN Hypoglycemia Simple Syrup 30 ml 07/13/18 14:34 07/15/18 05:44 Simple Syrup FEEDTUBE 30 ml PRN PRN Administration Hypoglycemia Sodium Bicarbonate 325 mg 07/13/18 14:34 Sodium Bicarbonate FEEDTUBE PRN PRN For Clogged Feeding Tube Sodium Chloride 10 ml 07/12/18 22:00 07/15/18 10:00 Sodium Chloride Flush Syringe 10 Ml IV 10 ml BID ISAIAS Administration Sodium Chloride 10 ml 07/12/18 15:42 07/12/18 19:32 Sodium Chloride Flush Syringe 10 Ml IV 10 ml PRN PRN Administration LINE FLUSH Nutrition/Malnutrition Assess - Dietary Evaluation Nutrition/Malnutrition Findings: Nutrition Notes Start: 07/13/18 14:30 Freq: Status: Active Protocol: Document 07/13/18 14:30 OL (Rec: 07/13/18 14:34 OL [id number]) Nutrition Notes Need for Assessment generated from: MD Order Initial or Follow up Assessment Current Diagnosis Diabetes Other Pertinent Diagnosis DKA Current Diet NPO Labs/Tests Na 146 K 3.0 A1c 9.9 Pertinent Medications Reviewed Height 6 ft 4 in Weight 71.6 kg [place] Body Weight (kg) 91.81 BMI 19.2 Subjective/Other Information RD consult for diet education and TF. Education inappropriate at this time as pt. is on vent. Pt. admitted with DKA. Pt. discussed during interdisciplinary rounds. #1 Nutrition Diagnosis Inadequate oral intake Etiology mech vent As Evidenced by Signs and Symptoms pt. unable to meet energy and protein needs; pt. requires enteral nutrition support Is patient on ventilator? Yes Is Patient Ambulatory and/or Out of Bed No REE-([place] Jeor-confined to bed) 1934.280 Calculation Used for Recommendations [facility] Additional Notes protein (1.2-2g/kg): 86-143g fluid: 1mL/kcal or per Nutrition Intervention Change Diet Order: TF Nutrition Support: Glucerna 1.2 at 70mL/hr with 150mL flush q4h or per MD Kcal 2,016 Protein (gm) 101 Fluid (mL) 1,352 Goal #1 TF to meet at least 80% of nutrient needs Goal #2 TF tolerance Anticipated Discharge Needs: Unable to determine at this time Follow-Up By: 07/15/18 Additional Comments f/u: new TF; education needs
[2018-07-15] MEDS: KCL 10MEQ/100ML 10 MEQ/100 ML BAG IV SCH ×2 (15:00→16:00)
--- NOTE | 2018-07-15 17:58 | Ultrasound Report ---
PROCEDURE: US ABDOMEN LIMITED TECHNIQUE: Transverse longitudinal sonograms obtained with escalante scale sonography. HISTORY: Enterococcus bacteremia COMPARISONS: Abdominal pelvic CT July 15, 2018 FINDINGS: Liver demonstrates normal echogenicity and size without focal lesion. Gallbladder demonstrates no cholelithiasis. No sludge. Normal wall thickness. No biliary dilatation. Common bile duct diameter is 0.5 cm. Pancreas not well-seen. Right kidney measures 11.5 x 6.0 x 7.8 cm. Cortex 1.2 cm. No hydronephrosis. Right kidney is echogeni c. Low-volume ascites IMPRESSION: Gallbladder demonstrates no cholelithiasis or sludge No biliary dilatation Pancreas obscured by bowel gas Echogenic right kidney which can be seen in the setting of medical renal disease. No hydronephrosis Low-volume ascites. This document is electronically signed by Reece Knapp MD., July 15 2018 05:56:21 PM ET
[2018-07-15] MEDS: LANTUS SUB-Q SCH (21:06)
[2018-07-16] MEDS: D50W (25GM) Syringe IV PRN (00:48)
[2018-07-16] MEDS: HumuLIN R SUB-Q SCH ×4 (00:52→18:03)
[2018-07-16] MEDS: AMPICILLIN/NS 2 GM/100 ML 2 GM/100 ML BAG IV SCH ×5 (00:54→23:07)
[2018-07-16] MEDS: VANCOMYCIN/NS 1 GM/250 ML 1 GM/250 ML BAG IV SCH ×3 (07:06→18:20)
[2018-07-16] MEDS: SYNTHROID IV SCH (07:06)
[2018-07-16] MEDS: SODIUM CHLORIDE FLUSH SYRINGE 10 ML IV SCH ×3 (10:40→22:57)
[2018-07-16] MEDS: PREVACID SOLUTAB FEEDTUBE SCH (10:40)
--- NOTE | 2018-07-16 11:24 | Progress Note ---
Assessment and Plan Cultures: 07/12/2018 tracheal aspirate: Salivary contamination 07/12/2018 blood culture: 2 out of 2 bottles positive for enterococcus on set 1, set 2 is negative. 07/12/2018 urine culture: No growth 07/14/2018 blood culture: negative thus far A/P: 63-year-old male with diabetes mellitus, hypothyroidism who was brought into the emergency room on 07/12/2018 for altered mental status. Apparently, the patient is noncompliant. He was found to be in severe diabetic ketoacidosis with an arterial pH of 6.7, also with: 1) Enterococcus faecalis bacteremia: Etiology is unclear, 1 set is positive (both bottles) while set 2 is negative. TTE without any significant valvular abnormalities or vegetations. Patient presented with severe DKA. We evaluated for any intra-abdominal source of infection, RUQ US and CT abdomen pelvis with IV contrast without any suggestion of infectious process. UA, urine culture not consistent with UTI. Rarely, enterococcus can be a contaminant v/s GI translocation, but difficult to ascertain that. Will complete additional 7 days of abx from negative blood cultures. 2) Question of pneumonia: No evidence of pneumonia on follow-up chest x-ray. Minimal vent requirements. Pneumonia unlikely. 3) Diabetic ketoacidosis: Patient presented with uncontrolled hyperglycemia and severe acidosis. Improving 4) Acute encephalopathy: metabolic. Improving. Off the vent now. Recs: f/u blood cultures from 07/14/2018 for clearance, if they remain negative, would complete abx on 07/21/2018 continue IV ampicillin for E.faecalis, continue vancomycin for now till susceptibility data is available Suzanne Jackson MD [facility] C: [phone] O: [phone] F: [phone] Subjective Date of service: 07/16/18 Principal diagnosis: GI bleed Interval history: Extubated yesterday. No fever. Feeling good. Denies any abdominal pain. Denies any illness prior to admission. Objective - Exam Narrative Exam: Physical Exam: Constitutional: awake, alert, no distress Head, Ears, Nose: Normocephalic, atraumatic. External ears, nose normal Eyes: Conjunctivae/corneas clear. No icterus. No ptosis. Neck: Supple, no meningeal signs Oral: no thrush, periodontal disease + Cardiovascular: S1, S2 normal. Respiratory: Good air entry, clear to auscultation bilaterally GI: Soft, non-tender; bowel sounds normal. No peritoneal signs Musculoskeletal: No pedal edema, no cyanosis. Skin: No rash or abscess Hem/Lymphatic: No palpable cervical or supraclavicular nodes. No lymphangitis Psych: affect normal, mood ok Neurological: awake, alert, oriented - Constitutional Vitals: Vital Signs Temp Pulse Resp BP Pulse Ox 97.6 F 76 14 111/66 100 07/16/18 07:50 07/16/18 11:01 07/16/18 11:01 07/16/18 11:01 07/16/18 11:01 Temperature -Last 24 Hours Temperature 97.6 F Temperature 97.8 F Temperature 97.5 F Temperature 97.6 F Temperature 97.6 F Temperature 97.6 F Temperature 97.5 F - Labs CBC & Chem 7: 07/15/18 05:00 07/15/18 05:00 Labs: Abnormal lab results 07/15/18 07/15/18 07/15/18 Range/Units 11:53 12:27 18:21 POC Glucose 43 L 111 H < 40 L (70-105) Vancomycin Trough (5.0-20.0) ug/mL 07/15/18 07/15/18 07/16/18 Range/Units 18:24 18:32 00:16 POC Glucose < 40 L 54 L (70-105) Vancomycin Trough 23.9 H (5.0-20.0) ug/mL 07/16/18 07/16/18 Range/Units 00:21 00:43 POC Glucose 54 L 55 L (70-105) Vancomycin Trough (5.0-20.0) ug/mL - Imaging and cardiology CT scan - abdomen: report reviewed, image reviewed (does not reveal any infectious process) US - abdomen: report reviewed, image reviewed (no gall bladder etiology seen)
--- NOTE | 2018-07-16 12:22 | Progress Note ---
Assessment and Plan Imp: 1. ? Aspiration pneumonitis 2. Severe sepsis 3. Acute respiratory failure, hypoxia 4. Enterococcal bacteremia 5. Epistaxis with acute blood loss anemia 6. DKA 7. Lactic acidosis 8. S/p CP arrest Rec: 1. ABX per ID 2. Consider removal of nasal packing 3. SCDs in place 4. PT consult 5. Transfer out of ICU Plan of care reviewed w/ pt., he understands/agrees Subjective Date of service: 07/16/18 Principal diagnosis: GI bleed Interval history: No events. Awake, alert. Extubated. No complaints. Active Medications Acetaminophen (Tylenol) 650 mg PO Q4H PRN PRN Reason: Pain MILD(1-3)/Fever >100.5/GARCIA Lipase/Protease/Amylase (Pancreaze Dr 10,500 Unit) 1 each FEEDTUBE PRN PRN PRN Reason: For Clogged Feeding Tube Dextrose (D50w (25gm) Syringe) 0 ml IV PRN PRN PRN Reason: Hypoglycemia Last Admin: 07/16/18 00:48 Dose: 20 ml Documented by: Hydromorphone HCl (Dilaudid) 0.25 mg IV Q3H PRN PRN Reason: Pain, Moderate (4-6) Last Admin: 07/15/18 02:27 Dose: 0.25 mg Documented by: Norepinephrine (Levophed Drip 4 Mg/Ns 250 Ml) 4 mg in 250 mls @ 7.5 mls/hr IV TITR ISAIAS; Protocol Last Titration: 07/14/18 03:05 Dose: 0 mcg/min, 0 mls/hr Documented by: Propofol (Diprivan 10 Mg/Ml) 1,000 mg in 100 mls @ 2.585 mls/hr IV TITR ISAIAS; Protocol Last Titration: 07/15/18 07:00 Dose: Infused Documented by: Vasopressin 20 unit/ Sodium (Chloride) 101 mls @ 9.09 mls/hr IV TITR ISAIAS; Protocol Vancomycin HCl (Vancomycin/Ns 1 Gm/250 Ml) 1 gm in 250 mls @ 166.667 mls/hr IV Q12H ISAIAS Last Admin: 07/16/18 07:06 Dose: 166.667 mls/hr Documented by: Sodium Chloride (Nacl 0.9% 1000 Ml) 1,000 mls @ 75 mls/hr IV DIRECT ISAIAS Last Admin: 07/15/18 18:14 Dose: 75 mls/hr Documented by: Ampicillin Sodium (Polycillin/Ns 2 Gm/100 Ml) 2 gm in 100 mls @ 100 mls/hr IV Q6HR [facility] Last Admin: 07/16/18 07:00 Dose: 100 mls/hr Documented by: Insulin Glargine (Lantus) 15 units SUB-Q QHS [facility] Last Admin: 07/15/18 21:06 Dose: Not Given Documented by: Insulin Human Regular (Humulin R) 0 units SUB-Q Q6HR [facility]; Protocol Last Admin: 07/16/18 12:16 Dose: 3 units Documented by: Lansoprazole (Prevacid Solutab) 30 mg FEEDTUBE BID [facility] Last Admin: 07/16/18 10:40 Dose: 30 mg Documented by: Levothyroxine Sodium (Synthroid) 100 mcg IV DAILY@0600 [facility] Last Admin: 07/16/18 07:06 Dose: 100 mcg Documented by: Ondansetron HCl (Zofran) 4 mg IV Q8H PRN PRN Reason: Nausea And Vomiting Simple Syrup (Simple Syrup) 15 ml FEEDTUBE PRN PRN PRN Reason: Hypoglycemia Simple Syrup (Simple Syrup) 30 ml FEEDTUBE PRN PRN PRN Reason: Hypoglycemia Last Admin: 07/15/18 05:44 Dose: 30 ml Documented by: Sodium Bicarbonate (Sodium Bicarbonate) 325 mg FEEDTUBE PRN PRN PRN Reason: For Clogged Feeding Tube Sodium Chloride (Sodium Chloride Flush Syringe 10 Ml) 10 ml IV BID [facility] Last Admin: 07/16/18 10:40 Dose: 10 ml Documented by: Sodium Chloride (Sodium Chloride Flush Syringe 10 Ml) 10 ml IV PRN PRN PRN Reason: LINE FLUSH Last Admin: 07/12/18 19:32 Dose: 10 ml Documented by: Objective Vital Signs - 12hr 07/16/18 07/16/18 07/16/18 00:30 01:01 01:30 Temperature Pulse Rate 89 94 H 81 Pulse Rate [ From Monitor] Respiratory 13 12 13 Rate Blood Pressure 125/88 121/82 127/90 O2 Sat by Pulse 100 100 100 Oximetry 07/16/18 07/16/18 07/16/18 02:00 02:30 03:00 Temperature Pulse Rate 79 74 83 Pulse Rate [ From Monitor] Respiratory 13 11 L 11 L Rate Blood Pressure 115/67 119/73 114/80 O2 Sat by Pulse 100 100 100 Oximetry 07/16/18 07/16/18 07/16/18 03:30 03:37 04:00 Temperature 97.8 F Pulse Rate 75 Pulse Rate [ 76 From Monitor] Respiratory 10 L 17 Rate Blood Pressure 98/49 O2 Sat by Pulse 100 100 Oximetry 07/16/18 07/16/18 07/16/18 04:01 04:30 05:01 Temperature Pulse Rate 70 68 72 Pulse Rate [ From Monitor] Respiratory 11 L 9 L 11 L Rate Blood Pressure 84/49 86/52 124/70 O2 Sat by Pulse 100 100 100 Oximetry 07/16/18 07/16/18 07/16/18 05:30 06:00 06:30 Temperature Pulse Rate 71 72 70 Pulse Rate [ From Monitor] Respiratory 13 9 L 11 L Rate Blood Pressure 120/71 112/74 117/71 O2 Sat by Pulse 100 100 100 Oximetry 07/16/18 07/16/18 07/16/18 07:00 07:30 07:50 Temperature 97.6 F Pulse Rate 69 70 Pulse Rate [ From Monitor] Respiratory 11 L 12 Rate Blood Pressure 116/75 118/72 O2 Sat by Pulse 100 100 Oximetry 07/16/18 07/16/18 07/16/18 08:00 08:30 09:00 Temperature Pulse Rate 70 72 77 Pulse Rate [ 76 From Monitor] Respiratory 11 L 10 L 16 Rate Blood Pressure 119/75 117/75 117/75 O2 Sat by Pulse 100 100 100 Oximetry 07/16/18 07/16/18 07/16/18 09:31 10:00 10:01 Temperature Pulse Rate 75 76 81 Pulse Rate [ From Monitor] Respiratory 16 10 L Rate Blood Pressure 108/75 104/83 O2 Sat by Pulse 100 100 Oximetry 07/16/18 07/16/18 10:31 11:01 Temperature Pulse Rate 79 76 Pulse Rate [ From Monitor] Respiratory 13 14 Rate Blood Pressure 104/69 111/66 O2 Sat by Pulse 100 100 Oximetry Constitutional: no acute distress, alert Eyes: non-icteric ENT: oropharynx moist Neck: supple Effort: normal Ascultation: Bilateral: clear Cardiovascular: regular rate and rhythm (no mrg) Gastrointestinal: normoactive bowel sounds, soft, non-tender, non-distended Integumentary: other (dry skin, no obvious cellulitis) Extremities: no cyanosis, pink and warm, edema (trace bilateral LE edema) Neurologic: normal mental status, non-focal exam, pupils equal and round, CN II- XII normal Psychiatric: mood appropriate, affect normal CBC and BMP: 07/15/18 05:00 07/15/18 05:00 ABG, PT/INR, D-dimer: ABG POC ABG pH 7.584 (7.35-7.45) H 07/15/18 06:06 POC ABG pO2 166 (80-105) H 07/15/18 06:06 POC ABG HCO3 24.6 (22-26 mml/L) 07/15/18 06:06 POC ABG Total CO2 25 (23-27mmol/L) 07/15/18 06:06 POC ABG O2 Sat 100 07/15/18 06:06 PT/INR, D-dimer PT 15.3 Sec. (12.2-14.9) H 07/13/18 11:25 INR 1.14 (0.87-1.13) H 07/13/18 11:25 Abnormal lab findings: Abnormal Labs 07/12/18 07/12/18 07/12/18 08:46 09:00 09:00 RBC 3.07 L Hgb 9.8 L Hct 33.9 L MCV 111 H MCHC 29 L RDW 19.3 H Plt Count Lymph % (Auto) Lymph # Seg Neutrophils % Seg Neuts % (Manual) 87.0 H Lymphocytes % (Manual) 5.0 L Lymphocytes # (Manual) 0.2 L PT INR POC ABG pH POC ABG pO2 Sodium 128 L Potassium 6.2 H* Chloride 94.4 L Carbon Dioxide 2 L* Glucose 662 H* POC Glucose > 500 H Hemoglobin A1c Lactic Acid Calcium 8.3 L Phosphorus 5.50 H Magnesium 2.40 H AST 78 H Alkaline Phosphatase 142 H Total Creatine Kinase CK-MB (CK-2) Troponin T Albumin 3.7 L HDL Cholesterol TSH Free T4 Vancomycin Trough Crossmatch 07/12/18 07/12/18 07/12/18 09:51 11:06 11:22 RBC Hgb Hct MCV MCHC RDW Plt Count Lymph % (Auto) Lymph # Seg Neutrophils % Seg Neuts % (Manual) Lymphocytes % (Manual) Lymphocytes # (Manual) PT 20.8 H INR 1.67 H POC ABG pH 6.780 L POC ABG pO2 389 H Sodium Potassium Chloride Carbon Dioxide Glucose POC Glucose Hemoglobin A1c Lactic Acid Calcium Phosphorus 5.50 H Magnesium 2.40 H AST Alkaline Phosphatase Total Creatine Kinase CK-MB (CK-2) Troponin T Albumin HDL Cholesterol TSH Free T4 Vancomycin Trough Crossmatch 07/12/18 07/12/18 07/12/18 12:09 12:19 13:18 RBC Hgb Hct MCV MCHC RDW Plt Count Lymph % (Auto) Lymph # Seg Neutrophils % Seg Neuts % (Manual) Lymphocytes % (Manual) Lymphocytes # (Manual) PT INR POC ABG pH POC ABG pO2 Sodium 136 L D Potassium Chloride Carbon Dioxide 3 L* Glucose 599 H* POC Glucose > 500 H 440 H Hemoglobin A1c Lactic Acid Calcium 8.0 L Phosphorus Magnesium AST Alkaline Phosphatase Total Creatine Kinase CK-MB (CK-2) Troponin T Albumin HDL Cholesterol TSH Free T4 Vancomycin Trough Crossmatch 07/12/18 07/12/18 07/12/18 13:55 14:20 15:02 RBC Hgb Hct MCV MCHC RDW Plt Count Lymph % (Auto) Lymph # Seg Neutrophils % Seg Neuts % (Manual) Lymphocytes % (Manual) Lymphocytes # (Manual) PT INR POC ABG pH POC ABG pO2 Sodium Potassium Chloride Carbon Dioxide 5 L* Glucose 489 H POC Glucose 440 H Hemoglobin A1c Lactic Acid 2.20 H* Calcium 7.1 L Phosphorus Magnesium AST Alkaline Phosphatase Total Creatine Kinase CK-MB (CK-2) Troponin T Albumin HDL Cholesterol TSH Free T4 Vancomycin Trough Crossmatch 07/12/18 07/12/18 07/12/18 15:54 16:57 17:05 RBC Hgb Hct MCV MCHC RDW Plt Count Lymph % (Auto) Lymph # Seg Neutrophils % Seg Neuts % (Manual) Lymphocytes % (Manual) Lymphocytes # (Manual) PT INR POC ABG pH POC ABG pO2 Sodium Potassium Chloride Carbon Dioxide 6 L* Glucose 387 H POC Glucose 469 H 466 H Hemoglobin A1c Lactic Acid Calcium 7.4 L Phosphorus Magnesium AST Alkaline Phosphatase Total Creatine Kinase CK-MB (CK-2) Troponin T Albumin HDL Cholesterol TSH Free T4 Vancomycin Trough Crossmatch 07/12/18 07/12/18 07/12/18 17:05 17:05 17:05 RBC Hgb Hct MCV MCHC RDW Plt Count Lymph % (Auto) Lymph # Seg Neutrophils % Seg Neuts % (Manual) Lymphocytes % (Manual) Lymphocytes # (Manual) PT INR POC ABG pH POC ABG pO2 Sodium 135 L Potassium Chloride Carbon Dioxide 6 L* Glucose 429 H POC Glucose Hemoglobin A1c 9.9 H Lactic Acid 2.50 H* Calcium 7.5 L Phosphorus Magnesium AST Alkaline Phosphatase Total Creatine Kinase CK-MB (CK-2) Troponin T Albumin HDL Cholesterol TSH Free T4 Vancomycin Trough Crossmatch 07/12/18 07/12/18 07/12/18 18:13 19:24 19:24 RBC Hgb 7.9 L Hct 24.2 L D MCV MCHC RDW Plt Count Lymph % (Auto) Lymph # Seg Neutrophils % Seg Neuts % (Manual) Lymphocytes % (Manual) Lymphocytes # (Manual) PT INR POC ABG pH POC ABG pO2 Sodium 136 L Potassium Chloride Carbon Dioxide 6 L* Glucose 336 H POC Glucose 433 H Hemoglobin A1c Lactic Acid Calcium 7.3 L Phosphorus Magnesium AST Alkaline Phosphatase Total Creatine Kinase CK-MB (CK-2) Troponin T Albumin HDL Cholesterol TSH Free T4 Vancomycin Trough Crossmatch 07/12/18 07/12/18 07/12/18 19:24 19:24 19:31 RBC Hgb Hct MCV MCHC RDW Plt Count Lymph % (Auto) Lymph # Seg Neutrophils % Seg Neuts % (Manual) Lymphocytes % (Manual) Lymphocytes # (Manual) PT INR POC ABG pH 7.024 L POC ABG pO2 195 H Sodium Potassium Chloride Carbon Dioxide Glucose POC Glucose Hemoglobin A1c Lactic Acid 3.30 H* Calcium Phosphorus Magnesium AST Alkaline Phosphatase Total Creatine Kinase CK-MB (CK-2) Troponin T Albumin HDL Cholesterol TSH 19.440 H Free T4 Vancomycin Trough Crossmatch 07/12/18 07/12/18 07/12/18 19:31 20:03 21:08 RBC Hgb Hct MCV MCHC RDW Plt Count Lymph % (Auto) Lymph # Seg Neutrophils % Seg Neuts % (Manual) Lymphocytes % (Manual) Lymphocytes # (Manual) PT INR POC ABG pH POC ABG pO2 Sodium Potassium Chloride Carbon Dioxide Glucose POC Glucose 225 H 366 H 286 H Hemoglobin A1c Lactic Acid Calcium Phosphorus Magnesium AST Alkaline Phosphatase Total Creatine Kinase CK-MB (CK-2) Troponin T Albumin HDL Cholesterol TSH Free T4 Vancomycin Trough Crossmatch 07/12/18 07/12/18 07/12/18 21:30 21:30 21:57 RBC Hgb Hct MCV MCHC RDW Plt Count Lymph % (Auto) Lymph # Seg Neutrophils % Seg Neuts % (Manual) Lymphocytes % (Manual) Lymphocytes # (Manual) PT INR POC ABG pH POC ABG pO2 Sodium Potassium 3.3 L Chloride Carbon Dioxide 6 L* Glucose 232 H POC Glucose 262 H Hemoglobin A1c Lactic Acid 4.90 H* Calcium 7.3 L Phosphorus Magnesium AST Alkaline Phosphatase Total Creatine Kinase CK-MB (CK-2) Troponin T Albumin HDL Cholesterol TSH Free T4 Vancomycin Trough Crossmatch 07/12/18 07/12/18 07/12/18 22:56 23:14 23:14 RBC Hgb Hct MCV MCHC RDW Plt Count Lymph % (Auto) Lymph # Seg Neutrophils % Seg Neuts % (Manual) Lymphocytes % (Manual) Lymphocytes # (Manual) PT INR POC ABG pH POC ABG pO2 Sodium Potassium 3.5 L Chloride 109.1 H Carbon Dioxide 7 L* Glucose 173 H POC Glucose 248 H Hemoglobin A1c Lactic Acid 5.40 H* Calcium 7.4 L Phosphorus Magnesium AST Alkaline Phosphatase Total Creatine Kinase CK-MB (CK-2) Troponin T Albumin HDL Cholesterol TSH Free T4 Vancomycin Trough Crossmatch 07/12/18 07/12/18 07/13/18 Unknown 23:59 00:44 RBC Hgb Hct MCV MCHC RDW Plt Count Lymph % (Auto) Lymph # Seg Neutrophils % Seg Neuts % (Manual) Lymphocytes % (Manual) Lymphocytes # (Manual) PT INR POC ABG pH POC ABG pO2 Sodium Potassium 3.3 L Chloride 109.6 H Carbon Dioxide 10 L Glucose 147 H POC Glucose 215 H Hemoglobin A1c Lactic Acid 2.50 H* Calcium 7.4 L Phosphorus Magnesium AST Alkaline Phosphatase Total Creatine Kinase CK-MB (CK-2) Troponin T Albumin HDL Cholesterol TSH Free T4 Vancomycin Trough Crossmatch 07/13/18 07/13/18 07/13/18 00:44 00:44 00:58 RBC Hgb 7.1 L Hct 21.3 L MCV MCHC RDW Plt Count Lymph % (Auto) Lymph # Seg Neutrophils % Seg Neuts % (Manual) Lymphocytes % (Manual) Lymphocytes # (Manual) PT INR POC ABG pH POC ABG pO2 Sodium Potassium Chloride Carbon Dioxide Glucose POC Glucose 175 H Hemoglobin A1c Lactic Acid 5.40 H* Calcium Phosphorus Magnesium AST Alkaline Phosphatase Total Creatine Kinase CK-MB (CK-2) Troponin T Albumin HDL Cholesterol TSH Free T4 Vancomycin Trough Crossmatch 07/13/18 07/13/18 07/13/18 01:59 02:57 03:54 RBC Hgb Hct MCV MCHC RDW Plt Count Lymph % (Auto) Lymph # Seg Neutrophils % Seg Neuts % (Manual) Lymphocytes % (Manual) Lymphocytes # (Manual) PT INR POC ABG pH POC ABG pO2 Sodium Potassium Chloride Carbon Dioxide Glucose POC Glucose 144 H 178 H 128 H Hemoglobin A1c Lactic Acid Calcium Phosphorus Magnesium AST Alkaline Phosphatase Total Creatine Kinase CK-MB (CK-2) Troponin T Albumin HDL Cholesterol TSH Free T4 Vancomycin Trough Crossmatch 07/13/18 07/13/18 07/13/18 04:00 04:00 04:04 RBC Hgb Hct MCV MCHC RDW Plt Count Lymph % (Auto) Lymph # Seg Neutrophils % Seg Neuts % (Manual) Lymphocytes % (Manual) Lymphocytes # (Manual) PT INR POC ABG pH 7.308 L POC ABG pO2 194 H Sodium Potassium 3.4 L Chloride 110.7 H Carbon Dioxide 15 L Glucose 122 H POC Glucose Hemoglobin A1c Lactic Acid 4.10 H* Calcium 7.8 L Phosphorus Magnesium AST Alkaline Phosphatase Total Creatine Kinase CK-MB (CK-2) Troponin T Albumin HDL Cholesterol TSH Free T4 Vancomycin Trough Crossmatch 07/13/18 07/13/18 07/13/18 05:03 06:00 06:58 RBC Hgb Hct MCV MCHC RDW Plt Count Lymph % (Auto) Lymph # Seg Neutrophils % Seg Neuts % (Manual) Lymphocytes % (Manual) Lymphocytes # (Manual) PT INR POC ABG pH POC ABG pO2 Sodium Potassium Chloride Carbon Dioxide Glucose POC Glucose 127 H 123 H 110 H Hemoglobin A1c Lactic Acid Calcium Phosphorus Magnesium AST Alkaline Phosphatase Total Creatine Kinase CK-MB (CK-2) Troponin T Albumin HDL Cholesterol TSH Free T4 Vancomycin Trough Crossmatch 07/13/18 07/13/18 07/13/18 09:28 09:28 10:33 RBC Hgb Hct MCV MCHC RDW Plt Count Lymph % (Auto) Lymph # Seg Neutrophils % Seg Neuts % (Manual) Lymphocytes % (Manual) Lymphocytes # (Manual) PT INR POC ABG pH POC ABG pO2 Sodium Potassium Chloride 112.8 H Carbon Dioxide 15 L Glucose POC Glucose 116 H Hemoglobin A1c Lactic Acid Calcium 7.8 L Phosphorus Magnesium AST Alkaline Phosphatase Total Creatine Kinase CK-MB (CK-2) Troponin T Albumin HDL Cholesterol TSH Free T4 0.53 L Vancomycin Trough Crossmatch 07/13/18 07/13/18 07/13/18 10:56 11:14 11:14 RBC Hgb 7.4 L Hct 21.3 L MCV MCHC RDW Plt Count Lymph % (Auto) Lymph # Seg Neutrophils % Seg Neuts % (Manual) Lymphocytes % (Manual) Lymphocytes # (Manual) PT INR POC ABG pH POC ABG pO2 Sodium 146 H Potassium 3.0 L D Chloride 111.6 H Carbon Dioxide 19 L Glucose POC Glucose Hemoglobin A1c Lactic Acid Calcium 7.7 L Phosphorus Magnesium AST Alkaline Phosphatase Total Creatine Kinase CK-MB (CK-2) Troponin T Albumin HDL Cholesterol TSH Free T4 Vancomycin Trough Crossmatch See Detail 07/13/18 07/13/18 07/13/18 11:14 11:25 11:25 RBC Hgb Hct MCV MCHC RDW Plt Count Lymph % (Auto) Lymph # Seg Neutrophils % Seg Neuts % (Manual) Lymphocytes % (Manual) Lymphocytes # (Manual) PT 15.3 H INR 1.14 H POC ABG pH POC ABG pO2 Sodium Potassium Chloride Carbon Dioxide Glucose POC Glucose Hemoglobin A1c Lactic Acid 3.00 H* Calcium Phosphorus Magnesium AST Alkaline Phosphatase Total Creatine Kinase 2806 H CK-MB (CK-2) 16.0 H Troponin T 0.073 H Albumin HDL Cholesterol 90 H TSH Free T4 Vancomycin Trough Crossmatch 07/13/18 07/13/18 07/13/18 11:42 12:49 14:32 RBC Hgb Hct MCV MCHC RDW Plt Count Lymph % (Auto) Lymph # Seg Neutrophils % Seg Neuts % (Manual) Lymphocytes % (Manual) Lymphocytes # (Manual) PT INR POC ABG pH POC ABG pO2 Sodium Potassium Chloride Carbon Dioxide Glucose POC Glucose 140 H 206 H 110 H Hemoglobin A1c Lactic Acid Calcium Phosphorus Magnesium AST Alkaline Phosphatase Total Creatine Kinase CK-MB (CK-2) Troponin T Albumin HDL Cholesterol TSH Free T4 Vancomycin Trough Crossmatch 07/13/18 07/13/18 07/13/18 14:59 14:59 15:46 RBC Hgb Hct MCV MCHC RDW Plt Count Lymph % (Auto) Lymph # Seg Neutrophils % Seg Neuts % (Manual) Lymphocytes % (Manual) Lymphocytes # (Manual) PT INR POC ABG pH POC ABG pO2 Sodium 146 H Potassium 2.8 L* Chloride 112.2 H Carbon Dioxide 19 L Glucose 111 H POC Glucose 119 H Hemoglobin A1c Lactic Acid 3.60 H* Calcium 7.9 L Phosphorus Magnesium AST Alkaline Phosphatase Total Creatine Kinase CK-MB (CK-2) Troponin T Albumin HDL Cholesterol TSH Free T4 Vancomycin Trough Crossmatch 07/13/18 07/13/18 07/13/18 20:50 20:50 20:50 RBC Hgb Hct MCV MCHC RDW Plt Count Lymph % (Auto) Lymph # Seg Neutrophils % Seg Neuts % (Manual) Lymphocytes % (Manual) Lymphocytes # (Manual) PT INR POC ABG pH POC ABG pO2 Sodium 146 H Potassium 3.2 L Chloride 110.8 H Carbon Dioxide 20 L Glucose 107 H POC Glucose Hemoglobin A1c Lactic Acid Calcium 7.9 L Phosphorus Magnesium AST Alkaline Phosphatase Total Creatine Kinase 2398 H CK-MB (CK-2) 8.6 H Troponin T 0.052 H D Albumin HDL Cholesterol TSH Free T4 0.54 L Vancomycin Trough Crossmatch 07/14/18 07/14/18 07/14/18 00:10 00:35 04:56 RBC Hgb Hct MCV MCHC RDW Plt Count Lymph % (Auto) Lymph # Seg Neutrophils % Seg Neuts % (Manual) Lymphocytes % (Manual) Lymphocytes # (Manual) PT INR POC ABG pH 7.475 H POC ABG pO2 67 L Sodium Potassium Chloride Carbon Dioxide Glucose POC Glucose 235 H Hemoglobin A1c Lactic Acid Calcium Phosphorus Magnesium AST Alkaline Phosphatase Total Creatine Kinase 1995 H CK-MB (CK-2) 7.0 H Troponin T 0.049 H Albumin HDL Cholesterol TSH Free T4 Vancomycin Trough Crossmatch 07/14/18 07/14/18 07/14/18 05:09 06:15 06:15 RBC 2.76 L Hgb 8.8 L Hct 24.7 L MCV MCHC 36 H RDW 16.4 H Plt Count Lymph % (Auto) Lymph # Seg Neutrophils % Seg Neuts % (Manual) Lymphocytes % (Manual) Lymphocytes # (Manual) PT INR POC ABG pH POC ABG pO2 Sodium Potassium 3.2 L Chloride Carbon Dioxide 21 L Glucose 212 H POC Glucose 227 H Hemoglobin A1c Lactic Acid Calcium 7.7 L Phosphorus 0.90 L* D Magnesium 1.50 L AST Alkaline Phosphatase Total Creatine Kinase CK-MB (CK-2) Troponin T Albumin HDL Cholesterol TSH Free T4 Vancomycin Trough Crossmatch 07/14/18 07/14/18 07/14/18 10:42 12:35 18:41 RBC Hgb Hct MCV MCHC RDW Plt Count Lymph % (Auto) Lymph # Seg Neutrophils % Seg Neuts % (Manual) Lymphocytes % (Manual) Lymphocytes # (Manual) PT INR POC ABG pH POC ABG pO2 Sodium Potassium Chloride Carbon Dioxide Glucose POC Glucose 272 H 234 H Hemoglobin A1c Lactic Acid 4.30 H* Calcium Phosphorus Magnesium AST Alkaline Phosphatase Total Creatine Kinase CK-MB (CK-2) Troponin T Albumin HDL Cholesterol TSH Free T4 Vancomycin Trough Crossmatch 07/14/18 07/14/18 07/15/18 22:36 23:10 05:00 RBC 2.70 L Hgb 8.5 L Hct 23.8 L MCV MCHC 36 H RDW 16.7 H Plt Count 131 L Lymph % (Auto) 11.6 L Lymph # 0.9 L Seg Neutrophils % 83.7 H Seg Neuts % (Manual) Lymphocytes % (Manual) Lymphocytes # (Manual) PT INR POC ABG pH POC ABG pO2 Sodium Potassium Chloride Carbon Dioxide Glucose POC Glucose 191 H Hemoglobin A1c Lactic Acid Calcium Phosphorus Magnesium AST Alkaline Phosphatase Total Creatine Kinase CK-MB (CK-2) Troponin T Albumin HDL Cholesterol TSH Free T4 Vancomycin Trough 23.4 H Crossmatch 07/15/18 07/15/18 07/15/18 05:00 05:39 05:41 RBC Hgb Hct MCV MCHC RDW Plt Count Lymph % (Auto) Lymph # Seg Neutrophils % Seg Neuts % (Manual) Lymphocytes % (Manual) Lymphocytes # (Manual) PT INR POC ABG pH POC ABG pO2 Sodium Potassium 3.3 L Chloride 109.6 H Carbon Dioxide Glucose 72 L POC Glucose 46 L 46 L Hemoglobin A1c Lactic Acid Calcium 8.1 L Phosphorus 2.30 L D Magnesium AST Alkaline Phosphatase Total Creatine Kinase CK-MB (CK-2) Troponin T Albumin HDL Cholesterol TSH Free T4 Vancomycin Trough Crossmatch 07/15/18 07/15/18 07/15/18 06:06 11:53 12:27 RBC Hgb Hct MCV MCHC RDW Plt Count Lymph % (Auto) Lymph # Seg Neutrophils % Seg Neuts % (Manual) Lymphocytes % (Manual) Lymphocytes # (Manual) PT INR POC ABG pH 7.584 H POC ABG pO2 166 H Sodium Potassium Chloride Carbon Dioxide Glucose POC Glucose 43 L 111 H Hemoglobin A1c Lactic Acid Calcium Phosphorus Magnesium AST Alkaline Phosphatase Total Creatine Kinase CK-MB (CK-2) Troponin T Albumin HDL Cholesterol TSH Free T4 Vancomycin Trough Crossmatch 07/15/18 07/15/18 07/15/18 18:21 18:24 18:32 RBC Hgb Hct MCV MCHC RDW Plt Count Lymph % (Auto) Lymph # Seg Neutrophils % Seg Neuts % (Manual) Lymphocytes % (Manual) Lymphocytes # (Manual) PT INR POC ABG pH POC ABG pO2 Sodium Potassium Chloride Carbon Dioxide Glucose POC Glucose < 40 L < 40 L Hemoglobin A1c Lactic Acid Calcium Phosphorus Magnesium AST Alkaline Phosphatase Total Creatine Kinase CK-MB (CK-2) Troponin T Albumin HDL Cholesterol TSH Free T4 Vancomycin Trough 23.9 H Crossmatch 07/16/18 07/16/18 07/16/18 00:16 00:21 00:43 RBC Hgb Hct MCV MCHC RDW Plt Count Lymph % (Auto) Lymph # Seg Neutrophils % Seg Neuts % (Manual) Lymphocytes % (Manual) Lymphocytes # (Manual) PT INR POC ABG pH POC ABG pO2 Sodium Potassium Chloride Carbon Dioxide Glucose POC Glucose 54 L 54 L 55 L Hemoglobin A1c Lactic Acid Calcium Phosphorus Magnesium AST Alkaline Phosphatase Total Creatine Kinase CK-MB (CK-2) Troponin T Albumin HDL Cholesterol TSH Free T4 Vancomycin Trough Crossmatch 07/16/18 12:00 RBC Hgb Hct MCV MCHC RDW Plt Count Lymph % (Auto) Lymph # Seg Neutrophils % Seg Neuts % (Manual) Lymphocytes % (Manual) Lymphocytes # (Manual) PT INR POC ABG pH POC ABG pO2 Sodium Potassium Chloride Carbon Dioxide Glucose POC Glucose 235 H Hemoglobin A1c Lactic Acid Calcium Phosphorus Magnesium AST Alkaline Phosphatase Total Creatine Kinase CK-MB (CK-2) Troponin T Albumin HDL Cholesterol TSH Free T4 Vancomycin Trough Crossmatch Chest x-ray: report reviewed, image reviewed
--- NOTE | 2018-07-16 14:09 | Progress Note ---
Assessment and Plan Respiratory failure s/p extubation Diabetes Diabetic ketoacidosis Right lower lobe pneumonia Hypothyroidism Anemia Enterococcus faecalis bacteremia Normal LVEF 50-55% by echocardiogram. Conservative cardiac management. Further cardiac workup with a stress thallium can be done as an outpatient once his issues has resolved. Subjective Date of service: 07/16/18 Principal diagnosis: GI bleed Interval history: Patient was extubated overnight. There are no complaints of chest pain and shortness of breath. Objective Vital Signs Temp Pulse Pulse Resp BP Pulse Ox 07/16/18 12:00 98.4 F 74 76 11 L 117/71 100 07/16/18 11:30 87 12 126/78 100 07/16/18 11:01 76 14 111/66 100 07/16/18 10:31 79 13 104/69 100 07/16/18 10:01 81 10 L 104/83 100 07/16/18 10:00 76 07/16/18 09:31 75 16 108/75 100 07/16/18 09:00 77 16 117/75 100 07/16/18 08:30 72 10 L 117/75 100 07/16/18 08:00 70 77 17 119/75 100 07/16/18 07:50 97.6 F 07/16/18 07:30 70 12 118/72 100 07/16/18 07:00 69 11 L 116/75 100 07/16/18 06:30 70 11 L 117/71 100 07/16/18 06:00 72 9 L 112/74 100 07/16/18 05:30 71 13 120/71 100 07/16/18 05:01 72 11 L 124/70 100 07/16/18 04:30 68 9 L 86/52 100 07/16/18 04:01 70 11 L 84/49 100 07/16/18 04:00 76 17 100 07/16/18 03:37 97.8 F 07/16/18 03:30 75 10 L 98/49 100 07/16/18 03:00 83 11 L 114/80 100 07/16/18 02:30 74 11 L 119/73 100 07/16/18 02:00 79 13 115/67 100 07/16/18 01:30 81 13 127/90 100 07/16/18 01:01 94 H 12 121/82 100 07/16/18 00:30 89 13 125/88 100 07/16/18 00:00 79 76 10 L 112/65 100 07/15/18 23:39 97.5 F L 07/15/18 23:30 89 15 111/66 100 07/15/18 23:11 66 13 111/66 100 07/15/18 23:01 78 12 111/66 100 07/15/18 22:31 83 13 114/72 100 07/15/18 22:00 68 14 105/68 100 07/15/18 21:30 77 9 L 110/74 100 07/15/18 21:00 83 14 118/79 100 07/15/18 20:30 76 12 111/70 100 07/15/18 20:00 97.6 F 73 73 11 L 112/76 100 07/15/18 19:30 73 12 113/71 100 07/15/18 19:01 73 12 103/69 100 07/15/18 18:30 67 13 88/55 100 07/15/18 18:01 66 10 L 84/53 100 07/15/18 17:30 67 11 L 96/61 100 07/15/18 17:08 99 07/15/18 17:00 75 9 L 103/68 98 07/15/18 16:30 74 13 112/74 100 07/15/18 16:00 97.6 F 69 69 9 L 111/69 100 07/15/18 15:30 75 13 106/68 100 07/15/18 15:00 69 12 104/71 100 07/15/18 14:30 72 18 116/78 100 - Physical Examination General: No Apparent Distress HEENT: Positive: PERRL Neck: Positive: trachea midline Cardiac: Positive: Reg Rate and Rhythm Lungs: Positive: Decreased Breath Sounds
--- NOTE | 2018-07-16 14:38 | Progress Note ---
Assessment and Plan Critical care statement The high probability of a clinically significant sudden or life-threatening deterioration of the pulmonary cardiac and renal systems required my full and direct attention, intervention and personal management. The appropriate critical care time was 40 minutes. This time is in addition to time spent performing reported procedures but includes the following: #1.Data review and interpretation #2 patient assessment and monitoring of vital signs #3 documentation #4 medication orders and management - Patient Problems (1) DKA (diabetic ketoacidosis) Current Visit: Yes Status: Acute Qualifiers: Diabetes mellitus type: type 2 Plan to address problem: DKA resolved (2) Acute respiratory failure with hypoxia Current Visit: Yes Status: Acute Plan to address problem: Patient extubated (3) Hypotension Current Visit: Yes Status: Acute Qualifiers: Hypotension type: other hypotension type Qualified Code(s): I95.89 - Other hypotension Plan to address problem: Improved Off Levophed (4) Acute metabolic encephalopathy Current Visit: No Status: Acute Plan to address problem: Improved (5) Cardiac arrest Current Visit: Yes Status: Acute Plan to address problem: Patient revived within 2 minutes after 1 round of epinephrine. There was return of spontaneous circulation (6) Pneumonia Current Visit: Yes Status: Acute Qualifiers: Pneumonia type: aspiration pneumonia Laterality: right Lung location: lower lobe of lung Plan to address problem: Possible aspiration given the location of the infiltrate IV cefepime and IV vancomycin (7) Hypoxia Current Visit: Yes Status: Acute Plan to address problem: Improved (8) Hypothyroidism Current Visit: Yes Status: Chronic Qualifiers: Hypothyroidism type: acquired Qualified Code(s): E03.9 - Hypothyroidism, unspecified Plan to address problem: Continue Synthroid (9) Hyperkalemia Current Visit: Yes Status: Acute Plan to address problem: Corrected (10) Upper GI bleed Current Visit: Yes Status: Acute Plan to address problem: Resolved (11) DVT prophylaxis Current Visit: Yes Status: Acute Plan to address problem: No Lovenox because of GI bleed and patient on IV Protonix-- hence no GI prophylaxis Subjective Date of service: 07/16/18 Principal diagnosis: GI bleed Interval history: Improved More alert and oriented willing to be transferred to [facility] floor Objective - Exam Narrative Exam: Patient intubated, - Constitutional Vitals: Vital Signs - 12hr 07/16/18 07/16/18 07/16/18 03:00 03:30 03:37 Temperature 97.8 F Pulse Rate 83 75 Pulse Rate [ From Monitor] Respiratory 11 L 10 L Rate Blood Pressure 114/80 98/49 O2 Sat by Pulse 100 100 Oximetry 07/16/18 07/16/18 07/16/18 04:00 04:01 04:30 Temperature Pulse Rate 70 68 Pulse Rate [ 76 From Monitor] Respiratory 17 11 L 9 L Rate Blood Pressure 84/49 86/52 O2 Sat by Pulse 100 100 100 Oximetry 07/16/18 07/16/18 07/16/18 05:01 05:30 06:00 Temperature Pulse Rate 72 71 72 Pulse Rate [ From Monitor] Respiratory 11 L 13 9 L Rate Blood Pressure 124/70 120/71 112/74 O2 Sat by Pulse 100 100 100 Oximetry 07/16/18 07/16/18 07/16/18 06:30 07:00 07:30 Temperature Pulse Rate 70 69 70 Pulse Rate [ From Monitor] Respiratory 11 L 11 L 12 Rate Blood Pressure 117/71 116/75 118/72 O2 Sat by Pulse 100 100 100 Oximetry 07/16/18 07/16/18 07/16/18 07:50 08:00 08:30 Temperature 97.6 F Pulse Rate 70 72 Pulse Rate [ 77 From Monitor] Respiratory 17 10 L Rate Blood Pressure 119/75 117/75 O2 Sat by Pulse 100 100 Oximetry 07/16/18 07/16/18 07/16/18 09:00 09:31 10:00 Temperature Pulse Rate 77 75 76 Pulse Rate [ From Monitor] Respiratory 16 16 Rate Blood Pressure 117/75 108/75 O2 Sat by Pulse 100 100 Oximetry 07/16/18 07/16/18 07/16/18 10:01 10:31 11:01 Temperature Pulse Rate 81 79 76 Pulse Rate [ From Monitor] Respiratory 10 L 13 14 Rate Blood Pressure 104/83 104/69 111/66 O2 Sat by Pulse 100 100 100 Oximetry 07/16/18 07/16/18 11:30 12:00 Temperature 98.4 F Pulse Rate 87 74 Pulse Rate [ 76 From Monitor] Respiratory 12 11 L Rate Blood Pressure 126/78 117/71 O2 Sat by Pulse 100 100 Oximetry General appearance: Present: no acute distress, well-nourished - EENT Eyes: PERRL, EOM intact ENT: hearing intact, clear oral mucosa Ears: bilateral: normal - Neck Neck: supple, normal ROM - Respiratory Respiratory effort: normal Respiratory: bilateral: CTA - Breasts Breasts: normal - Cardiovascular Rhythm: regular Heart Sounds: Present: S1 & S2. Absent: gallop, rub Extremities: pulses intact, No edema, normal color, Full ROM - Gastrointestinal General gastrointestinal: Present: soft, non-tender, non-distended, normal bowel sounds - Genitourinary Male genitourinary: normal - Integumentary Integumentary: clear, warm, dry - Musculoskeletal Musculoskeletal: 1, strength equal bilaterally - Neurologic Neurologic: moves all extremities - Psychiatric Psychiatric: memory intact, appropriate mood/affect, intact judgment & insight - Labs CBC & Chem 7: 07/17/18 04:52 07/17/18 04:52 Labs: Abnormal lab results 07/15/18 07/15/18 07/15/18 Range/Units 18:21 18:24 18:32 POC Glucose < 40 L < 40 L (70-105) Vancomycin Trough 23.9 H (5.0-20.0) ug/mL 07/16/18 07/16/18 07/16/18 Range/Units 00:16 00:21 00:43 POC Glucose 54 L 54 L 55 L (70-105) Vancomycin Trough (5.0-20.0) ug/mL 07/16/18 Range/Units 12:00 POC Glucose 235 H (70-105) Vancomycin Trough (5.0-20.0) ug/mL
[2018-07-16] MEDS: NACL 0.9% 1000 ML 1,000 ML IV SCH (15:08)
[2018-07-16] MEDS: LANTUS SUB-Q SCH (22:56)
[2018-07-17] MEDS: HumuLIN R SUB-Q SCH ×4 (00:23→18:25)
[2018-07-17] MEDS: PROTONIX PO SCH ×2 (00:23→09:35)
[2018-07-17 05:20] LABS: Hematocrit 22.3 % (35.5-45.6); Hemoglobin 7.7 gm/dl (11.8-15.2); Mean Corpuscular HGB Conc 35 % (32-34); Mean Corpuscular Volume 90 fl (84-94); Platelet Count 121 K/mm3 (140-440); Red Blood Count 2.48 M/mm3 (3.65-5.03)
[2018-07-17] MEDS: AMPICILLIN/NS 2 GM/100 ML 2 GM/100 ML BAG IV SCH ×3 (05:28→18:27)
[2018-07-17] MEDS: NACL 0.9% 1000 ML 1,000 ML IV SCH ×2 (05:32→09:37)
[2018-07-17 05:39] LABS: BUN/Creatinine Ratio 16; Blood Urea Nitrogen 16 mg/dL (9-20); Calcium 8.2 mg/dL (8.4-10.2); Hemolysis Index 2
[2018-07-17] MEDS: SYNTHROID IV SCH (05:58)
[2018-07-17 08:03] LABS: Band Neutrophils # (Manual) 0.1 K/mm3; Basophils % (Manual) 0 % (0.0-1.8); Eosinophils % (Manual) 0 % (0.0-4.3); Total Cells Counted 100
[2018-07-17 08:04] LABS: Anisocytosis 1+; Ovalocytes Few; Poikilocytosis 1+; Target Cells Few
[2018-07-17 08:07] LABS: Platelet Estimate Cons
--- NOTE | 2018-07-17 08:24 | Progress Note ---
Assessment and Plan Respiratory failure s/p extubation Diabetes Diabetic ketoacidosis Right lower lobe pneumonia Hypothyroidism Anemia Enterococcus faecalis bacteremia Normal LVEF 50-55% by echocardiogram. Conservative cardiac management. Subjective Date of service: 07/17/18 Principal diagnosis: GI bleed Interval history: Patient has no complaints. He denies chest pain and shortness of breath. Stable sinus rhythm on telemetry. Objective Vital Signs Temp Pulse Pulse Resp BP Pulse Ox 07/17/18 05:18 98.2 F 79 16 119/73 99 07/16/18 21:58 98.2 F 69 16 118/72 100 07/16/18 17:03 98.3 F 85 20 107/76 100 07/16/18 12:00 98.4 F 74 76 11 L 117/71 100 07/16/18 11:30 87 12 126/78 100 07/16/18 11:01 76 14 111/66 100 07/16/18 10:31 79 13 104/69 100 07/16/18 10:01 81 10 L 104/83 100 07/16/18 10:00 76 07/16/18 09:31 75 16 108/75 100 07/16/18 09:00 77 16 117/75 100 07/16/18 08:30 72 10 L 117/75 100 - Physical Examination General: No Apparent Distress HEENT: Positive: PERRL Neck: Positive: trachea midline Cardiac: Positive: Reg Rate and Rhythm Lungs: Positive: Decreased Breath Sounds Neuro: Positive: Grossly Intact Extremities: Absent: edema - Labs and Meds CBC 07/17/18 Range/Units 04:52 WBC 3.6 L (4.5-11.0) K/mm3 RBC 2.48 L (3.65-5.03) M/mm3 Hgb 7.7 L (11.8-15.2) gm/dl Hct 22.3 L (35.5-45.6) % Plt Count 121 L (140-440) K/mm3 Comprehensive Metabolic Panel 07/17/18 Range/Units 04:52 Sodium 143 (137-145) mmol/L Potassium 3.7 (3.6-5.0) mmol/L Chloride 107.2 H (98-107) mmol/L Carbon Dioxide 23 (22-30) mmol/L BUN 16 (9-20) mg/dL Creatinine 1.0 (0.8-1.5) mg/dL Glucose 196 H (75-100) mg/dL Calcium 8.2 L (8.4-10.2) mg/dL
[2018-07-17] MEDS: SODIUM CHLORIDE FLUSH SYRINGE 10 ML IV SCH (09:36)
--- NOTE | 2018-07-17 10:38 | Progress Note ---
Assessment and Plan Assessment and Plan Cultures: 07/12/2018 tracheal aspirate: Salivary contamination 07/12/2018 blood culture: 2 out of 2 bottles positive for enterococcus on set 1, set 2 is negative, Watters susceptible 07/12/2018 urine culture: No growth 07/14/2018 blood culture: negative thus far A/P: 63-year-old male with diabetes mellitus, hypothyroidism who was brought into the emergency room on 07/12/2018 for altered mental status. Apparently, the patient is noncompliant. He was found to be in severe diabetic ketoacidosis with an arterial pH of 6.7, also with: 1) Enterococcus faecalis bacteremia: Etiology is unclear, 1 set is positive (both bottles) while set 2 is negative. TTE without any significant valvular abnormalities or vegetations. Patient presented with severe DKA. We evaluated for any intra-abdominal source of infection, RUQ US and CT abdomen pelvis with IV contrast without any suggestion of infectious process. UA, urine culture not consistent with UTI. Rarely, enterococcus can be a contaminant v/s GI translocation, but difficult to ascertain that. Will complete additional 7 days of abx from negative blood cultures. 2) Question of pneumonia: No evidence of pneumonia on follow-up chest x-ray. Minimal vent requirements. Pneumonia unlikely. 3) Diabetic ketoacidosis: Patient presented with uncontrolled hyperglycemia and severe acidosis. Improving 4) Acute encephalopathy: metabolic. Improved. 5) Epistaxis: unknown etiology, s/p fall prior to admission. Old dried blood around nose on admission, +Rhino rocket in bilateral nares. Continue to monitor 6) Pancytopenia Recs: f/u blood cultures from 07/14/2018 for clearance, if they remain negative, would complete abx on 07/21/2018 continue IV ampicillin for E.faecalis total 7 days ending 07/21/[address] Jackson will be constitutional law professor this weekend, , please call for questions. [facility] M: [phone] O:[phone] Subjective Date of service: 07/17/18 Principal diagnosis: GI bleed Interval history: Patient seen and examined. Asleep but easily arousable. Able to follow simple commands, Conversant. No acute distress. Objective - Exam Narrative Exam: Constitutional: Asleep, easily arousable. Conversant. No acute distress Head, Ears, Nose: Normocephalic, atraumatic. External ears, nose normal Eyes: Conjunctivae/corneas clear. No icterus. No ptosis. Neck: Supple, no meningeal signs Oral: no thrush, periodontal disease + Cardiovascular: S1, S2 normal. Respiratory: Good air entry, clear to auscultation bilaterally, + rhino rocket bilateral nares GI: Soft, non-tender; bowel sounds normal. No peritoneal signs Musculoskeletal: No pedal edema, no cyanosis. Skin: No rash or abscess Hem/Lymphatic: No palpable cervical or supraclavicular nodes. No lymphangitis Psych: affect normal, mood ok Neurological: awake, alert, oriented - Constitutional Vitals: Vital Signs Temp Pulse Resp BP Pulse Ox 98.2 F 79 16 119/73 99 07/17/18 05:18 07/17/18 05:18 07/17/18 05:18 07/17/18 05:18 07/17/18 05:18 Temperature -Last 24 Hours Temperature 98.2 F Temperature 98.2 F Temperature 98.3 F Temperature 98.4 F - Labs CBC & Chem 7: 07/17/18 04:52 07/17/18 04:52 Labs: Abnormal lab results 07/16/18 07/16/18 07/16/18 Range/Units 12:00 16:28 22:57 WBC (4.5-11.0) K/mm3 RBC (3.65-5.03) M/mm3 Hgb (11.8-15.2) gm/dl Hct (35.5-45.6) % MCHC (32-34) % RDW (13.2-15.2) % Plt Count (140-440) K/mm3 Seg Neuts % (Manual) (40.0-70.0) % Lymphocytes % (Manual) (13.4-35.0) % Lymphocytes # (Manual) (1.2-5.4) K/mm3 Chloride (98-107) mmol/L Glucose (75-100) mg/dL POC Glucose 235 H 188 H 182 H (70-105) Calcium (8.4-10.2) mg/dL 07/17/18 07/17/18 Range/Units 04:52 04:52 WBC 3.6 L (4.5-11.0) K/mm3 RBC 2.48 L (3.65-5.03) M/mm3 Hgb 7.7 L (11.8-15.2) gm/dl Hct 22.3 L (35.5-45.6) % MCHC 35 H (32-34) % RDW 17.0 H (13.2-15.2) % Plt Count 121 L (140-440) K/mm3 Seg Neuts % (Manual) 86.0 H (40.0-70.0) % Lymphocytes % (Manual) 10.0 L (13.4-35.0) % Lymphocytes # (Manual) 0.4 L (1.2-5.4) K/mm3 Chloride 107.2 H (98-107) mmol/L Glucose 196 H (75-100) mg/dL POC Glucose (70-105) Calcium 8.2 L (8.4-10.2) mg/dL
--- NOTE | 2018-07-17 11:53 | Progress Note ---
Assessment and Plan Imp: 1. ? Aspiration pneumonitis 2. Severe sepsis 3. Acute respiratory failure, hypoxia 4. Enterococcal bacteremia 5. Epistaxis with acute blood loss anemia 6. DKA 7. Lactic acidosis 8. S/p CP arrest 9. Pancytopenia Rec: 1. ABX per ID 2. Consider removal of nasal packing -> will defer to primary team 3. SCDs in place 4. PT consult 5. Monitor CBC 6. Stable pulm-ramires Plan of care reviewed w/ pt., he understands/agrees Subjective Date of service: 07/17/18 Principal diagnosis: GI bleed Interval history: No events. Awake, alert. Extubated. No complaints. No SOB. Active Medications Acetaminophen (Tylenol) 650 mg PO Q4H PRN PRN Reason: Pain MILD(1-3)/Fever >100.5/GARCIA Dextrose (D50w (25gm) Syringe) 0 ml IV PRN PRN PRN Reason: Hypoglycemia Last Admin: 07/16/18 00:48 Dose: 20 ml Documented by: Hydromorphone HCl (Dilaudid) 0.25 mg IV Q3H PRN PRN Reason: Pain, Moderate (4-6) Last Admin: 07/15/18 02:27 Dose: 0.25 mg Documented by: Sodium Chloride (Nacl 0.9% 1000 Ml) 1,000 mls @ 75 mls/hr IV DIRECT [facility] Last Admin: 07/17/18 09:37 Dose: 75 mls/hr Documented by: Ampicillin Sodium (Polycillin/Ns 2 Gm/100 Ml) 2 gm in 100 mls @ 100 mls/hr IV Q6HR [facility] Last Admin: 07/17/18 05:28 Dose: 100 mls/hr Documented by: Insulin Glargine (Lantus) 15 units SUB-Q QHS [facility] Last Admin: 07/16/18 22:56 Dose: 15 units Documented by: Insulin Human Regular (Humulin R) 0 units SUB-Q Q6HR [facility]; Protocol Last Admin: 07/17/18 05:58 Dose: 2 units Documented by: Levothyroxine Sodium (Synthroid) 150 mcg PO DAILY@0600 [facility] Ondansetron HCl (Zofran) 4 mg IV Q8H PRN PRN Reason: Nausea And Vomiting Pantoprazole Sodium (Protonix) 40 mg PO BID ISAIAS Last Admin: 07/17/18 09:35 Dose: 40 mg Documented by: Sodium Chloride (Sodium Chloride Flush Syringe 10 Ml) 10 ml IV BID ISAIAS Last Admin: 07/17/18 09:36 Dose: 10 ml Documented by: Sodium Chloride (Sodium Chloride Flush Syringe 10 Ml) 10 ml IV PRN PRN PRN Reason: LINE FLUSH Last Admin: 07/12/18 19:32 Dose: 10 ml Documented by: Objective Vital Signs - 12hr 07/17/18 07/17/18 05:18 11:38 Temperature 98.2 F 97.7 F Pulse Rate 79 70 Respiratory 16 20 Rate Blood Pressure 119/73 107/67 O2 Sat by Pulse 99 100 Oximetry Constitutional: no acute distress, alert Eyes: non-icteric ENT: oropharynx moist Neck: supple Effort: normal Ascultation: Bilateral: clear Cardiovascular: regular rate and rhythm (no mrg) Gastrointestinal: normoactive bowel sounds, soft, non-tender, non-distended Integumentary: other (dry skin, no obvious cellulitis) Extremities: no cyanosis, pink and warm, edema (trace bilateral LE edema) Neurologic: normal mental status, non-focal exam, pupils equal and round, CN II- XII normal Psychiatric: mood appropriate, affect normal CBC and BMP: 07/17/18 04:52 07/17/18 04:52 ABG, PT/INR, D-dimer: ABG POC ABG pH 7.584 (7.35-7.45) H 07/15/18 06:06 POC ABG pO2 166 (80-105) H 07/15/18 06:06 POC ABG HCO3 24.6 (22-26 mml/L) 07/15/18 06:06 POC ABG Total CO2 25 (23-27mmol/L) 07/15/18 06:06 POC ABG O2 Sat 100 07/15/18 06:06 PT/INR, D-dimer PT 15.3 Sec. (12.2-14.9) H 07/13/18 11:25 INR 1.14 (0.87-1.13) H 07/13/18 11:25 Abnormal lab findings: Abnormal Labs 07/12/18 07/12/18 07/12/18 08:46 09:00 09:00 WBC RBC 3.07 L Hgb 9.8 L Hct 33.9 L MCV 111 H MCHC 29 L RDW 19.3 H Plt Count Lymph % (Auto) Lymph # Seg Neutrophils % Seg Neuts % (Manual) 87.0 H Lymphocytes % (Manual) 5.0 L Lymphocytes # (Manual) 0.2 L PT INR POC ABG pH POC ABG pO2 Sodium 128 L Potassium 6.2 H* Chloride 94.4 L Carbon Dioxide 2 L* Glucose 662 H* POC Glucose > 500 H Hemoglobin A1c Lactic Acid Calcium 8.3 L Phosphorus 5.50 H Magnesium 2.40 H AST 78 H Alkaline Phosphatase 142 H Total Creatine Kinase CK-MB (CK-2) Troponin T Albumin 3.7 L HDL Cholesterol TSH Free T4 Vancomycin Trough Crossmatch 07/12/18 07/12/18 07/12/18 09:51 11:06 11:22 WBC RBC Hgb Hct MCV MCHC RDW Plt Count Lymph % (Auto) Lymph # Seg Neutrophils % Seg Neuts % (Manual) Lymphocytes % (Manual) Lymphocytes # (Manual) PT 20.8 H INR 1.67 H POC ABG pH 6.780 L POC ABG pO2 389 H Sodium Potassium Chloride Carbon Dioxide Glucose POC Glucose Hemoglobin A1c Lactic Acid Calcium Phosphorus 5.50 H Magnesium 2.40 H AST Alkaline Phosphatase Total Creatine Kinase CK-MB (CK-2) Troponin T Albumin HDL Cholesterol TSH Free T4 Vancomycin Trough Crossmatch 07/12/18 07/12/18 07/12/18 12:09 12:19 13:18 WBC RBC Hgb Hct MCV MCHC RDW Plt Count Lymph % (Auto) Lymph # Seg Neutrophils % Seg Neuts % (Manual) Lymphocytes % (Manual) Lymphocytes # (Manual) PT INR POC ABG pH POC ABG pO2 Sodium 136 L D Potassium Chloride Carbon Dioxide 3 L* Glucose 599 H* POC Glucose > 500 H 440 H Hemoglobin A1c Lactic Acid Calcium 8.0 L Phosphorus Magnesium AST Alkaline Phosphatase Total Creatine Kinase CK-MB (CK-2) Troponin T Albumin HDL Cholesterol TSH Free T4 Vancomycin Trough Crossmatch 07/12/18 07/12/18 07/12/18 13:55 14:20 15:02 WBC RBC Hgb Hct MCV MCHC RDW Plt Count Lymph % (Auto) Lymph # Seg Neutrophils % Seg Neuts % (Manual) Lymphocytes % (Manual) Lymphocytes # (Manual) PT INR POC ABG pH POC ABG pO2 Sodium Potassium Chloride Carbon Dioxide 5 L* Glucose 489 H POC Glucose 440 H Hemoglobin A1c Lactic Acid 2.20 H* Calcium 7.1 L Phosphorus Magnesium AST Alkaline Phosphatase Total Creatine Kinase CK-MB (CK-2) Troponin T Albumin HDL Cholesterol TSH Free T4 Vancomycin Trough Crossmatch 07/12/18 07/12/18 07/12/18 15:54 16:57 17:05 WBC RBC Hgb Hct MCV MCHC RDW Plt Count Lymph % (Auto) Lymph # Seg Neutrophils % Seg Neuts % (Manual) Lymphocytes % (Manual) Lymphocytes # (Manual) PT INR POC ABG pH POC ABG pO2 Sodium Potassium Chloride Carbon Dioxide 6 L* Glucose 387 H POC Glucose 469 H 466 H Hemoglobin A1c Lactic Acid Calcium 7.4 L Phosphorus Magnesium AST Alkaline Phosphatase Total Creatine Kinase CK-MB (CK-2) Troponin T Albumin HDL Cholesterol TSH Free T4 Vancomycin Trough Crossmatch 07/12/18 07/12/18 07/12/18 17:05 17:05 17:05 WBC RBC Hgb Hct MCV MCHC RDW Plt Count Lymph % (Auto) Lymph # Seg Neutrophils % Seg Neuts % (Manual) Lymphocytes % (Manual) Lymphocytes # (Manual) PT INR POC ABG pH POC ABG pO2 Sodium 135 L Potassium Chloride Carbon Dioxide 6 L* Glucose 429 H POC Glucose Hemoglobin A1c 9.9 H Lactic Acid 2.50 H* Calcium 7.5 L Phosphorus Magnesium AST Alkaline Phosphatase Total Creatine Kinase CK-MB (CK-2) Troponin T Albumin HDL Cholesterol TSH Free T4 Vancomycin Trough Crossmatch 07/12/18 07/12/18 07/12/18 18:13 19:24 19:24 WBC RBC Hgb 7.9 L Hct 24.2 L D MCV MCHC RDW Plt Count Lymph % (Auto) Lymph # Seg Neutrophils % Seg Neuts % (Manual) Lymphocytes % (Manual) Lymphocytes # (Manual) PT INR POC ABG pH POC ABG pO2 Sodium 136 L Potassium Chloride Carbon Dioxide 6 L* Glucose 336 H POC Glucose 433 H Hemoglobin A1c Lactic Acid Calcium 7.3 L Phosphorus Magnesium AST Alkaline Phosphatase Total Creatine Kinase CK-MB (CK-2) Troponin T Albumin HDL Cholesterol TSH Free T4 Vancomycin Trough Crossmatch 07/12/18 07/12/18 07/12/18 19:24 19:24 19:31 WBC RBC Hgb Hct MCV MCHC RDW Plt Count Lymph % (Auto) Lymph # Seg Neutrophils % Seg Neuts % (Manual) Lymphocytes % (Manual) Lymphocytes # (Manual) PT INR POC ABG pH 7.024 L POC ABG pO2 195 H Sodium Potassium Chloride Carbon Dioxide Glucose POC Glucose Hemoglobin A1c Lactic Acid 3.30 H* Calcium Phosphorus Magnesium AST Alkaline Phosphatase Total Creatine Kinase CK-MB (CK-2) Troponin T Albumin HDL Cholesterol TSH 19.440 H Free T4 Vancomycin Trough Crossmatch 07/12/18 07/12/18 07/12/18 19:31 20:03 21:08 WBC RBC Hgb Hct MCV MCHC RDW Plt Count Lymph % (Auto) Lymph # Seg Neutrophils % Seg Neuts % (Manual) Lymphocytes % (Manual) Lymphocytes # (Manual) PT INR POC ABG pH POC ABG pO2 Sodium Potassium Chloride Carbon Dioxide Glucose POC Glucose 225 H 366 H 286 H Hemoglobin A1c Lactic Acid Calcium Phosphorus Magnesium AST Alkaline Phosphatase Total Creatine Kinase CK-MB (CK-2) Troponin T Albumin HDL Cholesterol TSH Free T4 Vancomycin Trough Crossmatch 07/12/18 07/12/18 07/12/18 21:30 21:30 21:57 WBC RBC Hgb Hct MCV MCHC RDW Plt Count Lymph % (Auto) Lymph # Seg Neutrophils % Seg Neuts % (Manual) Lymphocytes % (Manual) Lymphocytes # (Manual) PT INR POC ABG pH POC ABG pO2 Sodium Potassium 3.3 L Chloride Carbon Dioxide 6 L* Glucose 232 H POC Glucose 262 H Hemoglobin A1c Lactic Acid 4.90 H* Calcium 7.3 L Phosphorus Magnesium AST Alkaline Phosphatase Total Creatine Kinase CK-MB (CK-2) Troponin T Albumin HDL Cholesterol TSH Free T4 Vancomycin Trough Crossmatch 07/12/18 07/12/18 07/12/18 22:56 23:14 23:14 WBC RBC Hgb Hct MCV MCHC RDW Plt Count Lymph % (Auto) Lymph # Seg Neutrophils % Seg Neuts % (Manual) Lymphocytes % (Manual) Lymphocytes # (Manual) PT INR POC ABG pH POC ABG pO2 Sodium Potassium 3.5 L Chloride 109.1 H Carbon Dioxide 7 L* Glucose 173 H POC Glucose 248 H Hemoglobin A1c Lactic Acid 5.40 H* Calcium 7.4 L Phosphorus Magnesium AST Alkaline Phosphatase Total Creatine Kinase CK-MB (CK-2) Troponin T Albumin HDL Cholesterol TSH Free T4 Vancomycin Trough Crossmatch 07/12/18 07/12/18 07/13/18 Unknown 23:59 00:44 WBC RBC Hgb Hct MCV MCHC RDW Plt Count Lymph % (Auto) Lymph # Seg Neutrophils % Seg Neuts % (Manual) Lymphocytes % (Manual) Lymphocytes # (Manual) PT INR POC ABG pH POC ABG pO2 Sodium Potassium 3.3 L Chloride 109.6 H Carbon Dioxide 10 L Glucose 147 H POC Glucose 215 H Hemoglobin A1c Lactic Acid 2.50 H* Calcium 7.4 L Phosphorus Magnesium AST Alkaline Phosphatase Total Creatine Kinase CK-MB (CK-2) Troponin T Albumin HDL Cholesterol TSH Free T4 Vancomycin Trough Crossmatch 07/13/18 07/13/18 07/13/18 00:44 00:44 00:58 WBC RBC Hgb 7.1 L Hct 21.3 L MCV MCHC RDW Plt Count Lymph % (Auto) Lymph # Seg Neutrophils % Seg Neuts % (Manual) Lymphocytes % (Manual) Lymphocytes # (Manual) PT INR POC ABG pH POC ABG pO2 Sodium Potassium Chloride Carbon Dioxide Glucose POC Glucose 175 H Hemoglobin A1c Lactic Acid 5.40 H* Calcium Phosphorus Magnesium AST Alkaline Phosphatase Total Creatine Kinase CK-MB (CK-2) Troponin T Albumin HDL Cholesterol TSH Free T4 Vancomycin Trough Crossmatch 07/13/18 07/13/18 07/13/18 01:59 02:57 03:54 WBC RBC Hgb Hct MCV MCHC RDW Plt Count Lymph % (Auto) Lymph # Seg Neutrophils % Seg Neuts % (Manual) Lymphocytes % (Manual) Lymphocytes # (Manual) PT INR POC ABG pH POC ABG pO2 Sodium Potassium Chloride Carbon Dioxide Glucose POC Glucose 144 H 178 H 128 H Hemoglobin A1c Lactic Acid Calcium Phosphorus Magnesium AST Alkaline Phosphatase Total Creatine Kinase CK-MB (CK-2) Troponin T Albumin HDL Cholesterol TSH Free T4 Vancomycin Trough Crossmatch 07/13/18 07/13/18 07/13/18 04:00 04:00 04:04 WBC RBC Hgb Hct MCV MCHC RDW Plt Count Lymph % (Auto) Lymph # Seg Neutrophils % Seg Neuts % (Manual) Lymphocytes % (Manual) Lymphocytes # (Manual) PT INR POC ABG pH 7.308 L POC ABG pO2 194 H Sodium Potassium 3.4 L Chloride 110.7 H Carbon Dioxide 15 L Glucose 122 H POC Glucose Hemoglobin A1c Lactic Acid 4.10 H* Calcium 7.8 L Phosphorus Magnesium AST Alkaline Phosphatase Total Creatine Kinase CK-MB (CK-2) Troponin T Albumin HDL Cholesterol TSH Free T4 Vancomycin Trough Crossmatch 07/13/18 07/13/18 07/13/18 05:03 06:00 06:58 WBC RBC Hgb Hct MCV MCHC RDW Plt Count Lymph % (Auto) Lymph # Seg Neutrophils % Seg Neuts % (Manual) Lymphocytes % (Manual) Lymphocytes # (Manual) PT INR POC ABG pH POC ABG pO2 Sodium Potassium Chloride Carbon Dioxide Glucose POC Glucose 127 H 123 H 110 H Hemoglobin A1c Lactic Acid Calcium Phosphorus Magnesium AST Alkaline Phosphatase Total Creatine Kinase CK-MB (CK-2) Troponin T Albumin HDL Cholesterol TSH Free T4 Vancomycin Trough Crossmatch 07/13/18 07/13/18 07/13/18 09:28 09:28 10:33 WBC RBC Hgb Hct MCV MCHC RDW Plt Count Lymph % (Auto) Lymph # Seg Neutrophils % Seg Neuts % (Manual) Lymphocytes % (Manual) Lymphocytes # (Manual) PT INR POC ABG pH POC ABG pO2 Sodium Potassium Chloride 112.8 H Carbon Dioxide 15 L Glucose POC Glucose 116 H Hemoglobin A1c Lactic Acid Calcium 7.8 L Phosphorus Magnesium AST Alkaline Phosphatase Total Creatine Kinase CK-MB (CK-2) Troponin T Albumin HDL Cholesterol TSH Free T4 0.53 L Vancomycin Trough Crossmatch 07/13/18 07/13/18 07/13/18 10:56 11:14 11:14 WBC RBC Hgb 7.4 L Hct 21.3 L MCV MCHC RDW Plt Count Lymph % (Auto) Lymph # Seg Neutrophils % Seg Neuts % (Manual) Lymphocytes % (Manual) Lymphocytes # (Manual) PT INR POC ABG pH POC ABG pO2 Sodium 146 H Potassium 3.0 L D Chloride 111.6 H Carbon Dioxide 19 L Glucose POC Glucose Hemoglobin A1c Lactic Acid Calcium 7.7 L Phosphorus Magnesium AST Alkaline Phosphatase Total Creatine Kinase CK-MB (CK-2) Troponin T Albumin HDL Cholesterol TSH Free T4 Vancomycin Trough Crossmatch See Detail 07/13/18 07/13/18 07/13/18 11:14 11:25 11:25 WBC RBC Hgb Hct MCV MCHC RDW Plt Count Lymph % (Auto) Lymph # Seg Neutrophils % Seg Neuts % (Manual) Lymphocytes % (Manual) Lymphocytes # (Manual) PT 15.3 H INR 1.14 H POC ABG pH POC ABG pO2 Sodium Potassium Chloride Carbon Dioxide Glucose POC Glucose Hemoglobin A1c Lactic Acid 3.00 H* Calcium Phosphorus Magnesium AST Alkaline Phosphatase Total Creatine Kinase 2806 H CK-MB (CK-2) 16.0 H Troponin T 0.073 H Albumin HDL Cholesterol 90 H TSH Free T4 Vancomycin Trough Crossmatch 07/13/18 07/13/18 07/13/18 11:42 12:49 14:32 WBC RBC Hgb Hct MCV MCHC RDW Plt Count Lymph % (Auto) Lymph # Seg Neutrophils % Seg Neuts % (Manual) Lymphocytes % (Manual) Lymphocytes # (Manual) PT INR POC ABG pH POC ABG pO2 Sodium Potassium Chloride Carbon Dioxide Glucose POC Glucose 140 H 206 H 110 H Hemoglobin A1c Lactic Acid Calcium Phosphorus Magnesium AST Alkaline Phosphatase Total Creatine Kinase CK-MB (CK-2) Troponin T Albumin HDL Cholesterol TSH Free T4 Vancomycin Trough Crossmatch 07/13/18 07/13/18 07/13/18 14:59 14:59 15:46 WBC RBC Hgb Hct MCV MCHC RDW Plt Count Lymph % (Auto) Lymph # Seg Neutrophils % Seg Neuts % (Manual) Lymphocytes % (Manual) Lymphocytes # (Manual) PT INR POC ABG pH POC ABG pO2 Sodium 146 H Potassium 2.8 L* Chloride 112.2 H Carbon Dioxide 19 L Glucose 111 H POC Glucose 119 H Hemoglobin A1c Lactic Acid 3.60 H* Calcium 7.9 L Phosphorus Magnesium AST Alkaline Phosphatase Total Creatine Kinase CK-MB (CK-2) Troponin T Albumin HDL Cholesterol TSH Free T4 Vancomycin Trough Crossmatch 07/13/18 07/13/18 07/13/18 20:50 20:50 20:50 WBC RBC Hgb Hct MCV MCHC RDW Plt Count Lymph % (Auto) Lymph # Seg Neutrophils % Seg Neuts % (Manual) Lymphocytes % (Manual) Lymphocytes # (Manual) PT INR POC ABG pH POC ABG pO2 Sodium 146 H Potassium 3.2 L Chloride 110.8 H Carbon Dioxide 20 L Glucose 107 H POC Glucose Hemoglobin A1c Lactic Acid Calcium 7.9 L Phosphorus Magnesium AST Alkaline Phosphatase Total Creatine Kinase 2398 H CK-MB (CK-2) 8.6 H Troponin T 0.052 H D Albumin HDL Cholesterol TSH Free T4 0.54 L Vancomycin Trough Crossmatch 07/14/18 07/14/18 07/14/18 00:10 00:35 04:56 WBC RBC Hgb Hct MCV MCHC RDW Plt Count Lymph % (Auto) Lymph # Seg Neutrophils % Seg Neuts % (Manual) Lymphocytes % (Manual) Lymphocytes # (Manual) PT INR POC ABG pH 7.475 H POC ABG pO2 67 L Sodium Potassium Chloride Carbon Dioxide Glucose POC Glucose 235 H Hemoglobin A1c Lactic Acid Calcium Phosphorus Magnesium AST Alkaline Phosphatase Total Creatine Kinase 1995 H CK-MB (CK-2) 7.0 H Troponin T 0.049 H Albumin HDL Cholesterol TSH Free T4 Vancomycin Trough Crossmatch 07/14/18 07/14/18 07/14/18 05:09 06:15 06:15 WBC RBC 2.76 L Hgb 8.8 L Hct 24.7 L MCV MCHC 36 H RDW 16.4 H Plt Count Lymph % (Auto) Lymph # Seg Neutrophils % Seg Neuts % (Manual) Lymphocytes % (Manual) Lymphocytes # (Manual) PT INR POC ABG pH POC ABG pO2 Sodium Potassium 3.2 L Chloride Carbon Dioxide 21 L Glucose 212 H POC Glucose 227 H Hemoglobin A1c Lactic Acid Calcium 7.7 L Phosphorus 0.90 L* D Magnesium 1.50 L AST Alkaline Phosphatase Total Creatine Kinase CK-MB (CK-2) Troponin T Albumin HDL Cholesterol TSH Free T4 Vancomycin Trough Crossmatch 07/14/18 07/14/18 07/14/18 10:42 12:35 18:41 WBC RBC Hgb Hct MCV MCHC RDW Plt Count Lymph % (Auto) Lymph # Seg Neutrophils % Seg Neuts % (Manual) Lymphocytes % (Manual) Lymphocytes # (Manual) PT INR POC ABG pH POC ABG pO2 Sodium Potassium Chloride Carbon Dioxide Glucose POC Glucose 272 H 234 H Hemoglobin A1c Lactic Acid 4.30 H* Calcium Phosphorus Magnesium AST Alkaline Phosphatase Total Creatine Kinase CK-MB (CK-2) Troponin T Albumin HDL Cholesterol TSH Free T4 Vancomycin Trough Crossmatch 07/14/18 07/14/18 07/15/18 22:36 23:10 05:00 WBC RBC 2.70 L Hgb 8.5 L Hct 23.8 L MCV MCHC 36 H RDW 16.7 H Plt Count 131 L Lymph % (Auto) 11.6 L Lymph # 0.9 L Seg Neutrophils % 83.7 H Seg Neuts % (Manual) Lymphocytes % (Manual) Lymphocytes # (Manual) PT INR POC ABG pH POC ABG pO2 Sodium Potassium Chloride Carbon Dioxide Glucose POC Glucose 191 H Hemoglobin A1c Lactic Acid Calcium Phosphorus Magnesium AST Alkaline Phosphatase Total Creatine Kinase CK-MB (CK-2) Troponin T Albumin HDL Cholesterol TSH Free T4 Vancomycin Trough 23.4 H Crossmatch 07/15/18 07/15/18 07/15/18 05:00 05:39 05:41 WBC RBC Hgb Hct MCV MCHC RDW Plt Count Lymph % (Auto) Lymph # Seg Neutrophils % Seg Neuts % (Manual) Lymphocytes % (Manual) Lymphocytes # (Manual) PT INR POC ABG pH POC ABG pO2 Sodium Potassium 3.3 L Chloride 109.6 H Carbon Dioxide Glucose 72 L POC Glucose 46 L 46 L Hemoglobin A1c Lactic Acid Calcium 8.1 L Phosphorus 2.30 L D Magnesium AST Alkaline Phosphatase Total Creatine Kinase CK-MB (CK-2) Troponin T Albumin HDL Cholesterol TSH Free T4 Vancomycin Trough Crossmatch 07/15/18 07/15/18 07/15/18 06:06 11:53 12:27 WBC RBC Hgb Hct MCV MCHC RDW Plt Count Lymph % (Auto) Lymph # Seg Neutrophils % Seg Neuts % (Manual) Lymphocytes % (Manual) Lymphocytes # (Manual) PT INR POC ABG pH 7.584 H POC ABG pO2 166 H Sodium Potassium Chloride Carbon Dioxide Glucose POC Glucose 43 L 111 H Hemoglobin A1c Lactic Acid Calcium Phosphorus Magnesium AST Alkaline Phosphatase Total Creatine Kinase CK-MB (CK-2) Troponin T Albumin HDL Cholesterol TSH Free T4 Vancomycin Trough Crossmatch 07/15/18 07/15/18 07/15/18 18:21 18:24 18:32 WBC RBC Hgb Hct MCV MCHC RDW Plt Count Lymph % (Auto) Lymph # Seg Neutrophils % Seg Neuts % (Manual) Lymphocytes % (Manual) Lymphocytes # (Manual) PT INR POC ABG pH POC ABG pO2 Sodium Potassium Chloride Carbon Dioxide Glucose POC Glucose < 40 L < 40 L Hemoglobin A1c Lactic Acid Calcium Phosphorus Magnesium AST Alkaline Phosphatase Total Creatine Kinase CK-MB (CK-2) Troponin T Albumin HDL Cholesterol TSH Free T4 Vancomycin Trough 23.9 H Crossmatch 07/16/18 07/16/18 07/16/18 00:16 00:21 00:43 WBC RBC Hgb Hct MCV MCHC RDW Plt Count Lymph % (Auto) Lymph # Seg Neutrophils % Seg Neuts % (Manual) Lymphocytes % (Manual) Lymphocytes # (Manual) PT INR POC ABG pH POC ABG pO2 Sodium Potassium Chloride Carbon Dioxide Glucose POC Glucose 54 L 54 L 55 L Hemoglobin A1c Lactic Acid Calcium Phosphorus Magnesium AST Alkaline Phosphatase Total Creatine Kinase CK-MB (CK-2) Troponin T Albumin HDL Cholesterol TSH Free T4 Vancomycin Trough Crossmatch 07/16/18 07/16/18 07/16/18 12:00 16:28 22:57 WBC RBC Hgb Hct MCV MCHC RDW Plt Count Lymph % (Auto) Lymph # Seg Neutrophils % Seg Neuts % (Manual) Lymphocytes % (Manual) Lymphocytes # (Manual) PT INR POC ABG pH POC ABG pO2 Sodium Potassium Chloride Carbon Dioxide Glucose POC Glucose 235 H 188 H 182 H Hemoglobin A1c Lactic Acid Calcium Phosphorus Magnesium AST Alkaline Phosphatase Total Creatine Kinase CK-MB (CK-2) Troponin T Albumin HDL Cholesterol TSH Free T4 Vancomycin Trough Crossmatch 07/17/18 07/17/18 04:52 04:52 WBC 3.6 L RBC 2.48 L Hgb 7.7 L Hct 22.3 L MCV MCHC 35 H RDW 17.0 H Plt Count 121 L Lymph % (Auto) Lymph # Seg Neutrophils % Seg Neuts % (Manual) 86.0 H Lymphocytes % (Manual) 10.0 L Lymphocytes # (Manual) 0.4 L PT INR POC ABG pH POC ABG pO2 Sodium Potassium Chloride 107.2 H Carbon Dioxide Glucose 196 H POC Glucose Hemoglobin A1c Lactic Acid Calcium 8.2 L Phosphorus Magnesium AST Alkaline Phosphatase Total Creatine Kinase CK-MB (CK-2) Troponin T Albumin HDL Cholesterol TSH Free T4 Vancomycin Trough Crossmatch Chest x-ray: report reviewed, image reviewed
--- NOTE | 2018-07-17 18:57 | Discharge Summary ---
Providers - Providers Date of Admission: 07/12/18 14:47 Date of discharge: 07/17/18 Attending physician: CIPRIANO ROBLES 07/12/18 15:48 Consult to Physician [CONS] Routine Comment: Consulting Provider: NICK BELTRAN Physician Instructions: Reason For Exam: acute respiratory failure, brief cardiac arrest 07/12/18 15:56 Consult to Dietitian/Nutrition [CONS] Routine Physician Instructions: Reason For Exam: DKA Reason for Consult: Nutrition Recommendations Reason for Consult: Write/Manage Tube Feeding 07/12/18 17:18 Consult to Physician [CONS] Routine Comment: Consulting Provider: MARGIE VITAL Physician Instructions: Reason For Exam: GI Bleed 07/13/18 10:52 Consult to Physician [CONS] Routine Comment: Consulting Provider: MARISOL POWERS Physician Instructions: Reason For Exam: Cardiac arrest 07/13/18 15:48 Consult to Case Management [CONS] Routine Services Needed at Discharge: Home Health Services Notified:: COPY LEFT CM. 07/14/18 07:00 Consult to Physician [CONS] Routine Comment: Consulting Provider: DREW ALVARADO Physician Instructions: Reason For Exam: Pneumonia,poss sepsis 07/17/18 11:52 Physical Therapy Evaluation and Treat [CONS] Routine Comment: Reason For Exam: deconditioning Primary care physician: MANAGER [employer]ODUCTION Hospitalization Condition: Stable Pertinent studies: Abc CT CONCLUSION: Various findings as small bibasilar effusions and atelectasis, somewhat small spleen, atrophic pancreas, diffuse subcutaneous and mesenteric edema, few bony degenerative changes and nonspecific L2 vertebral body appearance though not excluded for an indeterminate age fracture, amongst others, as detailed above. Please correlate. Abd U/s IMPRESSION: Gallbladder demonstrates no cholelithiasis or sludge No biliary dilatation Pancreas obscured by bowel gas Echogenic right kidney which can be seen in the setting of medical renal disease. No hydronephrosis Low-volume ascites Hospital course: (1) DKA (diabetic ketoacidosis) Current Visit: Yes Status: Acute Qualifiers: Diabetes mellitus type: type 2 Plan to address problem: DKA resolved (2) Acute respiratory failure with hypoxia Current Visit: Yes Status: Acute Plan to address problem: Patient extubated Doing well (3) Hypotension Current Visit: Yes Status: Acute Qualifiers: Hypotension type: other hypotension type Qualified Code(s): I95.89 - Other hypotension Plan to address problem: Improved Off Levophed (4) Acute metabolic encephalopathy Current Visit: No Status: Acute Plan to address problem: Improved (5) Pneumonia Current Visit: Yes Status: Acute Qualifiers: Pneumonia type: aspiration pneumonia Laterality: right Lung location: lower lobe of lung Plan to address problem: Possible aspiration given the location of the infiltrate Improved Disposition: DC-01 TO HOME OR SELFCARE - Discharge Diagnoses (1) DKA (diabetic ketoacidosis) Status: Acute Qualifiers: Diabetes mellitus type: type 2 (2) Acute respiratory failure with hypoxia Status: Acute (3) Hypotension Status: Acute Qualifiers: Hypotension type: other hypotension type Qualified Code(s): I95.89 - Other hypotension (4) Acute metabolic encephalopathy Status: Acute (5) Pneumonia Status: Acute Qualifiers: Pneumonia type: aspiration pneumonia Laterality: right Lung location: lower lobe of lung (6) Hypoxia Status: Acute (7) Hypothyroidism Status: Chronic Qualifiers: Hypothyroidism type: acquired Qualified Code(s): E03.9 - Hypothyroidism, unspecified (8) Hyperkalemia Status: Acute (9) Upper GI bleed Status: Acute (10) DVT prophylaxis Status: Acute Core Measure Documentation - Palliative Care Palliative Care/ Comfort Measures: Not Applicable - Core Measures Any of the following diagnoses?: none Exam - Constitutional Vitals: Temp Pulse Resp BP Pulse Ox 97.7 F 70 20 107/67 100 07/17/18 11:38 07/17/18 11:38 07/17/18 11:38 07/17/18 11:38 07/17/18 11:38 General appearance: Present: no acute distress, well-nourished - EENT Eyes: Present: PERRL ENT: hearing intact, clear oral mucosa - Neck Neck: Present: supple, normal ROM - Respiratory Respiratory effort: normal Respiratory: bilateral: CTA - Cardiovascular Heart rate: 78 Rhythm: regular Heart Sounds: Present: S1 & S2. Absent: rub, click - Extremities Extremities: no ischemia, pulses intact, pulses symmetrical, No edema Peripheral Pulses: within normal limits - Abdominal General gastrointestinal: Present: soft, non-tender, non-distended, normal bowel sounds Male genitourinary: Present: normal - Integumentary Integumentary: Present: clear, warm, dry - Musculoskeletal Musculoskeletal: gait normal, strength equal bilaterally - Psychiatric Psychiatric: appropriate mood/affect, intact judgment & insight - Neurologic Neurologic: CNII-XII intact, moves all extremities, gait normal, other (Able to walk) - Allied Health Allied health notes reviewed: nursing, case management Plan Activity: no restrictions Diet: diabetic Follow up with: PRIMARY CARE, [Primary Care Provider] - 3-5 Days JOSÉ MIGUEL CHILEL MD [Staff Physician] - 7 Days
[2018-07-17 19:06] VITALS: BP 123/79
[2018-07-18] MEDS ORDERED: SYNTHROID PO SCH (06:00)
[2018-07-18] MEDS ORDERED: VANCOMYCIN/NS 1 GM/250 ML 1 GM/250 ML BAG IV SCH (10:00)
== END 2018-07-17 20:30 | disposition home health service (06) | DRG 871 ==
LOC: ED 08:38 → CC1 14:47 → 3A 07-16 12:48
PROVIDERS: ADMIT Internal Medicine; ATTEND Internal Medicine
PROC: 5A1945Z Respiratory Ventilation, 24-96 Consecutive Hours (ICD-10-PCS; principal; 2018-07-12)
PROC: 0BH17EZ Insertion of Endotracheal Airway into Trachea, Via Natural or Artificial Opening (ICD-10-PCS; 2018-07-12)
PROC: 4A033R1 Measurement of Arterial Saturation, Peripheral, Percutaneous Approach (ICD-10-PCS; 2018-07-12)
PROC: 2Y41X5Z Packing of Nasal Region using Packing Material (ICD-10-PCS; 2018-07-12)
PROC: 06HY33Z Insertion of Infusion Device into Lower Vein, Percutaneous Approach (ICD-10-PCS; 2018-07-12)
PROC: B54BZZA Ultrasonography of Right Lower Extremity Veins, Guidance (ICD-10-PCS; 2018-07-12)
PROC: 30233N1 Transfusion of Nonautologous Red Blood Cells into Peripheral Vein, Percutaneous Approach (ICD-10-PCS; 2018-07-13)
DX: A41.81 Sepsis due to Enterococcus (principal); G93.41 Metabolic encephalopathy; E11.10 Type 2 diabetes mellitus with ketoacidosis without coma; I46.9 Cardiac arrest, cause unspecified; J96.01 Acute respiratory failure with hypoxia; J69.0 Pneumonitis due to inhalation of food and vomit; K92.2 Gastrointestinal hemorrhage, unspecified; M62.82 Rhabdomyolysis; D62 Acute posthemorrhagic anemia; E87.0 Hyperosmolality and hypernatremia; D61.818 Other pancytopenia; R04.0 Epistaxis; E87.5 Hyperkalemia; R65.20 Severe sepsis without septic shock; E03.9 Hypothyroidism, unspecified; I10 Essential (primary) hypertension; F12.90 Cannabis use, unspecified, uncomplicated; Z79.899 Other long term (current) drug therapy; Z82.49 Family history of ischemic heart disease and other diseases of the circulatory system; Z79.84 Long term (current) use of oral hypoglycemic drugs
CPT/HCPCS: 36415; 36600; 70450; 71045; 74177; 76705; 80048; 80053; 80061; 80202; 81001; 82140; 82270; 82550; 82553; 82803; 82962; 83036; 83735; 83880; 84100; 84439; 84443; 84484; 85007; 85014; 85018; 85025; 85027; 85610; 85730; 86850; 86900; 86901; 86920; 87040; 87076; 87086; 87186; 87205; 93005; 93010; 93306; 94002; 94003; 94760; G0378; C9113; J0290; J0456; J0610; J0692; J0696; J1170; J1815; J2001; J2704; J3370; J3475; J3480; J7030; J7040; J7050; P9016; Q9967

== ENCOUNTER 2018-08-11 10:50 | Inpatient (IN) | payer OTHER ==
[2018-08-11] MEDS ORDERED: D50W (25GM) Syringe IV ONE ×3 (11:03→11:14)
--- NOTE | 2018-08-11 11:19 | Emergency Department Report ---
ED Altered Mental Status HPI - General Chief Complaint: Hypoglycemia Stated Complaint: LOW BLOOD SUGAR Time Seen by Provider: 08/11/18 11:12 Source: EMS Mode of arrival: Stretcher Limitations: Other - History of Present Illness Initial Comments: 52-year-old male with history of diabetes, hypothyroidism presents to ED with altered mental status. Patient's daughter came home from work and found patient in altered, lying on the floor. Last seen normal at 5 PM yesterday. Daughter states she checked her sugar and it was 44, EMS called. Upon EMS arrival Accu- Chek was 11. EMS reportedly gave 2 amps of D50, however, upon ED arrival, Accu- Chek is reading again less than 20. It appears that the IV placed by EMS is not working. Nurses attempting to obtain IV access, however, unsuccessful. I made the decision to place central line for IV access. MD Complaint: altered mental status -: unknown Severity: severe Consistency of Symptoms: constant Context: diabetes Treatments Prior to Arrival: glucose - Related Data Home Medications Medication Instructions Recorded Confirmed Last Taken Insulin Lispro [HumaLOG VIAL] 6 units SUB-Q AC 08/11/18 08/11/18 08/11/18 Previous Rx's Medication Instructions Recorded Last Taken Type Detemir (Nf) [Levemir (Nf)] 25 units SUB-Q QAM #2 vial 07/17/18 08/10/18 Rx Levothyroxine [Synthroid] 150 mcg PO DAILY@0600 #30 tablet 07/17/18 08/11/18 Rx Pantoprazole [Protonix TAB] 40 mg PO QDAY #30 tablet 07/17/18 Unknown Rx Allergies Allergy/AdvReac Type Severity Reaction Status Date / Time No Known Allergies Allergy Verified 08/11/18 11:07 ED Review of Systems ROS: Stated complaint: LOW BLOOD SUGAR Other details as noted in HPI Comment: Unobtainable due to pts medical conditions (altered mental status) ED Past Medical Hx - Past Medical History Previous Medical History?: Yes Hx Hypertension: Yes Hx Congestive Heart Failure: No Hx Diabetes: Yes Hx Asthma: No Hx COPD: No Additional medical history: hypothyroidism - Social History Smoking Status: Never Smoker Substance Use Type: Alcohol, Marijuana - Medications Home Medications: Home Medications Medication Instructions Recorded Confirmed Last Taken Type Detemir (Nf) [Levemir (Nf)] 25 units SUB-Q QAM #2 vial 07/17/18 08/11/18 08/10/18 Rx Levothyroxine [Synthroid] 150 mcg PO DAILY@0600 #30 tablet 07/17/18 08/11/18 08/11/18 Rx Pantoprazole [Protonix TAB] 40 mg PO QDAY #30 tablet 07/17/18 08/11/18 Unknown Rx Insulin Lispro [HumaLOG VIAL] 6 units SUB-Q AC 08/11/18 08/11/18 08/11/18 Hist ory ED Physical Exam - General Limitations: Other General appearance: obtunded - Head Head exam: Present: atraumatic, normocephalic - Eye Pupils: Present: other (pinpoint pupils bilaterally) - ENT ENT exam: Present: mucous membranes moist - Neck Neck exam: Present: normal inspection - Respiratory Respiratory exam: Present: other (sonorous respirations) - Cardiovascular Cardiovascular Exam: Present: regular rate, normal rhythm - GI/Abdominal GI/Abdominal exam: Present: soft. Absent: distended, tenderness - Extremities Exam Extremities exam: Present: pedal edema - Neurological Exam Neurological exam: Present: other (withdraws somewhat to painful stimuli) - Skin Skin exam: Present: warm, dry, intact ED Course Vital Signs 08/11/18 08/11/18 08/11/18 12:28 12:30 12:42 Temperature 91.3 F L Pulse Rate 69 Respiratory 11 L 10 L Rate Blood Pressure 137/81 O2 Sat by Pulse 100 99 Oximetry 08/11/18 08/11/18 08/11/18 12:46 13:00 13:16 Temperature Pulse Rate 69 65 68 Respiratory 19 13 11 L Rate Blood Pressure 129/89 122/77 117/81 O2 Sat by Pulse 100 100 100 Oximetry 08/11/18 08/11/18 08/11/18 13:30 13:46 14:00 Temperature Pulse Rate 69 71 86 Respiratory 9 L 7 L 17 Rate Blood Pressure 125/74 134/73 134/73 O2 Sat by Pulse 100 100 Oximetry 08/11/18 08/11/18 08/11/18 14:16 14:30 14:46 Temperature Pulse Rate 75 73 66 Respiratory 15 12 8 L Rate Blood Pressure 134/73 134/73 134/73 O2 Sat by Pulse Oximetry 08/11/18 08/11/18 08/11/18 15:00 15:16 15:30 Temperature Pulse Rate 94 H 68 79 Respiratory 14 10 L 16 Rate Blood Pressure 134/73 134/73 134/73 O2 Sat by Pulse Oximetry 08/11/18 08/11/18 15:46 16:00 Temperature Pulse Rate 82 78 Respiratory 15 16 Rate Blood Pressure 134/73 134/73 O2 Sat by Pulse Oximetry - Reevaluation(s) Reevaluation #1: 08/11/18 11:18 Central line placed. Pt given 2 amps of D50. Immediate improvement in mental s tatus. Pt awoke and slowly stated, "Am I in the hospital?" Pt currently A&O x2. Will repeat accucheck. - Central Line Placement Right Femoral Consent Obtained: emergent situation Time Out Performed: Yes Patient Placed on Monitor/Pulse Ox: Yes Prep: mask, gown, gloves Central Line Prep: Chlorhexidine scrub, sterile drapes applied Ultrasound Used for Placement: No Central Line Lumen Inserted: triple Bloods Obtained for Lab: No Central Line Position: good blood return, all ports aspirated, flus, sutured in place with nyl Dressing Applied: Tegaderm Patient Tolerated Procedure: well Complications: none - Lab Data Result diagrams: 08/11/18 11:40 08/11/18 11:40 Lab Results 08/11/18 08/11/18 08/11/18 Range/Units 11:23 11:40 11:40 WBC 5.7 (4.5-11.0) K/mm3 RBC 2.75 L (3.65-5.03) M/mm3 Hgb 9.0 L (11.8-15.2) gm/dl Hct 26.0 L (35.5-45.6) % MCV 94 (84-94) fl MCH 33 H (28-32) pg MCHC 35 H (32-34) % RDW 19.1 H (13.2-15.2) % Plt Count 268 (140-440) K/mm3 Lymph % (Auto) 8.2 L (13.4-35.0) % [place] % (Auto) 4.8 (0.0-7.3) % Eos % (Auto) 0.2 (0.0-4.3) % Baso % (Auto) 0.6 (0.0-1.8) % Lymph # 0.5 L (1.2-5.4) K/mm3 [place] # 0.3 (0.0-0.8) K/mm3 Eos # 0.0 (0.0-0.4) K/mm3 Baso # 0.0 (0.0-0.1) K/mm3 Seg Neutrophils % 86.2 H (40.0-70.0) % Seg Neutrophils # 4.9 (1.8-7.7) K/mm3 D-Dimer (0-234) ng/mlDDU Sodium 140 (137-145) mmol/L Potassium 3.9 (3.6-5.0) mmol/L Chloride 101.9 (98-107) mmol/L Carbon Dioxide 28 (22-30) mmol/L Anion Gap 14 mmol/L BUN 12 (9-20) mg/dL Creatinine 0.8 (0.8-1.5) mg/dL Estimated GFR > 60 ml/min BUN/Creatinine Ratio 15 % Glucose 144 H (75-100) mg/dL POC Glucose 189 H (70-105) Calcium 8.8 (8.4-10.2) mg/dL Troponin T 0.055 H (0.00-0.029) ng/mL NT-Pro-B Natriuret Pep (0-900) pg/mL Triglycerides 44 (2-149) mg/dL Cholesterol 201 H (50-199) mg/dL LDL Cholesterol Direct 83 (50-130) mg/dL HDL Cholesterol 126 H (40-59) mg/dL Cholesterol/HDL Ratio 1.59 % 08/11/18 08/11/18 Range/Units 12:39 13:29 WBC (4.5-11.0) K/mm3 RBC (3.65-5.03) M/mm3 Hgb (11.8-15.2) gm/dl Hct (35.5-45.6) % MCV (84-94) fl MCH (28-32) pg MCHC (32-34) % RDW (13.2-15.2) % Plt Count (140-440) K/mm3 Lymph % (Auto) (13.4-35.0) % [place] % (Auto) (0.0-7.3) % Eos % (Auto) (0.0-4.3) % Baso % (Auto) (0.0-1.8) % Lymph # (1.2-5.4) K/mm3 [place] # (0.0-0.8) K/mm3 Eos # (0.0-0.4) K/mm3 Baso # (0.0-0.1) K/mm3 Seg Neutrophils % (40.0-70.0) % Seg Neutrophils # (1.8-7.7) K/mm3 D-Dimer 2445.25 H (0-234) ng/mlDDU Sodium (137-145) mmol/L Potassium (3.6-5.0) mmol/L Chloride (98-107) mmol/L Carbon Dioxide (22-30) mmol/L Anion Gap mmol/L BUN (9-20) mg/dL Creatinine (0.8-1.5) mg/dL Estimated GFR ml/min BUN/Creatinine Ratio % Glucose (75-100) mg/dL POC Glucose (70-105) Calcium (8.4-10.2) mg/dL Troponin T (0.00-0.029) ng/mL NT-Pro-B Natriuret Pep 19.01 (0-900) pg/mL Triglycerides (2-149) mg/dL Cholesterol (50-199) mg/dL LDL Cholesterol Direct (50-130) mg/dL HDL Cholesterol (40-59) mg/dL Cholesterol/HDL Ratio % - EKG Data EKG shows normal: sinus rhythm, axis, intervals, QRS complexes, ST-T waves Rate: normal Interpretation: other (low voltage) - Radiology Data Radiology results: report reviewed, image reviewed - Medical Decision Making 63-year-old male presents with altered mental status, Accu-Chek was less than 20. Last seen normal at 5 p.m. yesterday. Right femoral central line was placed for IV access. 2 amps of D50 were given, patient immediately became responsive. Workup reveals evidence of UTI. WBCs normal, troponin mildly elevated at 0.05, with EKG showing low voltage, no ST changes. Chest x-ray and head CT both unremarkable. Patient is hypothermic, so Sarah hugger applied. IV Rocephin given for UTI. Patient will be admitted to hospitalist, Dr Cherry, for further workup. - Differential Diagnosis hypoglycemia, infection, CVA Critical Care Time: Yes Critical care time in (mins) excluding proc time.: 35 Critical care attestation.: If time is entered above; I have spent that time in minutes in the direct care of this critically ill patient, excluding procedure time. Critical Care Time: 35 minutes ED Disposition Clinical Impression: Hypoglycemia, Elevated troponin Hypothermia Qualifiers: Encounter type: initial encounter Qualified Code(s): T68.XXXA - Hypothermia, initial encounter UTI (urinary tract infection) Qualifiers: Encounter type: initial encounter Disposition: DC-09 OP ADMIT IP TO THIS HOSP Is pt being admited?: Yes Condition: Stable Time of Disposition: 12:53
[2018-08-11 11:59] LABS: Basophils % (Auto) 0.6 % (0.0-1.8); Eosinophils % (Auto) 0.2 % (0.0-4.3); Lymphocytes # (Auto) 0.5 K/mm3 (1.2-5.4); Lymphocytes % (Auto) 8.2 % (13.4-35.0); Mean Corpuscular HGB Conc 35 % (32-34); Mean Corpuscular Volume 94 fl (84-94); Monocytes # (Auto) 0.3 K/mm3 (0.0-0.8); Monocytes % (Auto) 4.8 % (0.0-7.3); Platelet Count 268 K/mm3 (140-440); Red Blood Count 2.75 M/mm3 (3.65-5.03); Red Cell Distribution Width 19.1 % (13.2-15.2)
--- NOTE | 2018-08-11 12:09 | Cat Scan Report ---
CT HEAD WITHOUT CONTRAST: HISTORY: Altered mental status. TECHNIQUE: Sequential CT images without contrast. FINDINGS: Images obtained show bilateral prominence of the sulci and ventricles. There are no abnormal intra- or extra-axial blood or fluid collections. There are no focal masses or evidence of mass effect. The escalante white matter differentiation appears within normal limits. Regions of periventricular decreased attenuation are consistent with microangiopathic ischemic disease. The posterior fossa structures including the fourth ventricle, cerebellum, and brainstem appear normal. IMPRESSION: Evidence of atrophy and microangiopathic ischemic disease. No acute intracranial process noted. No significant change since 07/12/18.
[2018-08-11 12:21] LABS: BUN/Creatinine Ratio 15; Blood Urea Nitrogen 12 mg/dL (9-20); Calcium 8.8 mg/dL (8.4-10.2); Hemolysis Index 7
[2018-08-11 12:28] LABS: Bilirubin,Urine NEG (Negative); Blood,Urine NEG (Negative); Color,Urine Yellow (Yellow); Protein,Urine <15 mg/dL mg/dL (Negative)
[2018-08-11 12:30] LABS: RBC,Urine < 1.0 /HPF (0.0-6.0)
[2018-08-11 12:38] LABS: LDL Cholesterol,Direct 83 mg/dL (50-130)
[2018-08-11 12:41] LABS: Chol/HDL Ratio 1.59 %; HDL Cholesterol 126 mg/dL (40-59)
[2018-08-11] MEDS ORDERED: ROCEPHIN/NS 1 GM/50 ML 1 GM/50 ML BAG IV ONE ×2 (12:44→16:32)
--- NOTE | 2018-08-11 13:03 | XRay Report ---
AP CHEST: HISTORY: Altered mental status There is poor inspiration. AP view of the chest demonstrates a normal mediastinal and cardiac contour with clear lungs and normal bony and soft tissue structures. IMPRESSION: Unremarkable AP chest.
--- NOTE | 2018-08-11 13:28 | History and Physical Report ---
History of Present Illness Chief complaint: confused History of present illness: 63 YO Male with HTN, DM, Hypothyroidism presents to ED for evaluation. Pt is confused and unable to provide history. Pt history provided by his daughter who is at bedside during exam and interview. Patient was in his usual state of health at 1700hrs on the day prior to admission. daughter reports, that upon returning home from work- she found the patient confused, and lying on the floor. Pt serum glucose was checked, and found to be 44. EMS notified, and uopn arrival the patient was found to be in distress with an Accu-Chek was 11. EMS reportedly gave 2 amps of D50, and patient was transported to [facility] ED. Pt seen and evaluated in ED and found to be confused and Encephalopathic at time of my exam with an accu-chek reading again less than 20, as well as hypothermia with a body core temperature of 91 degrees, and elevated cardiac enzymes with symptoms concerning for NSTEMI. Pt unable to provide detailed history. Pt also found to have UTI. Pt initiated on IV antibiotic therapy. Pt admitted to telemetry. Cardiology team consulted in ED. Prior admission on 05/16/18 reviewed. All listed medication reconciled at time of admission. Past History Past Medical History: diabetes, hypertension, hypothyroidism Past Surgical History: No surgical history, Other (reviewed) Social history: single. denies: smoking, alcohol abuse, prescription drug abuse Family history: diabetes, hypertension Medications and Allergies Allergies Allergy/AdvReac Type Severity Reaction Status Date / Time No Known Allergies Allergy Verified 08/11/18 11:07 Home Medications Medication Instructions Recorded Confirmed Last Taken Type Detemir (Nf) [Levemir (Nf)] 25 units SUB-Q QAM #2 vial 07/17/18 08/11/18 08/10/18 Rx Levothyroxine [Synthroid] 150 mcg PO DAILY@0600 #30 tablet 07/17/18 08/11/18 08/11/18 Rx Pantoprazole [Protonix TAB] 40 mg PO QDAY #30 tablet 07/17/18 08/11/18 Unknown Rx Insulin Lispro [HumaLOG VIAL] 6 units SUB-Q AC 08/11/18 08/11/18 08/11/18 History Review of Systems ROS unobtainable: due to mental status Exam - Constitutional Vitals: Temp Pulse Resp BP Pulse Ox 91.3 F L 69 10 L 137/81 99 08/11/18 12:42 08/11/18 12:30 08/11/18 12:30 08/11/18 12:30 08/11/18 12:30 General appearance: Present: mild distress - EENT Eyes: Present: PERRL ENT: hearing intact, clear oral mucosa - Neck Neck: Present: supple, normal ROM - Respiratory Respiratory effort: normal Respiratory: bilateral: CTA - Cardiovascular Heart Sounds: Present: S1 & S2. Absent: rub, click - Extremities Extremities: pulses symmetrical, No edema Peripheral Pulses: within normal limits - Abdominal General gastrointestinal: Present: soft, non-tender, non-distended, normal bowel sounds Male genitourinary: Present: normal - Integumentary Integumentary: Present: clear, warm, dry, clammy - Musculoskeletal Musculoskeletal: generalized weakness - Psychiatric Psychiatric: no appropriate mood/affect, no intact judgment & insight, no memory intact - Neurologic Neurologic: CNII-XII intact, no focal deficits, moves all extremities, no gait normal Results - Labs CBC & Chem 7: 08/11/18 11:40 08/11/18 11:40 Labs: Abnormal lab results 08/11/18 08/11/18 08/11/18 Range/Units 11:23 11:40 11:40 RBC 2.75 L (3.65-5.03) M/mm3 Hgb 9.0 L (11.8-15.2) gm/dl Hct 26.0 L (35.5-45.6) % MCH 33 H (28-32) pg MCHC 35 H (32-34) % RDW 19.1 H (13.2-15.2) % Lymph % (Auto) 8.2 L (13.4-35.0) % Lymph # 0.5 L (1.2-5.4) K/mm3 Seg Neutrophils % 86.2 H (40.0-70.0) % Glucose 144 H (75-100) mg/dL POC Glucose 189 H (70-105) Troponin T 0.055 H (0.00-0.029) ng/mL Cholesterol 201 H (50-199) mg/dL HDL Cholesterol 126 H (40-59) mg/dL Urine WBC (Auto) (0.0-6.0) /HPF 08/11/18 Range/Units Unknown RBC (3.65-5.03) M/mm3 Hgb (11.8-15.2) gm/dl Hct (35.5-45.6) % MCH (28-32) pg MCHC (32-34) % RDW (13.2-15.2) % Lymph % (Auto) (13.4-35.0) % Lymph # (1.2-5.4) K/mm3 Seg Neutrophils % (40.0-70.0) % Glucose (75-100) mg/dL POC Glucose (70-105) Troponin T (0.00-0.029) ng/mL Cholesterol (50-199) mg/dL HDL Cholesterol (40-59) mg/dL Urine WBC (Auto) 15.0 H (0.0-6.0) /HPF Assessment and Plan - Patient Problems (1) NSTEMI (non-ST elevated myocardial infarction) Current Visit: Yes Status: Acute Plan to address problem: Admit to telemetry, serial cardiac enzymes, ekg, echo conducted on 07/13/18 reviewed, cardiology consulted in ED, stress test, (2) Hypoglycemia Current Visit: Yes Status: Acute Plan to address problem: D50, serial accu checks, hold antihyperglycemic medication for 12 hours. (3) Hypothermia Current Visit: Yes Status: Acute Qualifiers: Encounter type: initial encounter Qualified Code(s): T68.XXXA - Hypothermia, initial encounter Plan to address problem: Thyroid panel, warming blanket, repeat (4) UTI (urinary tract infection) Current Visit: Yes Status: Acute Qualifiers: Encounter type: initial encounter Plan to address problem: IV antibiotic therapy, cbc, bmp, urinalysis, (5) Acute metabolic encephalopathy Current Visit: No Status: Acute Plan to address problem: CT head, neuro checks, seizure precautions, aspiration precautions, thyroid panel (6) DVT prophylaxis Current Visit: Yes Status: Acute Plan to address problem: SCD to BLE while in bed, Prophylactic Lovenox
[2018-08-11] MEDS ORDERED: SODIUM CHLORIDE FLUSH SYRINGE 10 ML IV PRN ×2 (13:38→13:42)
[2018-08-11] MEDS ORDERED: NITROSTAT SL PRN (13:38)
[2018-08-11] MEDS ORDERED: BABY ASPIRIN PO STA (13:41)
[2018-08-11] MEDS ORDERED: TYLENOL PO PRN (13:42)
[2018-08-11] MEDS ORDERED: ZOFRAN IV PRN (13:42)
[2018-08-11] MEDS ORDERED: PROVENTIL IH PRN (13:42)
[2018-08-11] MEDS ORDERED: D50W (25GM) Syringe IV PRN (15:35)
[2018-08-11] MEDS ORDERED: ASPIRIN ONE (16:32)
[2018-08-11 16:33] LABS: Free T4 (Free Thyroxine) 0.52 ng/dL (0.76-1.46)
[2018-08-11] MEDS: ROCEPHIN/NS 1 GM/50 ML 1 GM/50 ML BAG IV SCH (16:33)
--- NOTE | 2018-08-11 17:20 | Cat Scan Report ---
PROCEDURE: CT ANGIO CHEST TECHNIQUE: CT chest CT angiogram with intravenous contrast HISTORY: chest pain COMPARISONS: FINDINGS: There is no evidence of filling defect within the central pulmonary vasculature to suggest presence o f acute pulmonary embolus. The thoracic aorta is unremarkable. There are moderate layering bilateral pleural effusions. There is more focal infiltrate/atelectasis w ithin the posterior right lower lobe with some air bronchograms present The fatty tissues have a diffusely hazy appearance. Spleen is small in size. IMPRESSION: Moderate bilateral layering pleural effusions Right lower lobe infiltrate/atelectasis Findings suggestive of anasarca. This document is electronically signed by Manav Bustillos MD., August 11 2018 05:18:35 PM ET
[2018-08-11] MEDS: HumaLOG SUB-Q SCH ×2 (18:03→21:46)
[2018-08-11] MEDS: SODIUM CHLORIDE FLUSH SYRINGE 10 ML IV SCH (21:44)
[2018-08-11] MEDS ORDERED: LOVENOX SUB-Q SCH (22:00)
[2018-08-12] MEDS: SYNTHROID PO SCH (05:54)
[2018-08-12] MEDS: HumaLOG SUB-Q SCH ×4 (08:00→22:23)
[2018-08-12] MEDS: SODIUM CHLORIDE FLUSH SYRINGE 10 ML IV SCH ×2 (09:06→22:23)
[2018-08-12] MEDS ORDERED: LEXISCAN IV ONE ×2 (09:59→10:05)
[2018-08-12] MEDS ORDERED: LOVENOX SUB-Q SCH (11:30)
--- NOTE | 2018-08-12 12:08 | Consultation ---
History of Present Illness Consult date: 08/12/18 Consult reason: chest pain History of present illness: 63 YO Male with HTN, DM, Hypothyroidism presents to ED for confusion. glucose was foung to be 44. Troponin checked and noted to be mildly elevated. Troponin was also mildly elevated last month. Patient denies chest pain or shortness of breath. Patient denies previous history of cardiac disease. ECG showing no ischemic changes. Past History Past Medical History: diabetes, hypertension, hypothyroidism Past Surgical History: No surgical history, Other (reviewed) Social history: single. denies: smoking, alcohol abuse, prescription drug abuse Family history: diabetes, hypertension Medications and Allergies Allergies Allergy/AdvReac Type Severity Reaction Status Date / Time No Known Allergies Allergy Verified 08/11/18 11:07 Home Medications Medication Instructions Recorded Confirmed Last Taken Type Detemir (Nf) [Levemir (Nf)] 25 units SUB-Q QAM #2 vial 07/17/18 08/11/18 08/10/18 Rx Levothyroxine [Synthroid] 150 mcg PO DAILY@0600 #30 tablet 07/17/18 08/11/18 08/11/18 Rx Pantoprazole [Protonix TAB] 40 mg PO QDAY #30 tablet 07/17/18 08/11/18 Unknown Rx Insulin Lispro [HumaLOG VIAL] 6 units SUB-Q AC 08/11/18 08/11/18 08/11/18 History Active Meds: Active Medications Acetaminophen (Tylenol) 650 mg PO Q4H PRN PRN Reason: Pain MILD(1-3)/Fever >100.5/GARCIA Albuterol (Proventil) 2.5 mg IH Q4HRT PRN PRN Reason: Shortness Of Breath Aspirin (Aspirin) 325 mg PO QDAY ISAIAS Atorvastatin Calcium (Lipitor) 40 mg PO QHS ISAIAS Dextrose (D50w (25gm) Syringe) 50 ml IV PRN PRN PRN Reason: Hypoglycemia Enoxaparin Sodium (Lovenox) 100 mg SUB-Q Q12HR ISAIAS Ceftriaxone Sodium (Rocephin/Ns 1 Gm/50 Ml) 1 gm in 50 mls @ 100 mls/hr IV Q24H ISAIAS; Protocol Last Admin: 08/11/18 16:33 Dose: 100 mls/hr Documented by: Insulin Human Lispro (Humalog) 0 unit SUB-Q ACHS ISAIAS; Protocol Last Admin: 08/12/18 08:00 Dose: Not Given Documented by: Levothyroxine Sodium (Synthroid) 150 mcg PO DAILY@0600 [facility] Last Admin: 08/12/18 05:54 Dose: 150 mcg Documented by: Nitroglycerin (Nitrostat) 0.4 mg SL Q5M PRN PRN Reason: Chest Pain Ondansetron HCl (Zofran) 4 mg IV Q8H PRN PRN Reason: Nausea And Vomiting Pantoprazole Sodium (Protonix) 40 mg PO QDAY [facility] Sodium Chloride (Sodium Chloride Flush Syringe 10 Ml) 10 ml IV PRN PRN PRN Reason: LINE FLUSH Sodium Chloride (Sodium Chloride Flush Syringe 10 Ml) 10 ml IV BID [facility] Last Admin: 08/12/18 09:06 Dose: 10 ml Documented by: Review of Systems All systems: negative Physical Examination Vital Signs Resp Pulse Ox 11 L 100 08/11/18 12:28 08/11/18 12:28 General appearance: no acute distress HEENT: Positive: PERRL Neck: Positive: neck supple Cardiac: Positive: Reg Rate and Rhythm Lungs: Positive: Normal Exam Neuro: Positive: Grossly Intact Abdomen: Positive: Soft Extremities: Present: normal Results 08/11/18 11:40 08/11/18 11:40 Lipids 08/11/18 Range/Units 11:40 Triglycerides 44 (2-149) mg/dL Cholesterol 201 H (50-199) mg/dL HDL Cholesterol 126 H (40-59) mg/dL Cholesterol/HDL Ratio 1.59 % Comprehensive Metabolic Panel 08/11/18 Range/Units 11:40 Sodium 140 (137-145) mmol/L Potassium 3.9 (3.6-5.0) mmol/L Chloride 101.9 (98-107) mmol/L Carbon Dioxide 28 (22-30) mmol/L BUN 12 (9-20) mg/dL Creatinine 0.8 (0.8-1.5) mg/dL Glucose 144 H (75-100) mg/dL Calcium 8.8 (8.4-10.2) mg/dL - EKG Interpretation EKG: sinus rhythm EKG interpretations - Telemetry EKG Rhythm: Sinus Rhythm Assessment and Plan Confusion secondary to hypoglycemia Type II DM Systemic Hypertension Non-specific troponin Normal MPI this admission Hypothyroidism Anemia Moderate bilateral pleural effusions and anasarca on CT chest likely related to profound hypothyroidism Abnormal ECG showing low voltage secondary to hypothyroidism Recommendations: Management of hypoglycemia and hypothyroidism per primary team No further cardiac work-up is needed
[2018-08-12] MEDS: ASPIRIN PO SCH (12:58)
[2018-08-12] MEDS: PROTONIX PO SCH (12:58)
[2018-08-12] MEDS ORDERED: SYNTHROID IV ONE (13:00)
[2018-08-12] MEDS: D5NS 1,000 ML IV SCH (13:16)
[2018-08-12] MEDS: ROCEPHIN/NS 1 GM/50 ML 1 GM/50 ML BAG IV SCH (16:00)
--- NOTE | 2018-08-12 17:01 | Progress Note ---
Assessment and Plan / NSTEMI (non-ST elevated myocardial infarction) type 2 Admited to telemetry, monitored with serial cardiac enzymes, ekg, echo conducted on 07/13/18 reviewed, cardiology consulted in ED, stress test today was normal with Ef 57%, s/p therapeutic dose of lovenox, cont aspirin and statin / Hypoglycemia s/p D50, cont serial accu checks, SSI only start on d5 NS / Hypothyroidism started on synthroid po, will give one dose iv / UTI (urinary tract infection) and RLL PNA- likely CAP IV antibiotic therapy, urine cx/ sputum cx was not obtained on admission / Acute metabolic encephalopathy due to hypoglycemia CT head w/o any acute process will do PT eval / DVT prophylaxis lovenox Brief history: 63 YO Male with HTN, DM, Hypothyroidism presents to ED for confusion. glucose was foung to be 44. Troponin checked and noted to be mildly elevated. Troponin was also mildly elevated last month. Patient denies chest pain or shortness of breath. Patient denies previous history of cardiac disease. ECG showing no ischemic changes. CTA chest showed Moderate bilateral layering pleural effusions, Right lower lobe infiltrate/atelectasis. Radiological data: CTA chest : Moderate bilateral layering pleural effusions, Right lower lobe infiltrate/atelectasis, Findings suggestive of anasarca. CT head: Evidence of atrophy and microangiopathic ischemic disease. No acute intracranial process noted. No significant change since 07/12/18. CXR: Unremarkable AP chest. Subjective Date of service: 08/12/18 Interval history: patient seen and examined denies chest pain, no confusion, had stress test this am BG was 62 this am Objective - Constitutional Vitals: Vital Signs - 12hr 08/12/18 08/12/18 08/12/18 06:46 08:46 10:03 Temperature 98.0 F Pulse Rate 67 Respiratory 18 Rate Blood Pressure 121/78 120/79 08/12/18 08/12/18 08/12/18 10:32 10:35 10:36 Temperature Pulse Rate Respiratory Rate Blood Pressure 111/70 129/87 121/77 08/12/18 08/12/18 10:37 14:00 Temperature Pulse Rate 75 Respiratory Rate Blood Pressure 119/80 General appearance: Present: no acute distress, well-nourished - EENT Eyes: PERRL, EOM intact ENT: hearing intact, clear oral mucosa Ears: bilateral: normal - Neck Neck: supple, normal ROM - Respiratory Respiratory effort: normal Respiratory: bilateral: CTA - Cardiovascular Rhythm: regular Heart Sounds: Present: S1 & S2. Absent: gallop, rub Extremities: pulses intact, No edema, normal color, Full ROM - Gastrointestinal General gastrointestinal: Present: soft, non-tender, non-distended, normal bowel sounds - Integumentary Integumentary: clear, warm, dry - Musculoskeletal Musculoskeletal: 1, strength equal bilaterally - Neurologic Neurologic: moves all extremities - Psychiatric Psychiatric: memory intact, appropriate mood/affect, intact judgment & insight - Labs CBC & Chem 7: 08/11/18 11:40 08/11/18 11:40 Labs: Abnormal lab results 08/11/18 08/11/18 08/11/18 Range/Units 10:57 18:05 20:55 POC Glucose < 40 L 65 L (70-105) Troponin T 0.040 H D (0.00-0.029) ng/mL 08/11/18 08/12/18 08/12/18 Range/Units 21:43 12:28 16:03 POC Glucose 112 H 62 L 225 H (70-105) Troponin T (0.00-0.029) ng/mL
--- NOTE | 2018-08-12 17:47 | Treadmill Report ---
ORDERING PHYSICIAN: Dr. Banuelos. INDICATION: Chest pain. FINDINGS: There is no scintigraphic evidence of myocardial ischemia. The left ventricle is normal in size and systolic function. Left ventricular ejection fraction is measured at 57%. Normal wall motion and wall thickening. CONCLUSION: Normal perfusion scan. JOB# [id number] AKD/NTS
[2018-08-13] MEDS: SYNTHROID PO SCH (05:36)
[2018-08-13] MEDS: D5NS 1,000 ML IV SCH (05:37)
[2018-08-13] MEDS: HumaLOG SUB-Q SCH ×4 (08:00→21:58)
[2018-08-13] MEDS ORDERED: LOVENOX SUB-Q ONE (09:26)
[2018-08-13] MEDS: ASPIRIN PO SCH (10:00)
[2018-08-13] MEDS: PROTONIX PO SCH (10:01)
[2018-08-13] MEDS: SODIUM CHLORIDE FLUSH SYRINGE 10 ML IV SCH ×2 (10:02→21:57)
[2018-08-13] MEDS: LOVENOX SUB-Q SCH (10:03)
--- NOTE | 2018-08-13 12:30 | Discharge Summary ---
Providers - Providers Date of Admission: 08/11/18 13:42 Date of discharge: 08/14/18 Attending physician: MALLORY HERNANDEZ 08/11/18 Consult to Cardiac Rehabilitation [CONS] Routine Reason For Exam: Phase I 08/11/18 13:38 Consult to Cardiology [CONS] Routine Consulting Provider: MARISOL POWERS Reason For Exam: CHF/NESTMI/atrial fib Primary care physician: LAMINATION OPERATOR Hospitalization Reason for admission: AMS Condition: Stable Hospital course: Brief history: 63 YO Male with HTN, DM, Hypothyroidism presents to ED for confusion. glucose was found to be 44. Troponin checked and noted to be mildly elevated. Troponin was also mildly elevated last month. Patient denies chest pain or shortness of breath. Patient denies previous history of cardiac disease. ECG showing no ischemic changes. CTA chest showed Moderate bilateral layering pleural effusions, Right lower lobe infiltrate/atelectasis. Stress test was normal. Monitored BG, stopped long acting insulin. BG improved, treated for UTI and PNA, stress test was normal. Patient was then discharged home in stable condition with HH and outpt followup. Radiological data: CTA chest : Moderate bilateral layering pleural effusions, Right lower lobe infiltrate/atelectasis, Findings suggestive of anasarca. CT head: Evidence of atrophy and microangiopathic ischemic disease. No acute intracranial process noted. No significant change since 07/12/18. CXR: Unremarkable AP chest. Exercise stress test: normal with Ef 57% Discharge diagnosis and management: / NSTEMI (non-ST elevated myocardial infarction) type 2 Admited to telemetry, monitored with serial cardiac enzymes, ekg, echo conducted on 07/13/18 reviewed, cardiology consulted in ED, stress test today was normal with Ef 57%, s/p therapeutic dose of lovenox, cont aspirin and statin / Hypoglycemia s/p D50, then started on d5 NS cont serial accu checks, SSI only d/c D5 as BG much improved now / Hypothyroidism started on synthroid po, s/p one dose iv / UTI (urinary tract infection) and RLL PNA- likely CAP Placed on IV antibiotic therapy, urine cx/ sputum cx was not obtained on admission / Acute metabolic encephalopathy due to hypoglycemia, resoled CT head w/o any acute process / DVT prophylaxis lovenox Disposition: home with HH Disposition: DC/TX-06 HOME UNDER HOME [facility] Time spent for discharge: 34 minutes Core Measure Documentation - Palliative Care Palliative Care/ Comfort Measures: Not Applicable - Core Measures Any of the following diagnoses?: none Exam - Constitutional Vitals: Temp Pulse Resp BP Pulse Ox 98.2 F 75 16 129/80 97 08/13/18 07:59 08/13/18 06:00 08/13/18 10:00 08/13/18 07:59 08/13/18 09:30 Plan Activity: advance as tolerated, fall precautions Weight Bearing Status: Non-Weight Bearing Diet: low fat, diabetic Follow up with: PRIMARY CARE,MD [Primary Care Provider] - 3-5 Days Prescriptions: AtorvaSTATin [Lipitor] 40 mg PO QHS #30 tablet Aspirin [Aspirin BABY CHEW TAB] 81 mg PO QDAY #30 tab.chew Pantoprazole [Protonix TAB] 40 mg PO QDAY #30 tablet Levothyroxine [Synthroid] 25 mcg PO DAILY@0600 #30 tablet
--- NOTE | 2018-08-13 12:33 | Progress Note ---
Assessment and Plan Confusion secondary to hypoglycemia Type II DM Systemic Hypertension Non-specific troponin Normal MPI this admission Hypothyroidism Anemia Moderate bilateral pleural effusions and anasarca on CT chest likely related to profound hypothyroidism Abnormal ECG showing low voltage secondary to hypothyroidism No further cardiac work-up is needed Subjective Date of service: 08/13/18 Interval history: Patient has no cardiac complaints. Objective Vital Signs Temp Pulse Resp BP Pulse Ox 08/13/18 10:00 16 08/13/18 09:30 97 08/13/18 07:59 98.2 F 18 129/80 08/13/18 06:00 75 08/13/18 04:22 98.3 F 72 20 112/68 97 08/13/18 00:16 98.8 F 99 H 20 127/88 99 08/12/18 21:46 98 08/12/18 20:19 98.3 F 82 20 109/68 99 08/12/18 17:43 98.0 F 18 127/94 08/12/18 16:00 97.2 F L 18 137/79 08/12/18 14:00 75 - Physical Examination General: No Apparent Distress HEENT: Positive: PERRL Neck: Positive: neck supple Cardiac: Positive: Reg Rate and Rhythm Lungs: Positive: Decreased Breath Sounds Neuro: Positive: Grossly Intact Abdomen: Positive: Soft Extremities: Present: normal
[2018-08-13] MEDS: ROCEPHIN/NS 1 GM/50 ML 1 GM/50 ML BAG IV SCH (15:53)
[2018-08-14] MEDS: SYNTHROID PO SCH (05:09)
[2018-08-14] MEDS ORDERED: SYNTHROID PO SCH (08:40)
[2018-08-14] MEDS: HumaLOG SUB-Q SCH ×2 (08:44→13:28)
[2018-08-14] MEDS: LOVENOX SUB-Q SCH (10:39)
[2018-08-14] MEDS: ASPIRIN PO SCH (10:39)
[2018-08-14] MEDS: PROTONIX PO SCH (10:39)
[2018-08-14] MEDS: SODIUM CHLORIDE FLUSH SYRINGE 10 ML IV SCH (10:40)
[2018-08-14] MEDS ORDERED: HumaLOG SUB-Q SCH (11:30)
--- NOTE | 2018-08-14 15:23 | Progress Note ---
Assessment and Plan / NSTEMI (non-ST elevated myocardial infarction) type 2 Admited to telemetry, monitored with serial cardiac enzymes, ekg, echo conducted on 07/13/18 reviewed, cardiology consulted in ED, stress test today was normal with Ef 57%, s/p therapeutic dose of lovenox, cont aspirin and statin / Hypoglycemia s/p D50, then started on d5 NS cont serial accu checks, SSI only d/c D5 as BG much improved now / Hypothyroidism started on synthroid po, s/p one dose iv / UTI (urinary tract infection) and RLL PNA- likely CAP IV antibiotic therapy, urine cx/ sputum cx was not obtained on admission / Acute metabolic encephalopathy due to hypoglycemia CT head w/o any acute process will follow PT eval / DVT prophylaxis lovenox Disposition: family requesting rehab, will follow PT eval Brief history: 63 YO Male with HTN, DM, Hypothyroidism presents to ED for confusion. glucose was foung to be 44. Troponin checked and noted to be mildly elevated. Troponin was also mildly elevated last month. Patient denies chest pain or shortness of breath. Patient denies previous history of cardiac disease. ECG showing no ischemic changes. CTA chest showed Moderate bilateral layering pleural effusions, Right lower lobe infiltrate/atelectasis. Radiological data: CTA chest : Moderate bilateral layering pleural effusions, Right lower lobe infiltrate/atelectasis, Findings suggestive of anasarca. CT head: Evidence of atrophy and microangiopathic ischemic disease. No acute intracranial process noted. No significant change since 07/12/18. CXR: Unremarkable AP chest. Subjective Date of service: 08/13/18 Interval history: patient seen and examined denies chest pain, no confusion, Family requesting rehab, PT eval pending Objective - Exam Narrative Exam: General appearance: Present: no acute distress, well-nourished - EENT Eyes: PERRL, EOM intact ENT: hearing intact, clear oral mucosa Ears: bilateral: normal - Neck Neck: supple, normal ROM - Respiratory Respiratory effort: normal Respiratory: bilateral: CTA - Cardiovascular Rhythm: regular Heart Sounds: Present: S1 & S2. Absent: gallop, rub Extremities: pulses intact, No edema, normal color, Full ROM - Gastrointestinal General gastrointestinal: Present: soft, non-tender, non-distended, normal bowel sounds - Integumentary Integumentary: clear, warm, dry - Musculoskeletal Musculoskeletal: 1, strength equal bilaterally - Neurologic Neurologic: moves all extremities - Psychiatric Psychiatric: memory intact, appropriate mood/affect, intact judgment & insight - Constitutional Vitals: Vital Signs - 12hr 08/14/18 08/14/18 08/14/18 04:37 06:30 09:01 Temperature 98.4 F Pulse Rate 79 74 88 Respiratory 18 18 Rate Blood Pressure 123/76 131/82 O2 Sat by Pulse 97 95 Oximetry 08/14/18 08/14/18 09:03 09:18 Temperature 98.3 F Pulse Rate 74 Respiratory Rate Blood Pressure O2 Sat by Pulse Oximetry - Labs CBC & Chem 7: 08/11/18 11:40 08/11/18 11:40 Labs: Abnormal lab results 08/13/18 08/14/18 08/14/18 Range/Units 16:28 08:06 12:15 POC Glucose 179 H 277 H 224 H (70-105)
[2018-08-14 16:27] VITALS: BP 111/65
[2018-08-15] MEDS ORDERED: SYNTHROID PO SCH ×2 (06:00)
== END 2018-08-14 18:35 | disposition home health service (06) | DRG 280 ==
LOC: ED 10:50 → 4A 13:42
PROVIDERS: ADMIT Internal Medicine; ATTEND Internal Medicine
PROC: 06HY33Z Insertion of Infusion Device into Lower Vein, Percutaneous Approach (ICD-10-PCS; principal; 2018-08-11)
DX: I21.A1 Myocardial infarction type 2 (principal); G93.41 Metabolic encephalopathy; N39.0 Urinary tract infection, site not specified; I10 Essential (primary) hypertension; R68.0 Hypothermia, not associated with low environmental temperature; F12.90 Cannabis use, unspecified, uncomplicated; E11.649 Type 2 diabetes mellitus with hypoglycemia without coma; E03.9 Hypothyroidism, unspecified; Z83.3 Family history of diabetes mellitus; Z82.49 Family history of ischemic heart disease and other diseases of the circulatory system; Z79.899 Other long term (current) drug therapy; Z79.4 Long term (current) use of insulin; Z72.89 Other problems related to lifestyle
CPT/HCPCS: 36415; 70450; 71045; 71275; 78452; 80048; 80061; 81001; 82962; 83880; 84439; 84443; 84484; 85025; 85379; 93005; 93010; 93017; G0378; A9270-GY; A9502; J0696; J1650; J1815; J2785; J7042; Q9967